=== PATIENT | male | born 1950 | race Caucasian/White ===

== ENCOUNTER 2016-11-02 11:00 | Inpatient (IN) ==
[2016-11-02] MEDS ORDERED: Aspirin 81 MG TAB.CHEW PO ONE (11:16)
--- NOTE | 2016-11-02 11:24 | Emergency Department Note ---
Disposition Clinical Impression: A-fib Qualifiers: Atrial fibrillation type: unspecified Qualified Code(s): I48.91 - Unspecified atrial fibrillation Disposition: Admitted As Inpatient Condition: Good Referrals: Matt Grajeda Jr, MD [Primary Care Provider] - Forms: ED Satisfaction Letter General Adult HPI - General Chief complaint: ED Chest Pain Stated complaint: a-fib, from UC Time Seen by Provider: 11/02/16 11:10 Source: patient Mode of arrival: ambulatory Limitations: no limitations Nursing Notes Reviewed: Yes Vital Signs Reviewed: Yes - History of Present Illness HPI Narrative: 66 YO M history of hypertension and remote stent placed 5 or 6 years ago presents for evaluation of shortness of breath and sent from urgent care for new onset A. fib. Patient denies a history of A. fib in the past. Patient states he has been feeling short of breath for the past 2 weeks. Denies any chest pain does feel as his heart is racing. Patient denies any fever. Denies any change in cough. Patient states that he does not take any medications. Seen in urgent care today for a rash, short of breath and difficulty sleeping. Pain Scale: 0 - Related Data Home Medications Medication Instructions Recorded Confirmed Ascorbate Calcium [Vitamin C] 500 mg PO DAILY 11/02/16 11/02/16 Aspirin 11/02/16 11/02/16 Multivitamin [Multi-Day Vitamins] 1 tab PO DAILY 11/02/16 11/02/16 [place]-3/Dha/Epa/Fish Oil [Fish Oil 1,000 mg PO DAILY 11/02/16 11/02/16 1,000 mg Softgel] Vitamin E 100 unit PO DAILY 11/02/16 11/02/16 Allergies Allergy/AdvReac Type Severity Reaction Status Date / Time No Known Allergies Allergy Verified 11/02/16 10:09 All systems ED: reviewed and negative except as stated. Constitutional: Reports: as per HPI. Denies: fever Eyes: Reports: as per HPI ENT ED: Reports: as per HPI Cardiovascular: Reports: as per HPI, palpitations. Denies: chest pain Respiratory: Reports: as per HPI, cough, dyspnea Gastrointestinal: Reports: as per HPI Genitourinary: Reports: as per HPI Musculoskeletal: Reports: as per HPI Integumentary: Reports: as per HPI Neurological: Reports: as per HPI Psychiatric: Reports: as per HPI Past Medical History - Past Medical History Medical history: Reports: atrial fibrillation, hyperlipidemia, other Psychiatric history: Reports: no psych history - Social History Smoking Status: Current every day smoker Smokeless Tobacco Status: No Alcohol use: Reports: occasionally Drug use: Reports: none Physical Exam - General Limitations: no limitations General appearance: alert - Head Head exam: atraumatic, normal inspection - Eye Eye exam: Present: normal appearance, EOMI - ENT ENT exam: normal exam, mucous membranes moist - Neck Neck exam: Present: normal inspection, trachea midline - Chest Chest inspection: Present: normal inspection, symmetric chest wall rise - Respiratory Respiratory exam: Present: normal lung sounds bilaterally. Absent: respiratory distress - Cardiovascular Cardiovascular exam: Present: tachycardia, irregular rhythm, normal heart sounds. Absent: systolic murmur - Abdominal Exam Abdominal exam: Present: soft, Non-Tender - Extremities Exam Extremities exam: Present: normal inspection. Absent: pedal edema - Back Exam Back exam: Present: normal inspection - Neurological Exam Neurological exam: Present: alert, CN II-XII intact - Psychiatric Psychiatric exam: Present: normal affect - Skin Skin exam: Present: warm, dry, intact, normal color, rash (Rash on his right lower extremity as well as anterior chest) Course Course Narrative: Patient seen and examined upon arrival. Patient was noted to be tachycardic with a rate in the 160s to 70s. Patient's blood pressure is been systolic in the 140s. Patient denies any chest pain. Patient denies any history of A. fib in the past. No anticoagulation. Patient states symptoms possible onset 2 weeks ago. Patient will get a cardiac evaluation, IV fluids, rate control, likely admission to the hospital service for further evaluation. - Reevaluation(s) Reevaluation #1: Patient's heart rate did not respond to initial bolus of 20 mg of Cardizem. Patient was started on a drip to help obtain better rate control. Patient's vitals are stable. Time: 12:22 Vital Signs Temperature 97.5 F L 11/02/16 11:09 Pulse Rate 163 11/02/16 11:09 Respiratory Rate 18 11/02/16 11:09 Blood Pressure 156/134 11/02/16 11:09 O2 Sat by Pulse Oximetry 96 11/02/16 11:09 Temperature 97.5 F L 11/02/16 11:09 Pulse Rate 118 11/02/16 12:51 Respiratory Rate 16 11/02/16 12:51 Blood Pressure 147/117 11/02/16 12:51 O2 Sat by Pulse Oximetry 93 11/02/16 12:51 Oxygen Delivery Oxygen Delivery Nasal Cannula Medical Decision Making - [facility] Narrative Medical decision making narrative: Patient presents with a new onset A. fib. Patient denies any chest pain but has been noting shortness of breath for the past 2 weeks. Patient's lab work reviewed. Patient does have a mildly elevated d-dimer but according to age adjusted d-dimer does not warrant any CTA of the chest to rule out any pulmonary embolism. Patient has a well score of 4 and a negative d-dimer effectively rules out a pulmonary embolism. Patient's heart rate was initially in the 170s and 80s. Patient was bolused with Cardizem as well as started on a drip. Patient's heart responded. Patient's blood pressures remained stable. Patient denies any specific pain. Patient got 4 baby aspirin in the emergency department and will be anticoagulated. - Lab Data Lab results reviewed: Yes I reviewed the patient's lab results. Result diagrams: 11/02/16 11:21 11/02/16 11:21 Lab Results 11/02/16 11/02/16 11/02/16 Range/Units 11:21 11:21 11:21 WBC 9.1 (4.3-11.1) K/mcL RBC 5.24 (4.19-5.50) M/mcL Hgb 16.1 (12.9-16.9) g/dL Hct 48.1 (37.5-50.1) % MCV 91.8 (83.0-100.0) fL MCH 30.7 (28.0-33.3) pg MCHC 33.5 (31.6-35.5) g/dL RDW 14.3 (11.5-14.5) % Plt Count 279 (140-400) K/mcL MPV 11.0 (9.4-12.4) fL Immature Gran % 0.6 (0-4) % Seg Neutrophils % 64.4 % Lymphocytes % 19.7 % Monocytes % 13.4 % Eosinophils % 1.1 % Basophils % 0.8 % Neutrophils # 5.9 (1.6-8.9) K/mcL Lymphocytes # 1.8 (0.6-4.6) K/mcL Monocytes # 1.2 (0.0-1.3) K/mcL Eosinophils # 0.1 (0.0-0.6) K/mcL Basophils # 0.1 (0.0-0.2) K/mcL PT 16.7 H (9.4-12.1) Seconds INR 1.5 APTT 33.3 (26.0-36.0) Seconds D-Dimer 598 H (0-500) ng/mLFEU Sodium (136-145) mEq/L Potassium (3.5-4.5) mEq/L Chloride (98-109) mEq/L Carbon Dioxide (19-29) mEq/L BUN (8-26) mg/dL Creatinine (0.72-1.25) mg/dL Est GFR ( Amer) (> 60) Est GFR (Non-Af Amer) (> 60) BUN/Creatinine Ratio (6-26) Glucose (70-99) mg/dL Calculated Osmolality (280-300) Calcium (8.6-10.8) mg/dL Phosphorus (2.3-4.7) mg/dL Magnesium (1.6-2.6) mg/dL Troponin I (0-0.03) ng/mL B-Natriuretic Peptide 239 H (0-100) pg/mL TSH (0.350-4.840) mcIU/mL 11/02/16 11/02/16 Range/Units 11:21 11:21 WBC (4.3-11.1) K/mcL RBC (4.19-5.50) M/mcL Hgb (12.9-16.9) g/dL Hct (37.5-50.1) % MCV (83.0-100.0) fL MCH (28.0-33.3) pg MCHC (31.6-35.5) g/dL RDW (11.5-14.5) % Plt Count (140-400) K/mcL MPV (9.4-12.4) fL Immature Gran % (0-4) % Seg Neutrophils % % Lymphocytes % % Monocytes % % Eosinophils % % Basophils % % Neutrophils # (1.6-8.9) K/mcL Lymphocytes # (0.6-4.6) K/mcL Monocytes # (0.0-1.3) K/mcL Eosinophils # (0.0-0.6) K/mcL Basophils # (0.0-0.2) K/mcL PT (9.4-12.1) Seconds INR APTT (26.0-36.0) Seconds D-Dimer (0-500) ng/mLFEU Sodium 137 (136-145) mEq/L Potassium 3.7 (3.5-4.5) mEq/L Chloride 104 (98-109) mEq/L Carbon Dioxide 23 (19-29) mEq/L BUN 14 (8-26) mg/dL Creatinine 1.18 (0.72-1.25) mg/dL Est GFR ( Amer) > 60 (> 60) Est GFR (Non-Af Amer) > 60 (> 60) BUN/Creatinine Ratio 12 (6-26) Glucose 103 H (70-99) mg/dL Calculated Osmolality 285 (280-300) Calcium 9.3 (8.6-10.8) mg/dL Phosphorus 2.9 (2.3-4.7) mg/dL Magnesium 2.0 (1.6-2.6) mg/dL Troponin I 0.02 (0-0.03) ng/mL B-Natriuretic Peptide (0-100) pg/mL TSH 1.136 (0.350-4.840) mcIU/mL - Radiology Data Radiology results reviewed: Yes I reviewed the patient's radiology results. Chest X-Ray 11/02/16 11:16 IMPRESSION: Vascular congestion with suggestion of early bibasilar interstitial edema. Left perihilar airspace disease may be due to edema, atelectasis or pneumonia. Small bilateral pleural effusions are suggested. D/ / Jhon Wade MD / Jhon Wade MD Interpreting Provider: Jhon Wade MD - EKG Data EKG #1 Rate: tachycardia Rhythm: A.Fib, torsades T wave inversions noted in: v5, v6 When compared to previous EKG there are: changes noted (2011) Interpretation: nonspecific ST-T wave changes, other (A. fib RVR) S.B.A.R. - S.B.A.R. Situation: Demographics Background: Presenting Complaint, Relevant PMH, Meds, & Allergies Assessment: Vital Signs, Course and respsone to treatment Recommendation: Barrier(s) to disposition, Recommendation based on pending studies, treatments, or consults Mica Report Given to: Dr. Aissatou Nino Repor Time: 13:18
--- NOTE | 2016-11-02 11:30 | Emergency Department Note ---
START Narrative - START START: I examined this patient and my medical decision-making was reviewed with the MIXING ENGINEER/PA/Advanced Practice Nurse/Resident Physician. I agree with the documented findings, disposition and treatment plan as described except to the extent set forth below. ED attending note: Patient seen with emergency medicine resident Dr Wooten. We independently evaluated the patient. We independently had [id number] contact with the patient. Please see a copy of his note for details of the history and physical, evaluation, management and disposition of this emergency Department patient. Briefly: 66-year-old male history of hypertension coronary artery disease and cardiac stent sent from urgent care for new onset atrial fibrillation. Patient says he is feeling palpitations denies chest pain. Systolic blood pressure in the 140s EKG shows atrial fibrillation with rapid ventricular response of 165 bpm. Patient is hemodynamically stabilizing at this time. Getting IV fluids and will be getting IV rate control. Provided 45 minutes of critical care services to this patient. Labs pending , admission anticipated.
[2016-11-02 11:31] LABS: Basophils # 0.1 K/mcL (0.0-0.2); Basophils % 0.8 %; Eosinophils # 0.1 K/mcL (0.0-0.6); Eosinophils % 1.1 %; Hematocrit 48.1 % (37.5-50.1); Hemoglobin 16.1 g/dL (12.9-16.9); Immature Granulocytes % 0.6 % (0-4); Lymphocytes # 1.8 K/mcL (0.6-4.6); Lymphocytes % 19.7 %; Mean Corpuscular HGB Conc 33.5 g/dL (31.6-35.5); Mean Corpuscular Hemoglobin 30.7 pg (28.0-33.3); Mean Corpuscular Volume 91.8 fL (83.0-100.0); Monocytes # 1.2 K/mcL (0.0-1.3); Monocytes % 13.4 %; Neutrophils # 5.9 K/mcL (1.6-8.9); Platelet Count 279 K/mcL (140-400); Red Blood Count 5.24 M/mcL (4.19-5.50); Red Cell Distribution Width 14.3 % (11.5-14.5); Segmented Neutrophils % 64.4 %
[2016-11-02 11:36] LABS: INR 1.5; Prothrombin Time 16.7 Seconds (9.4-12.1)
[2016-11-02 11:39] LABS: Activated Partial Thrombo Time 33.3 Seconds (26.0-36.0)
[2016-11-02 11:43] LABS: BUN/Creatinine Ratio 12 (6-26); Blood Urea Nitrogen 14 mg/dL (8-26); Calcium 9.3 mg/dL (8.6-10.8); Carbon Dioxide 23 mEq/L (19-29); Chloride 104 mEq/L (98-109); Glucose 103 mg/dL (70-99); Osmolality,Calculated 285 (280-300); Phosphorous 2.9 mg/dL (2.3-4.7); Potassium 3.7 mEq/L (3.5-4.5); Sodium 137 mEq/L (136-145); eGFR For African Americans > 60 (> 60); eGFR For Non-African Americans > 60 (> 60)
[2016-11-02 12:08] LABS: Thyroid Stimulating Hormone 1.136 mcIU/mL (0.350-4.840)
[2016-11-02] MEDS ORDERED: Acetaminophen 325 MG TABLET PO PRN (14:28)
[2016-11-02] MEDS ORDERED: Naloxone 0.4 MG/ML INJ IVP PRN (14:28)
--- NOTE | 2016-11-02 14:47 | Internal Med History&Physical ---
Date of Encounter: 11/02/16 Time of Encounter: 14:41 Assessment and Plan (1) Atrial fibrillation with rapid ventricular response Current visit: Yes Status: Acute This is a new onset of atrial fibrillation. Patient claims that he has ongoing shortness of breath/palpitations for more than 2 weeks. EKG suggestive of atrial fibrillation with rapid ventricular rate. Plan: -Admitted as an inpatient. -IV Cardizem to titrate the heart rate between 80 and 90. Oral Cardizem extended release started. -Cycle troponin. -Echocardiogram. -Anticoagulation: Weight-based Lovenox by pharmacy -If echocardiogram is abnormal/troponin elevated: Cardiology opinion for further management. -TSH is within normal limits (2) History of intravascular stent placement Current visit: Yes Status: Acute Patient is a remote history of stent placed. Patient is presently taking only aspirin. We will continue management for CAD. (3) DVT prophylaxis Current visit: Yes Status: Acute Lovenox medical decision making: This patient has a moderate to severe risk of worsening cardiac perfusion in spite of being on appropriate treatment. Internal Medicine - H&P: HPI Chief complaint: palpitations Admitted From: Emergency Dept Plans for Post Hospital Care: Home History of present illness: PCP : Dr Grajeda Cardiology : not known [place] PMH: CAD, HTN, HPI: Patient is a persistent shortness of breath on minimal exertion for the past 2 weeks. It was noted that since yesterday evening that his shortness of breath was getting worse. This morning patient went to urgent care for evaluation of the same. Patient was evaluated at urgent care at [facility]. During the evaluation and was noted that patient's heart rate was more than 120. Urgent care provider requested patient to go to emergency room with EMS. Patient refused to come here with EMS. Patient came to this emergency room by his own vehicle. Patient denies chest pain, vomiting, nausea, abdominal pain or diarrhea. Patient claims that around 5-6 years back he underwent cardiac catheterization and at that time stent was placed. Patient able that presently he is taking only baby aspirin and no other medications. Course in the emergency room: Patient was evaluated in the emergency room. EKG was suggestive of atrial fibrillation with rapid ventricular rate. Patient was started on IV Cardizem. Reason for admission: Atrial fibrillation with rapid ventricular rate which requires intravenous medication to control the same. Still not possible at the home setting. Patient requires intense monitoring and hospitalization for the same. Family history: Noncontributory Past Med Surg Social Fam HX - Past Medical History Medical history: atrial fibrillation, hyperlipidemia, other Psychiatric history: no psych history - Social History Smoking Status: Current every day smoker Smokeless Tobacco Status: No Alcohol use: occasionally Drug use: none Internal Medicine - H&P: Meds Ascorbate Calcium [Vitamin C] 500 mg PO DAILY 11/02/16 [History] Aspirin 325 mg PO DAILY 11/02/16 [History] Multivitamin [Multi-Day Vitamins] 1 tab PO DAILY 11/02/16 [History] [place]-3/Dha/Epa/Fish Oil [Fish Oil 1,000 mg Softgel] 1,000 mg PO DAILY 11/02/16 [History] Vitamin E 100 unit PO DAILY 11/02/16 [History] Allergies No Known Allergies Allergy (Verified 11/02/16 10:09) All Systems PM: A 10-system review of systems was performed and is negative for pertinent findings except as documented above in the HPI. - Constitutional Constitutional: no chills, no fever(s), no night sweats - EENT Eyes: no change in vision, no discharge, no pain, no photophobia Ears: no ear discharge, no ear pain, no tinnitus Nose, mouth and throat: no dysphagia, no nasal discharge, no neck pain, no sore throat - Cardiovascular Cardiovascular ROS IM: no chest pain, no diaphoresis, no dyspnea, no lightheadedness, no palpitations, no syncope - Respiratory Respiratory: no cough, no dyspnea, no wheezing, no excessive phlegm production - Gastrointestinal Gastrointestinal: no abdominal pain, no diarrhea, no hematemesis, no hematochezia, no melena, no nausea, no vomiting - Musculoskeletal Musculoskeletal ROS IM: no numbness, no tingling - Integumentary Integumentary IM: no rash, no unusual bruising - Neurological Neurological ROS: no confusion, no convulsions, no focal weakness, no numbness, no tingling, no tremor(s) - Hematologic/Lymphatic Hematologic/Lymphatic: no easy bruising - Constitutional Vitals: Temp Pulse Resp BP Pulse Ox 97.4 F L 116 20 139/122 96 11/02/16 14:36 11/02/16 14:36 11/02/16 14:36 11/02/16 14:36 11/02/16 14:36 General appearance: Present: A&O X 3, pleasant, no acute distress, answers questions appropriately - Head Head exam: Present: atraumatic, normocephalic - Eye Eye exam: Present: PERRL, conjuntiva pink, sclera anicteric Pupils: Present: PERRL - Neck Neck exam general surgery: Present: supple, trachea midline. Absent: lymphadenopathy - Respiratory Respiratory exam: Present: CTAB. Absent: accessory muscle use, rales, rhonchi, wheezes - Cardiovascular Cardiovascular exam: Present: RRR, +S1, +S2. Absent: diastolic murmur, gallop, rubs, systolic murmur - GI/Abdominal GI/Abdominal exam: Present: normal bowel sounds, soft, no peritoneal signs. Absent: distended, tenderness - Extremities Exam Extremities exam: Present: warm, radial pulses palpable and symetrical. Absent : calf tenderness, cyanotic, pedal edema - Neurological Exam Neurological exam: Present: CN II-XII intact, oriented X3, no focal deficits. Absent: pronater drift, facial droop, speech deficit - Skin Skin exam: Present: dry, intact Internal Med - H&P Results - Labs CBC & Chem 7: 11/02/16 11:21 11/02/16 11:21 Labs: Results discussed with the emergency room physician.
[2016-11-02] MEDS ORDERED: Diltiazem CD (24hr) 120 MG CAPSULE PO ONE (16:56)
[2016-11-02] MEDS: *HR* Enoxaparin 100 MG/ML SYRINGE SQ SCH (17:42)
[2016-11-03 00:45] LABS: Alanine Aminotransferase 24 Units/L (0-55); Albumin 3.1 g/dL (3.5-5.0); Alkaline Phosphatase 52 Units/L (38-126); Aspartate Amino Transferase 20 Units/L (5-34); BUN/Creatinine Ratio 12 (6-26); Blood Urea Nitrogen 14 mg/dL (8-26); Calcium 8.9 mg/dL (8.6-10.8); Carbon Dioxide 24 mEq/L (19-29); Chloride 103 mEq/L (98-109); Glucose 84 mg/dL (70-99); Osmolality,Calculated 282 (280-300); Potassium 3.6 mEq/L (3.5-4.5); Sodium 136 mEq/L (136-145); Total Protein 6.1 g/dL (6.0-8.3); eGFR For African Americans > 60 (> 60); eGFR For Non-African Americans > 60 (> 60)
[2016-11-03] MEDS: *HR* Enoxaparin 100 MG/ML SYRINGE SQ SCH ×2 (05:42→17:22)
[2016-11-03] MEDS ORDERED: Diltiazem CD (24hr) 120 MG CAPSULE PO SCH (09:00)
[2016-11-03] MEDS: Aspirin 81 MG TAB.CHEW PO SCH (09:27)
--- NOTE | 2016-11-03 13:25 | Internal Med Progress Note ---
<DivinaLaura - Last Filed: 11/03/16 16:18> Date of Encounter: 11/03/16 Time of Encounter: 10:00 - Assessment and plan (1) Atrial fibrillation with rapid ventricular response Current Visit: Yes Status: Acute Assessment and plan: Patient came in with CC of SOB and palpitations. EKG showed Afib RVR, patient denies having history of Afib. tropes x4 negative. CHADS2/VASC score: 4 Etiology unclear at this time. TSH normal. BNP: 239 CXR showed vascular congestion with suggestion of early bibasilar interstitial edema, left perihilar arispace disease may be due to edema, atalectasis, or pneumonia. Small bilateral pleural effusions were present. CTA negative for PE, showed moderate bilateral pleural effusions with adjacent compressive atalectasis of both lung bases. more focal patchy airspace consolidation involving the left upper lobe and superior segment left lower lobe concerning for pneumonia. Echo showed LVEF 55-60%, normal LV chamber size, wall thickness, function, indeterminate diastolic function, normal RV structure and function, moderately calcified aortic valve leaflets, mild aortic regurg, mild aortic stenosis suggested by doppler, moderate to severe mitral regurg, no evidence of pulmonary hypertension. Plan: etiology of Afib RVR likely secondary to pneumonia and pleural effusions. IV cardizem continue Cardizem PO 120mg daily started metoprolol 25mg BID Lovenox. will discuss assistant terminal manager anticoagulation blood culture x2 pending ceftriaxone, azithromycin IV lasix 40mg BID (2) Community acquired pneumonia Current Visit: Yes Status: Acute Assessment and plan: plan as above (3) Shortness of breath Current Visit: Yes Status: Acute Assessment and plan: etiology likely secondary to pleural effusions and pneumonia. CTA negative for PE. (4) History of intravascular stent placement Current Visit: Yes Status: Acute Assessment and plan: patient has hx of CAD. C in 07/2011 that showed 80% stenosis in proximal to mid left LAD, 50-60% stenosis in mid left circumflex, chronically occluded proximal right coronary artery, distal RCA receiving collaterals from distal circumflex and proximal RCA , LVEF>60%, mild hypokinesis of inferobasal wall of left ventricle. s/p ANNETTE to mid LAD. patient states he used to be on metoprolol 25mg BID, then stopped taking it because his Rx ran out, and it was never refille.d Plan: continue ASA, atorvastatin, started metoprolol. (5) Tobacco abuse Current Visit: Yes Status: Acute Assessment and plan: patient has hx of smoking 1PPD for 20 years. patient counseled on importance of smoking cessation and risk factors associated with it. Plan: nicotine patch PRN (6) DVT prophylaxis Current Visit: Yes Status: Acute Assessment and plan: Lovenox - Subjective Interval history: 66 year old male evaluated at bedside. he denies CP, dizziness, had mild shortness of breath. He denies nausea, vomiting, diarrhea, fever, chills. He denies any history of stroke, denies hx of diabetes He has smoked PPD for the past 20 years. he has no other complaints today. - Constitutional Vitals: Temp Pulse Resp BP Pulse Ox 98.1 F 80 15 129/95 93 11/03/16 07:00 11/03/16 07:00 11/03/16 07:00 11/03/16 07:00 11/03/16 07:00 General appearance: Present: A&O X 3, pleasant, no acute distress, answers questions appropriately - Head Head exam: Present: atraumatic, normocephalic - Eye Eye exam: Present: conjuntiva pink - Neck Neck exam general surgery: Present: supple, trachea midline - Respiratory Respiratory exam: Present: rales (bilateral lower lobe rales.) - Cardiovascular Cardiovascular exam: Present: irregular rhythm, tachycardia - GI/Abdominal GI/Abdominal exam: Present: distended, normal bowel sounds, soft, no peritoneal signs. Absent: tenderness - Extremities Exam Extremities exam: Absent: cyanotic, pedal edema Additional comments: rash present on right schin. - Neurological Exam Neurological exam: Present: alert, oriented X3, no focal deficits Internal Medicine: Result - Labs CBC & Chem 7: 11/02/16 11:21 11/03/16 00:19 Labs: BMP 11/03/16 00:19 Sodium 136 Potassium 3.6 Chloride 103 Carbon Dioxide 24 BUN 14 Creatinine 1.15 Glucose 84 Calcium 8.9 Cardiac Enzymes 11/02/16 11/03/16 11/03/16 Range/Units 17:11 00:19 05:49 Troponin I 0.02 0.02 0.02 (0-0.03) ng/mL Liver Function 11/03/16 Range/Units 00:19 Total Bilirubin 1.0 (0.2-1.2) mg/dL AST 20 (5-34) Units/L ALT 24 (0-55) Units/L Alkaline Phosphatase 52 (38-126) Units/L Albumin 3.1 L (3.5-5.0) g/dL - ABG Interpretation ABG results: PT/INR, D-dimer PT 16.7 Seconds (9.4-12.1) H 11/02/16 11:21 D-Dimer 598 ng/mLFEU (0-500) H 11/02/16 11:21 Consult Discharge Plan - Plan Referrals: Rachel Rod CNP [Partnered Physician] - 11/10/16 10:40 am <Matheus Duron - Last Filed: 11/03/16 17:49> Date of Encounter: 11/03/16 - Assessment and plan (1) Acute respiratory failure with hypoxia Current Visit: Yes Status: Acute Assessment and plan: Most likely due to pleural effusions and pneumonia. Oxygen supplementation. (2) Pneumonia Current Visit: Yes Status: Suspected Assessment and plan: IV abx started. Follow symptomatically. Qualifiers: Pneumonia type: due to Pneumococcus Laterality: left Lung location: upper lobe of lung Qualified Code(s): J13 - Pneumonia due to Streptococcus pneumoniae (3) A-fib Current Visit: Yes Status: Acute Assessment and plan: Rate control. Qualifiers: Atrial fibrillation type: persistent Qualified Code(s): I48.1 - Persistent atrial fibrillation (4) Tobacco abuse Current Visit: Yes Status: Acute (5) Contact dermatitis Current Visit: Yes Status: Acute Assessment and plan: R lower leg. Bactroban added for bacterial coverage. Qualifiers: Contact dermatitis type: allergic Contact dermatitis trigger: other trigger Qualified Code(s): L23.89 - Allergic contact dermatitis due to other agents; L23.8 - Allergic contact dermatitis due to other agents - Constitutional Vitals: Temp Pulse Resp BP Pulse Ox 98.1 F 103 17 114/92 93 11/03/16 07:00 11/03/16 15:00 11/03/16 15:00 11/03/16 15:00 11/03/16 15:00 Internal Medicine: Result - Labs CBC & Chem 7: 11/02/16 11:21 11/03/16 00:19 Labs: BMP 11/03/16 00:19 Sodium 136 Potassium 3.6 Chloride 103 Carbon Dioxide 24 BUN 14 Creatinine 1.15 Glucose 84 Calcium 8.9 Cardiac Enzymes 11/02/16 11/03/16 11/03/16 Range/Units 17:11 00:19 05:49 Troponin I 0.02 0.02 0.02 (0-0.03) ng/mL Liver Function 11/03/16 Range/Units 00:19 Total Bilirubin 1.0 (0.2-1.2) mg/dL AST 20 (5-34) Units/L ALT 24 (0-55) Units/L Alkaline Phosphatase 52 (38-126) Units/L Albumin 3.1 L (3.5-5.0) g/dL - ABG Interpretation ABG results: PT/INR, D-dimer PT 16.7 Seconds (9.4-12.1) H 11/02/16 11:21 D-Dimer 598 ng/mLFEU (0-500) H 11/02/16 11:21 - Impressions Impressions Chest CTA 11/03/16 13:24 IMPRESSION: No evidence of pulmonary embolism. There are moderate bilateral pleural effusions with adjacent compressive atelectasis in both lung bases. There is more focal patchy airspace consolidation involving the left upper lobe and superior segment left lower lobe concerning for superimposed pneumonia. Findings suggestive of mild edema. D/ / Zahira Borges MD / Zahira Borges MD Interpreting Provider: Zahira Borges MD - Attending Attestation I examined this patient and my medical decision-making was reviewed with the Resident Physician on 11/03/16. I agree with the documented findings, disposition and treatment plan as described except to the extent set forth below. Mr. Bowen is currently admitted for acute hypoxic resp failure and rapid atrial fibrillation. He is moderate to high risk due to potential worsening of respiratory status. Mr. Bowen feels OK but is still on oxygen. He denies chest pain currently. No fever or chills. No GI symptoms CTA shows L side infiltrate. Exam Alert. Comfortable Heart irreg - not tachy now Lungs diminished No edema CTA - L infiltrate and bilateral effusion I/P 1. L side CAP 2. B/L pleural effusions 3. Hypoxia Further diagnoses and plan as above.
[2016-11-03] MEDS ORDERED: Nicotine 14 MG PATCH.TD24 TD PRN (13:29)
--- NOTE | 2016-11-03 14:54 | ECHO - Doppler Report ---
Echocardiogram Name: Finn Bowen Date of Study: 11/03/2016 Date: 1950 Ht: 71.0 in Medical Record#: [id number] Age: 66 Wt: 195.0 lb Gender: Male BSA: 2.09 Order #: [id number] Location: [facility] Room #: 2NE31 Reading Physician: Chauncey Mora DO, FACGerda, ELGIN JANE Anchor Tacker: Madeline Hawkins Ordering Physician: Hieu Reyez MD Primary Physician: Matt Grajeda MD Indications: Afib new Impressions: Atrial fibrillation with RVR. LVEF 55-60%. Normal LV chamber size, wall thickness and function. Indeterminate diastolic function. Normal right ventricular structure and function. Moderately calcified aortic valve leaflets. At least mild aortic regurgitation, which was not well evaluated due to tachycardia. Mild aortic stenosis suggested by Doppler. Mean gradient 16 mmHg. Moderate-severe mitral regurgitation. No evidence of pulmonary hypertension. Left Ventricular Wall Motion: Rest Echo Findings All wall segments showed normal motion. Findings: Study Quality * Technically adequate exam. ECG Findings * Atrial fibrillation with RVR. Left Ventricle * LVEF 55-60%. * Normal LV chamber size, wall thickness and function. * Indeterminate diastolic function. Right Ventricle * Normal right ventricular structure and function. Left Atrium * Moderate to severely dilated left atrium. Right Atrium * Mild to moderately dilated right atrium. Interatrial Septum * No evidence of PFO by color Doppler. Aortic Valve * Aortic valve not well visualized. * Moderately calcified aortic valve leaflets. * At least mild aortic regurgitation, which was not well evaluated due to tachycardia. * Mild aortic stenosis suggested by Doppler. Mean gradient 16 mmHg. Mitral Valve * Mildly thickened mitral valve leaflets. Mild calcification of the anterior MV leaflet. * Mild mitral annular calcification. * Moderate-severe mitral regurgitation. * No mitral stenosis. Tricuspid Valve * Normal tricuspid valve structure and function. * Trace tricuspid regurgitation. * No evidence of pulmonary hypertension. Pulmonic Valve * Normal pulmonic valve structure and function. * Trace pulmonic regurgitation. Aorta * Normally sized aortic root. Pericardium * The pericardium appears normal. History Hypertension Hypercholesteremia Rheumatic Fever History of Smoking Years 20 Packs 1 Family History of CAD History of CAD/PTCA 07/17/2011 a Previous Echo was performed. Measurements: BP: 129/ 95 2D Normal Values RVIDd: 3.20 cm <2.7 cm IVSd: 1.20 cm 0.6 - 1.0 cm LVIDd: 4.30 cm 3.7 - 5.6 cm LVPWd: 1.20 cm 0.6 - 1.1 cm LVIDs: 3.10 cm 1.5 - 3.6 cm AO: 3.40 cm < 4.0 cm LA: 4.10 cm 2.0 - 4.0cm %FS: 27.90 cm >25 % LVOT Diam: 1.95 cm LA volume: 70 Mitral Valve Peak E:1.30 m/sec Peak E' Lat Flako:10.1 cm/s Peak E' Med Flako:8.68 cm/s E/E' Lat Ratio:12.9 E/E' Med Ratio:15 LVOT Peak Flako:1.09 m/sec Mean Flako:.68 m/sec Peak Grad:5.00 mmHg Mean Grad:2.00 mmHg Aortic Valve Peak Flako:2.84 m/sec Mean Flako:2.04 m/sec Peak Grad:32.00 mmHg Mean Grad:18.00 mmHg Valve Area:1.12 cm2 AI pressure Half-time: 372.00 msec Tricuspid Valve TV Regurg Peak Grad: 24.00mmHg TV Regurg Peak Flako: 2.43m/sec Updated by Chauncey Mora DO, FACGerda, BUCK, ELGIN on 11/03/2016 2:46:48 PM electronically signed on 11/03/2016 2:48:11 PM with status of Final Wall Motion Davis: 1=Normal, 2=Hypokinesis, 3=Akinesis, 4=Dyskinesis, 5=Aneurysmal, 6=Hyperkinetic, X=Not Visualized (Blank)=Missing
[2016-11-03] MEDS ORDERED: Azithromycin 500 MG in D5% in Water 250 ML IVPB ONE (16:13)
[2016-11-03] MEDS: Azithromycin 500 MG in D5% in Water 250 ML IVPB SCH (17:21)
[2016-11-03] MEDS ORDERED: hydrOXYzine pamoate 25 MG CAPSULE PO ONE (20:39)
[2016-11-03] MEDS: Furosemide 40 MG/4 ML VIAL IVP SCH (21:05)
--- NOTE | 2016-11-03 22:34 | Electrocardiograph Report ---
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
[2016-11-04 05:05] LABS: Basophils # 0.1 K/mcL (0.0-0.2); Basophils % 0.8 %; Eosinophils # 0.2 K/mcL (0.0-0.6); Eosinophils % 1.9 %; Hematocrit 44.7 % (37.5-50.1); Hemoglobin 14.8 g/dL (12.9-16.9); Immature Granulocytes % 0.4 % (0-4); Lymphocytes # 1.9 K/mcL (0.6-4.6); Lymphocytes % 23.6 %; Mean Corpuscular HGB Conc 33.1 g/dL (31.6-35.5); Mean Corpuscular Hemoglobin 30.1 pg (28.0-33.3); Mean Platelet Volume 11.1 fL (9.4-12.4); Monocytes # 1.2 K/mcL (0.0-1.3); Monocytes % 15.3 %; Neutrophils # 4.5 K/mcL (1.6-8.9); Platelet Count 267 K/mcL (140-400); Red Blood Count 4.91 M/mcL (4.19-5.50); Red Cell Distribution Width 14.1 % (11.5-14.5)
[2016-11-04 05:26] LABS: Alanine Aminotransferase 23 Units/L (0-55); Albumin 3.1 g/dL (3.5-5.0); Alkaline Phosphatase 58 Units/L (38-126); Aspartate Amino Transferase 18 Units/L (5-34); BUN/Creatinine Ratio 13 (6-26); Bilirubin,Total 0.7 mg/dL (0.2-1.2); Blood Urea Nitrogen 16 mg/dL (8-26); Calcium 9.1 mg/dL (8.6-10.8); Carbon Dioxide 22 mEq/L (19-29); Chloride 102 mEq/L (98-109); Globulin 3.1 g/dL (2.4-3.5); Glucose 94 mg/dL (70-99); Osmolality,Calculated 281 (280-300); Potassium 3.7 mEq/L (3.5-4.5); Sodium 135 mEq/L (136-145); Total Protein 6.2 g/dL (6.0-8.3); eGFR For African Americans > 60 (> 60); eGFR For Non-African Americans 59 (> 60)
[2016-11-04] MEDS: *HR* Enoxaparin 100 MG/ML SYRINGE SQ SCH ×2 (06:02→17:04)
[2016-11-04] MEDS ORDERED: Diltiazem CD (24hr) 180 MG CAPSULE PO SCH ×2 (09:00→10:15)
[2016-11-04] MEDS: Aspirin 81 MG TAB.CHEW PO SCH (09:21)
[2016-11-04] MEDS: Furosemide 40 MG/4 ML VIAL IVP SCH ×2 (09:25→21:00)
--- NOTE | 2016-11-04 10:25 | Internal Med Progress Note ---
<DivinaLaura - Last Filed: 11/04/16 10:32> Date of Encounter: 11/04/16 Time of Encounter: 10:22 - Assessment and plan (1) Atrial fibrillation with rapid ventricular response Current Visit: Yes Status: Acute Assessment and plan: Patient came in with CC of SOB and palpitations. EKG showed Afib RVR, patient denies having history of Afib. tropes x4 negative. CHADS2/VASC score: 4 Etiology unclear at this time. TSH normal. BNP: 239 CXR showed vascular congestion with suggestion of early bibasilar interstitial edema, left perihilar arispace disease may be due to edema, atalectasis, or pneumonia. Small bilateral pleural effusions were present. CTA negative for PE, showed moderate bilateral pleural effusions with adjacent compressive atalectasis of both lung bases. more focal patchy airspace consolidation involving the left upper lobe and superior segment left lower lobe concerning for pneumonia. Echo showed LVEF 55-60%, normal LV chamber size, wall thickness, function, indeterminate diastolic function, normal RV structure and function, moderately calcified aortic valve leaflets, mild aortic regurg, mild aortic stenosis suggested by doppler, moderate to severe mitral regurg, no evidence of pulmonary hypertension. Plan: etiology of Afib RVR likely secondary to pneumonia and pleural effusions. IV cardizem stopped increased PO cardizem to 180 daily, and will monitor- patient still remains tachycardic. started metoprolol 25mg BID Lovenox for anticoagulation, will watters check Xarelto for halfway anticoagulation. blood culture x2 pending ceftriaxone, azithromycin day 2 IV lasix 40mg BID for pleural effusions, monitor I/O Consult to cardiology for recommendations. (2) Community acquired pneumonia Current Visit: Yes Status: Acute Assessment and plan: plan as above (3) Shortness of breath Current Visit: Yes Status: Acute Assessment and plan: etiology likely secondary to pleural effusions and pneumonia. CTA negative for PE. (4) History of intravascular stent placement Current Visit: Yes Status: Acute Assessment and plan: patient has hx of CAD. C in 07/2011 that showed 80% stenosis in proximal to mid left LAD, 50-60% stenosis in mid left circumflex, chronically occluded proximal right coronary artery, distal RCA receiving collaterals from distal circumflex and proximal RCA , LVEF>60%, mild hypokinesis of inferobasal wall of left ventricle. s/p ANNETTE to mid LAD. patient states he used to be on metoprolol 25mg BID, then stopped taking it because his Rx ran out, and it was never refille.d Plan: continue ASA, atorvastatin, started metoprolol. (5) Tobacco abuse Current Visit: Yes Status: Acute Assessment and plan: patient has hx of smoking 1PPD for 20 years. patient counseled on importance of smoking cessation and risk factors associated with it. Plan: nicotine patch PRN (6) DVT prophylaxis Current Visit: Yes Status: Acute Assessment and plan: Lovenox - Subjective Interval history: 66 year old male evaluated at bedside. he denies CP, dizziness, had mild shortness of breath. He denies nausea, vomiting, diarrhea, fever, chills. He denies any chest pain today. - Constitutional Vitals: Temp Pulse Resp BP Pulse Ox 97.3 F L 105 18 144/111 95 11/04/16 07:33 11/04/16 07:33 11/04/16 07:33 11/04/16 07:33 11/04/16 07:33 General appearance: Present: A&O X 3, pleasant, no acute distress, answers questions appropriately - Head Head exam: Present: atraumatic, normocephalic - Neck Neck exam general surgery: Present: supple, trachea midline - Respiratory Respiratory exam: Present: CTAB - Cardiovascular Cardiovascular exam: Present: irregular rhythm, tachycardia - GI/Abdominal GI/Abdominal exam: Present: normal bowel sounds, soft. Absent: distended, tenderness - Extremities Exam Extremities exam: Present: normal capillary refill. Absent: cyanotic, pedal edema - Neurological Exam Neurological exam: Present: alert, oriented X3, no focal deficits - Psychiatric Psychiatric exam: Present: anxious - Skin Additional comments: rash on right lower leg Internal Medicine: Result - Labs CBC & Chem 7: 11/04/16 04:08 11/04/16 04:08 Labs: Short CBC 11/04/16 Range/Units 04:08 WBC 7.8 (4.3-11.1) K/mcL Hgb 14.8 (12.9-16.9) g/dL Hct 44.7 (37.5-50.1) % Plt Count 267 (140-400) K/mcL Neutrophils # 4.5 (1.6-8.9) K/mcL BMP 11/04/16 04:08 Sodium 135 L Potassium 3.7 Chloride 102 Carbon Dioxide 22 BUN 16 Creatinine 1.23 Glucose 94 Calcium 9.1 Liver Function 11/04/16 Range/Units 04:08 Total Bilirubin 0.7 (0.2-1.2) mg/dL AST 18 (5-34) Units/L ALT 23 (0-55) Units/L Alkaline Phosphatase 58 (38-126) Units/L Albumin 3.1 L (3.5-5.0) g/dL - ABG Interpretation ABG results: PT/INR, D-dimer PT 16.7 Seconds (9.4-12.1) H 11/02/16 11:21 D-Dimer 598 ng/mLFEU (0-500) H 11/02/16 11:21 - Impressions Impressions Chest CTA 11/03/16 13:24 IMPRESSION: No evidence of pulmonary embolism. There are moderate bilateral pleural effusions with adjacent compressive atelectasis in both lung bases. There is more focal patchy airspace consolidation involving the left upper lobe and superior segment left lower lobe concerning for superimposed pneumonia. Findings suggestive of mild edema. D/ / Zahira Borges MD / Zahira Borges MD Interpreting Provider: Zahira Borges MD Consult Discharge Plan - Plan Referrals: Rachel Rod, GONZALO [Partnered Physician] - 11/10/16 10:40 am <Matheus Duron - Last Filed: 11/04/16 13:31> Date of Encounter: 11/04/16 - Assessment and plan (1) Acute respiratory failure with hypoxia Current Visit: Yes Status: Acute Assessment and plan: Wean oxygen as able. (2) Pneumonia Current Visit: Yes Status: Suspected Assessment and plan: On IV abx. Qualifiers: Pneumonia type: due to Pneumococcus Laterality: left Lung location: upper lobe of lung Qualified Code(s): J13 - Pneumonia due to Streptococcus pneumoniae (3) A-fib Current Visit: Yes Status: Acute Assessment and plan: Cardiology to eval. Héctor jacobsen Xarelto. Qualifiers: Atrial fibrillation type: persistent Qualified Code(s): I48.1 - Persistent atrial fibrillation (4) Tobacco abuse Current Visit: Yes Status: Chronic (5) Contact dermatitis Current Visit: Yes Status: Acute Assessment and plan: No change. Continue cream. Qualifiers: Contact dermatitis type: allergic Contact dermatitis trigger: other trigger Qualified Code(s): L23.89 - Allergic contact dermatitis due to other agents; L23.8 - Allergic contact dermatitis due to other agents - Constitutional Vitals: Temp Pulse Resp BP Pulse Ox 97.5 F L 128 18 130/99 94 11/04/16 11:40 11/04/16 11:40 11/04/16 11:40 11/04/16 11:40 11/04/16 11:40 Internal Medicine: Result - Labs CBC & Chem 7: 11/04/16 04:08 11/04/16 04:08 Labs: Short CBC 11/04/16 Range/Units 04:08 WBC 7.8 (4.3-11.1) K/mcL Hgb 14.8 (12.9-16.9) g/dL Hct 44.7 (37.5-50.1) % Plt Count 267 (140-400) K/mcL Neutrophils # 4.5 (1.6-8.9) K/mcL BMP 11/04/16 04:08 Sodium 135 L Potassium 3.7 Chloride 102 Carbon Dioxide 22 BUN 16 Creatinine 1.23 Glucose 94 Calcium 9.1 Liver Function 11/04/16 Range/Units 04:08 Total Bilirubin 0.7 (0.2-1.2) mg/dL AST 18 (5-34) Units/L ALT 23 (0-55) Units/L Alkaline Phosphatase 58 (38-126) Units/L Albumin 3.1 L (3.5-5.0) g/dL - ABG Interpretation ABG results: PT/INR, D-dimer PT 16.7 Seconds (9.4-12.1) H 11/02/16 11:21 D-Dimer 598 ng/mLFEU (0-500) H 11/02/16 11:21 - Impressions Impressions Chest CTA 11/03/16 13:24 IMPRESSION: No evidence of pulmonary embolism. There are moderate bilateral pleural effusions with adjacent compressive atelectasis in both lung bases. There is more focal patchy airspace consolidation involving the left upper lobe and superior segment left lower lobe concerning for superimposed pneumonia. Findings suggestive of mild edema. D/ / Zahira Borges MD / Zahira Borges MD Interpreting Provider: Zahira Borges MD - Attending Attestation I examined this patient and my medical decision-making was reviewed with the Resident Physician on 11/04/16. I agree with the documented findings, disposition and treatment plan as described except to the extent set forth below. Mr. Bowen is currently admitted for new atrial fibrillation and dyspnea/ hypoxemia with pneumonia. He is moderate to high risk due to potential for worsening respiratory status. Mr. Bowen is feeling OK. He is concerned about his heart rate still being elevated. No CP. Still some dyspnea but seems better than yesterday. Checking on prices of Xarelto for him. Exam Alert. Comfortable. Heart irreg and tachy Lungs diminished I/P 1. Persistent a fib with RVR - card to see 2. Bilateral pleural effusions 3. MESHA pneumonia Further diagnoses and plan as above.
--- NOTE | 2016-11-04 11:38 | Cardiology Consult Note ---
Date of Encounter: 11/04/16 Time of Encounter: 11:34 Assessment and Plan (1) Community acquired pneumonia Current Visit: Yes Status: Acute Per cardiology: -Focal patchy airspace disease consolidation involving left upper lobe and superior segment left lower lobe concerning for superimposed pneumonia. -On ATB per primary service. -Management per primary service. -May be contributing to atrial fibrillation. (2) Atrial fibrillation with rapid ventricular response Current Visit: Yes Status: Acute Per cardiology: -New onset atrial fibrillation in the setting of pneumonia. -ECG with a.fib RVR, HR 165 on 11/02/16. -On cardizem CD 180 po daily per primary service, of note this was increased from 120mg today per primary service. -Had previously been on cardizem drip. -On lopressor 25mg po BID. -Patient denies bleeding or blood loss. Patient denies falls. Hemoglobin and hematocrit stable. -On lovenox 1mg/kg for anticoagulation. -[id number] score 3? (age, HTN, DM?). Recommend snf anticoagulation. Xarelto already being watters checked per primary service, however patient now with moderate to severe MR. Per discussion with recommend starting coumadin. -Telemetry reviewed with average HR previous 12 hours noted to be 117. -Will increase lopressor to 50mg BID. -Will start coumadin pharmacy to dose. -Will continue to follow. (3) CAD (coronary artery disease) Current Visit: Yes Status: Chronic Per cardiology: -Known history of CAD with [facility] 07/2011 with high grade LAD stenosis with ANNETTE, occluded RCA with Left to right collaterals, 50-60% circumflex. -Patient denies chest pain. -ECG with no ischemic changes, -On asa, statin, beta francisca. -Troponins negative x4. -Echocardiogram 11/03/16 with LVEF 55-60%, indeterminate diastolic function, moderately calcified aortic valve leaflets, at least mild aortic regurgitation, not well evaluated due to tachycardia, mild aortic stenosis with mean gradiant 16mmHg, moderate to severe mitral regurgitation, all wall segments with normal motion. -Will order non-excercise nuclear stress test for tomorrow for further ischemic evaluation. -Will continue to follow. Qualifiers: Coronary Disease-Associated Artery/Lesion type: [place] artery [place] vs. transplanted heart: [place] heart Associated angina: without angina Qualified Code(s): I25.10 - Atherosclerotic heart disease of [place] coronary artery without angina pectoris (4) Hypertension Current Visit: Yes Status: Chronic Per cardiology: -Known history of hypertension, -BPs currently 120-150s systolic -On beta francisca and calcium channerl francisca. -Will increase beta francisca -Continue to monitor BPs. Qualifiers: Hypertension type: essential hypertension Qualified Code(s): I10 - Essential (primary) hypertension (5) Tobacco abuse Current Visit: Yes Status: Chronic Per cardiology: -KNown history of tobacco abuse. -Patient states he smoked 1 pack per day. -I spent 3-5 minutes reviewing smoking cessation education. (6) Mitral regurgitation Current Visit: Yes Status: Acute Per cardiology: -Moderate to severe mitral regurgitation on echocardiogram 11/03/16. -Of note, pateint had stress echocardiogram 2010 which showed thickened mitral valve, with normal function. -Patient denies previous history of mitral regurgitation. -Murmur noted on exam. -Patient euvolemic on exam. -Can consider DEMETRIUS to further evaluate valve in outpatient setting, once patient is recovered from pneumonia. -Will continue to follow Qualifiers: Cardiac valve disease etiology: etiology unspecified Qualified Code(s): I34.0 - Nonrheumatic mitral (valve) insufficiency Discussion w patient/family: The assessment and plan as outlined above was discussed with the patient who expressed understanding and agreement. All questions were answered. Thank you for involving us in the care of your patient. Please call with any questions. Discussed and reviewed with . History of Present Illness Consult date: 11/04/16 Requesting physician: Laura Graff Consult reason: new a.fib RVR Chief complaint: shortness of breath History of present illness: Mr. Bowen is a 66 year old male with a relevant past medical history of HTN, hyperlipidemia, CAD, s/p stent placement. Patient presented to [facility] with complaints of increased shortness of breath for the past 2 weeks. Patient was noted to have pneumonia per chest CT and atrial fibrillation with RVR. Patient was admitted 11/02/16, cardiology was consulted today for further recomendations for a.fib RVR. Patient states he did not know that his heart was out of rhythm. Patient also states he did not know his heart rate was high. Patient denies chest pain. Patient admits to shortness of breath and fatigue. Patient denies peripheral edema. Past Med Surg Social Fam HX - Past Medical History Source: patient, old records reviewed Medical history: atrial fibrillation, hyperlipidemia, other Psychiatric history: no psych history - Social History Smoking Status: Current every day smoker Smokeless Tobacco Status: No Alcohol use: occasionally Drug use: none Medications and Allergies Ascorbate Calcium [Vitamin C] 500 mg PO DAILY 11/02/16 [History] Aspirin 325 mg PO DAILY 11/02/16 [History] Multivitamin [Multi-Day Vitamins] 1 tab PO DAILY 11/02/16 [History] [place]-3/Dha/Epa/Fish Oil [Fish Oil 1,000 mg Softgel] 1,000 mg PO DAILY 11/02/16 [History] Vitamin E 100 unit PO DAILY 11/02/16 [History] Allergies No Known Allergies Allergy (Verified 11/02/16 10:09) All Systems Review: A 10-system review of systems was performed and is negative for pertinent findings except as documented above in the HPI. - Constitutional Constitutional: fatigue - Cardiovascular Cardiovascular: as per HPI, dyspnea on exertion Physical Examination Vital Signs Temperature 97.5 F L 11/02/16 11:09 Pulse Rate 163 11/02/16 11:09 Respiratory Rate 18 11/02/16 11:09 Blood Pressure 156/134 11/02/16 11:09 O2 Sat by Pulse Oximetry 96 11/02/16 11:09 Temperature 97.5 F L 11/04/16 11:40 Pulse Rate 128 11/04/16 11:40 Respiratory Rate 18 11/04/16 11:40 Blood Pressure 130/99 11/04/16 11:40 O2 Sat by Pulse Oximetry 94 11/04/16 11:40 Oxygen Delivery Oxygen Delivery Nasal Cannula General: Conversant, No Apparent Distress HEENT: Atraumatic, Normocephaly, Mucus Membranes Moist Neck: No JVD, Normal carotid pulses Cardiac: Other (Irregularly, irregular. Systolic murmur noted. ) Lungs: Other (Left lower lobe with diminished breath sounds. Left upper lobe with rhonchi. ) Neuro: Alert and responsive, No focal deficits noted Abdomen: Soft, Non-Tender Skin: No rashes noted on visualized skin Musculoskeletal: No Chest Wall Tenderness Extremities: No Clubbing, No Cyanosis, No Edema, Normal Pulses Results 11/04/16 04:08 11/04/16 04:08 Lab Results Impressions Chest CTA 11/03/16 13:24 IMPRESSION: No evidence of pulmonary embolism. There are moderate bilateral pleural effusions with adjacent compressive atelectasis in both lung bases. There is more focal patchy airspace consolidation involving the left upper lobe and superior segment left lower lobe concerning for superimposed pneumonia. Findings suggestive of mild edema. D/ / Zahira Borges MD / Zahira Borges MD Interpreting Provider: Zahira Borges MD Active Medications Acetaminophen (Tylenol) 650 mg PO Q6HR PRN PRN Reason: Mild Pain (1-3) Stop: 05/04/17 14:29 Aspirin (Aspirin) 81 mg PO DAILY [facility] Stop: 05/05/17 09:01 Last Admin: 11/04/16 09:21 Dose: 81 mg Atorvastatin Calcium (Lipitor) 20 mg PO HS KATHRYN Stop: 05/04/17 21:01 Last Admin: 11/03/16 20:59 Dose: 20 mg Diltiazem HCl (Cardizem Cd) 180 mg PO DAILY KATHRYN Stop: 05/06/17 10:16 Last Admin: 11/04/16 10:56 Dose: 180 mg Enoxaparin Sodium (Lovenox) 90 mg 1 mg/kg (90 mg) SQ Q12HCO KATHRYN PRN Reason: Protocol Stop: 05/04/17 18:01 Last Admin: 11/04/16 06:02 Dose: 90 mg Furosemide (Lasix) 40 mg IVP BID KATHRYN Stop: 05/05/17 21:01 Last Admin: 11/04/16 09:25 Dose: 40 mg Ceftriaxone Sodium 1,000 mg/ (Dextrose) 100 mls @ 200 mls/hr IVPB Q24H KATHRYN Stop: 05/05/17 17:01 Last Admin: 11/03/16 17:22 Dose: 200 mls/hr Azithromycin 500 mg/ Dextrose 250 mls @ 252 mls/hr IVPB Q24H KATHRYN Stop: 05/05/17 17:01 Last Admin: 11/03/16 17:21 Dose: 252 mls/hr Metoprolol Tartrate (Lopressor) 25 mg PO BID KATHRYN Stop: 05/05/17 14:16 Last Admin: 11/04/16 06:03 Dose: 25 mg Metoprolol Tartrate (Lopressor) 50 mg PO BID [facility] Stop: 05/06/17 21:01 Mupirocin (Bactroban Oint) 1 appl TP BID [facility] Stop: 05/05/17 21:01 Last Admin: 11/04/16 09:21 Dose: 1 appl Naloxone HCl (Narcan) 0.4 mg IVP Q2MIN PRN PRN Reason: Opioid Reversal Stop: 05/04/17 14:29 Nicotine (Nicoderm) 14 mg TD DAILY PRN; Protocol PRN Reason: nicotine craving. Stop: 05/06/17 09:01 Omeprazole (Prilosec) 20 mg PO DAILY@0630 [facility] PRN Reason: Protocol Stop: 05/05/17 06:31 Last Admin: 11/04/16 06:03 Dose: 20 mg Laboratory Tests 11/02/16 11/02/16 11/02/16 11:21 11:21 11:21 Hgb Hct Potassium Creatinine 1.18 Magnesium Troponin I 0.02 B-Natriuretic Peptide 239 H TSH 1.136 11/02/16 11/03/16 11/03/16 17:11 00:19 00:19 Hgb Hct Potassium Creatinine Magnesium 2.0 Troponin I 0.02 0.02 B-Natriuretic Peptide TSH 11/03/16 11/04/16 11/04/16 05:49 04:08 04:08 Hgb 14.8 Hct 44.7 Potassium 3.7 Creatinine 1.23 Magnesium Troponin I 0.02 B-Natriuretic Peptide TSH - Imaging and Cardiology Chest Xray: report reviewed Echo: report reviewed Cardiac cath: report reviewed Other Results: Chest CT report reviewed. - EKG Interpretation EKG results cardiology: personally reviewed (ECG 11/02/16 with atrial fibrillation, HR 165.), other (Telemetry reviewed with average HR 117, atrial fibrillation over the past 12 hours. PVCs noted. Couplets noted.) Consult Discharge Plan - Plan Referrals: Rachel Rod CNP [Partnered Physician] - 11/10/16 10:40 am
[2016-11-04 16:28] LABS: INR 1.4; Prothrombin Time 14.8 Seconds (9.4-12.1)
[2016-11-04] MEDS ORDERED: Azithromycin 250 MG in D5% in Water 250 ML IVPB SCH (17:00)
[2016-11-04] MEDS: Azithromycin 500 MG in D5% in Water 250 ML IVPB SCH (17:04)
[2016-11-04] MEDS ORDERED: *HR* Warfarin 1 MG TABLET PO ONE (18:00)
[2016-11-04] MEDS ORDERED: Warfarin perPT PO PRN (18:00)
[2016-11-04] MEDS: Ipratropium/Albuterol Neb 3 ML IH PRN (19:22)
[2016-11-04] MEDS ORDERED: hydrOXYzine pamoate 25 MG CAPSULE PO ONE (22:39)
[2016-11-05] MEDS: *HR* Enoxaparin 100 MG/ML SYRINGE SQ SCH ×2 (05:47→21:19)
[2016-11-05 06:04] LABS: INR 1.4; Prothrombin Time 15.4 Seconds (9.4-12.1)
[2016-11-05 06:13] LABS: Alanine Aminotransferase 22 Units/L (0-55); Albumin 2.9 g/dL (3.5-5.0); Alkaline Phosphatase 53 Units/L (38-126); Aspartate Amino Transferase 19 Units/L (5-34); BUN/Creatinine Ratio 12 (6-26); Bilirubin,Total 0.8 mg/dL (0.2-1.2); Blood Urea Nitrogen 15 mg/dL (8-26); Calcium 9.1 mg/dL (8.6-10.8); Carbon Dioxide 26 mEq/L (19-29); Chloride 102 mEq/L (98-109); Glucose 84 mg/dL (70-99); Osmolality,Calculated 284 (280-300); Potassium 3.4 mEq/L (3.5-4.5); Sodium 137 mEq/L (136-145); Total Protein 5.9 g/dL (6.0-8.3); eGFR For African Americans > 60 (> 60); eGFR For Non-African Americans 60 (> 60)
[2016-11-05] MEDS ORDERED: Regadenoson 0.4 MG/5 ML SYRINGE IVP ONE (06:33)
--- NOTE | 2016-11-05 09:26 | Cardiology Progress Note ---
Date of Encounter: 11/05/16 Time of Encounter: 08:30 Assessment and Plan (1) Community acquired pneumonia Current Visit: Yes Status: Acute Per cardiology: -Focal patchy airspace disease consolidation involving left upper lobe and superior segment left lower lobe concerning for superimposed pneumonia. -On ATB per primary service. -Management per primary service. -May be contributing to atrial fibrillation. (2) Atrial fibrillation with rapid ventricular response Current Visit: Yes Status: Acute Per cardiology: -New onset atrial fibrillation in the setting of pneumonia. -On cardizem CD 180mg and lopressor 50mg BID -Patient denies bleeding or blood loss. Patient denies falls. Hemoglobin and hematocrit stable. -On lovenox 1mg/kg for anticoagulation. -[id number] score 3? (age, HTN, DM?). 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 Per discussion with recommend starting coumadin for linoleum tile floor layer anticoagulation with moderate to severe MR. -Telemetry reviewed with average HR previous 12 hours noted to be 117. -Patient frustrated today. I spent 30 minutes reviewing patient's diagnosis and treatment plan. Patient states understanding and agrees with treatment plan. -Will increase cardizem cd to 240mg. -Will re-evaluate this afternoon and consider increasing beta francisca. -Will continue to follow. (3) CAD (coronary artery disease) Current Visit: Yes Status: Chronic Per cardiology: -Known history of CAD with [facility] 07/2011 with high grade LAD stenosis with ANNETTE, occluded RCA with Left to right collaterals, 50-60% circumflex. -Patient denies chest pain. -ECG with no ischemic changes, -On asa, statin, beta francisca. -Troponins negative x4. -Echocardiogram 11/03/16 with LVEF 55-60%, indeterminate diastolic function, moderately calcified aortic valve leaflets, at least mild aortic regurgitation, not well evaluated due to tachycardia, mild aortic stenosis with mean gradiant 16mmHg, moderate to severe mitral regurgitation, all wall segments with normal motion. -Will order non-excercise nuclear stress test for tomorrow for further ischemic evaluation. Unable to perform stress today due to tachycardia. Will plan for stress tomorrow. Patient states understanding and agrees with plan. -Will continue to follow. Qualifiers: Coronary Disease-Associated Artery/Lesion type: absentee-[place]nee artery [place] vs. transplanted heart: absentee-[place] heart Associated angina: without angina Qualified Code(s): I25.10 - Atherosclerotic heart disease of absentee-shawnee coronary artery without angina pectoris (4) Hypertension Current Visit: Yes Status: Chronic Per cardiology: -Known history of hypertension, -BPs currently 130-140s systolic -On beta francisca and calcium channel francisca. -Will increase calcium channel francisca. -Continue to monitor BPs. Qualifiers: Hypertension type: essential hypertension Qualified Code(s): I10 - Essential (primary) hypertension (5) Tobacco abuse Current Visit: Yes Status: Chronic Per cardiology: -KNown history of tobacco abuse. -Patient states he smoked 1 pack per day. -I spent 3-5 minutes reviewing smoking cessation education. (6) Mitral regurgitation Current Visit: Yes Status: Acute Per cardiology: -Moderate to severe mitral regurgitation on echocardiogram 11/03/16. -Of note, pateint had stress echocardiogram 2010 which showed thickened mitral valve, with normal function. -Patient denies previous history of mitral regurgitation. -Murmur noted on exam. -Patient euvolemic on exam. Of note, on lasix IV per primary service. BNP only 239. K today 3.4. -Will stop lasix IV. Will re-check K. -Can consider DEMETRIUS to further evaluate valve in outpatient setting, once patient is recovered from pneumonia. -Will perform stress test for further ischemic work up. -Will continue to follow Qualifiers: Cardiac valve disease etiology: etiology unspecified Qualified Code(s): I34.0 - Nonrheumatic mitral (valve) insufficiency Discussion w patient/family: The assessment and plan as outlined above was discussed with the patient who expressed understanding and agreement. All questions were answered. Thank you for involving us in the care of your patient. Please call with any questions. Discussed and reviewed with . Subjective Principal diagnosis: pneumonia. Interval history: Patient presented to [facility] with complaints of increased shortness of breath for the past 2 weeks. Patient was noted to have pneumonia per chest CT and atrial fibrillation with RVR. Patient was admitted 11/02/16, cardiology was consulted for further recomendations for a.fib RVR. Patient states he did not know that his heart was out of rhythm. Patient also states he did not know his heart rate was high. Patient denies chest pain. Patient admits to shortness of breath and fatigue. Patient denies peripheral edema. Patient requesting to go home today. Education given regarding patient's condition and he agrees to stay. Objective Vital Signs, Last 4 Hours Temp Pulse Resp BP Pulse Ox 11/05/16 08:22 97.6 F 111 18 133/103 95 General: Conversant, No Apparent Distress HEENT: Atraumatic, Normocephaly, Mucus Membranes Moist Neck: No JVD, Normal carotid pulses Cardiac: Other (Irregularly, irregular. Systolic murmur noted. ) Lungs: Normal Breath Sounds, No Wheeze, Rales, Rhonchi Neuro: Alert and responsive, No focal deficits noted Abdomen: Soft, Non-Tender Skin: No rashes noted on visualized skin Musculoskeletal: No Chest Wall Tenderness Extremities: No Clubbing, No Cyanosis, No Edema, Normal Pulses Results 11/04/16 04:08 11/05/16 05:43 Lab Results Active Medications Acetaminophen (Tylenol) 650 mg PO Q6HR PRN PRN Reason: Mild Pain (1-3) Stop: 05/04/17 14:29 Albuterol/Ipratropium (Duoneb) 3 ml IH [id number] PRN; Protocol PRN Reason: Shortness Of Breath/Wheezing Stop: 05/06/17 18:50 Last Admin: 11/04/16 19:22 Dose: 3 ml Aspirin (Aspirin) 81 mg PO DAILY KATHRYN Stop: 05/05/17 09:01 Last Admin: 11/04/16 09:21 Dose: 81 mg Atorvastatin Calcium (Lipitor) 20 mg PO HS [facility] Stop: 05/04/17 21:01 Last Admin: 11/04/16 20:59 Dose: 20 mg Diltiazem HCl (Cardizem Cd) 240 mg PO DAILY [facility] Stop: 05/07/17 09:01 Enoxaparin Sodium (Lovenox) 90 mg 1 mg/kg (90 mg) SQ Q12HCO KATHRYN PRN Reason: Protocol Stop: 05/04/17 18:01 Last Admin: 11/05/16 05:47 Dose: 90 mg Furosemide (Lasix) 40 mg IVP BID [facility] Stop: 05/05/17 21:01 Last Admin: 11/04/16 21:00 Dose: 40 mg Ceftriaxone Sodium 1,000 mg/ (Dextrose) 100 mls @ 200 mls/hr IVPB Q24H KATHRYN Stop: 05/05/17 17:01 Last Admin: 11/04/16 17:05 Dose: 200 mls/hr Azithromycin 500 mg/ Dextrose 250 mls @ 252 mls/hr IVPB Q24H [facility] Stop: 05/05/17 17:01 Last Admin: 11/04/16 17:04 Dose: 252 mls/hr Metoprolol Tartrate (Lopressor) 50 mg PO BID [facility] Stop: 05/06/17 21:01 Last Admin: 11/04/16 20:59 Dose: 50 mg Mupirocin (Bactroban Oint) 1 appl TP BID [facility] Stop: 05/05/17 21:01 Last Admin: 11/04/16 21:10 Dose: 1 appl Naloxone HCl (Narcan) 0.4 mg IVP Q2MIN PRN PRN Reason: Opioid Reversal Stop: 05/04/17 14:29 Nicotine (Nicoderm) 14 mg TD DAILY PRN; Protocol PRN Reason: nicotine craving. Stop: 05/06/17 09:01 Omeprazole (Prilosec) 20 mg PO DAILY@0630 KATHRYN PRN Reason: Protocol Stop: 05/05/17 06:31 Last Admin: 11/05/16 05:48 Dose: 20 mg Warfarin Sodium (Coumadin Perpt) 1 each PO DAILY@1800 PRN PRN Reason: SEE COMMENTS Stop: 05/06/17 18:01 Laboratory Tests 11/02/16 11/02/16 11/02/16 11:21 11:21 11:21 INR Potassium 3.7 Creatinine 1.18 Magnesium Troponin I 0.02 B-Natriuretic Peptide 239 H TSH 1.136 11/02/16 11/03/16 11/03/16 17:11 00:19 00:19 INR Potassium Creatinine Magnesium 2.0 Troponin I 0.02 0.02 B-Natriuretic Peptide TSH 11/03/16 11/05/16 11/05/16 05:49 05:43 05:43 INR 1.4 Potassium 3.4 L Creatinine 1.21 Magnesium Troponin I 0.02 B-Natriuretic Peptide TSH - Imaging and Cardiology Chest Xray: report reviewed Stress Test: pending Echo: report reviewed Other Results: CT chest report reviewed. - EKG Interpretation EKG results cardiology: other (Telemetry reviewed with average HR 117, atrial fibrillation. PVCs noted with occasional couplets.) Consult Discharge Plan - Plan Referrals: Rachel Rod, [employer] [Partnered Physician] - 11/10/16 10:40 am
[2016-11-05] MEDS: Diltiazem CD (24hr) 240 MG CAPSULE PO SCH (09:47)
[2016-11-05] MEDS: Aspirin 81 MG TAB.CHEW PO SCH (09:47)
[2016-11-05] MEDS: Furosemide 40 MG/4 ML VIAL IVP SCH (09:47)
[2016-11-05] MEDS: Ipratropium/Albuterol Neb 3 ML IH PRN (14:27)
--- NOTE | 2016-11-05 16:00 | Internal Med Progress Note ---
<Laura Graff - Last Filed: 11/05/16 15:56> Date of Encounter: 11/05/16 Time of Encounter: 10:30 - Assessment and plan (1) Atrial fibrillation with rapid ventricular response Current Visit: Yes Status: Acute Assessment and plan: Patient came in with CC of SOB and palpitations. EKG showed Afib RVR, patient denies having history of Afib. tropes x4 negative. CHADS2/VASC score: 3 (age, HTN, known CAD) Etiology unclear at this time. TSH normal. BNP: 239 CXR showed vascular congestion with suggestion of early bibasilar interstitial edema, left perihilar arispace disease may be due to edema, atalectasis, or pneumonia. Small bilateral pleural effusions were present. CTA negative for PE, showed moderate bilateral pleural effusions with adjacent compressive atalectasis of both lung bases. more focal patchy airspace consolidation involving the left upper lobe and superior segment left lower lobe concerning for pneumonia. Echo showed LVEF 55-60%, normal LV chamber size, wall thickness, function, indeterminate diastolic function, normal RV structure and function, moderately calcified aortic valve leaflets, mild aortic regurg, mild aortic stenosis suggested by doppler, moderate to severe mitral regurg, no evidence of pulmonary hypertension. prelim blood cultures showed no growth Plan: etiology of Afib RVR likely secondary to pneumonia and pleural effusions. increased PO cardizem to 240 daily, and will monitor- patient still remains tachycardic. increased metoprolol to 50mg BID bridging with warfarin for anticoagulation due to moderate to severe MR ceftriaxone, azithromycin day 3 switched to PO lasix, 20mg BID with 20mEq potassium daily. patient could not get stress test today due to tachycardia, NPO after midnight for possible stress testing tomorrow. cardio on board for recommendaions. (2) Community acquired pneumonia Current Visit: Yes Status: Acute Assessment and plan: plan as above (3) Shortness of breath Current Visit: Yes Status: Acute Assessment and plan: etiology likely secondary to pleural effusions and pneumonia. CTA negative for PE. (4) History of intravascular stent placement Current Visit: Yes Status: Acute Assessment and plan: patient has hx of CAD. [facility] in 07/2011 that showed 80% stenosis in proximal to mid left LAD, 50-60% stenosis in mid left circumflex, chronically occluded proximal right coronary artery, distal RCA receiving collaterals from distal circumflex and proximal RCA , LVEF>60%, mild hypokinesis of inferobasal wall of left ventricle. s/p ANNETTE to mid LAD. patient states he used to be on metoprolol 25mg BID, then stopped taking it because his Rx ran out, and it was never refille.d Plan: continue ASA, atorvastatin, started metoprolol. (5) Tobacco abuse Current Visit: Yes Status: Chronic Assessment and plan: patient has hx of smoking 1PPD for 20 years. patient counseled on importance of smoking cessation and risk factors associated with it. Plan: nicotine patch PRN (6) DVT prophylaxis Current Visit: Yes Status: Acute Assessment and plan: warfarin dosed by pharmacy - Subjective Interval history: 66 year old male evaluated at bedside. he denies CP, dizziness, had mild shortness of breath. He denies nausea, vomiting, diarrhea, fever, chills. He denies any chest pain today. patient could not get his stress testing done todaydue to tachycardia. he denies any new complaints today, but continues to have anxiety about the rash on his right leg. - Constitutional Vitals: Temp Pulse Resp BP Pulse Ox 97.5 F L 118 18 123/102 97 11/05/16 15:07 11/05/16 15:07 11/05/16 15:07 11/05/16 15:07 11/05/16 15:07 General appearance: Present: A&O X 3, pleasant, no acute distress, answers questions appropriately - Head Head exam: Present: atraumatic, normocephalic - Neck Neck exam general surgery: Present: supple, trachea midline - Respiratory Respiratory exam: Present: CTAB - Cardiovascular Cardiovascular exam: Present: irregular rhythm, tachycardia - GI/Abdominal GI/Abdominal exam: Present: normal bowel sounds, soft. Absent: distended, tenderness - Extremities Exam Extremities exam: Absent: cyanotic, pedal edema - Neurological Exam Neurological exam: Present: alert, oriented X3, no focal deficits - Psychiatric Psychiatric exam: Present: anxious Internal Medicine: Result - Labs CBC & Chem 7: 11/04/16 04:08 11/05/16 05:43 Labs: BMP 11/05/16 05:43 Sodium 137 Potassium 3.4 L Chloride 102 Carbon Dioxide 26 BUN 15 Creatinine 1.21 Glucose 84 Calcium 9.1 Liver Function 04/20/17 Range/Units 05:43 Total Bilirubin 0.8 (0.2-1.2) mg/dL AST 19 (5-34) Units/L ALT 22 (0-55) Units/L Alkaline Phosphatase 53 (38-126) Units/L Albumin 2.9 L (3.5-5.0) g/dL - ABG Interpretation ABG results: PT/INR, D-dimer PT 15.4 Seconds (9.4-12.1) H 11/05/16 05:43 D-Dimer 598 ng/mLFEU (0-500) H 11/02/16 11:21 Consult Discharge Plan - Plan Referrals: Rachel Rod CNP [Partnered Physician] - 11/10/16 10:40 am <Matheus Duron - Last Filed: 11/05/16 17:47> Date of Encounter: 11/05/16 - Assessment and plan (1) Acute respiratory failure with hypoxia Current Visit: Yes Status: Acute (2) Pneumonia Current Visit: Yes Status: Suspected Qualifiers: Pneumonia type: due to Pneumococcus Laterality: left Lung location: upper lobe of lung Qualified Code(s): J13 - Pneumonia due to Streptococcus pneumoniae (3) A-fib Current Visit: Yes Status: Acute Qualifiers: Atrial fibrillation type: persistent Qualified Code(s): I48.1 - Persistent atrial fibrillation (4) Tobacco abuse Current Visit: Yes Status: Chronic (5) Contact dermatitis Current Visit: Yes Status: Acute Qualifiers: Contact dermatitis type: allergic Contact dermatitis trigger: other trigger Qualified Code(s): L23.89 - Allergic contact dermatitis due to other agents; L23.8 - Allergic contact dermatitis due to other agents - Constitutional Vitals: Temp Pulse Resp BP Pulse Ox 97.5 F L 118 18 123/102 97 11/05/16 15:07 11/05/16 15:07 11/05/16 15:07 11/05/16 15:07 11/05/16 15:07 Internal Medicine: Result - Labs CBC & Chem 7: 11/04/16 04:08 11/05/16 05:43 Labs: BMP 11/05/16 05:43 Sodium 137 Potassium 3.4 L Chloride 102 Carbon Dioxide 26 BUN 15 Creatinine 1.21 Glucose 84 Calcium 9.1 Liver Function 11/05/16 Range/Units 05:43 Total Bilirubin 0.8 (0.2-1.2) mg/dL AST 19 (5-34) Units/L ALT 22 (0-55) Units/L Alkaline Phosphatase 53 (38-126) Units/L Albumin 2.9 L (3.5-5.0) g/dL - ABG Interpretation ABG results: PT/INR, D-dimer PT 15.4 Seconds (9.4-12.1) H 11/05/16 05:43 D-Dimer 598 ng/mLFEU (0-500) H 11/02/16 11:21 - Attending Attestation I examined this patient and my medical decision-making was reviewed with the Resident Physician on 11/05/16. I agree with the documented findings, disposition and treatment plan as described except to the extent set forth below. Mr. Bowen is admitted for rapid a fib and hypoxemia. He is moderate to high risk due to potential for worsening respiratory status. Mr. Bowen is up ambulating. He denies chest pain. Heart rate was too high for stress today. Needs to be on coumadin at discharge. Exam Alert. Comfortable Heart irreg Lungs diminished. Further diagnoses and plan as above.
[2016-11-05] MEDS: predniSONE 20 MG TABLET PO SCH (17:34)
[2016-11-05] MEDS: Furosemide 20 MG TABLET PO SCH (17:34)
[2016-11-05] MEDS: Azithromycin 500 MG in D5% in Water 250 ML IVPB SCH (17:36)
[2016-11-05] MEDS ORDERED: *HR* Warfarin 5 MG TABLET PO ONE (18:00)
[2016-11-05] MEDS ORDERED: hydrOXYzine pamoate 25 MG CAPSULE PO ONE (21:50)
[2016-11-06] MEDS ORDERED: *HR* Metoprolol 5 MG/5 ML VIAL IVP PRN (00:36)
[2016-11-06] MEDS: *HR* Enoxaparin 100 MG/ML SYRINGE SQ SCH ×2 (05:32→17:45)
[2016-11-06 05:37] LABS: Hematocrit 46.1 % (37.5-50.1); Hemoglobin 15.6 g/dL (12.9-16.9)
[2016-11-06 05:42] LABS: INR 1.3; Prothrombin Time 14.5 Seconds (9.4-12.1)
[2016-11-06 05:52] LABS: BUN/Creatinine Ratio 14 (6-26); Blood Urea Nitrogen 17 mg/dL (8-26); Calcium 9.5 mg/dL (8.6-10.8); Carbon Dioxide 23 mEq/L (19-29); Chloride 104 mEq/L (98-109); Glucose 129 mg/dL (70-99); Osmolality,Calculated 289 (280-300); Sodium 138 mEq/L (136-145); eGFR For African Americans > 60 (> 60); eGFR For Non-African Americans 59 (> 60)
[2016-11-06] MEDS ORDERED: Regadenoson 0.4 MG/5 ML SYRINGE IVP ONE (08:25)
[2016-11-06] MEDS: Aspirin 81 MG TAB.CHEW PO SCH (09:56)
[2016-11-06] MEDS: Diltiazem CD (24hr) 240 MG CAPSULE PO SCH (09:56)
[2016-11-06] MEDS: Furosemide 20 MG TABLET PO SCH ×2 (09:56→17:45)
[2016-11-06] MEDS: predniSONE 20 MG TABLET PO SCH (09:57)
--- NOTE | 2016-11-06 13:26 | Event Note ---
Date of Encounter: 11/06/16 Time of Encounter: 13:23 - Cardiology Event Note 24 hour tele AVG HR 115, A-Fib. Increased Lopressor from 50mg BID to 100mg BID, extra dose given this AM with little HR response. On Cardizem 240mg daily. On therapeutic Lovenox and Coumadin, INR 1.3. Recommend DEMETRIUS/DCCV in attempt to restore SR. R/B/A discussed. Pt agrees. Stress images obtained this AM for stress test--abnormality noted, which will now require that pt have rest images for comparison/interpretation. Pt agrees to stay for the above testing/procedures. Further recommendations to follow.
[2016-11-06] MEDS ORDERED: Naloxone 0.4 MG/ML INJ ONE (13:57)
[2016-11-06] MEDS ORDERED: *HR* FentaNYL (PF) 100 MCG/2 ML VIAL ONE (13:57)
[2016-11-06] MEDS ORDERED: 0.9 % Sodium Chloride 1,000 ML ONE (14:04)
[2016-11-06] MEDS: *HR* Midazolam HCl 2 MG/2 ML VIAL ONE ×2 (15:06→15:10)
--- NOTE | 2016-11-06 15:55 | Internal Med Progress Note ---
<Laura Graff - Last Filed: 11/06/16 15:53> Date of Encounter: 11/06/16 Time of Encounter: 15:53 - Assessment and plan (1) Atrial fibrillation with rapid ventricular response Status: Acute Assessment and plan: Patient came in with CC of SOB and palpitations. EKG showed Afib RVR, patient denies having history of Afib. tropes x4 negative. CHADS2/VASC score: 3 (age, HTN, known CAD) Etiology unclear at this time. TSH normal. BNP: 239 CXR showed vascular congestion with suggestion of early bibasilar interstitial edema, left perihilar arispace disease may be due to edema, atalectasis, or pneumonia. Small bilateral pleural effusions were present. CTA negative for PE, showed moderate bilateral pleural effusions with adjacent compressive atalectasis of both lung bases. more focal patchy airspace consolidation involving the left upper lobe and superior segment left lower lobe concerning for pneumonia. Echo showed LVEF 55-60%, normal LV chamber size, wall thickness, function, indeterminate diastolic function, normal RV structure and function, moderately calcified aortic valve leaflets, mild aortic regurg, mild aortic stenosis suggested by doppler, moderate to severe mitral regurg, no evidence of pulmonary hypertension. blood cultures showed no growth Plan: etiology of Afib RVR likely secondary to pneumonia and pleural effusions. s/p DEMETRIUS cardioversion today, patient tolerated procedure well. PO cardizem to 240 daily metoprolol 100 BID bridging lovenox with warfarin for anticoagulation ceftriaxone, azithromycin day 4 lasix, 20mg BID with 20mEq potassium daily. patient had stress images this morning that showed abnormality, will require rest images for comparison. NPO after midnight. (2) Community acquired pneumonia Status: Acute Assessment and plan: plan as above (3) Shortness of breath Status: Acute Assessment and plan: etiology likely secondary to pleural effusions and pneumonia. CTA negative for PE. (4) History of intravascular stent placement Status: Acute Assessment and plan: patient has hx of CAD. [facility] in 07/2011 that showed 80% stenosis in proximal to mid left LAD, 50-60% stenosis in mid left circumflex, chronically occluded proximal right coronary artery, distal RCA receiving collaterals from distal circumflex and proximal RCA , LVEF>60%, mild hypokinesis of inferobasal wall of left ventricle. s/p ANNETTE to mid LAD. patient states he used to be on metoprolol 25mg BID, then stopped taking it because his Rx ran out, and it was never refille.d Plan: continue ASA, atorvastatin, started metoprolol. (5) Tobacco abuse Status: Chronic Assessment and plan: patient has hx of smoking 1PPD for 20 years. patient counseled on importance of smoking cessation and risk factors associated with it. Plan: nicotine patch PRN (6) DVT prophylaxis Status: Acute Assessment and plan: warfarin dosed by pharmacy - Subjective Interval history: 66 year old male evaluated at bedside. he denies nausea, vomiting, diarrhea, fever, chills. No chest pain. s/p DEMETRIUS cardioversion, patient tolerated procedure well. - Constitutional Vitals: Temp Pulse Resp BP Pulse Ox 97.6 F 100 16 143/110 99 11/06/16 11:21 11/06/16 11:21 11/06/16 11:21 11/06/16 11:21 11/06/16 11:21 General appearance: Present: A&O X 3, pleasant, no acute distress, answers questions appropriately - Head Head exam: Present: atraumatic, normocephalic - Neck Neck exam general surgery: Present: supple, trachea midline - Respiratory Respiratory exam: Present: CTAB - Cardiovascular Cardiovascular exam: Present: RRR, +S1, +S2 - GI/Abdominal GI/Abdominal exam: Present: normal bowel sounds, soft. Absent: tenderness - Extremities Exam Extremities exam: Absent: cyanotic, pedal edema - Neurological Exam Neurological exam: Present: alert, oriented X3, no focal deficits - Psychiatric Psychiatric exam: Present: normal affect, normal mood Internal Medicine: Result - Labs CBC & Chem 7: 11/06/16 05:19 11/06/16 05:19 Labs: Short CBC 11/06/16 Range/Units 05:19 Hgb 15.6 (12.9-16.9) g/dL Hct 46.1 (37.5-50.1) % BMP 11/06/16 05:19 Sodium 138 Potassium 4.0 Chloride 104 Carbon Dioxide 23 BUN 17 Creatinine 1.23 Glucose 129 H Calcium 9.5 - ABG Interpretation ABG results: PT/INR, D-dimer PT 14.5 Seconds (9.4-12.1) H 11/06/16 05:19 D-Dimer 598 ng/mLFEU (0-500) H 11/02/16 11:21 Consult Discharge Plan - Plan Instructions: Warfarin (By mouth), Atrial Fibrillation (DC), Acute Respiratory Distress Syndrome (DC), Chronic Hypertension (DC), Vitamin K in Foods (DC) Additional Instructions: Follow up with Coumadin clinic: Call for appt. [facility] [place] [address] Hours of Operation: Wednesday 8am-5:30pm (by appointment only) Referrals: Rachel Rod CNP [Partnered Physician] - 11/10/16 10:40 am Prescriptions: Atorvastatin [Lipitor] 20 mg PO HS #40 tablet Nicotine Patch [Nicoderm] 14 mg TD DAILY PRN #20 patch.td24 PRN Reason: nicotine craving. Warfarin [Coumadin] 5 mg PO 1800 #10 tablet <Matheus Duron - Last Filed: 11/07/16 17:30> Date of Encounter: 11/06/16 - Assessment and plan (1) Acute respiratory failure with hypoxia Status: Resolved (2) Pneumonia Status: Suspected Qualifiers: Pneumonia type: due to Pneumococcus Laterality: left Lung location: upper lobe of lung Qualified Code(s): J13 - Pneumonia due to Streptococcus pneumoniae (3) A-fib Status: Acute Qualifiers: Atrial fibrillation type: persistent Qualified Code(s): I48.1 - Persistent atrial fibrillation (4) Heart failure Status: Acute Qualifiers: Heart failure type: diastolic Heart failure chronicity: acute Qualified Code(s): I50.31 - Acute diastolic (congestive) heart failure (5) Tobacco abuse Status: Chronic (6) Contact dermatitis Status: Acute Qualifiers: Contact dermatitis type: allergic Contact dermatitis trigger: other trigger Qualified Code(s): L23.89 - Allergic contact dermatitis due to other agents; L23.8 - Allergic contact dermatitis due to other agents - Constitutional Vitals: Temp Pulse Resp BP Pulse Ox 97.4 F L 71 16 104/80 95 11/06/16 15:52 11/06/16 15:52 11/06/16 15:52 11/06/16 15:52 11/06/16 15:52 Internal Medicine: Result - Labs CBC & Chem 7: 11/07/16 05:55 11/07/16 05:55 Labs: Short CBC 11/06/16 Range/Units 05:19 Hgb 15.6 (12.9-16.9) g/dL Hct 46.1 (37.5-50.1) % BMP 11/06/16 05:19 Sodium 138 Potassium 4.0 Chloride 104 Carbon Dioxide 23 BUN 17 Creatinine 1.23 Glucose 129 H Calcium 9.5 - ABG Interpretation ABG results: PT/INR, D-dimer PT 14.5 Seconds (9.4-12.1) H 11/06/16 05:19 D-Dimer 598 ng/mLFEU (0-500) H 11/02/16 11:21 - Attending Attestation I examined this patient and my medical decision-making was reviewed with the Resident Physician on 11/06/16. I agree with the documented findings, disposition and treatment plan as described except to the extent set forth below. Mr. Bowen is currently admitted for acute CHF and rapid a fib. He is moderate to high risk due to potential for worsening respiratory and cardiac status. Mr. Bowen has been ambulating in [place]. Had part of stress today. Also had cardioversion today as well. Needs remainder of stress tomorrow. No CP or SOB. No GI symptoms. Exam Alert. Comfortable Heart irreg Lungs clear I/P 1. A fib -s/p cardioversion 2. CHF - improved (acute diastolic) 3. Abnl stress Further diagnoses and plan as above.
--- NOTE | 2016-11-06 17:23 | Electrocardiograph Report ---
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
[2016-11-06] MEDS: Azithromycin 500 MG in D5% in Water 250 ML IVPB SCH (17:44)
[2016-11-06] MEDS ORDERED: *HR* Warfarin 5 MG TABLET PO ONE (18:00)
--- NOTE | 2016-11-06 18:35 | ECHO - Doppler Report ---
Cardioversion with DEMETRIUS Name: Finn Bowen Date of Study: 11/06/2016 Date: 1950 Ht: 71.0in Medical Record#: [id number] Age: 66 Wt: 190.0lb Gender: Male BSA: 2.06 Order #: [id number] Location: [facility] Room #: [id number] Reading Physician: Chauncey Mora, DO, FACC Insurance Claims Processor: Adrian Rajput RN Ordering Physician: Say Mckenna CNP Primary Physician: Matt Grajeda MD Indications: Arrhythmia Impressions: LVEF 50%. Normal LV size and function. The right ventricle was normal in size and systolic function. LA appendage is normal in appearance. No thrombus. Mildly calcified trileaflet aortic valve. Mild aortic regurgitation. Mild aortic stenosis visually. Polimetry could not be easily performed. Mild-moderate mitral regurgitation. Ascending aorta appeared mildly dilated (3.97 cm). Successful synchronized cardioversion utilizing 200 J. No neurological deficits after the procedure. Left Ventricular Wall Motion: Transesophageal Echo Findings All wall segments showed normal motion. Procedure Summary: After explaining the risks, benefits, and alternatives of the procedure to the patient in detail and answering all questions to satisfaction, an informed consent was obtained in writing. The patient was NPO for the six hours prior to the procedure. The patient denied dysphagia, odynophagia, and loose teeth. The patient was monitored with periodic automated blood pressures and continuous pulse oximetry and telemetry. Continuous oxygen was administered by OR. The patient was placed in the full upright position and the posterior oropharynx was anesthetized as above and complete suppression of the gag reflex was obtained. The patient was then placed in the left lateral decubitus position, the neck was flexed, and a bite block was placed in the patient's mouth. IV sedation was administered. Once adequate sedation was achieved, a well-lubricated anteflexed multipoint intraesophageal echocardiographic probe was inserted into the midline posterior oropharynx. Gentle pressure was applied as the patient swallowed and the esophagus was intubated without difficulty. The scope was advanced to the mid esophagus without encountering resistance. Images were obtained from the mid and upper esophagus. Images from the gastric globe were obtained. The scope was then rotated approximately 180 degrees and withdrawn, visualizing the length of the aorta. The scope was then slowly withdrawn as the patient was continually suctioned. The patient tolerated the procedure well. After ensuring the patient was adequately sedated, cardioversion in the AP approach was successful using 200 Joules of biphasic energy. Normal sinus rhythm was restored after 1 attempt. The patient was monitored for the standard 30 minutes post procedure. Medication Given: Time Medication Dose Units Route 15:06 Versed 2 mg IV 15:06 Fentanyl 25 mcg IV 15:10 Versed 2 mg IV 15:10 Fentanyl 25 mcg IV Findings: Study Quality * Technically adequate exam. ECG Findings * Atrial fibrillation. Left Ventricle * LVEF 50%. * Normal LV size and function. Right Ventricle * The right ventricle was normal in size and systolic function. Left Atrium * Moderately dilated left atrium. * LA appendage is normal in appearance. No thrombus. Right Atrium * Mildly dilated right atrium. Aortic Valve * Mildly calcified trileaflet aortic valve. * Mild aortic regurgitation. * Mild aortic stenosis visually. Polimetry could not be easily performed. Mitral Valve * Mildly thickened mitral valve leaflets. * Mild-moderate mitral regurgitation. * No mitral stenosis. Tricuspid Valve * Normal structure and function. * No tricuspid regurgitation. * RSVP is unable to be assessed. Pulmonic Valve * Normal structure and function. * No pulmonic regurgitation. Aorta * Ascending aorta appeared mildly dilated (3.97 cm). Pericardium * No pericardial effusion. Pulmonary Artery * Normal pulmonary artery. Complications: None History: Hypertension Hypercholesteremia Rheumatic Fever History of Smoking Years 20 Packs 1 Family History of CAD History of CAD/PTCA Previous Echo11/03/2016 BP 143 / 110 Updated by Chauncey Mora DO, FACC, BUCK, ELGIN on 11/06/2016 6:25:56 PM electronically signed on 11/06/2016 6:29:25 PM with status of Final Wall Motion Davis: 1=Normal, 2=Hypokinesis, 3=Akinesis, 4=Dyskinesis, 5=Aneurysmal, 6=Hyperkinetic, X=Not Visualized (Blank)=Missing Wall MotionIndex DEMETRIUS Total of all scored barraza 17 Index Divided by ---- = 1 Total number of barraza scored 17
[2016-11-07] MEDS: *HR* Enoxaparin 100 MG/ML SYRINGE SQ SCH (05:32)
[2016-11-07 06:16] LABS: Basophils % 0.4 %; Eosinophils % 0.2 %; Hematocrit 43.4 % (37.5-50.1); Hemoglobin 14.4 g/dL (12.9-16.9); Immature Granulocytes % 0.4 % (0-4); Lymphocytes # 1.8 K/mcL (0.6-4.6); Lymphocytes % 21.1 %; Mean Corpuscular HGB Conc 33.2 g/dL (31.6-35.5); Mean Corpuscular Hemoglobin 30.2 pg (28.0-33.3); Monocytes # 0.9 K/mcL (0.0-1.3); Monocytes % 10.3 %; Neutrophils # 5.7 K/mcL (1.6-8.9); Platelet Count 286 K/mcL (140-400); Red Blood Count 4.77 M/mcL (4.19-5.50); Red Cell Distribution Width 14.2 % (11.5-14.5); Segmented Neutrophils % 67.6 %
[2016-11-07 06:30] LABS: Prothrombin Time 22.4 Seconds (9.4-12.1)
[2016-11-07 06:39] LABS: Calcium 9.3 mg/dL (8.6-10.8); Potassium 3.8 mEq/L (3.5-4.5)
[2016-11-07 07:22] VITALS: BP 128/97
[2016-11-07] MEDS: Aspirin 81 MG TAB.CHEW PO SCH (08:36)
[2016-11-07] MEDS: Furosemide 20 MG TABLET PO SCH (08:36)
[2016-11-07] MEDS: Diltiazem CD (24hr) 240 MG CAPSULE PO SCH (08:36)
[2016-11-07] MEDS: predniSONE 20 MG TABLET PO SCH (08:36)
--- NOTE | 2016-11-07 11:21 | Cardiology Progress Note ---
Date of Encounter: 11/07/16 Time of Encounter: 11:19 Assessment and Plan (1) A-fib Current Visit: Yes Status: Acute Still in Sinus Continue A/c. Qualifiers: Atrial fibrillation type: persistent Qualified Code(s): I48.1 - Persistent atrial fibrillation (2) CAD (coronary artery disease) Current Visit: Yes Status: Chronic Per cardiology: -Known history of CAD with [facility] 07/2011 with high grade LAD stenosis with ANNETTE, occluded RCA with Left to right collaterals, 50-60% circumflex. -Patient denies chest pain. -ECG with no ischemic changes, -On asa, statin, beta francisca. -Troponins negative x4. -Echocardiogram 11/03/16 with LVEF 55-60%, indeterminate diastolic function, moderately calcified aortic valve leaflets, at least mild aortic regurgitation, not well evaluated due to tachycardia, mild aortic stenosis with mean gradiant 16mmHg, moderate to severe mitral regurgitation, all wall segments with normal motion. -DEMETRIUS - Mild to meoderate MR Feeling much better since DCCV Await stress results - if no severe ischemia - favor medical therapy and probably home later today. Qualifiers: Coronary Disease-Associated Artery/Lesion type: [place] artery [place] vs. transplanted heart: [place] heart Associated angina: without angina Qualified Code(s): I25.10 - Atherosclerotic heart disease of [place] coronary artery without angina pectoris (3) Mitral regurgitation Current Visit: Yes Status: Acute Per cardiology: -Moderate to severe mitral regurgitation on echocardiogram 11/03/16. Mild to moderate by DEMETRIUS Periodically reassess. no immediate additional testing. Qualifiers: Cardiac valve disease etiology: etiology unspecified Qualified Code(s): I34.0 - Nonrheumatic mitral (valve) insufficiency Discussion w patient/family: The assessment and plan as outlined above was discussed with the patient and/or family members who expressed understanding and agreement. All questions were answered. Thank you for involving us in the care of your patient. Please call with any questions. Subjective Principal diagnosis: pneumonia. Interval history: Patient feels much better since yesterday's DEMETRIUS/DCCV - still in Sinus today. Objective Vital reviewed. General: Conversant, No Apparent Distress HEENT: Atraumatic, Normocephaly Neck: No JVD, Normal carotid pulses Cardiac: Reg Rate and Rhythm, Normal S1 and S2 Lungs: Normal Breath Sounds, No Wheeze, Rales, Rhonchi Neuro: Alert and responsive, No focal deficits noted Abdomen: Soft, Non-Tender Skin: No rashes noted on visualized skin Musculoskeletal: No Chest Wall Tenderness Extremities: No Clubbing, No Edema Results 11/07/16 05:55 11/07/16 05:55 Lab Results 11/07/16 11/07/16 11/07/16 05:55 05:55 05:55 WBC 8.4 Hgb 14.4 Hct 43.4 Plt Count 286 INR 2.0 D Sodium 139 Potassium 3.8 Chloride 104 Carbon Dioxide 24 BUN 23 Creatinine 1.50 H Glucose 119 H Calcium 9.3 - Imaging and Cardiology Echo: report reviewed Other Results: DEMETRIUS reviewed - normal EF with mild to moderate MR. Consult Discharge Plan - Plan Referrals: Rachel Rod CNP [Partnered Physician] - 11/10/16 10:40 am
--- NOTE | 2016-11-07 13:39 | Nuclear Medicine Stress Report ---
Regadenoson Nuclear 2 day Name: Finn Bowen Date of Study: 11/06/2016 Date: 1950 Ht: 70.0 in Medical Record#: [id number] Age: 66 Wt: 201.0 lb Gender: Male Order #: [id number] [facility] Room: [facility] Supervising Provider: Say Mckenna CNP Reading Physician: Ezio Plasencia MD, [facility] Ordering Physician: Ezio Plasencia MD, [facility] Primary Care Physician: Matt Grajeda MD Stress Technologist: Adrian Mattson, [employer]INO [employer]AGE SUPERVISOR, [facility] Carpenter Railcar: Steve Jo Indications: Shortness of breath, Afib Impression: Perfusion imaging is probably negative for ischemia. There is a partially reversible defect in the inferolateral wall that is likely attributed to sub diaphragmatic attenuation that is seen prominently in stress images but not rest images. SDS - 5 Pharmacologic ECG was negative for ischemia at the level of heart rate achieved. Patient had no chest pain with stress. Gated EF inaccurate because of atrial fibrillation with RVR No TID No high risk stress features identified Findings discussed with consulted cardiology team History: History of Smoking Prior PCI Stress Test Summary: Stress Test Type: Pharmacologic Regadenoson 0.4mg/5ml given IV Baseline Information: Initial Heart Rate: 111 Blood Pressure: 128/78 Stress Information: Stress Time: 4 min 00 sec Test Terminated Due to (primary): As per protocol Maximum Blood Pressure: 120/72 Maximum Heart Rate: 135 Percent Maximum Heart Rate Achieved: 88 Double Product: [id number] METS Reached: 1 Symptoms: Shortness of breath Nuclear Summary: SPECT myocardial perfusion imaging using Tc99m Sestamibi given intravenously was performed at rest and following cardiac stress testing. The resting images were obtained following initial dose of 35 mCi. Following stress an additional dose of 31.9 mCi was given at peak exercise or 30 seconds post regadenoson infusion. Medication Given: Time Medication Dose Units Route Findings: Stress Note * Atrial fibrillation with with rapid ventricular response prior to exam beginning. * Pharmacologic stress ECG is negative for ischemia at level of heart rate achieved. * Atrial fibrillation during stress. * Patient had no chest pain during stress. Hemodynamic responses * The patient demonstrated a blunted response blood pressure response. Study Quality * Study quality was fair. Gated EF % * Gated EF = calculation inaccurate because of atrial fibrillation with rapid ventricular response%. Left Ventricle * The left ventricle is not dilated. Global Hypokinesis in Stress. * Global Hypokinesis in Stress. NORMALS * All other segmental perfusion normal in stress. * All other segmental perfusion normal in rest. Inferior Perfusion Stress * The inferolateral segment shows a moderate reduction in perfusion. Inferior Perfusion Rest * The inferolateral segment shows a mild reduction in perfusion. TID * No evidence of transient ischemic dilatation. Updated by Ezio Plasencia MD, FACC on 11/07/2016 1:29:58 PM electronically signed on 11/07/2016 1:34:15 PM with status of Final
--- NOTE | 2016-11-07 13:57 | Discharge Summary ---
<Hesham Hair - Last Filed: 11/07/16 13:54> Date of Encounter: 11/07/16 Time of Encounter: 13:40 - Discharge Diagnosis (1) Atrial fibrillation with rapid ventricular response Priority: Primary Status: Acute (2) Community acquired pneumonia Priority: Primary Status: Acute (3) History of intravascular stent placement Priority: Secondary Status: Chronic (4) Tobacco abuse Priority: Primary Status: Chronic - Discharge Medications Prescriptions: Atorvastatin [Lipitor] 20 mg PO HS #40 tablet Nicotine Patch [Nicoderm] 14 mg TD DAILY PRN #20 patch.td24 PRN Reason: nicotine craving. Warfarin [Coumadin] 5 mg PO 1800 #10 tablet Home Medications: Ascorbate Calcium [Vitamin C] 500 mg PO DAILY 11/02/16 [History] Aspirin 325 mg PO DAILY 11/02/16 [History] Multivitamin [Multi-Day Vitamins] 1 tab PO DAILY 11/02/16 [History] Datil-3/Dha/Epa/Fish Oil [Fish Oil 1,000 mg Softgel] 1,000 mg PO DAILY 11/02/16 [History] Vitamin E 100 unit PO DAILY 11/02/16 [History] Atorvastatin [Lipitor] 20 mg PO HS #40 tablet 11/07/16 [Rx] Diltiazem CD (24hr) [Cardizem CD] 240 mg PO DAILY #0 cap.er.24h 11/07/16 [Rx] Nicotine Patch [Nicoderm] 14 mg TD DAILY PRN #20 patch.td24 11/07/16 [Rx] Warfarin [Coumadin] 5 mg PO 1800 #10 tablet 11/07/16 [Rx] Allergies/Adverse Reactions: Allergies No Known Allergies Allergy (Verified 11/02/16 10:09) Procedures/tests Complete & Pending: Procedures Performed prior 72 hours Category Date Time Status NM jose luis perf SPECT multi [NM] Routine Exams 11/06/16 07:00 Taken ECG 12 lead ECG [ECG] Routine Y 11/06/16 15:32 Completed EV monika guided cardioversion Routine Y 11/06/16 13:27 Completed SP pharm nuclear stress Routine Y 11/06/16 06:30 Completed Date of admission: 11/02/16 14:28 Primary care physician: Matt Grajeda Jr, MD Consults: 11/04/16 08:49 Consult to Cardiology [CONS] Routine Comment: Consulting Provider: [facility] Reason for Consult: new onset Afib RVR Time Notified: 08:50 Call Completed: Yes Discharging clinician: Matheus Duron Anticipated date of discharge: 11/07/16 - Patient Status Disposition: Home, Self-Care Condition: Good Functional capacity at discharge: independent ambulation Overall status at discharge: patient is progressing back to baseline - Discharge Instructions Instructions: Warfarin (By mouth), Atrial Fibrillation (DC), Acute Respiratory Distress Syndrome (DC), Chronic Hypertension (DC), Vitamin K in Foods (DC) Follow Up With: Rachel Rod CNP [Partnered Physician] - 11/10/16 10:40 am Additional Instructions: Follow up with Coumadin clinic: Call for appt. [facility] [address] [place] [address] Hours of Operation: Wednesday 8am-5:30pm (by appointment only) - Diet and Activity Activity: increase activity as tolerated Diet: low fat, low cholesterol, low salt diet Hospital course: Mr. Bowen is a 66 year old male Patient would present to [facility] with chief concern: palpitations, with ER workup disclosing Afib RVR. Comorbidities include: CAD, HTN, Afib. Hospital course: He would be started on cardizem gtt in ER, transitioned to PO Cardizem 180mg QD. Addition of metoprolol tartrate 25mg PO BID TSH wnl, tropes x 4 negative. CTA negative for PE, showed moderate bilateral pleural effusions with adjacent compressive atalectasis of both lung bases. more focal patchy airspace consolidation involving the left upper lobe and superior segment left lower lobe concerning for pneumonia. Echo showed LVEF 55-60%, normal LV chamber size, wall thickness, function, indeterminate diastolic function, normal RV structure and function, moderately calcified aortic valve leaflets, mild aortic regurg, mild aortic stenosis suggested by doppler, moderate to severe mitral regurg, no evidence of pulmonary hypertension. Patient would be started on therapeutic Lovenox 1mg/kg BID for full anticoagulation in light of valvular Afib. Started evening of 11/02/16 bridging to coumadin. Cardiology consult regarding pAF RVR with moderate-severe MR, with recommendation: Coumadin for chronic AC given valvular disease, rate control and ischemic workup with stress tomorrow for MR. He would undergo DC Cardioversion 11/06 with conversion to sinus. Stress test-- abnormality noted, which will now require that pt have rest images for comparison/interpretation. He would have rest images for comparison, disclosing no abnormality. Per cardiology: negative for ischemia. There was a partially reversible defect in the inferior lateral wall that is likely sub diaphragmatic attenuation. Discussed with Dr. Plasencia, likely artifact on stress images. No high risk features. Recommend close out-pt f/u with Dr. Plasencia. [facility] will coordinate. At time of discharge, patient was clinically improved, hemodynamically stable, progressing to baseline, and agreeable with plan of care. Patient was advised to seek immediate medical attention for any new or worsening symptoms including but not limited to fever, chills, chest pain, chest pressure, dyspnea, cough, abdominal pain, nausea, vomiting, diarrhea, bloody stool, urine and the patient voiced understanding. Patient will follow-up with primary care physician: Dr. Matt Grajeda. Since his rhythm converted to sinus, with pulse in 70's, I advised stopping metoprolol. Continued cardizem with holding parameters should he re-enter Afib. To follow-up with cardiology. He completed 5 day course of antibiotics for community-acquired pneumonia. Completed 5-day bridging from lovenox to coumadin. I discussed with pharmacist regarding optimal dosing, patient to continue coumadin 5mg PO QD with PT/INR monitoring and follow with anticoagulation clinic. Patient to establish with Anticoagulation clinic. He will have interval PT/INR drawn and sent to Dr. Grajeda as well. [facility] [address] [place] [address] Hours of Operation: Wednesday 8am-5:30pm (by appointment only) - Time Spent with Patient Total time spent providing and/or coordinating discharge services: Greater than 30 minutes - Constitutional Vitals: Temp Pulse Resp BP Pulse Ox 98.2 F 74 16 128/97 97 11/07/16 07:00 11/07/16 07:00 11/07/16 07:00 11/07/16 07:00 11/07/16 07:00 General appearance: Present: A&O X 3, pleasant, no acute distress, answers questions appropriately - Head Head exam: Present: atraumatic, normocephalic - Eye Eye exam: Present: EOMI, sclera anicteric - ENT ENT exam: Present: mucous membranes moist - Neck Neck exam general surgery: Present: supple, trachea midline - Respiratory Respiratory exam: Present: CTAB. Absent: rhonchi, wheezes - Cardiovascular Cardiovascular exam: Present: +S1, +S2. Absent: JVD Additional comments: sinus - GI/Abdominal GI/Abdominal exam: Present: soft, no peritoneal signs. Absent: tenderness - Extremities Exam Extremities exam: Present: warm, radial pulses palpable and symetrical. Absent : mottling, pedal edema - Neurological Exam Neurological exam: Present: no focal deficits, strengths equal and symetr throughout. Absent: facial droop, speech deficit <Matheus Duron - Last Filed: 11/07/16 18:27> Date of Encounter: 11/07/16 - Discharge Diagnosis (1) Pneumonia Status: Suspected Qualifiers: Pneumonia type: due to Pneumococcus Laterality: left Lung location: upper lobe of lung Qualified Code(s): J13 - Pneumonia due to Streptococcus pneumoniae (2) A-fib Priority: Secondary Status: Acute Qualifiers: Atrial fibrillation type: persistent Qualified Code(s): I48.1 - Persistent atrial fibrillation (3) Heart failure Priority: Secondary Status: Acute Qualifiers: Heart failure type: diastolic Heart failure chronicity: acute Qualified Code(s): I50.31 - Acute diastolic (congestive) heart failure (4) Tobacco abuse Priority: Primary Status: Chronic (5) Contact dermatitis Priority: Secondary Status: Acute Qualifiers: Contact dermatitis type: allergic Contact dermatitis trigger: other trigger Qualified Code(s): L23.89 - Allergic contact dermatitis due to other agents; L23.8 - Allergic contact dermatitis due to other agents Procedures/tests Complete & Pending: Procedures Performed prior 72 hours Category Date Time Status NM jose luis perf SPECT multi [NM] Routine Exams 11/06/16 07:00 Taken ECG 12 lead ECG [ECG] Routine Y 11/06/16 15:32 Completed EV monika guided cardioversion Routine Y 11/06/16 13:27 Completed SP pharm nuclear stress Routine Y 11/06/16 06:30 Completed Date of admission: 11/02/16 14:28 Primary care physician: Matt Grajeda Jr, MD Consults: 11/04/16 08:49 Consult to Cardiology [CONS] Routine Comment: Consulting Provider: Cardiology [facility] Reason for Consult: new onset Afib RVR Time Notified: 08:50 Call Completed: Yes Hospital course: Mr. Bowen is a 66 year old male - Time Spent with Patient Total time spent providing and/or coordinating discharge services: 28min Greater than 30 minutes - Constitutional Vitals: Temp Pulse Resp BP Pulse Ox 98.2 F 74 16 128/97 97 11/07/16 07:00 11/07/16 07:00 11/07/16 07:00 11/07/16 07:00 11/07/16 07:00 - Attending Attestation I examined this patient and my medical decision-making was reviewed with the Resident Physician on 11/07/16. I agree with the documented findings, disposition and treatment plan as described except to the extent set forth below. Mr. Bowen was admitted for rapid atrial fib with diastolic heart failure and PNA. He is doing better today. Stress test completed today and negative. He was cardioverted successfully yesterday. He is afebrile with stable vitals and ready for d/c home. Exam Alert. Comfortable No wheeze Heart reg Plan D/C home today with outpatient follow up.
== END 2016-11-07 14:50 | disposition home or self-care (01) | DRG 308 ==
LOC: 2NENU 11:00 → EMEROO 11:00 → 2NENU 14:16
PROVIDERS: ADMIT Internal Medicine; ATTEND Internal Medicine

== ENCOUNTER 2016-11-12 13:26 | Inpatient (IN) ==
[2016-11-12 13:56] LABS: Basophils # 0.1 K/mcL (0.0-0.2); Basophils % 0.7 %; Eosinophils # 0.1 K/mcL (0.0-0.6); Eosinophils % 0.8 %; Hematocrit 49.7 % (37.5-50.1); Immature Granulocytes % 0.3 % (0-4); Lymphocytes # 1.9 K/mcL (0.6-4.6); Lymphocytes % 20.3 %; Mean Corpuscular HGB Conc 33.6 g/dL (31.6-35.5); Mean Corpuscular Hemoglobin 30.8 pg (28.0-33.3); Mean Corpuscular Volume 91.7 fL (83.0-100.0); Mean Platelet Volume 11.2 fL (9.4-12.4); Monocytes # 1.1 K/mcL (0.0-1.3); Monocytes % 12.5 %; Platelet Count 287 K/mcL (140-400); Red Blood Count 5.42 M/mcL (4.19-5.50); Red Cell Distribution Width 14.3 % (11.5-14.5); Segmented Neutrophils % 65.4 %
[2016-11-12 13:58] LABS: Hemoglobin 16.7 g/dL (12.9-16.9)
[2016-11-12 14:01] LABS: Activated Partial Thrombo Time 58.6 Seconds (26.0-36.0)
[2016-11-12 14:04] LABS: BUN/Creatinine Ratio 19 (6-26); Blood Urea Nitrogen 21 mg/dL (8-26); Calcium 9.4 mg/dL (8.6-10.8); Carbon Dioxide 19 mEq/L (19-29); Chloride 108 mEq/L (98-109); Glucose 88 mg/dL (70-99); Osmolality,Calculated 292 (280-300); Potassium 4.2 mEq/L (3.5-4.5); Sodium 140 mEq/L (136-145); eGFR For African Americans > 60 (> 60); eGFR For Non-African Americans > 60 (> 60)
[2016-11-12 14:14] LABS: Prothrombin Time 58.5 Seconds (9.4-12.1)
[2016-11-12 14:15] LABS: INR 5.2
--- NOTE | 2016-11-12 14:22 | Emergency Department Note ---
Disposition Clinical Impression: Atrial fibrillation with RVR, Palpitations, A-fib, Mitral regurgitation Disposition: Admitted As Inpatient Condition: Fair Arrhythmia/Palpitations HPI - General Chief Complaint: ED Arrhythmia/Palpitations Stated Complaint: Afib RVR Time Seen by Provider: 11/12/16 13:34 - History of Present Illness HPI Narrative: 59-year-old male presented from his primary care physician's office with chief complaint of atrial fibrillation with RVR. Patient states that he was just discharged on November 07 from the hospital for A. fib RVR, currently acquired pneumonia. He denies chest pain, shortness of breath, headache, blurry vision, nausea, vomiting, diaphoresis. At that point he was started on Coumadin due to his A. fib being from moderate-severe mitral regurg. Patient was cardioverted to sinus rhythm last Wednesday by cardiology. He was discharged with diltiazem and warfarin. Patient says he has not been taking warfarin since Wednesday because his INR has been quite elevated. INR today is 5.1. Patient is taking his Cardizem dose today of 240 mg. Patient also has a right iglesias cellulitis which has been treated with cephalexin and fluocinolone cream outpatient. - Related Data Home Medications Medication Instructions Recorded Confirmed Ascorbate Calcium [Vitamin C] 500 mg PO DAILY 11/02/16 11/12/16 Aspirin 325 mg PO DAILY 11/02/16 11/12/16 Multivitamin [Multi-Day Vitamins] 1 tab PO DAILY 11/02/16 11/12/16 [place]-3/Dha/Epa/Fish Oil [Fish Oil 1,000 mg PO DAILY 11/02/16 11/12/16 1,000 mg Softgel] Vitamin E 100 unit PO DAILY 11/02/16 11/12/16 Previous Rx's Medication Instructions Recorded Atorvastatin [Lipitor] 20 mg PO HS #40 tablet 11/07/16 Diltiazem CD (24hr) [Cardizem CD] 240 mg PO DAILY #0 cap.er.24h 11/07/16 Nicotine Patch [Nicoderm] 14 mg TD DAILY PRN #20 patch.td24 11/07/16 Warfarin [Coumadin] 5 mg PO 1800 #10 tablet 11/07/16 Allergies Allergy/AdvReac Type Severity Reaction Status Date / Time No Known Allergies Allergy Verified 11/12/16 13:31 Review of Systems: Constitutional: Denies fever, chills HEENT: Denies headache, vision changes, neck pain, sore throat, rhinorrhea Heart: Denies chest pain towards palpitations Lungs: Denies shortness of breath cough Abdomen: Denies abdominal pain nausea vomiting diarrhea Extremities: Denies swelling, pain, reports right extremity rash Neuro: Denies numbness, and tingling Past Medical History - Past Medical History Medical history: Reports: atrial fibrillation, hyperlipidemia, other Psychiatric history: Reports: no psych history - Social History Smoking Status: Current every day smoker Smokeless Tobacco Status: No Alcohol use: Reports: occasionally Drug use: Reports: none Physical Exam General: Alert and oriented to place time and situation. Without distress HEENT: Head atraumatic, normocephalic, EOMI, PERRLA, neck nontender to palpation , absent Lymphadenopathy, Moist Mucous Membranes, Heart: Irregularly irregular Lungs: Clear to auscultation bilaterally Abdomen: Soft nontender, nondistended positive bowel sounds Extremities: Absent pedal edema, right skin erythema, warmth with serosanguineous discharge. Neuro: Cranial nerves II through XII intact, sensation equal bilaterally, strength upper and lower extremity 5/5, alert oriented 3 Vascular: Pedal and radialpulses 2 out of 4 - General General appearance: alert Course Course Narrative: Patient currently is not any distress. CBC shows stable hemoglobin, normal BMP. EKG shows A. fib RVR. INR is 5.1. Continues to deny chest pain. Will admit to hospitalist for further evaluation. - Reevaluation(s) Reevaluation #1: Given 10 mg Cardizem IV. Patient continues to have a rate in the 140s. Time: 14:47 Reevaluation #2: Chest x-ray normal. TSH within normal limits. Time: 15:17 Vital Signs Temperature 98.1 F 11/12/16 13:27 Pulse Rate 134 11/12/16 13:27 Respiratory Rate 16 11/12/16 13:27 Blood Pressure 144/97 11/12/16 13:27 O2 Sat by Pulse Oximetry 97 11/12/16 13:27 Temperature 98.1 F 11/12/16 13:27 Pulse Rate 127 11/12/16 15:12 Respiratory Rate 18 11/12/16 15:12 Blood Pressure 130/113 11/12/16 15:12 O2 Sat by Pulse Oximetry 96 11/12/16 15:12 Oxygen Delivery Oxygen Delivery Room Air Arrhythmia/Palpitations - [facility] Narrative Medical decision making narrative: A. fib RVR refractory to by mouth Cardizem. Patient INR is supratherapeutic. He will be admitted for further management of A. fib RVR. Patient was started on Cardizem drip at 10 mg an hour. His heart rate is down 110. He continues to be in A. fib. - Medical Records Medical records reviewed: Yes I reviewed the patient's medical records. - Lab Data Lab results reviewed: Yes I reviewed the patient's lab results. Result diagrams: 11/12/16 13:42 11/12/16 13:42 Lab Results 11/12/16 11/12/16 11/12/16 Range/Units 13:42 13:42 13:42 WBC 9.1 (4.3-11.1) K/mcL RBC 5.42 (4.19-5.50) M/mcL Hgb 16.7 D (12.9-16.9) g/dL Hct 49.7 (37.5-50.1) % MCV 91.7 (83.0-100.0) fL MCH 30.8 (28.0-33.3) pg MCHC 33.6 (31.6-35.5) g/dL RDW 14.3 (11.5-14.5) % Plt Count 287 (140-400) K/mcL MPV 11.2 (9.4-12.4) fL Immature Gran % 0.3 (0-4) % Seg Neutrophils % 65.4 % Lymphocytes % 20.3 % Monocytes % 12.5 % Eosinophils % 0.8 % Basophils % 0.7 % Neutrophils # 6.0 (1.6-8.9) K/mcL Lymphocytes # 1.9 (0.6-4.6) K/mcL Monocytes # 1.1 (0.0-1.3) K/mcL Eosinophils # 0.1 (0.0-0.6) K/mcL Basophils # 0.1 (0.0-0.2) K/mcL PT 58.5 H* (9.4-12.1) Seconds INR 5.2 H* APTT 58.6 H (26.0-36.0) Seconds Sodium 140 (136-145) mEq/L Potassium 4.2 (3.5-4.5) mEq/L Chloride 108 (98-109) mEq/L Carbon Dioxide 19 (19-29) mEq/L BUN 21 (8-26) mg/dL Creatinine 1.13 (0.72-1.25) mg/dL Est GFR ( Amer) > 60 (> 60) Est GFR (Non-Af Amer) > 60 (> 60) BUN/Creatinine Ratio 19 (6-26) Glucose 88 (70-99) mg/dL Calculated Osmolality 292 (280-300) Calcium 9.4 (8.6-10.8) mg/dL Troponin I (0-0.03) ng/mL TSH 1.199 (0.350-4.840) mcIU/mL 11/12/16 Range/Units 13:42 WBC (4.3-11.1) K/mcL RBC (4.19-5.50) M/mcL Hgb (12.9-16.9) g/dL Hct (37.5-50.1) % MCV (83.0-100.0) fL MCH (28.0-33.3) pg MCHC (31.6-35.5) g/dL RDW (11.5-14.5) % Plt Count (140-400) K/mcL MPV (9.4-12.4) fL Immature Gran % (0-4) % Seg Neutrophils % % Lymphocytes % % Monocytes % % Eosinophils % % Basophils % % Neutrophils # (1.6-8.9) K/mcL Lymphocytes # (0.6-4.6) K/mcL Monocytes # (0.0-1.3) K/mcL Eosinophils # (0.0-0.6) K/mcL Basophils # (0.0-0.2) K/mcL PT (9.4-12.1) Seconds INR APTT (26.0-36.0) Seconds Sodium (136-145) mEq/L Potassium (3.5-4.5) mEq/L Chloride (98-109) mEq/L Carbon Dioxide (19-29) mEq/L BUN (8-26) mg/dL Creatinine (0.72-1.25) mg/dL Est GFR ( Amer) (> 60) Est GFR (Non-Af Amer) (> 60) BUN/Creatinine Ratio (6-26) Glucose (70-99) mg/dL Calculated Osmolality (280-300) Calcium (8.6-10.8) mg/dL Troponin I 0.01 (0-0.03) ng/mL TSH (0.350-4.840) mcIU/mL - Radiology Data Radiology results reviewed: Yes I reviewed the patient's radiology results. - EKG Data EKG attestation: Yes I reviewed and interpreted this EKG. EKG results narrative: Atrial fibrillation with rapid ventricular response. Rate is [address]-T wave changes. Critical Care Time Critical Care Time: Yes Total Critical Care Time: 35 Attestation: critical care time spent in work up of A fib with RVR and cardizem gtt and medical management Attestation Statement - Attestation Attestation: I examined this patient and my medical decision-making was reviewed with the COUNTY BAILIFF/PA/Advanced Practice Nurse/Resident Physician. I agree with the documented findings, disposition and treatment plan as described except to the extent set forth below. admit for a fib with rvr. INR elevated. will start cardizem gtt
[2016-11-12 14:28] LABS: Thyroid Stimulating Hormone 1.199 mcIU/mL (0.350-4.840)
[2016-11-12] MEDS ORDERED: Acetaminophen 325 MG TABLET PO PRN (16:54)
[2016-11-12] MEDS ORDERED: Naloxone 0.4 MG/ML INJ IVP PRN (16:54)
[2016-11-12] MEDS ORDERED: Nicotine 14 MG PATCH.TD24 TD PRN (17:20)
--- NOTE | 2016-11-12 17:28 | Internal Med History&Physical ---
Date of Encounter: 11/12/16 Time of Encounter: 17:00 Assessment and Plan (1) Atrial fibrillation with rapid ventricular response Current visit: Yes Status: Acute Patient with A. fib with RVR. Started on IV Cardizem. Will titrate to keep heart rate less than 100. Consult cardiology. Patient is anticoagulated with Coumadin and INR is actually supratherapeutic. High risk for complications due to use of IV Cardizem. (2) CAD (coronary artery disease) Current visit: No Status: Chronic Continue aspirin and statin. Qualifiers: Coronary Disease-Associated Artery/Lesion type: [place] artery [place] vs. transplanted heart: [place] heart Associated angina: without angina Qualified Code(s): I25.10 - Atherosclerotic heart disease of [place] coronary artery without angina pectoris (3) Supratherapeutic INR Current visit: Yes Status: Acute INR is supratherapeutic. Hold Coumadin. Follow PT/INR. Internal Medicine - H&P: HPI Chief complaint: Palpitations Admitted From: Emergency Dept Plans for Post Hospital Care: Home History of present illness: Mr. Bowen is a 66 year old male with history of atrial fibrillation and hyperlipidemia presented to the ER with complaints of palpitations. Patient had just been discharged from the hospital last week after being treated for A. fib with RVR with DC cardioversion. Patient says he was feeling fine for about a day after discharge but then began to have palpitations again from Wednesday. He had missed taking diltiazem for couple of days due to prescription issues. He denies any chest pain or shortness of breath. He was asked to come to the cardiology clinic today for evaluation and was found to have rapid heart rate and so advised to come to the ER. The patient's face and felt good when he was in normal rhythm but once he began to have palpitations became weak and tired and easily fatigued. During his last hospitalization, he was also treated for pneumonia with antibiotics. He feels like he has recovered well from that Past Med Surg Social Fam HX - Past Medical History Attestation: Yes The following information was validated with the patient. Source: patient, old records reviewed Medical history: atrial fibrillation, hyperlipidemia, other Psychiatric history: no psych history - Past Surgical History Surgical History: other (Synchronized cardioversion) - Social History Smoking Status: Current every day smoker Smokeless Tobacco Status: No Alcohol use: occasionally Drug use: none - Additional Family History Additional family history: Reviewed and found to be noncontributory at this time Internal Medicine - H&P: Meds Ascorbate Calcium [Vitamin C] 500 mg PO DAILY 11/02/16 [History] Aspirin 325 mg PO DAILY 11/02/16 [History] Multivitamin [Multi-Day Vitamins] 1 tab PO DAILY 11/02/16 [History] [place]-3/Dha/Epa/Fish Oil [Fish Oil 1,000 mg Softgel] 1,000 mg PO DAILY 11/02/16 [History] Vitamin E 100 unit PO DAILY 11/02/16 [History] Atorvastatin [Lipitor] 20 mg PO HS #40 tablet 11/07/16 [Rx] Diltiazem CD (24hr) [Cardizem CD] 240 mg PO DAILY #0 cap.er.24h 11/07/16 [Rx] Nicotine Patch [Nicoderm] 14 mg TD DAILY PRN #20 patch.td24 11/07/16 [Rx] Warfarin [Coumadin] 5 mg PO 1800 #10 tablet 11/07/16 [Rx] Allergies No Known Allergies Allergy (Verified 11/12/16 13:31) All Systems PM: A 10-system review of systems was performed and is negative for pertinent findings except as documented above in the HPI. - Constitutional Constitutional: no chills, no fever(s), no night sweats - EENT Eyes: no change in vision, no discharge, no pain, no photophobia Ears: no ear discharge, no ear pain, no tinnitus Nose, mouth and throat: no dysphagia, no nasal discharge, no neck pain, no sore throat - Cardiovascular Cardiovascular ROS IM: palpitations, no chest pain, no diaphoresis, no dyspnea, no lightheadedness, no syncope - Respiratory Respiratory: no cough, no dyspnea, no wheezing, no excessive phlegm production - Gastrointestinal Gastrointestinal: no abdominal pain, no diarrhea, no hematemesis, no hematochezia, no melena, no nausea, no vomiting - Musculoskeletal Musculoskeletal ROS IM: no numbness, no tingling - Integumentary Integumentary IM: no rash, no unusual bruising - Neurological Neurological ROS: no confusion, no convulsions, no focal weakness, no numbness, no tingling, no tremor(s) - Constitutional Vitals: Temp Pulse Resp BP Pulse Ox 97.6 F 127 16 157/108 95 11/12/16 16:58 11/12/16 16:58 11/12/16 16:58 11/12/16 16:58 11/12/16 16:58 General appearance: Present: cooperative, mild distress, A&O X 3, answers questions appropriately - Eye Eye exam: Present: EOMI, PERRL, conjuntiva pink, sclera anicteric - Neck Neck exam general surgery: Present: supple, trachea midline. Absent: lymphadenopathy - Respiratory Respiratory exam: Present: CTAB. Absent: accessory muscle use, rales, rhonchi, wheezes - Cardiovascular Cardiovascular exam: Present: irregular rhythm, +S1, +S2, tachycardia. Absent: diastolic murmur, gallop, rubs, systolic murmur - GI/Abdominal GI/Abdominal exam: Present: normal bowel sounds, soft, no peritoneal signs. Absent: distended, tenderness - Extremities Exam Extremities exam: Present: warm, radial pulses palpable and symetrical. Absent : calf tenderness, cyanotic, pedal edema - Neurological Exam Neurological exam: Present: alert, CN II-XII intact, oriented X3, no focal deficits. Absent: facial droop, speech deficit - Skin Skin exam: Present: dry, intact Internal Med - H&P Results - Labs CBC & Chem 7: 11/12/16 13:42 11/12/16 13:42 - EKG Data -: EKG Interpreted by Myself - EKG Data EKG comments: 11/12/16 17:30 A. fib with RVR - Impressions Impressions Chest X-Ray 11/12/16 13:34 IMPRESSION: 1. Suspected small right pleural effusion with atelectasis in the lung bases. 2. No focal lung infiltrate is identified. D/ / 11/12/2016 14:38:07 Yaya Mason MD / cain Interpreting Provider: Yaya Mason MD - Attending Attestation This document has been at least partially created by [employer] recognition technology by Dr. Coates. Errors in grammar, wording or other phrases may exist. If errors are found after the documentation is signed, they will be addressed individually in the addendum section of this document when appropriate.
[2016-11-13] MEDS ORDERED: Aspirin 325 MG TABLET PO SCH (09:00)
[2016-11-13] MEDS ORDERED: Diltiazem CD (24hr) 240 MG CAPSULE PO SCH (09:00)
--- NOTE | 2016-11-13 13:55 | Internal Med Progress Note ---
<RobbLaura stoddard - Last Filed: 11/13/16 13:50> Date of Encounter: 11/13/16 Time of Encounter: 10:00 - Assessment and plan (1) Atrial fibrillation with rapid ventricular response Current Visit: Yes Status: Acute Assessment and plan: patient's last hospital admission was on 11/02/16 for Afib RVR with CAP and bilateral pleural effusions. He received 5 days of antibiotics at that time and was diuresed as well. During that hospital stay, he was started on coumadin. He felt fine after discharge, but started having palpitations again. last Echo on 11/03/16 showed LVEF 55-60%, normal LV chamber size, wall thickness , function, indeterminate diastolic function, normal RV structure and function, moderately calcified aortic valve leaflets, mild aortic regurg, mild aortic stenosis suggested by doppler, moderate to severe mitral regurg, no evidence of pulmonary hypertension. CXR significant for small right pleural effusion with atalectasis in the lung bases. Patient had CTA during last hospital visit that showed paratracheal lymphadenopathy concerning for malignancy. Plan: Consult to pulmonology for possible bronchoscopy Have started PO cardizem, will stop IV cardizem after two hours Started Metoprolol 25mg BID, will uptitrate as blood pressure tolerates. (2) CAD (coronary artery disease) Current Visit: No Status: Chronic Assessment and plan: patient has hx of CAD. [facility] in 07/2011 that showed 80% stenosis in proximal to mid left LAD, 50-60% stenosis in mid left circumflex, chronically occluded proximal right coronary artery, distal RCA receiving collaterals from distal circumflex and proximal RCA , LVEF>60%, mild hypokinesis of inferobasal wall of left ventricle. s/p ANNETTE to mid LAD. patient states he used to be on metoprolol 25mg BID, then stopped taking it because his Rx ran out, and it was never refilled Plan: continue ASA, atorvastatin, metoprolol Qualifiers: Coronary Disease-Associated Artery/Lesion type: [place] artery [place] vs. transplanted heart: [place] heart Associated angina: without angina Qualified Code(s): I25.10 - Atherosclerotic heart disease of [place] coronary artery without angina pectoris (3) Supratherapeutic INR Current Visit: Yes Status: Acute Assessment and plan: holding warfarin currently. Will be dosed by pharmacy once therapeutic. will re check INR (4) Tobacco abuse Current Visit: No Status: Chronic Assessment and plan: patient has hx of smoking 1PPD for 20 years. patient counseled on importance of smoking cessation and risk factors associated with it. Plan: nicotine patch PRN (5) DVT prophylaxis Current Visit: No Status: Acute Assessment and plan: pharmacy will dose warfarin currently on hold due to supratherapeutic INR - Subjective Interval history: 66 year old male evaluated at bedside. He was sent from cardiology office because he was found to be in Afib RVR, and did not have his home cardizem due to precription error. His last hospital admission was on 11/02/16 for Afib RVR. At that time, he received DEMETRIUS cardioversion with conversion to sinus rhythm. patient denies chest pain, nausea, vomiting, diarrhea. He states that he occasionally feels a "flutter" in his chest. He denies hemoptysis, weight loss, night sweats. He denies any further complaints today. - Constitutional Vitals: Temp Pulse Resp BP Pulse Ox 98.6 F 92 16 136/94 97 11/13/16 12:02 11/13/16 12:02 11/13/16 12:02 11/13/16 12:02 11/13/16 12:02 General appearance: Present: cooperative, mild distress, A&O X 3, answers questions appropriately - Head Head exam: Present: atraumatic, normocephalic - Neck Neck exam general surgery: Present: supple, trachea midline - Respiratory Respiratory exam: Present: CTAB - Cardiovascular Cardiovascular exam: Present: systolic murmur, tachycardia - GI/Abdominal GI/Abdominal exam: Present: normal bowel sounds, soft. Absent: distended, tenderness - Extremities Exam Extremities exam: Absent: cyanotic, pedal edema Additional comments: rash present on right calf. - Neurological Exam Neurological exam: Present: alert, oriented X3, no focal deficits - Psychiatric Psychiatric exam: Present: anxious Internal Medicine: Result - Labs CBC & Chem 7: 11/12/16 13:42 11/12/16 13:42 - ABG Interpretation ABG results: PT/INR, D-dimer PT 58.5 Seconds (9.4-12.1) H* 11/12/16 13:42 Consult Discharge Plan - Plan Referrals: Matt Grajeda Jr, MD [Primary Care Provider] - <Hieu Reyez P - Last Filed: 11/13/16 18:01> Date of Encounter: 11/13/16 - Constitutional Vitals: Temp Pulse Resp BP Pulse Ox 97 F L 90 16 133/94 95 11/13/16 15:45 11/13/16 15:45 11/13/16 15:45 11/13/16 15:45 11/13/16 15:45 Internal Medicine: Result - Labs CBC & Chem 7: 11/12/16 13:42 11/12/16 13:42 - ABG Interpretation ABG results: PT/INR, D-dimer PT 58.5 Seconds (9.4-12.1) H* 11/12/16 13:42 - Attending Attestation I examined this patient and my medical decision-making was reviewed with the NEEDLE CONTROL CHENILLER/PA/Advanced Practice Nurse/Resident Physician. I agree with the documented findings, disposition and treatment plan as described except to the extent set forth below.
[2016-11-13] MEDS: Diltiazem CD (24hr) 240 MG CAPSULE PO SCH (15:34)
--- NOTE | 2016-11-13 17:42 | Electrocardiograph Report ---
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
[2016-11-13] MEDS ORDERED: Warfarin perPT PO PRN (18:00)
[2016-11-14 06:12] LABS: Basophils # 0.1 K/mcL (0.0-0.2); Basophils % 0.8 %; Eosinophils # 0.1 K/mcL (0.0-0.6); Eosinophils % 1.6 %; Hematocrit 46.9 % (37.5-50.1); Hemoglobin 15.2 g/dL (12.9-16.9); Immature Granulocytes % 0.6 % (0-4); Lymphocytes # 1.6 K/mcL (0.6-4.6); Lymphocytes % 18.5 %; Mean Corpuscular HGB Conc 32.4 g/dL (31.6-35.5); Mean Corpuscular Hemoglobin 29.9 pg (28.0-33.3); Mean Corpuscular Volume 92.1 fL (83.0-100.0); Mean Platelet Volume 11.1 fL (9.4-12.4); Monocytes # 1.1 K/mcL (0.0-1.3); Monocytes % 12.1 %; Neutrophils # 5.8 K/mcL (1.6-8.9); Platelet Count 268 K/mcL (140-400); Red Blood Count 5.09 M/mcL (4.19-5.50); Red Cell Distribution Width 14.2 % (11.5-14.5); Segmented Neutrophils % 66.4 %
[2016-11-14 06:15] LABS: INR 3.4; Prothrombin Time 37.9 Seconds (9.4-12.1)
[2016-11-14 06:25] LABS: BUN/Creatinine Ratio 17 (6-26); Blood Urea Nitrogen 17 mg/dL (8-26); Calcium 8.9 mg/dL (8.6-10.8); Carbon Dioxide 20 mEq/L (19-29); Chloride 109 mEq/L (98-109); Glucose 88 mg/dL (70-99); Osmolality,Calculated 287 (280-300); Potassium 3.9 mEq/L (3.5-4.5); Sodium 138 mEq/L (136-145); eGFR For African Americans > 60 (> 60); eGFR For Non-African Americans > 60 (> 60)
--- NOTE | 2016-11-14 08:47 | Internal Med Progress Note ---
<RobbLaura stoddard - Last Filed: 11/14/16 09:57> Date of Encounter: 11/14/16 Time of Encounter: 08:42 - Assessment and plan (1) Atrial fibrillation with rapid ventricular response Current Visit: Yes Status: Acute Assessment and plan: patient's last hospital admission was on 11/02/16 for Afib RVR with CAP and bilateral pleural effusions. He received 5 days of antibiotics at that time and was diuresed as well. During that hospital stay, he was started on coumadin. He felt fine after discharge, but started having palpitations again. last Echo on 11/03/16 showed LVEF 55-60%, normal LV chamber size, wall thickness , function, indeterminate diastolic function, normal RV structure and function, moderately calcified aortic valve leaflets, mild aortic regurg, mild aortic stenosis suggested by doppler, moderate to severe mitral regurg, no evidence of pulmonary hypertension. CXR significant for small right pleural effusion with atalectasis in the lung bases. Patient had CTA during last hospital visit that showed paratracheal lymphadenopathy concerning for malignancy. Plan: patient will have outpatient bronchoscopy and follow up with pulmonology. uptitrate continue Cardizem. continue Metoprolol 25mg BID, will uptitrate as blood pressure tolerates. (2) CAD (coronary artery disease) Current Visit: No Status: Chronic Assessment and plan: patient has hx of CAD. [facility] in 07/2011 that showed 80% stenosis in proximal to mid left LAD, 50-60% stenosis in mid left circumflex, chronically occluded proximal right coronary artery, distal RCA receiving collaterals from distal circumflex and proximal RCA , LVEF>60%, mild hypokinesis of inferobasal wall of left ventricle. s/p ANNETTE to mid LAD. patient states he used to be on metoprolol 25mg BID, then stopped taking it because his Rx ran out, and it was never refilled Plan: continue ASA, atorvastatin, metoprolol Qualifiers: Coronary Disease-Associated Artery/Lesion type: [place] artery [place] vs. transplanted heart: [place] heart Associated angina: without angina Qualified Code(s): I25.10 - Atherosclerotic heart disease of [place] coronary artery without angina pectoris (3) Supratherapeutic INR Current Visit: Yes Status: Acute Assessment and plan: holding warfarin currently. Will be dosed by pharmacy once therapeutic. will re check INR (4) Tobacco abuse Current Visit: No Status: Chronic Assessment and plan: patient has hx of smoking 1PPD for 20 years. patient counseled on importance of smoking cessation and risk factors associated with it. Plan: nicotine patch PRN (5) DVT prophylaxis Current Visit: No Status: Acute Assessment and plan: pharmacy will dose warfarin currently on hold due to supratherapeutic INR - Subjective Interval history: 66 year old male evaluated at bedside. He denies nausea, vomiting. Reports loose stools about once a day. Patient admits to some occasional shortness of breath when laying flat. He reports some fluttering in his chest, no chest pain. He expressed his frustration because he was not seen by pulmonology yesterday, and would like to be discharged from the hospital as quickly as possible. He expresses no further concerns today. - Constitutional Vitals: Temp Pulse Resp BP Pulse Ox 98.3 F 84 16 123/99 98 11/14/16 06:53 11/14/16 06:53 11/14/16 06:53 11/14/16 06:53 11/14/16 06:53 General appearance: Present: cooperative, mild distress, A&O X 3, answers questions appropriately - Head Head exam: Present: atraumatic, normocephalic - Neck Neck exam general surgery: Present: supple, trachea midline - Respiratory Respiratory exam: Present: CTAB - Cardiovascular Cardiovascular exam: Present: systolic murmur, tachycardia - GI/Abdominal GI/Abdominal exam: Present: normal bowel sounds, soft. Absent: distended, tenderness - Extremities Exam Extremities exam: Absent: cyanotic, pedal edema Additional comments: right lower extremity rash - Neurological Exam Neurological exam: Present: alert, oriented X3, no focal deficits - Psychiatric Psychiatric exam: Present: anxious, normal affect - Skin Additional comments: rash on right lower extremity Internal Medicine: Result - Labs CBC & Chem 7: 11/14/16 05:24 11/14/16 05:24 Labs: Short CBC 11/14/16 Range/Units 05:24 WBC 8.8 (4.3-11.1) K/mcL Hgb 15.2 D (12.9-16.9) g/dL Hct 46.9 (37.5-50.1) % Plt Count 268 (140-400) K/mcL Neutrophils # 5.8 (1.6-8.9) K/mcL BMP 11/14/16 05:24 Sodium 138 Potassium 3.9 Chloride 109 Carbon Dioxide 20 BUN 17 Creatinine 1.03 Glucose 88 Calcium 8.9 - ABG Interpretation ABG results: PT/INR, D-dimer PT 37.9 Seconds (9.4-12.1) H 11/14/16 05:24 Consult Discharge Plan - Plan Referrals: Matt Grajeda Jr, MD [Primary Care Provider] - <Hieu Reyez P - Last Filed: 11/14/16 15:50> Date of Encounter: 11/14/16 - Constitutional Vitals: Temp Pulse Resp BP Pulse Ox 98.1 F 110 16 109/93 98 11/14/16 15:44 11/14/16 15:44 11/14/16 15:44 11/14/16 15:44 11/14/16 15:44 Internal Medicine: Result - Labs CBC & Chem 7: 11/14/16 05:24 11/14/16 05:24 Labs: Short CBC 11/14/16 Range/Units 05:24 WBC 8.8 (4.3-11.1) K/mcL Hgb 15.2 D (12.9-16.9) g/dL Hct 46.9 (37.5-50.1) % Plt Count 268 (140-400) K/mcL Neutrophils # 5.8 (1.6-8.9) K/mcL [facility] 11/14/16 05:24 Sodium 138 Potassium 3.9 Chloride 109 Carbon Dioxide 20 BUN 17 Creatinine 1.03 Glucose 88 Calcium 8.9 - ABG Interpretation ABG results: PT/INR, D-dimer PT 37.9 Seconds (9.4-12.1) H 11/14/16 05:24 - Attending Attestation I examined this patient and my medical decision-making was reviewed with the COMPUTER NUMERICAL CONTROL OPERATOR/PA/Advanced Practice Nurse/Resident Physician. I agree with the documented findings, disposition and treatment plan as described except to the extent set forth below. I have discussed this case with pulmonology at length. Pulmonology dissenting that patient needs bronchoscopy at this point. Pulmonology recommends outpatient follow-up in 6-8 weeks. During the follow-up in 6-8 weeks, pulmonology recommends repeat CT scan of the chest. If the repeat CT scan of the chest shows consistent infiltrate in the left upper lobe area, then at that point patient needs a bronchoscopy. Explained all about the patient. Also noted that patient has a persistent atrial fibrillation with rapid ventricular response. Blood pressure is within acceptable limits. We will start patient on 60 mg of Cardizem start antibiotic that the pressure is controlled and will give tomorrow morning extended-release Cardizem with additional dose.
[2016-11-14] MEDS: Diltiazem CD (24hr) 240 MG CAPSULE PO SCH (08:50)
[2016-11-14] MEDS: Aspirin Enteric Coated 81 MG Tablet PO SCH (08:50)
[2016-11-15 05:12] LABS: Basophils # 0.1 K/mcL (0.0-0.2); Eosinophils # 0.1 K/mcL (0.0-0.6); Eosinophils % 1.5 %; Hematocrit 45.1 % (37.5-50.1); Hemoglobin 14.9 g/dL (12.9-16.9); Immature Granulocytes % 0.4 % (0-4); Lymphocytes # 1.8 K/mcL (0.6-4.6); Lymphocytes % 22.2 %; Mean Corpuscular Hemoglobin 29.9 pg (28.0-33.3); Mean Corpuscular Volume 90.6 fL (83.0-100.0); Mean Platelet Volume 11.1 fL (9.4-12.4); Monocytes # 1.2 K/mcL (0.0-1.3); Monocytes % 14.6 %; Neutrophils # 4.8 K/mcL (1.6-8.9); Platelet Count 256 K/mcL (140-400); Red Blood Count 4.98 M/mcL (4.19-5.50); Red Cell Distribution Width 14.3 % (11.5-14.5); Segmented Neutrophils % 60.3 %
[2016-11-15 05:18] LABS: INR 2.2; Prothrombin Time 24.6 Seconds (9.4-12.1)
[2016-11-15 05:30] LABS: Alanine Aminotransferase 44 Units/L (0-55); Albumin 3.1 g/dL (3.5-5.0); Alkaline Phosphatase 61 Units/L (38-126); Aspartate Amino Transferase 23 Units/L (5-34); BUN/Creatinine Ratio 17 (6-26); Blood Urea Nitrogen 19 mg/dL (8-26); Calcium 9.1 mg/dL (8.6-10.8); Carbon Dioxide 22 mEq/L (19-29); Chloride 109 mEq/L (98-109); Glucose 92 mg/dL (70-99); Osmolality,Calculated 290 (280-300); Potassium 3.9 mEq/L (3.5-4.5); Sodium 139 mEq/L (136-145); Total Protein 6.1 g/dL (6.0-8.3); eGFR For African Americans > 60 (> 60); eGFR For Non-African Americans > 60 (> 60)
[2016-11-15 07:21] VITALS: BP 129/101
--- NOTE | 2016-11-15 08:01 | Discharge Summary ---
<Laura Graff - Last Filed: 11/15/16 08:51> Date of Encounter: 11/15/16 Time of Encounter: 07:47 - Discharge Diagnosis (1) Atrial fibrillation with rapid ventricular response Priority: Primary Status: Resolved (2) CAD (coronary artery disease) Priority: Secondary Status: Chronic Qualifiers: Coronary Disease-Associated Artery/Lesion type: [place] artery [place] vs. transplanted heart: [place] heart Associated angina: without angina Qualified Code(s): I25.10 - Atherosclerotic heart disease of [place] coronary artery without angina pectoris (3) Supratherapeutic INR Priority: Secondary Status: Resolved (4) Tobacco abuse Priority: Secondary Status: Chronic (5) DVT prophylaxis Priority: Secondary Status: Acute - Discharge Medications Prescriptions: Aspirin Enteric Coated [Aspirin EC] 81 mg PO DAILY #30 tablet.dr Daryl DODGE (24hr) [Cardizem CD] 240 mg PO DAILY #30 cap.er.24h Metoprolol [Lopressor] 25 mg PO BID #60 tablet Home Medications: Ascorbate Calcium [Vitamin C] 500 mg PO DAILY 11/02/16 [History] Multivitamin [Multi-Day Vitamins] 1 tab PO DAILY 11/02/16 [History] [place]-3/Dha/Epa/Fish Oil [Fish Oil 1,000 mg Softgel] 1,000 mg PO DAILY 11/02/16 [History] Vitamin E 100 unit PO DAILY 11/02/16 [History] Atorvastatin [Lipitor] 20 mg PO HS #40 tablet 11/07/16 [Rx] Nicotine Patch [Nicoderm] 14 mg TD DAILY PRN #20 patch.td24 11/07/16 [Rx] Warfarin [Coumadin] 5 mg PO 1800 #10 tablet 11/07/16 [Rx] Acetaminophen [Tylenol] 650 mg PO Q6HR PRN #0 tablet 11/15/16 [Rx] Aspirin Enteric Coated [Aspirin EC] 81 mg PO DAILY #30 tablet. 11/15/16 [Rx] Christinazelei DODGE (24hr) [Cardizem CD] 240 mg PO DAILY #30 cap.er.24h 11/15/16 [Rx] Metoprolol [Lopressor] 25 mg PO BID #60 tablet 11/15/16 [Rx] Allergies/Adverse Reactions: Allergies No Known Allergies Allergy (Verified 11/12/16 13:31) Date of admission: 11/13/16 19:36 Primary care physician: Matt Grajeda Jr, MD - Patient Status Disposition: Home, Self-Care Condition: Fair Functional capacity at discharge: independent ambulation Overall status at discharge: patient is progressing back to baseline - Discharge Instructions Instructions: Warfarin (By mouth), Atrial Fibrillation (DC), Acute Respiratory Distress Syndrome (DC), Chronic Hypertension (DC) Follow Up With: Matt Grajeda Jr, MD [Primary Care Provider] - Ezio Plasencia MD [Partnered Physician] - Luz Maria Parker MD [Partnered Physician] - Forms: ED Satisfaction Letter Additional Instructions: Follow up with primary doctor within 1 week of discharge FOllow up with cardiology within 1 week of discharge Follow up with pulmonology in 6-[address], possible bronchoscopy if warranted. Follow up with coumadin clinic within 1 week of discharge Take all medications as prescribed If symptoms return or worsen, return to emergency department immediately. - Diet and Activity Activity: increase activity as tolerated Diet: low fat, low cholesterol, low salt diet Hospital course: Mr. Bowen is a 66 year old male with PMHx of Afib, HLD, CAD (s/p ANNETTE to mid LAD in 2011), current tobacco user. Patient's last hospital admission was on 11/02/16. At that time, he was found to have new onset Afib RVR in setting of pneumonia and pleural effusions. Due to persistent RVR, he underwent DEMETRIUS guided cardioversion and was successfully converted to NSR. There was also concern for moderate to severe MR on DEMETRIUS, so stress test was done, which was likely negative for ischemia (partially reversible defect seen). Patient was started on coumadin during that hospital stay and had follow up with coumadin clinic. Patient had not been on cardizem after discharge. Patient was re-admitted to [facility] on 11/12/16. Before admission, he was seen at the cardiology clinic where he had an EKG done showing Afib RVR. During his follow up, patient complained of palpitations and shortness of breath. Cardiology clinic had recommended patient to go to ER. Patient was admitted to hospital and placed on cardizem drip. coumadin was held due to supratherepeutic INR. CXR showed no lung infiltrate and suspected small right pleural effusion. He was rate controlled with beta francisca with eventual transition to oral cardizem. On chest CT from previous hospital stay, there was paratracheal lymphadenopathy noted, which was concerning for possible malignancy (patient has 20 pack year smoking history). Cloth Carrier recommended outpatient pulmonology follow up in 6-[address], and possible bronchoscopy if warranted. Patient was rate controlled during his hospital stay. He was stable throughout the course of his stay, and remained stable until discharge. Plan: Take All medications as prescribed. Follow up with PCP and cardiology within one week of discharge. follow up with pulmonology within 6-8 weeks of discharge follow up with coumadin clinic. return to emergency department if symptoms return. Time spent discussing smoking cessation with patient: 3 to 10 minutes - Time Spent with Patient Total time spent providing and/or coordinating discharge services: - Constitutional Vitals: Temp Pulse Resp BP Pulse Ox 98.3 F 96 16 129/101 98 11/15/16 07:18 11/15/16 07:18 11/15/16 07:18 11/15/16 07:18 11/15/16 07:18 General appearance: Present: cooperative, mild distress, A&O X 3, answers questions appropriately - Head Head exam: Present: atraumatic, normocephalic - Neck Neck exam general surgery: Present: supple, trachea midline - Respiratory Respiratory exam: Present: CTAB - Cardiovascular Cardiovascular exam: Present: systolic murmur, tachycardia - GI/Abdominal GI/Abdominal exam: Present: normal bowel sounds, soft. Absent: distended, tenderness - Extremities Exam Extremities exam: Absent: cyanotic, pedal edema Additional comments: rash on right lower extremity - Neurological Exam Neurological exam: Present: alert, oriented X3, no focal deficits - Psychiatric Psychiatric exam: Present: anxious - Skin Additional comments: rash on right lower leg. <Hiue Reyez P - Last Filed: 11/16/16 07:39> Date of Encounter: 11/16/16 Date of admission: 11/13/16 19:36 Primary care physician: Matt Grajeda Jr, MD Hospital course: Mr. Bowen is a 66 year old male - Time Spent with Patient Total time spent providing and/or coordinating discharge services: - Constitutional Vitals: Temp Pulse Resp BP Pulse Ox 98.3 F 96 16 129/101 98 11/15/16 07:18 11/15/16 07:18 11/15/16 07:18 11/15/16 07:18 11/15/16 07:18 - Attending Attestation I examined this patient and my medical decision-making was reviewed with the MEDICAL CLAIMS PROCESSOR/PA/Advanced Practice Nurse/Resident Physician. I agree with the documented findings, disposition and treatment plan as described except to the extent set forth below.
[2016-11-15] MEDS: Diltiazem CD (24hr) 240 MG CAPSULE PO SCH (09:31)
[2016-11-15] MEDS: Aspirin Enteric Coated 81 MG Tablet PO SCH (09:31)
== END 2016-11-15 09:48 | disposition home or self-care (01) | DRG 309 ==
LOC: EMEROO 13:26 → 3BNU 13:26 → 2NENU 21:17
PROVIDERS: ADMIT Internal Medicine; ATTEND Registered Nurse

== ENCOUNTER 2016-11-30 08:00 | Inpatient (IN) ==
[2016-11-30] MEDS ORDERED: Naloxone 0.4 MG/ML INJ IVP PRN (09:47)
--- NOTE | 2016-11-30 09:58 | History & Physical Report ---
Date of Encounter: 11/30/16 Time of Encounter: 10:30 24 Hour HP Update - Instructions Instructions: If the History and Physical is less than 30 days old and was completed prior to A.M. admission and or procedure and has NOT been updated on calendar day of procedure please complete this update prior to performing procedure. - Update Patient reports changes in Medical Condition: No Changes in examination, assessment, or condition: No Changes in Medication: No Preop tests/diagnostics Reviewed: Yes Review of Patient reveals the following changes:: Patient admitted today for sotalol admission. Patient states he has not taken any of his medications this morning. HR per ECG this morning noted to be 144. Patient denies chest pain. Admits to palpitations. - Pre-Operative Checklist Preoperative Checklist Indicated: No
[2016-11-30 10:06] LABS: Basophils # 0.1 K/mcL (0.0-0.2); Basophils % 1.4 %; Eosinophils # 0.1 K/mcL (0.0-0.6); Eosinophils % 2.1 %; Hematocrit 52.1 % (37.5-50.1); Hemoglobin 16.9 g/dL (12.9-16.9); Immature Granulocytes % 0.3 % (0-4); Lymphocytes # 1.4 K/mcL (0.6-4.6); Lymphocytes % 20.9 %; Mean Corpuscular HGB Conc 32.4 g/dL (31.6-35.5); Mean Corpuscular Hemoglobin 29.7 pg (28.0-33.3); Mean Corpuscular Volume 91.6 fL (83.0-100.0); Mean Platelet Volume 11.2 fL (9.4-12.4); Monocytes # 0.7 K/mcL (0.0-1.3); Neutrophils # 4.2 K/mcL (1.6-8.9); Platelet Count 232 K/mcL (140-400); Red Blood Count 5.69 M/mcL (4.19-5.50); Red Cell Distribution Width 13.8 % (11.5-14.5); Segmented Neutrophils % 64.3 %
[2016-11-30 10:16] LABS: BUN/Creatinine Ratio 11 (6-26); Blood Urea Nitrogen 13 mg/dL (8-26); Calcium 9.7 mg/dL (8.6-10.8); Carbon Dioxide 22 mEq/L (19-29); Chloride 107 mEq/L (98-109); Glucose 98 mg/dL (70-99); Magnesium 2.3 mg/dL (1.6-2.6); Osmolality,Calculated 290 (280-300); Potassium 4.5 mEq/L (3.5-4.5); Sodium 140 mEq/L (136-145); eGFR For African Americans > 60 (> 60); eGFR For Non-African Americans 60 (> 60)
[2016-11-30 10:18] LABS: INR 2.4; Prothrombin Time 26.7 Seconds (9.4-12.1)
[2016-11-30] MEDS ORDERED: Acetaminophen 325 MG TABLET PO PRN (11:30)
[2016-11-30] MEDS ORDERED: Multivit/Ca/Min/Fe/FA 1 TAB TABLET PO SCH (11:30)
--- NOTE | 2016-11-30 11:40 | Event Note ---
Date of Encounter: 11/30/16 Time of Encounter: 10:30 - Cardiology Event Note Patient here for sotalol admission for atrial fibrillation. Last seen in office by on 11/24/16, see office note on chart. Patient on cardizem CD, metoprolol, and coumadin at home. Per review of laboratory records, patient has not been therapeutic on INRs for previous 30 days. 11/19/16 INR 1.3. On admission today, pateint's HRs 140s. Patient states he has not taken any of his medication this morning. Per discussion with will give cardizem 10mg IV push x1, will start cardizem drip. ECG today with atrial fibrillation, RVR, HR 144. Qt 293, Qtc 376. Will start sotalol 80mg BID per verbal order. Will re-check ECG daily. Labs reviewed with electrolytes, creatinine, and hemoglobin stable. INR now 2.4. Pateint denies bleeding/blood loss. Pateint denies chest pain, shortness of breath, increased fatigue. pateint admits to palpitations. Again will give IV cardizem psuh x1, start cardizem drip to maintain HR less than 100. Will start sotalol 80 mg po BID. ECG daily. Will make NPO after midnight for possible cardioversion in AM if patient remains RVR.
[2016-11-30] MEDS: Ascorbic Acid 500 MG TABLET PO SCH (12:21)
[2016-11-30] MEDS: Aspirin Enteric Coated 81 MG Tablet PO SCH (12:21)
[2016-11-30] MEDS: (Omega-3/Dha/Epa/Fish Oil [Fish Oil 1,000 Mg Softgel] PO SCH (12:21)
[2016-11-30] MEDS: (Vitamin E [Vitamin E] 100 UNIT) PO SCH (12:21)
--- NOTE | 2016-11-30 15:43 | Electrocardiograph Report ---
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
--- NOTE | 2016-11-30 15:50 | Electrocardiograph Report ---
[place] [address] Test Date: 2016-11-30 Pat Name: Finn Bowen Department: 104 Room: 2N08 Gender: M Railroad Watchman: BP : 1950 Requested By: Cece Weldon Order Number: [id number] Reading MD: Tiffanie Cobian Measurements Intervals [place] Rate: 148 P: [place]: 0 QRS: 5 QRSD: 98 T: 256 QT: 287 QTc: 372 Interpretive Statements ATRIAL FIBRILLATION WITH RAPID VENTRICULAR RESPONSE NONSPECIFIC ST \T\ T-WAVE ABNORMALITY ARTIFACT Electronically Signed On 11-30-2016 15:48:27 EDT by Tiffanie Cobian
[2016-11-30] MEDS ORDERED: Warfarin perPT PO PRN (18:00)
[2016-11-30] MEDS ORDERED: *HR* Warfarin 5 MG TABLET PO SCH (18:00)
[2016-11-30] MEDS ORDERED: 0.9 % Sodium Chloride 250 ML ONE (18:14)
[2016-12-01] MEDS: (Omega-3/Dha/Epa/Fish Oil [Fish Oil 1,000 Mg Softgel] PO SCH (08:02)
[2016-12-01] MEDS: Ascorbic Acid 500 MG TABLET PO SCH (08:02)
[2016-12-01] MEDS: (Vitamin E [Vitamin E] 100 UNIT) PO SCH (08:02)
[2016-12-01] MEDS: Aspirin Enteric Coated 81 MG Tablet PO SCH (08:02)
--- NOTE | 2016-12-01 10:05 | Event Note ---
Date of Encounter: 12/01/16 Time of Encounter: 08:30 - Cardiology Event Note was admitted for sotalol initiation. Upon admission, was noted to be atrial fibrillation with RVR. Cardizem IV bolus was given and cardizem drip was started. Patient converted to sinus rhythm at 2155 last night and remained sinus rhyhthm until 0551 this morning. Per review of nursing notes, cardizem drip was stopped due to HR in the 60s. Patient currently atrial fibrillation with HR 90-100s. Sotalol has been started and patient has received 3 doses. ECG today with atrial fibrillation, HR 116. Qt 355ms, Qtc 424ms. Discussed with . PLan for DEMETRIUS and cardioversion today, patient has been NPO since midnight. [id number] score 3 (age, HTN, vascular disease history). Patient is on coumadin, but INR has not been therapeutic for 30 days. Coumadin being dosed per pharmacy while inpatient. Patient educated on risks versus benefits of DEMETRIUS and cardioversion. Patient states understanding and agrees with plan. Further recommendations pending DEMETRIUS and cardioversion.
[2016-12-01 10:27] LABS: INR 2.3
--- NOTE | 2016-12-01 11:50 | Electrocardiograph Report ---
[address] [address] Test Date: 2016-12-01 Pat Name: Finn Bowen Department: 110 Room: 2N08 Gender: M Film Tests Checker: SANTOSH : 1950 Requested By: Cece Weldon Order Number: [id number] Reading MD: Ezio Plasencia MD Measurements Intervals [place] Rate: 116 P: [place]: 0 QRS: 35 QRSD: 99 T: 9 QT: 355 QTc: 424 Interpretive Statements ATRIAL FIBRILLATION WITH RAPID VENTRICULAR RESPONSE Electronically Signed On 12-01-2016 11:48:45 EDT by Ezio Plasencia MD
[2016-12-01] MEDS ORDERED: Tetracaine/Benzocaine/Butamben 200MG/SPRAY (100SPY/BOT) MM ONE (13:13)
[2016-12-01] MEDS ORDERED: 0.9 % Sodium Chloride 500 ML IVC ONE (13:13)
[2016-12-01] MEDS: *HR* FentaNYL (PF) 100 MCG/2 ML VIAL IVP PRN ×3 (14:55→15:10)
[2016-12-01] MEDS: *HR* Midazolam HCl 5 MG/5 ML VIAL IVP PRN ×3 (14:55→15:10)
--- NOTE | 2016-12-01 15:03 | Electrocardiograph Report ---
[address] [address] Test Date: 2016-12-01 Pat Name: Finn Bowen Department: 101 Room: 2N08 Gender: M Environmental Lawyer: : 1950 Requested By: Chauncey Mora Order Number: [id number] Reading MD: Ezio Plasencia MD Measurements Intervals [place] Rate: 95 P: [place]: 0 QRS: 17 QRSD: 101 T: 11 QT: 409 QTc: 462 Interpretive Statements ATRIAL FIBRILLATION PROLONGED QT INTERVAL Poor R wave progression Electronically Signed On 12-01-2016 15:02:00 EDT by Ezio Plasencia MD
--- NOTE | 2016-12-01 17:38 | ECHO - Doppler Report ---
Cardioversion with DEMETRIUS Name: Finn Bowen Date of Study: 12/01/2016 Date: 1950 Ht: Medical Record#: [id number] Age: 66 Wt: 185.0lb Gender: Male BSA: Order #: [id number] Location: [facility] Room #: 2N08 Reading Physician: Tiffanie Cobian DO Graduate Assistant: Dhruv Sim RDCS Ordering Physician: Cece Weldon CNP Primary Physician: Matt Grajeda MD Indications: Arrhythmia Impressions: Unsuccessful attempt at cardioversion. The patient converted to NSR but reverted quickly back to AFIB. Three attempts were made. No patient complications. Medication Given: Time Medication Dose Units Route 14:55 Versed 2 mg IV 14:55 Fentanyl 25 mcg IV 15:00 Versed 2 mg IV 15:00 Fentanyl 25 mcg IV 15:10 Versed 2 mg IV 15:10 Fentanyl 25 mcg IV Findings: Study Quality * Technically adequate exam. ECG Findings * Atrial fib without ectopy Left Atrium * No thrombus present. * LA appendage is normal in appearance. No thrombus is present. * The LA appendage flow velocity is reduced. Procedure Summary: After explaining the risks, benefits, and alternatives of the procedure to the patient in detail and answering all questions to satisfaction, an informed consent was obtained in writing. The patient was NPO for the six hours prior to the procedure. The patient denied dysphagia, odynophagia, and loose teeth. The patient was monitored with periodic automated blood pressures and continuous pulse oximetry and telemetry. Continuous oxygen was administered by NV. The patient was placed in the full upright position and the posterior oropharynx was anesthetized as above and complete suppression of the gag reflex was obtained. The patient was then placed in the left lateral decubitus position, the neck was flexed, and a bite block was placed in the patient's mouth. IV sedation was administered. Once adequate sedation was achieved, a well-lubricated anteflexed multipoint intraesophageal echocardiographic probe was inserted into the midline posterior oropharynx. Gentle pressure was applied as the patient swallowed and the esophagus was intubated without difficulty. The scope was advanced to the mid esophagus without encountering resistance. Images were obtained from the mid and upper esophagus. Images from the gastric globe were not obtained. The scope was then slowly withdrawn as the patient was continually suctioned. The patient tolerated the procedure well. After adequate sedation was achieved, cardioversion in the AP approach was performed initially using 175J. The patient converted to NSR but then went back into AFIB. A second attempt using 200J was performed. Again, the patient converted to NSR but went back into AFIB. A third attempt at 225J was performed and again patient converted initially to NSR then back into AFIB. Patient able to move all 4 extremities post procedure. No patient complications. The patient was monitored for the standard 30 minutes post procedure. Attempt # 1 175 joules Attempt # 2 200 joules Attempt # 3 225 joules Complications: Arrhythmia History: Hypertension Hypercholesteremia Rheumatic Fever History of Smoking Years 20 Packs 1 Family History of CAD History of CAD/PTCA Previous Echo11/06/2016 BP 122 / 94 Updated by Tiffanie Cobian on 12/01/2016 5:29:12 PM electronically signed on 12/01/2016 5:33:31 PM with status of [place]: 1=Normal, 2=Hypokinesis, 3=Akinesis, 4=Dyskinesis, 5=Aneurysmal, 6=Hyperkinetic, X=Not Visualized (Blank)=Missing
[2016-12-01] MEDS ORDERED: *HR* Warfarin 2.5 MG TABLET PO SCH (18:00)
[2016-12-02] MEDS ORDERED: 0.9 % Sodium Chloride 500 ML ONE (02:03)
[2016-12-02 04:31] LABS: INR 2.6; Prothrombin Time 29.1 Seconds (9.4-12.1)
[2016-12-02] MEDS: Ascorbic Acid 500 MG TABLET PO SCH (07:39)
[2016-12-02] MEDS: Aspirin Enteric Coated 81 MG Tablet PO SCH (07:39)
[2016-12-02] MEDS: (Omega-3/Dha/Epa/Fish Oil [Fish Oil 1,000 Mg Softgel] PO SCH (07:44)
[2016-12-02] MEDS: (Vitamin E [Vitamin E] 100 UNIT) PO SCH (07:44)
[2016-12-02] MEDS ORDERED: Diltiazem CD (24hr) 120 MG CAPSULE PO SCH (10:00)
[2016-12-02 11:44] VITALS: BP 118/88
--- NOTE | 2016-12-02 12:01 | Discharge Summary ---
Date of Encounter: 12/02/16 Time of Encounter: 11:00 - Discharge Diagnosis (1) Atrial fibrillation with rapid ventricular response Priority: Primary Status: Chronic Comments: Per cardiology: -KNown paroxysmal atrial fibrillation. Admission for sotalol therapy initiation. Patient currently sinus rhythm, HR 70s. (2) Encounter for therapeutic drug monitoring Priority: Secondary Status: Acute Comments: Per cardiology: -Sotalol initiation. Currently on 120mg BID. - Discharge Medications Prescriptions: Sotalol [Betapace] 120 mg PO Q12HR #60 tablet Diltiazem CD (24hr) [Cardizem CD] 120 mg PO DAILY #30 cap.er.24h Home Medications: Ascorbate Calcium [Vitamin C] 500 mg PO DAILY 11/02/16 [History] Multivitamin [Multi-Day Vitamins] 1 tab PO Q3D 11/02/16 [History] [place]-3/Dha/Epa/Fish Oil [Fish Oil 1,000 mg Softgel] 1,000 mg PO DAILY 11/02/16 [History] Vitamin E 100 unit PO DAILY 11/02/16 [History] Atorvastatin [Lipitor] 20 mg PO HS #40 tablet 11/07/16 [Rx] Nicotine Patch [Nicoderm] 14 mg TD DAILY PRN #20 patch.td24 11/07/16 [Rx] Acetaminophen [Tylenol] 650 mg PO Q6HR PRN #0 tablet 11/15/16 [Rx] Aspirin Enteric Coated [Aspirin EC] 81 mg PO DAILY #30 tablet. 11/15/16 [Rx] Warfarin [Coumadin] 2.5 mg PO SUTUTHSA 11/30/16 [History] Warfarin [Coumadin] 5 mg PO MOWEFR 11/30/16 [History] Diltiazem CD (24hr) [Cardizem CD] 120 mg PO DAILY #30 cap.er.24h 12/02/16 [Rx] Sotalol [Betapace] 120 mg PO Q12HR #60 tablet 12/02/16 [Rx] Allergies/Adverse Reactions: Allergies No Known Allergies Allergy (Verified 11/30/16 08:27) Procedures/tests Complete & Pending: Procedures Performed prior 72 hours Category Date Time Status ECG 12 lead ECG [ECG] AM 0600 Y 12/01/16 06:00 Completed ECG 12 lead ECG [ECG] AM 0600 Y 12/02/16 06:00 Completed ECG 12 lead ECG [ECG] AM 0600 Y 12/03/16 06:00 Ordered ECG 12 lead ECG [ECG] Routine Y 11/30/16 08:02 Completed ECG 12 lead ECG [ECG] Routine Y 11/30/16 11:28 Completed ECG 12 lead ECG [ECG] Routine Y 12/01/16 13:42 Completed ECG 12 lead ECG [ECG] Routine Y 12/01/16 15:23 Completed ECG 12 lead ECG [ECG] Stat Y 11/30/16 09:47 Completed EV monika guided cardioversion Routine Y 12/01/16 09:56 Completed Date of admission: 11/30/16 08:34 Primary care physician: Matt Grajeda Jr, MD Discharging clinician: Cece Weldon Anticipated date of discharge: 12/02/16 - Patient Status Disposition: Home, Self-Care Condition: Good Functional capacity at discharge: independent ambulation Overall status at discharge: patient is back to baseline - Discharge Instructions Follow Up With: Matt Grajeda Jr, MD [Primary Care Provider] - (YOUR APPOINTMENT IS CANCELLED WITH DR. GRAJEDA ON 12-07-16 @ 1873) Iman Peterson CNP [Advanced Practice Nurse] - 12/08/16 10:00 am Yuli Aldridge CNP [Partnered Physician] - (OFFICE WILL CALL PATIENT AT HOME WITH APPOINTMENT) - Diet and Activity Activity: increase activity as tolerated Diet: advance to your usual diet - Hospital Course Hospital course: Mr. Bowen is a 66 year old male who was admitted for sotalol administration for atrial fibrillation. Upon arrival to [facility], patient was noted to be in atrial fibrillation with RVR. Pateint was started on cardizem drip. Yesterday patient underwent MONIKA with no thrombus noted. Cardioversion was attempted x3, however was unsuccessful. Patient was placed on higher dose of sotalol at 120mg BID. Patient converted to SR yesterday evening. Patient has remained SR. ECG today with sinus rhythm, HR 69. Qt 458, Qtc 477. Patient on coumadin with INRs therapeutic this admission. Patient follows with coumadin clinic. Per discussion with , patient is ok for discharge. Patient is being prepped for discharge home in stable condition. Patient will have nurse visit in office in 2 days for ECG and will follow up with Dr.John Kraus in atrial fibrillation clinic in 2-3weeks. Patient states understanding and agrees with plan. - Time Spent with Patient Total time spent providing and/or coordinating discharge services: 30 minutes Less than 30 minutes Specific discharge activities: Follow up Wednesday in cardiology office for ECG. Follow up cardiology in 2-[address]John Kraus. Physical Examination Vital Signs, Last 4 Hours Temp Pulse Resp BP Pulse Ox 12/02/16 11:40 97.9 F 74 16 118/88 95 12/02/16 11:23 72 General: Conversant, No Apparent Distress HEENT: Atraumatic, Normocephaly, Mucus Membranes Moist Neck: No JVD, Normal carotid pulses Cardiac: Reg Rate and Rhythm, Normal S1 and S2, No Murmur Lungs: Normal Breath Sounds, No Wheeze, Rales, Rhonchi Neuro: Alert and responsive, No focal deficits noted Abdomen: Soft, Non-Tender Skin: No rashes noted on visualized skin Musculoskeletal: No Chest Wall Tenderness Extremities: No Clubbing, No Cyanosis, No Edema, Normal Pulses - VTE Reasons for not Prescribing Prophylaxis: Not indicated-Anticoagulated or INR therapeutic
--- NOTE | 2016-12-02 16:55 | Electrocardiograph Report ---
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
--- NOTE | 2016-12-03 10:42 | Electrocardiograph Report ---
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
--- NOTE | 2016-12-03 13:43 | Electrocardiograph Report ---
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
--- NOTE | 2016-12-03 15:36 | Electrocardiograph Report ---
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
== END 2016-12-02 13:53 | disposition home or self-care (01) | DRG 310 ==
LOC: 2NNU 08:34
PROVIDERS: ADMIT Nurse Practitioner Family; ATTEND Internal Medicine

== ENCOUNTER 2017-12-07 11:46 | Inpatient (IN) ==
[2017-12-07] MEDS ORDERED: 0.9 % Sodium Chloride 1,000 ML IVC ONE (11:58)
[2017-12-07] MEDS ORDERED: Isovue-370 500 ML INFUS..BTL IV ONE ×2 (12:23→13:39)
--- NOTE | 2017-12-07 12:27 | Emergency Department Note ---
Disposition Clinical Impression: Atrial fibrillation with RVR, Pleural effusion, Elevated bilirubin, Lactic acidosis Disposition: Admitted As Inpatient Condition: Good Referrals: NONE,PCP [Primary Care Provider] - Forms: ED Satisfaction Letter Time of Disposition: 16:48 General Adult HPI - General Chief complaint: ED Arrhythmia/Palpitations Stated complaint: "afib" Time Seen by Provider: 12/07/17 11:55 Source: patient Limitations: no limitations Nursing Notes Reviewed: Yes Vital Signs Reviewed: Yes - History of Present Illness HPI Narrative: 67 year old male with history of afib and is currently on sotalol and dilitizem presents to the ED with afib RVR in the rate of 140s. Tashi states that he presented like this in the past with pnuemonia. Tashi staets that they recently increased his sotalol and since then has been feeling increasingl more fatigue and weakn and is not currently anticoagulated. Tashi states that he follow reilly Kraus and has yanet a productive cough without fevers nause aor vomitting. HE had a previous smoking history. Pain Scale: 0 - Related Data Home Medications Medication Instructions Recorded Confirmed Ascorbate Calcium [Vitamin C] 500 mg PO DAILY 11/02/16 12/07/17 [place]-3/Dha/Epa/Fish Oil [Fish Oil 1,000 mg PO DAILY 11/02/16 12/07/17 1,000 mg Softgel] Vitamin E 100 unit PO DAILY 11/02/16 12/07/17 Aspirin 325 mg PO DAILY 12/07/17 12/07/17 Sotalol HCl [Betapace] 160 mg PO BID 12/07/17 12/07/17 Previous Rx's Medication Instructions Recorded Diltiazem CD (24hr) [Cardizem CD] 120 mg PO DAILY #30 cap.er.24h 12/02/16 Allergies Allergy/AdvReac Type Severity Reaction Status Date / Time No Known Allergies Allergy Verified 12/10/16 11:40 Constitutional: Denies: fever, chills, weakness, weight change Eyes: Denies: eye pain, eye discharge, vision change ENT ED: Denies: ear pain, throat pain, dental pain, hearing loss, epistaxis, congestion, dysphagia Cardiovascular: Reports: palpitations. Denies: chest pain, dyspnea on exertion , edema, syncope Respiratory: Reports: cough. Denies: dyspnea, wheezes, hemoptysis, stridor Gastrointestinal: Denies: abdominal pain, nausea, vomiting, diarrhea, constipation, hematemesis, melena, hematochezia Genitourinary: Denies: urgency, dysuria, frequency, hematuria Musculoskeletal: Denies: back pain, neck pain, arthralgia, myalgia Integumentary: Denies: rash, abrasion, lesions Neurological: Denies: headache, weakness, numbness, paresthesias, confusion, abnormal gait, vertigo Psychiatric: Denies: anxiety, depression, suicidal thoughts, homicidal thoughts , auditory hallucinations, visual hallucinations Endocrine: Denies: fatigue Hematological/Lymphatic: Denies: easy bleeding, easy bruising Allergic/Immunologic: Denies: facial swelling, urticaria Past Medical History - Past Medical History Medical history: Reports: atrial fibrillation, coronary artery disease, hyperlipidemia, hypertension, other Surgical history: Reports: angioplasty/stent, other Psychiatric history: Reports: no psych history - Social History Smoking Status: Current every day smoker Smokeless Tobacco Status: No Alcohol use: Reports: occasionally, recent Drug use: Reports: none Physical Exam - General Limitations: no limitations General appearance: alert, in no apparent distress - Head Head exam: atraumatic, normocephalic, normal inspection - Eye Eye exam: Present: normal appearance, PERRL, EOMI - Expanded Eye Exam Pupils: Bilateral: reactive - ENT ENT exam: normal exam, normal oropharynx, mucous membranes moist - Expanded ENT Exam External ear exam: Present: normal external inspection Mouth exam: Present: normal external inspection Teeth exam: Present: normal inspection Throat exam: Present: normal inspection - Neck Neck exam: Present: normal inspection, full ROM, trachea midline - Chest Chest inspection: Present: normal inspection, symmetric chest wall rise - Respiratory Respiratory exam: Present: normal lung sounds bilaterally - Cardiovascular Cardiovascular exam: Present: tachycardia, irregular rhythm, normal heart sounds - Abdominal Exam Abdominal exam: Present: soft, Non-Tender. Absent: tenderness, distention, guarding, rebound, rigidity - Extremities Exam Extremities exam: Present: normal inspection, full ROM. Absent: tenderness, pedal edema - Expanded Upper Extremity Exam Shoulder exam: Present: normal inspection, full ROM Arm exam: Present: normal inspection, full ROM Elbow exam: Present: normal inspection, full ROM Forearm/Wrist exam: Present: normal inspection, full ROM Hand exam: Present: normal inspection, full ROM Vascular exam: Normal: capillary refill, radial pulse - Expanded Lower Extremity Exam Hip/Pelvis exam: Present: normal inspection, full ROM Upper leg exam: Present: normal inspection, full ROM Knee exam: Present: normal inspection, full ROM Lower leg exam: Present: normal inspection, full ROM Ankle exam: Present: normal inspection, full ROM Foot/toe exam: Present: normal inspection, full ROM Neurovascular/Tendon exam: Absent: motor deficit, sensory deficit, tendon deficit - Back Exam Back exam: Present: normal inspection, full ROM. Absent: tenderness - Neurological Exam Neurological exam: Present: alert, oriented X3 - Expanded Neurological Exam Patient oriented to: Present: person, place, time Coma Scale Eye Opening: Spontaneous Coma Scale Motor Response: Obeys Commands Coma Scale Verbal Response: Oriented Coma Scale Total: 15 - Psychiatric Psychiatric exam: Present: normal affect, normal mood - Skin Skin exam: Present: warm, dry, intact, normal color Course Course Narrative: we heaven do an infectious workup to rule out pnuemoina and PE vs lung cancer in additionto rate control medications with dilitzem and admit to medicine. - Reevaluation(s) Reevaluation #1: updated patient on results. He has elevated bili and lactic acid with LFTs, we will followup with ABCT and US for further evaluation. Time: 14:00 - Consultations Consultation #1: dicsussed case with Dr. Mariano and he will see patient in consult. NPO after midnight Time: 16:47 Consultation #2: discussed case witih Dr. Sneed and she accepts patient ot medicine service Time: 16:47 Vital Signs Temperature 97.4 F L 12/07/17 11:48 Pulse Rate 143 12/07/17 11:48 Respiratory Rate 24 12/07/17 11:48 Blood Pressure 116/56 12/07/17 11:48 O2 Sat by Pulse Oximetry 98 12/07/17 11:48 Temperature 97.4 F L 12/07/17 12:01 Pulse Rate 143 12/07/17 12:01 Respiratory Rate 24 12/07/17 12:01 Blood Pressure 116/56 12/07/17 12:01 O2 Sat by Pulse Oximetry 98 12/07/17 12:01 Oxygen Delivery Oxygen Delivery Room Air Medical Decision Making - Medical Records Medical records reviewed: Yes I reviewed the patient's medical records. - Lab Data Lab results reviewed: Yes I reviewed the patient's lab results. Result diagrams: 12/07/17 12:09 12/07/17 12:09 Lab Results 12/07/17 12/07/17 12/07/17 Range/Units 12:09 12:09 12:09 WBC 9.2 (4.3-11.1) K/mcL RBC 5.25 (4.19-5.50) M/mcL Hgb 17.2 H (12.9-16.9) g/dL Hct 50.9 H (37.5-50.1) % MCV 97.0 (83.0-100.0) fL MCH 32.8 (28.0-33.3) pg MCHC 33.8 (31.6-35.5) g/dL RDW 15.1 H (11.5-14.5) % Plt Count 258 (140-400) K/mcL MPV 12.1 (9.4-12.4) fL Immature Gran % 0.4 (0-4) % Seg Neutrophils % 69.5 % Lymphocytes % 18.7 % Monocytes % 9.9 % Eosinophils % 0.5 % Basophils % 1.0 % Neutrophils # 6.4 (1.6-8.9) K/mcL Lymphocytes # 1.7 (0.6-4.6) K/mcL Monocytes # 0.9 (0.0-1.3) K/mcL Eosinophils # 0.1 (0.0-0.6) K/mcL Basophils # 0.1 (0.0-0.2) K/mcL PT 17.5 H (9.4-12.1) Seconds INR 1.6 APTT 29.8 (26.0-36.0) Seconds Sodium 136 (136-145) mEq/L Potassium 4.1 (3.5-5.1) mEq/L Chloride 103 (98-107) mEq/L Carbon Dioxide 23 (23-29) mEq/L BUN 30 H (8-23) mg/dL Creatinine 1.62 H (0.70-1.30) mg/dL Est GFR ( Amer) 52 L (> 60) Est GFR (Non-Af Amer) 43 L (> 60) BUN/Creatinine Ratio 19 (6-26) Glucose 98 (70-105) mg/dL Calculated Osmolality 288 (280-300) Lactic Acid (0.5-2.2) mmol/L Calcium 9.9 (8.6-10.3) mg/dL Phosphorus 3.0 (2.7-4.5) mg/dL Magnesium 2.3 (1.6-2.6) mg/dL Total Bilirubin 2.2 H (0.3-1.0) mg/dL Direct Bilirubin 0.7 H (0.0-0.2) mg/dL Indirect Bilirubin 1.5 H (0.0-1.2) mg/dL AST 106 H (13-39) Units/L ALT 126 H (7-52) Units/L Alkaline Phosphatase 76 (34-104) Units/L Troponin I 0.03 (< 0.04) ng/mL B-Natriuretic Peptide (Less than 100) pg/mL Serum Total Protein 7.4 (6.4-8.9) g/dL Albumin 4.0 (3.5-5.7) g/dL Globulin 3.4 (2.4-3.5) g/dL Albumin/Globulin Ratio 1.2 (1.1-2.2) Lipase 28 (11-82) Units/L Urine Color (Yellow) Urine Clarity (Clear) Urine pH (5.0-8.0) pH Units Ur Specific [place] (1.010-1.025) Urine Protein (Neg-Trace) mg/dL Urine Glucose (UA) (Normal) mg/dL Urine Ketones (Negative) mg/dL Urine Blood (Negative) Urine Nitrite (Negative) Urine Bilirubin (Negative) Urine Urobilinogen (Normal) mg/dL Ur Leukocyte Esterase (Negative) Urine Microscopic RBC (0-3) per hpf Urine Microscopic WBC (0-3) per hpf Ur Squamous Epith Cells (None-Few) per lpf Urine Bacteria (None-Few) per hpf Ur Culture Indicated? (NO) 12/07/17 12/07/17 12/07/17 Range/Units 12:09 12:09 14:58 WBC (4.3-11.1) K/mcL RBC (4.19-5.50) M/mcL Hgb (12.9-16.9) g/dL Hct (37.5-50.1) % MCV (83.0-100.0) fL MCH (28.0-33.3) pg MCHC (31.6-35.5) g/dL RDW (11.5-14.5) % Plt Count (140-400) K/mcL MPV (9.4-12.4) fL Immature Gran % (0-4) % Seg Neutrophils % % Lymphocytes % % Monocytes % % Eosinophils % % Basophils % % Neutrophils # (1.6-8.9) K/mcL Lymphocytes # (0.6-4.6) K/mcL Monocytes # (0.0-1.3) K/mcL Eosinophils # (0.0-0.6) K/mcL Basophils # (0.0-0.2) K/mcL PT (9.4-12.1) Seconds INR APTT (26.0-36.0) Seconds Sodium (136-145) mEq/L Potassium (3.5-5.1) mEq/L Chloride (98-107) mEq/L Carbon Dioxide (23-29) mEq/L BUN (8-23) mg/dL Creatinine (0.70-1.30) mg/dL Est GFR ( Amer) (> 60) Est GFR (Non-Af Amer) (> 60) BUN/Creatinine Ratio (6-26) Glucose (70-105) mg/dL Calculated Osmolality (280-300) Lactic Acid 2.6 H (0.5-2.2) mmol/L Calcium (8.6-10.3) mg/dL Phosphorus (2.7-4.5) mg/dL Magnesium (1.6-2.6) mg/dL Total Bilirubin (0.3-1.0) mg/dL Direct Bilirubin (0.0-0.2) mg/dL Indirect Bilirubin (0.0-1.2) mg/dL AST (13-39) Units/L ALT (7-52) Units/L Alkaline Phosphatase (34-104) Units/L Troponin I (< 0.04) ng/mL B-Natriuretic Peptide 682 H (Less than 100) pg/mL Serum Total Protein (6.4-8.9) g/dL Albumin (3.5-5.7) g/dL Globulin (2.4-3.5) g/dL Albumin/Globulin Ratio (1.1-2.2) Lipase (11-82) Units/L Urine Color Dark Yellow (Yellow) Urine Clarity Clear (Clear) Urine pH 5.5 (5.0-8.0) pH Units Ur Specific [place] > 1.030 H (1.010-1.025) Urine Protein 30 H (Neg-Trace) mg/dL Urine Glucose (UA) Normal (Normal) mg/dL Urine Ketones Trace H (Negative) mg/dL Urine Blood Negative (Negative) Urine Nitrite Negative (Negative) Urine Bilirubin Moderate H (Negative) Urine Urobilinogen Normal (Normal) mg/dL Ur Leukocyte Esterase Negative (Negative) Urine Microscopic RBC 5-15 H (0-3) per hpf Urine Microscopic WBC 0-3 (0-3) per hpf Ur Squamous Epith Cells Few (None-Few) per lpf Urine Bacteria None Seen (None-Few) per hpf Ur Culture Indicated? NO (NO) 12/07/17 Range/Units 16:08 WBC (4.3-11.1) K/mcL RBC (4.19-5.50) M/mcL Hgb (12.9-16.9) g/dL Hct (37.5-50.1) % MCV (83.0-100.0) fL MCH (28.0-33.3) pg MCHC (31.6-35.5) g/dL RDW (11.5-14.5) % Plt Count (140-400) K/mcL MPV (9.4-12.4) fL Immature Gran % (0-4) % Seg Neutrophils % % Lymphocytes % % Monocytes % % Eosinophils % % Basophils % % Neutrophils # (1.6-8.9) K/mcL Lymphocytes # (0.6-4.6) K/mcL Monocytes # (0.0-1.3) K/mcL Eosinophils # (0.0-0.6) K/mcL Basophils # (0.0-0.2) K/mcL PT (9.4-12.1) Seconds INR APTT (26.0-36.0) Seconds Sodium (136-145) mEq/L Potassium (3.5-5.1) mEq/L Chloride (98-107) mEq/L Carbon Dioxide (23-29) mEq/L BUN (8-23) mg/dL Creatinine (0.70-1.30) mg/dL Est GFR ( Amer) (> 60) Est GFR (Non-Af Amer) (> 60) BUN/Creatinine Ratio (6-26) Glucose (70-105) mg/dL Calculated Osmolality (280-300) Lactic Acid 2.3 H (0.5-2.2) mmol/L Calcium (8.6-10.3) mg/dL Phosphorus (2.7-4.5) mg/dL Magnesium (1.6-2.6) mg/dL Total Bilirubin (0.3-1.0) mg/dL Direct Bilirubin (0.0-0.2) mg/dL Indirect Bilirubin (0.0-1.2) mg/dL AST (13-39) Units/L ALT (7-52) Units/L Alkaline Phosphatase (34-104) Units/L Troponin I (< 0.04) ng/mL B-Natriuretic Peptide (Less than 100) pg/mL Serum Total Protein (6.4-8.9) g/dL Albumin (3.5-5.7) g/dL Globulin (2.4-3.5) g/dL Albumin/Globulin Ratio (1.1-2.2) Lipase (11-82) Units/L Urine Color (Yellow) Urine Clarity (Clear) Urine pH (5.0-8.0) pH Units Ur Specific [place] (1.010-1.025) Urine Protein (Neg-Trace) mg/dL Urine Glucose (UA) (Normal) mg/dL Urine Ketones (Negative) mg/dL Urine Blood (Negative) Urine Nitrite (Negative) Urine Bilirubin (Negative) Urine Urobilinogen (Normal) mg/dL Ur Leukocyte Esterase (Negative) Urine Microscopic RBC (0-3) per hpf Urine Microscopic WBC (0-3) per hpf Ur Squamous Epith Cells (None-Few) per lpf Urine Bacteria (None-Few) per hpf Ur Culture Indicated? (NO) - Radiology Data Radiology results reviewed: Yes I reviewed the patient's radiology results. - EKG Data EKG #1 EKG attestation: Yes I reviewed and interpreted this EKG. EKG results narrative: afib with rvr with rate of 141. NO STEMI. no cahnge from 12/10/16. 6410
[2017-12-07 12:33] LABS: Basophils # 0.1 K/mcL (0.0-0.2); Eosinophils # 0.1 K/mcL (0.0-0.6); Eosinophils % 0.5 %; Hematocrit 50.9 % (37.5-50.1); Hemoglobin 17.2 g/dL (12.9-16.9); Immature Granulocytes % 0.4 % (0-4); Lymphocytes # 1.7 K/mcL (0.6-4.6); Lymphocytes % 18.7 %; Mean Corpuscular HGB Conc 33.8 g/dL (31.6-35.5); Mean Corpuscular Hemoglobin 32.8 pg (28.0-33.3); Mean Platelet Volume 12.1 fL (9.4-12.4); Monocytes # 0.9 K/mcL (0.0-1.3); Monocytes % 9.9 %; Neutrophils # 6.4 K/mcL (1.6-8.9); Platelet Count 258 K/mcL (140-400); Red Blood Count 5.25 M/mcL (4.19-5.50); Red Cell Distribution Width 15.1 % (11.5-14.5); Segmented Neutrophils % 69.5 %
[2017-12-07 12:40] LABS: INR 1.6; Prothrombin Time 17.5 Seconds (9.4-12.1)
[2017-12-07 12:43] LABS: Activated Partial Thrombo Time 29.8 Seconds (26.0-36.0)
[2017-12-07 12:54] LABS: Albumin/Globulin Ratio 1.2 (1.1-2.2); Bilirubin,Direct 0.7 mg/dL (0.0-0.2); Bilirubin,Indirect 1.5 mg/dL (0.0-1.2); Bilirubin,Total 2.2 mg/dL (0.3-1.0); Calcium 9.9 mg/dL (8.6-10.3); Globulin 3.4 g/dL (2.4-3.5); Magnesium 2.3 mg/dL (1.6-2.6); Potassium 4.1 mEq/L (3.5-5.1); Total Protein 7.4 g/dL (6.4-8.9); Troponin I 0.03 ng/mL (< 0.04)
[2017-12-07] MEDS ORDERED: Piperacillin/Tazobactam 3.375 GM in 0.9 % Sodium Chloride Mini Bag 100 ML IVPB ONE (14:46)
[2017-12-07 15:27] LABS: Bilirubin,Urine Moderate (Negative); Blood,Urine Negative (Negative); Clarity,Urine Clear (Clear); Color,Urine Dark Yellow (Yellow); Glucose,Urine (UA) Normal (Normal); Ketones,Urine Trace mg/dL (Negative); Leukocyte Esterase,Urine Negative (Negative); Nitrite,Urine Negative (Negative); PH,Urine 5.5 pH Units (5.0-8.0); Protein,Urine 30 mg/dL (Neg-Trace); Specific Gravity,Urine > 1.030 (1.010-1.025); Urobilinogen,Urine Normal (Normal)
[2017-12-07 15:30] LABS: Bacteria,Urine None Seen per hpf (None-Few); Squamous Epithelial Cell,Urine Few per lpf (None-Few); WBC,Urine 0-3 per hpf (0-3)
--- NOTE | 2017-12-07 15:59 | Internal Med History&Physical ---
Addendum entered and electronically signed by Drew Hubbard CNP 00:42: Date of encounter 12/07/17 Original Note: <Drew Hubbard - Last Filed: 12/08/17 00:41> Date of Encounter: 12/08/17 Time of Encounter: 17:00 Internal Medicine - H&P: HPI Chief complaint: Arrhythmia/Palpitations Admitted From: Emergency Dept Plans for Post Hospital Care: Home History of present illness: Mr. Bowen is a 67 year old male w/PMH of atrial fibrillation, CAD, HLD, HTN, and previous PR in 2010 with one stent presents from the ED with chief complaint of heart arrhythmia and palpitations for the past several days. Patient reports history of A. fib and is currently on sotalol and diltiazem. Patient reports 2-3 months of feeling unwell with cough, fever, nausea, and intermittent vomiting. Reports reduced appetite and fluid intake. Similar sx in past with pneumonia dx. currently smokes 1 pack per day and reports drinking 2-3 beers daily or 2-3 glasses of wine daily. No alleviating or aggravating factors. Pt. reports feeling ill, productive cough, fever, nausea, vomiting, tachycardia, and increased atrial fibrillation but denies chest pain, headache, changes in vision, unusual bleeding, abdominal pain, diarrhea, constipation, dizziness, lightheadedness, numbness, tingling, pre-syncope, or syncope. Past Med Surg Social Fam HX - Past Medical History Source: patient, old records reviewed, obtained from family Medical history: atrial fibrillation, coronary artery disease, hyperlipidemia, hypertension - Past Surgical History Surgical History: angioplasty/stent (x1 ) - Social History Smoking Status: Current every day smoker Packs per day: 1 PPD Smokeless Tobacco Status: No Alcohol use: occasionally, recent Drug use: none Current living situation: Home, With Family Activity Level: Independent ambulation Recent Out of Country Travel Within the Last 8 Weeks: No Exposure or Possible Exposure to Illness During Travel: No - Family History Mother Race: Family Member Ethnicity: Non- Living Status: Age at : 89 Cause of : Cancer Hx Family Cardiac Disorders: Yes (HLD, HTN) Hx Family Cancer: Yes (Breast) Hx Family Neurologic Disorders: Yes (Alzheimer's disease) Father Race: Family Member Ethnicity: Non- Living Status: Age at : 81 Cause of : HF Hx Family Cardiac Disorders: Yes (CHF, Afib) Hx Family Endocrine Disorder: Yes Hx Family Neurologic Disorders: Yes (Alzheimer's disease) Sister Race: Family Member Ethnicity: Non- Living Status: Still Living Hx Family Cardiac Disorders: Yes (HTN) Hx Family Endocrine Disorder: Yes (Thyroid disease) Internal Medicine - H&P: Meds Ascorbate Calcium [Vitamin C] 500 mg PO DAILY 11/02/16 [History] Guy-3/Dha/Epa/Fish Oil [Fish Oil 1,000 mg Softgel] 1,000 mg PO DAILY 11/02/16 [History] Vitamin E 100 unit PO DAILY 11/02/16 [History] Diltiazem CD (24hr) [Cardizem CD] 120 mg PO DAILY #30 cap.er.24h 12/02/16 [Rx] Aspirin 325 mg PO DAILY 12/07/17 [History] Sotalol HCl [Betapace] 160 mg PO BID 12/07/17 [History] 3 Allergy/AdvReac Type Severity Reaction Status Date / Time diphenhydramine AdvReac Anxiety Verified 12/07/17 18:52 [From Benadryl] All Systems PM: A 10-system review of systems was performed and is negative for pertinent findings except as documented above in the HPI. - Constitutional Constitutional: as per HPI, anorexia, fatigue, fever(s), weakness, no chills, no night sweats - EENT Eyes: no change in vision, no discharge, no pain, no photophobia Ears: no ear discharge, no ear pain, no tinnitus Nose, mouth and throat: no dysphagia, no nasal discharge, no neck pain, no sore throat - Breasts Breasts: as per HPI - Cardiovascular Cardiovascular ROS IM: as per HPI, irregular heart rhythm, no chest pain, no diaphoresis, no dyspnea, no lightheadedness, no palpitations, no syncope - Respiratory Respiratory: as per HPI, cough, excessive phlegm production, no dyspnea, no wheezing - Gastrointestinal Gastrointestinal: as per HPI, nausea, vomiting, no abdominal pain, no diarrhea, no hematemesis, no hematochezia, no melena - Genitourinary Genitourinary ROS male: as per HPI - Musculoskeletal Musculoskeletal ROS IM: no numbness, no tingling - Integumentary Integumentary IM: no rash, no unusual bruising - Neurological Neurological ROS: as per HPI, weakness, no confusion, no convulsions, no focal weakness, no numbness, no tingling, no tremor(s) - Psychiatric Psychiatric: as per HPI - Endocrine Endocrine IM: as per HPI - Hematologic/Lymphatic Hematologic/Lymphatic: no easy bruising - Allergic/Immunologic Allergic/Immunologic: as per HPI - Constitutional Vitals: Temp Pulse Resp BP Pulse Ox 97.4 F L 143 18 101/76 98 12/07/17 12:01 12/07/17 12:01 12/07/17 17:39 12/07/17 17:39 12/07/17 12:01 General appearance: Present: cooperative, A&O X 3, pleasant, no acute distress, answers questions appropriately - Head Head exam: Present: atraumatic, normocephalic - Eye Eye exam: Present: PERRL, conjuntiva pink, sclera anicteric Pupils: Present: PERRL - ENT ENT exam: Present: normal exam - Neck Neck exam general surgery: Present: supple, trachea midline. Absent: lymphadenopathy - Respiratory Respiratory exam: Present: CTAB. Absent: accessory muscle use, rales, rhonchi, wheezes - Cardiovascular Cardiovascular exam: Present: irregular rhythm. Absent: diastolic murmur, gallop, rubs, systolic murmur - GI/Abdominal GI/Abdominal exam: Present: normal bowel sounds, soft, no peritoneal signs. Absent: distended, tenderness - Rectal Rectal exam: Present: deferred - Additional comments: exam deferred. - Extremities Exam Extremities exam: Present: warm, radial pulses palpable and symmetrical. Absent : calf tenderness, cyanotic, pedal edema - Back Exam Back exam: Present: normal inspection - Neurological Exam Neurological exam: Present: CN II-XII intact, oriented X3, no focal deficits. Absent: pronater drift, facial droop, speech deficit - Psychiatric Psychiatric exam: Present: normal affect, normal mood - Skin Skin exam: Present: dry, intact Internal Med - H&P Results - Labs CBC & Chem 7: 12/07/17 12:09 12/07/17 12:09 - EKG Data Prior EKG available for review: yes Interpretation IM: suggestive of ischemia EKG comments: 12/08/17 00:01 EKG dated 12/10/16 shows atrial fibrillation with RVR and nonspecific T-wave abnormality. EKG dated 12/07/17 shows atrial fibrillation with RVR and ST deviation and moderate T-wave abnormality. Consider lateral ischemia - Diagnostic Studies Chest x-ray Additional comments: Impressions Chest X-Ray 12/07/17 11:58 IMPRESSION: No acute pulmonary process. D/ / Jeffery Burris / Jeffery Burris Interpreting Provider: Jeffery Burris CT scan - abdomen Additional comments: Impressions Abdomen/Pelvis CT 12/07/17 13:39 IMPRESSION: 1. Bilateral pleural effusions, right greater than left. 2. Infiltration of the fat in the retroperitoneum and mesenteric region with some free abdominal and pelvic fluid. No definite evidence for any pancreatic abnormality although pancreatitis could give this appearance. A neoplastic process is a possibility as well. No definite evidence for diverticulitis or obstructive uropathy. 3. Normal appearing gallbladder. 4. Normal appearing appendix. D/ / 12/07/2017 15:58:11 Spencer Delgado MD / cain Interpreting Provider: Spencer Delgado MD Other Images Additional comments: Impressions Chest CTA 12/07/17 12:23 IMPRESSION: Negative study for pulmonary embolism. Moderate right pleural effusion and small left pleural effusion, improved from prior CTA chest 11/03/2016. Subtle patchy ground-glass opacities to bilateral upper lobes, left much more than right, as well as to the superior segment of the left lower lobe. These are in regions of more dense consolidative change on prior exam 11/03/2016 and could potentially reflect residua of prior infectious/inflammatory process, but new acute infectious/inflammatory process not excluded. Recommend follow-up CT chest in 2-3 months. Stable cardiomegaly. Stable aneurysmal dilatation ascending thoracic aorta measuring 4.4 cm. Low-attenuation focus exophytic to upper pole of right kidney measuring 2.3 cm with attenuation characteristics somewhat higher than simple fluid. This was incompletely imaged on prior exam 11/03/2016 but appears grossly similar. This is felt most likely to reflect a benign exophytic complex cyst with some internal debris/proteinaceous fluid but recommend further evaluation with ultrasound on a nonemergent basis to confirm suspected benign nature and exclude neoplasm. Reflux of contrast material into the IVC and hepatic veins may reflect some degree of right heart dysfunction. Atherosclerosis to include coronary artery disease. Small amount of ascites to the right upper quadrant, new from prior exam. D/ / 12/07/2017 13:54:43 Tomi Stevens MD / cain Interpreting Provider: Tomi Stevens MD Gallbladder Ultrasound 12/07/17 13:39 IMPRESSION: There is evidence of gallbladder wall thickening and pericholecystic fluid. However, in this case especially, that is a nonspecific finding. These findings can be secondary to acute cholecystitis. However, it is equally likely that these findings are secondary to systemic disease (and specifically secondary to fluid overload, given evidence of a pleural effusion and perihepatic ascites). D/ / Valentino Blas MD / Valentino Blas MD Interpreting Provider: Valentino Blas MD - Assessment and plan (1) Cholecystitis Current Visit: Yes Status: Acute Assessment and plan: Acute cholecystitis. Gallbladder US today shows there is evidence of gallbladder wall thickening and pericholecystic fluid. However, in this case especially, that is a nonspecific finding. These findings can be secondary to acute cholecystitis. However, it is equally likely that these findings are secondary to systemic disease (and specifically secondary to fluid overload, given evidence of a pleural effusion and perihepatic ascites). On exam, pt. does not show signs of fluid overload or pedal edema. Surgery consult ordered in ED and I appreciate the consult. IVPB Zosyn ordered for infection coverage. Pts. WBC 9.2 on admission. HR 143 on admission with secondary of 104 post- cardizem drip. Pt. is currently afebrile and does not meet sepsis criteria but will be monitored closely. Pt. discussed w/Dr. Sneed who agrees w/plan of care. Pt. is moderate risk for further morbidity d/t current cholecystitis, hx, and risk factors. Observation. (2) Nausea and vomiting Current Visit: Yes Status: Acute Assessment and plan: Acute intermittent nausea and vomiting over the past 2-3 months. IVP Zofran 4 mg Q6HR PRN. Qualifiers: Vomiting type: unspecified Vomiting Intractability: non-intractable Qualified Code(s): R11.2 - Nausea with vomiting, unspecified (3) Cough Current Visit: Yes Status: Acute Assessment and plan: Acute cough w/sputum production. Mucinex ordered. Sputum culture w/gram stain ordered. (4) Fever Current Visit: Yes Status: Acute Assessment and plan: Acute fever over the past several months that is intermittent. Tylenol 650 mg Q6HR PRN for fever. Qualifiers: Fever type: unspecified Qualified Code(s): R50.9 - Fever, unspecified (5) Elevated bilirubin Current Visit: Yes Status: Acute Assessment and plan: Acutely elevated bilirubin of 2.2 on admission. Cholecystitis versus liver damage. AST 106 and ALT 126 on admission. Pt. reports drinking 2-3 beers daily or 2-3 glasses of wine daily. Monitor f/u labs. (6) Lactic acidosis Current Visit: Yes Status: Acute Assessment and plan: Acute lactic acidosis w/2.6 on admission. Pt. placed on 0.9 NS IV fluids @ 100 mL/HR following 1L bolus in ED. Will repeat lactic acid. (7) HLD (hyperlipidemia) Current Visit: Yes Status: Chronic Assessment and plan: Hx of chronic HLD. Lipid panel in a.m. labs. Pt. reports he no longer takes statin. Will consider adding Lipitor based on panel results. Qualifiers: Hyperlipidemia type: pure hypercholesterolemia Qualified Code(s): E78.00 - Pure hypercholesterolemia, unspecified; E78.0 - Pure hypercholesterolemia (8) HTN (hypertension) Current Visit: Yes Status: Chronic Assessment and plan: Hx of chronic HTN. Monitor pt. and VS. Pt. reports he no longer takes HTN medication. Will add hydralazine IVP if pt. becomes hypertensive. Qualifiers: Hypertension type: essential hypertension Qualified Code(s): I10 - Essential (primary) hypertension (9) Atrial fibrillation with RVR Current Visit: Yes Status: Chronic Assessment and plan: Hx of chronic Afib w/RVR. Continuous cardiac telemetry. Pt. placed on Cardizem drip in ED. Monitor. (10) CAD (coronary artery disease) Current Visit: Yes Status: Chronic Assessment and plan: Hx of chronic CAD w/previous PR and 1 stent placed. Pt. placed on Cardizem drip. Reports stopping HTN and HLD medications. Qualifiers: Coronary Disease-Associated Artery/Lesion type: unga artery [place] vs. transplanted heart: unga heart Associated angina: without angina Qualified Code(s): I25.10 - Atherosclerotic heart disease of unga coronary artery without angina pectoris (11) Tobacco abuse Current Visit: Yes Status: Chronic Assessment and plan: Hx of chronic tobacco abuse. Pt. reports smoking 1 PPD. (12) DVT prophylaxis Current Visit: Yes Status: Acute Assessment and plan: Heparin 5,000 units SQ Q8 for DVT prophylaxis. Monitor pt. for signs of bleeding. - Time Spent With Patient Total time spent is greater than 50% in coordination of care (as documented) at patient's floor/unit and/or counseling patient: Greater than 35 minutes <Maria Sneed - Last Filed: 12/08/17 10:09> Date of Encounter: 12/07/17 Internal Medicine - H&P: HPI History of present illness: Mr. Bowen is a 67 year old male Past Med Surg Social Fam HX - Past Medical History Medical history: atrial fibrillation, coronary artery disease, hyperlipidemia, hypertension, other Psychiatric history: no psych history - Past Surgical History Surgical History: angioplasty/stent, other - Social History Smoking Status: Current every day smoker Smokeless Tobacco Status: No Alcohol use: occasionally, recent Drug use: none - Family History Mother Living Status: Hx Family Cancer: Yes (breast cancer) Father Living Status: Hx Family Cardiac Disorders: Yes (CHF) Hx Family Endocrine Disorder: Yes (DM) All Systems PM: A 10-system review of systems was performed and is negative for pertinent findings except as documented above in the HPI. - Constitutional Vitals: Temp Pulse Resp BP Pulse Ox 97.4 F L 143 24 116/56 98 12/07/17 12:01 12/07/17 12:01 12/07/17 12:01 12/07/17 12:01 12/07/17 12:01 Internal Med - H&P Results - Labs CBC & Chem 7: 12/08/17 04:01 12/08/17 04:01 Labs: Short CBC 12/07/17 Range/Units 12:09 WBC 9.2 (4.3-11.1) K/mcL Hgb 17.2 H (12.9-16.9) g/dL Hct 50.9 H (37.5-50.1) % Plt Count 258 (140-400) K/mcL Neutrophils # 6.4 (1.6-8.9) K/mcL BMP 12/07/17 12:09 Sodium 136 Potassium 4.1 Chloride 103 Carbon Dioxide 23 BUN 30 H Creatinine 1.62 H Glucose 98 Calcium 9.9 Cardiac Enzymes 12/07/17 Range/Units 12:09 Troponin I 0.03 (< 0.04) ng/mL Liver Function 12/07/17 Range/Units 12:09 Total Bilirubin 2.2 H (0.3-1.0) mg/dL Direct Bilirubin 0.7 H (0.0-0.2) mg/dL AST 106 H (13-39) Units/L ALT 126 H (7-52) Units/L Alkaline Phosphatase 76 (34-104) Units/L Albumin 4.0 (3.5-5.7) g/dL Urine 12/07/17 Range/Units 14:58 Urine Color Dark Yellow (Yellow) Urine Clarity Clear (Clear) Urine pH 5.5 (5.0-8.0) pH Units Ur Specific [place] > 1.030 H (1.010-1.025) Urine Protein 30 H (Neg-Trace) mg/dL Urine Glucose (UA) Normal (Normal) mg/dL - Impressions ITS Impressions Chest X-Ray 12/07/17 11:58 IMPRESSION: No acute pulmonary process. D/ / Jeffery Burris / Jeffery Burris Interpreting Provider: Jeffery Burris Chest CTA 12/07/17 12:23 IMPRESSION: Negative study for pulmonary embolism. Moderate right pleural effusion and small left pleural effusion, improved from prior CTA chest 11/03/2016. Subtle patchy ground-glass opacities to bilateral upper lobes, left much more than right, as well as to the superior segment of the left lower lobe. These are in regions of more dense consolidative change on prior exam 11/03/2016 and could potentially reflect residua of prior infectious/inflammatory process, but new acute infectious/inflammatory process not excluded. Recommend follow-up CT chest in 2-3 months. Stable cardiomegaly. Stable aneurysmal dilatation ascending thoracic aorta measuring 4.4 cm. Low-attenuation focus exophytic to upper pole of right kidney measuring 2.3 cm with attenuation characteristics somewhat higher than simple fluid. This was incompletely imaged on prior exam 11/03/2016 but appears grossly similar. This is felt most likely to reflect a benign exophytic complex cyst with some internal debris/proteinaceous fluid but recommend further evaluation with ultrasound on a nonemergent basis to confirm suspected benign nature and exclude neoplasm. Reflux of contrast material into the IVC and hepatic veins may reflect some degree of right heart dysfunction. Atherosclerosis to include coronary artery disease. Small amount of ascites to the right upper quadrant, new from prior exam. D/ / 12/07/2017 13:54:43 Tomi Stevens MD / cain Interpreting Provider: Tomi Stevens MD Abdomen/Pelvis CT 12/07/17 13:39 IMPRESSION: 1. Bilateral pleural effusions right greater than left 2. Infiltration of the fat in the retroperitoneum and mesenteric region with some free abdominal and pelvic fluid. No definite evidence for any pancreatic abnormality although pancreatitis could give this appearance. A neoplastic process is a possibility as well. No definite evidence for diverticulitis or obstructive uropathy. 3. Normal appearing gallbladder 4. Normal appearing appendix D/ / Spencer Delgado MD / Spencer Delgado MD Interpreting Provider: Spencer Delgado MD - Attending Attestation I personally and independently interviewed and examined the patient with [employer], and I reviewed the patient's medical record with her. I am in agreement with the assessment and proposed treatment plan. I discussed my findings and recommendation with the patient and answer all questions. The patient's medical records were edited to accurately reflect this encounter. - Time Spent With Patient Total time spent is greater than 50% in coordination of care (as documented) at patient's floor/unit and/or counseling patient:
[2017-12-07] MEDS ORDERED: Acetaminophen 325 MG TABLET PO PRN (19:01)
[2017-12-07] MEDS ORDERED: Naloxone 0.4 MG/ML INJ IVP PRN (19:01)
[2017-12-07] MEDS ORDERED: 0.9 % Sodium Chloride 1,000 ML IVC SCH (19:15)
[2017-12-07] MEDS: *HR* Heparin 5,000 UNIT/ML VIAL SQ SCH (23:32)
[2017-12-07] MEDS: Piperacillin/Tazobactam 3.375 GM in 0.9 % Sodium Chloride Mini Bag 100 ML IVPB SCH (23:52)
[2017-12-07] MEDS ORDERED: *HR* LORazepam 2 MG/ML VIAL IVP PRN (23:59)
[2017-12-08 04:17] LABS: Basophils # 0.1 K/mcL (0.0-0.2); Basophils % 1.1 %; Eosinophils # 0.1 K/mcL (0.0-0.6); Hematocrit 45.7 % (37.5-50.1); Immature Granulocytes % 0.6 % (0-4); Lymphocytes # 1.9 K/mcL (0.6-4.6); Lymphocytes % 20.7 %; Mean Corpuscular HGB Conc 33.5 g/dL (31.6-35.5); Mean Corpuscular Hemoglobin 32.6 pg (28.0-33.3); Mean Corpuscular Volume 97.4 fL (83.0-100.0); Monocytes # 1.3 K/mcL (0.0-1.3); Monocytes % 14.1 %; Neutrophils # 5.8 K/mcL (1.6-8.9); Platelet Count 217 K/mcL (140-400); Red Blood Count 4.69 M/mcL (4.19-5.50); Red Cell Distribution Width 15.1 % (11.5-14.5); Segmented Neutrophils % 62.5 %
[2017-12-08 04:18] LABS: Hemoglobin 15.3 g/dL (12.9-16.9)
[2017-12-08 04:36] LABS: Albumin 3.2 g/dL (3.5-5.7); Albumin/Globulin Ratio 1.2 (1.1-2.2); Bilirubin,Total 1.6 mg/dL (0.3-1.0); Calcium 8.7 mg/dL (8.6-10.3); Chol/HDL Ratio 3.9 (0-4.9); Globulin 2.7 g/dL (2.4-3.5); Magnesium 2.2 mg/dL (1.6-2.6); Potassium 4.3 mEq/L (3.5-5.1); Total Protein 5.9 g/dL (6.4-8.9)
[2017-12-08] MEDS: *HR* Heparin 5,000 UNIT/ML VIAL SQ SCH ×3 (05:46→20:56)
--- NOTE | 2017-12-08 07:18 | Electrocardiograph Report ---
[facility] Test Date: 2017-12-07 Pat Name: Finn Bowen Department: [id number] Room: 2S9 Gender: M [employer] Pricer: MIRTHA : 1950 Requested By: Estephanie Mock Order Number: [id number] Reading MD: Aureliano Rivera Measurements Intervals [place] Rate: 141 P: OK: 0 QRS: -3 QRSD: 97 T: 222 QT: 324 QTc: 406 Interpretive Statements ATRIAL FIBRILLATION WITH RAPID VENTRICULAR RESPONSE ST DEVIATION AND MODERATE T-WAVE ABNORMALITY, CONSIDER LATERAL ISCHEMIA [-0.1+ mV T WAVE IN I/aVL/V5/V6] Electronically Signed On 12-08-2017 7:16:26 EDT by Aureliano Rivera
--- NOTE | 2017-12-08 08:26 | Internal Med Progress Note ---
<Spencer Barth - Last Filed: 12/08/17 11:23> Date of Encounter: 12/08/17 Time of Encounter: 09:00 - Assessment and plan (1) Pneumonia Current Visit: Yes Status: Suspected Assessment and plan: Suspected Left multilobar pneumonia Fits clinical picture, including SOB and intermittent fevers Patient appears to be hemodynamically stable at this time Started Zosyn in the ED, Will continue and add Levaquin Qualifiers: Pneumonia type: due to Pneumococcus Laterality: left Lung location: upper lobe of lung Qualified Code(s): J13 - Pneumonia due to Streptococcus pneumoniae (2) Heart failure Current Visit: Yes Status: Acute Assessment and plan: Acute on chronic heart failure with preserved ejection fraction The patient has had progressive SOB with Orthopnea, evidence of abdominal fluid collection On admission, BNP elevated to 682 We will diurese the patient to relieve symptoms Repeat TTE Qualifiers: Heart failure type: diastolic Heart failure chronicity: acute Qualified Code(s): I50.31 - Acute diastolic (congestive) heart failure (3) Nausea and vomiting Current Visit: Yes Status: Acute Assessment and plan: Acute intermittent nausea and vomiting over the past 2-3 months. The patient does state that it seems to be associated with fevers May be related to possible pneumonia vs GI infection IVP Zofran 4 mg Q6HR PRN. Qualifiers: Vomiting type: unspecified Vomiting Intractability: non-intractable Qualified Code(s): R11.2 - Nausea with vomiting, unspecified (4) Lactic acidosis Current Visit: Yes Status: Acute Assessment and plan: Acute lactic acidosis w/2.6 on admission, resolved Pt. placed on 0.9 NS IV fluids @ 100 mL/HR following 1L bolus in ED. Will repeat lactic acid. (5) Atrial fibrillation with RVR Current Visit: Yes Status: Chronic Assessment and plan: Hx of chronic Afib w/RVR Continuous cardiac telemetry Pt. placed on Cardizem drip in ED. Monitor Has improved (6) Pleural effusion Current Visit: Yes Status: Acute Assessment and plan: B/l pleural effusion, R>L Likely secondary to worsening cardiac function I suspect CHF is major cause We will diurese, continue to monitor (7) Elevated bilirubin Current Visit: Yes Status: Acute Assessment and plan: Acutely elevated bilirubin of 2.2 on admission, down now to 1.6. Cholecystitis versus liver damage. AST 106 and ALT 126 on admission, however Alk Phos WNL Pt. reports drinking 2-3 beers daily or 2-3 glasses of wine daily. Suspicious for cholecystitis, however the clinical picture does not well match (8) Hypertension Current Visit: No Status: Chronic Assessment and plan: Well controlled at this time Continue home meds for now Qualifiers: Hypertension type: essential hypertension Qualified Code(s): I10 - Essential (primary) hypertension (9) DVT prophylaxis Current Visit: Yes Status: Acute Assessment and plan: Heparin 5,000 units SQ Q8 for DVT prophylaxis. Monitor pt. for signs of bleeding. (10) Cholecystitis Current Visit: Yes Status: Suspected Assessment and plan: Acute cholecystitis (11) Fever Current Visit: Yes Status: Acute Assessment and plan: Acute fever over the past several months that is intermittent. Suspect related to pneumonia Patient is currently treated with Zosyn Add Levaquin today Tylenol 650 mg Q6HR PRN for fever. Qualifiers: Fever type: unspecified Qualified Code(s): R50.9 - Fever, unspecified - Time Spent With Patient Total time spent is greater than 50% in coordination of care (as documented) at patient's floor/unit and/or counseling patient: - Subjective Interval history: The patient is seen and examined at bedside. It is noted immediately that the patient has a strange affect including slow thought process and unclear conception of exactly what is going on in the hospital. He does not answer questions directly although he does answer them appropriately when repeated. He says that today he is not experiencing any nausea or vomiting, however he has had this intermittently. He also is not complaining of any abdominal pain today but remains conversationally dyspneic. - Constitutional Vitals: Temp Pulse Resp BP Pulse Ox 97 F L 108 16 118/80 93 12/08/17 07:29 12/08/17 07:29 12/08/17 07:29 12/08/17 07:29 12/08/17 07:29 General appearance: Present: cooperative, A&O X 3, pleasant, no acute distress, answers questions appropriately Exam: Gen: Vitals noted. Conversational dyspnea, slow mentation HEENT: Normocephalic, atraumatic Neck: Supple. No adenopathy. Cardiac: Rapid/irregular, 3/6 systolic murmur, +S1/S2 Pulmonary: CTA bilaterally, however b/l diminished Abdomen: soft, nontender, no guarding Back: Nontender throughout. MSK: ROM intact, no joint swelling noted Extremities: no BLE edema, nontender calf, no cyanosis or clubbing Neuro: moves all extremities, no focal deficits Psych: Appropriate mood and behavior Internal Medicine: Result - Labs CBC & Chem 7: 12/08/17 04:01 12/08/17 04:01 Labs: Short CBC 12/08/17 Range/Units 04:01 WBC 9.3 (4.3-11.1) K/mcL Hgb 15.3 D (12.9-16.9) g/dL Hct 45.7 (37.5-50.1) % Plt Count 217 (140-400) K/mcL Neutrophils # 5.8 (1.6-8.9) K/mcL BMP 12/08/17 04:01 Sodium 135 L Potassium 4.3 Chloride 107 Carbon Dioxide 19 L BUN 34 H Creatinine 1.59 H Glucose 86 Calcium 8.7 Liver Function 12/08/17 Range/Units 04:01 Total Bilirubin 1.6 H (0.3-1.0) mg/dL AST 116 H (13-39) Units/L ALT 131 H (7-52) Units/L Alkaline Phosphatase 75 (34-104) Units/L Albumin 3.2 L (3.5-5.7) g/dL - ABG Interpretation ABG results: PT/INR, D-dimer PT 17.5 Seconds (9.4-12.1) H 12/07/17 12:09 Consult Discharge Plan - Plan Referrals: NONE,PCP [Primary Care Provider] - <Alvino Edwards H - Last Filed: 12/08/17 12:57> Date of Encounter: 12/08/17 - Assessment and plan (1) DVT prophylaxis Current Visit: Yes Status: Acute (2) Pneumonia Current Visit: Yes Status: Suspected Qualifiers: Pneumonia type: due to Pneumococcus Laterality: left Lung location: upper lobe of lung Qualified Code(s): J13 - Pneumonia due to Streptococcus pneumoniae (3) Hypertension Current Visit: No Status: Chronic Qualifiers: Hypertension type: essential hypertension Qualified Code(s): I10 - Essential (primary) hypertension (4) Heart failure Current Visit: Yes Status: Acute Qualifiers: Heart failure type: diastolic Heart failure chronicity: acute Qualified Code(s): I50.31 - Acute diastolic (congestive) heart failure (5) Atrial fibrillation with RVR Current Visit: Yes Status: Chronic (6) Pleural effusion Current Visit: Yes Status: Acute (7) Elevated bilirubin Current Visit: Yes Status: Acute (8) Lactic acidosis Current Visit: Yes Status: Acute (9) Cholecystitis Current Visit: Yes Status: Suspected (10) Nausea and vomiting Current Visit: Yes Status: Acute Qualifiers: Vomiting type: unspecified Vomiting Intractability: non-intractable Qualified Code(s): R11.2 - Nausea with vomiting, unspecified (11) Fever Current Visit: Yes Status: Acute Qualifiers: Fever type: unspecified Qualified Code(s): R50.9 - Fever, unspecified - Time Spent With Patient Total time spent is greater than 50% in coordination of care (as documented) at patient's floor/unit and/or counseling patient: - Constitutional Vitals: Temp Pulse Resp BP Pulse Ox 97.6 F 108 16 126/86 97 12/08/17 11:43 12/08/17 11:43 12/08/17 11:43 12/08/17 11:43 12/08/17 11:43 Internal Medicine: Result - Labs CBC & Chem 7: 12/08/17 04:01 12/08/17 04:01 Labs: Short CBC 12/08/17 Range/Units 04:01 WBC 9.3 (4.3-11.1) K/mcL Hgb 15.3 D (12.9-16.9) g/dL Hct 45.7 (37.5-50.1) % Plt Count 217 (140-400) K/mcL Neutrophils # 5.8 (1.6-8.9) K/mcL BMP 12/08/17 04:01 Sodium 135 L Potassium 4.3 Chloride 107 Carbon Dioxide 19 L BUN 34 H Creatinine 1.59 H Glucose 86 Calcium 8.7 Liver Function 12/08/17 Range/Units 04:01 Total Bilirubin 1.6 H (0.3-1.0) mg/dL AST 116 H (13-39) Units/L ALT 131 H (7-52) Units/L Alkaline Phosphatase 75 (34-104) Units/L Albumin 3.2 L (3.5-5.7) g/dL - ABG Interpretation ABG results: PT/INR, D-dimer PT 17.5 Seconds (9.4-12.1) H 12/07/17 12:09 - Attending Attestation A fib with RVR likely secondray to HCAP present upon admission , with B/L pleural effusions with acute diastolic CHF exacerbation Zosynday #2 , added Levaquin cardizem drip sotalol, IV lasix consider cardiology consult I examined this patient and my medical decision-making was reviewed with the Resident Physician. I agree with the documented findings, disposition and treatment plan as described except to the extent set forth below.
[2017-12-08] MEDS ORDERED: (Vitamin E [Vitamin E] 100 UNIT) PO SCH (09:00)
[2017-12-08] MEDS ORDERED: Levofloxacin 500 MG/100 ML 500 MG/100 ML BAG IVPB SCH (09:00)
[2017-12-08] MEDS ORDERED: Levofloxacin 750 MG/150 ML 750 MG/150 ML BAG IVPB SCH (09:00)
[2017-12-08] MEDS ORDERED: (Omega-3/Dha/Epa/Fish Oil [Fish Oil 1,000 Mg Softgel] PO SCH (09:00)
[2017-12-08] MEDS: Aspirin 325 MG TABLET PO SCH (09:37)
[2017-12-08] MEDS: Furosemide 20 MG/2 ML VIAL IVP SCH ×2 (09:37→20:03)
[2017-12-08] MEDS: Ascorbic Acid 500 MG TABLET PO SCH (09:37)
[2017-12-08] MEDS: Piperacillin/Tazobactam 3.375 GM in 0.9 % Sodium Chloride Mini Bag 100 ML IVPB SCH ×2 (09:40→16:01)
[2017-12-08 10:50] LABS: Estimated Average Glucose 111 mg/dl; Hemoglobin A1C 5.5 %
--- NOTE | 2017-12-08 16:29 | General Surgery Consult Note ---
Date of Encounter: 12/08/17 Time of Encounter: 15:30 History of Present Illness Consult date: 12/07/17 Reason for consult: other (abnormal USGB) Requesting physician: Estephanie Mock History of present illness: 67 yo referred for further surgical evaluation after presenting to the [facility] Emergency Department with complaints of progressive fatigue and weakness. He has a history of atrial fibrillation being treated with sotalol and diltiazem but no anticoagulation. During the course of this evaluation, the patient was noted to have an elevated bilirubin, 2.2 and lactic acidosis 2.3. AST was elevated at 106, ALT 126, alkaline phosphatase 76. White count was normal including differential, hemoglobin was markedly elevated at 17.2 with hematocrit 50.9 consistent with dehydration. This was also evident on chemistry showing an elevated BUN of 30, creatinine 1.62. CT of the abdomen/ pelvis demonstrated a normal-appearing liver and gallbladder, bilateral renal calcifications. Bilateral pleural effusions right greater than left is noted as well as nonspecific diffuse infiltration of the fat throughout the abdomen and in the vicinity of the spleen is noted and suggestive of previous episodes of ascites. Subsequent USGB demonstrated a mildly thickened gallbladder wall with pericholecystic fluid but no stones identified. The radiology report suggested the possibility of acute cholecystitis versus findings secondary to systemic disease which prompted the surgical consultation. The CT and ultrasound gallbladder were reviewed personally with [facility]. The presence of perihepatic fluid/ascites is the likely etiology for the described pericholecystic fluid rather than acute cholecystitis. The possibility of systemic disease causing these findings is enhanced due to the patient's history of atrial fibrillation increasing the possibility of fluid overload/CHF. The patient is an extremely vague historian, making it even more difficult to determine whether this is a surgical versus medical entity. Past medical history: Atrial fibrillation, coronary artery disease status post angioplasty/stent placement, hyperlipidemia, hypertension (details obtained from the medical records rather than the patient) Allergies diphenhydramine Medications: Vitamin C 500 mg by mouth daily [place]-3 fish oil 1000 mg POD Vitamin E 100 units by mouth daily Diltiazem 120 mg by mouth daily Aspirin 325 mg daily Sotalol 160 mg by mouth twice a day Social history: Patient admits to 1 pack per day for the past 30 years (he "quit " smoking the day of admission) The patient also has a significant alcohol history; admitting to a 6 pack or 2 daily for many years; he still consumes 2 beers daily; the patient denies any illicit drug use Physical examination: This is an age-appropriate male seated at bedside in no obvious distress. He has been afebrile, most recently 96.5; pulse 90 70 ranging as high as 108 ; blood pressure 108/71, respiratory rate 16. SPO2 on room air 97% Skin: warm, does not appear jaundiced Lungs: Diminished breath sounds right base otherwise both lungs clear Abdomen: Soft, nontender; no obvious hepatosplenomegaly; no masses, no peritoneal signs, no rebound. Active bowel sounds. Patient is tolerating diet with no complaints of nausea, vomiting, abdominal bloating/distention, or cramping abdominal pain. Impression: 67-year-old male admitted after presenting to [facility] ED with complaints of progressive fatigue and weakness. In the course of his evaluation , an elevated bilirubin and lactic acidosis was noted along with elevated AST and ALT. CT and ultrasound findings are described above. The radiographic images were reviewed with [facility] and patient subsequently examined. There are no findings to suggest the presence of acute cholecystitis. Further evaluation with HB scan is recommended and has been ordered. The laboratory abnormalities may be due to passive hepatic congestion. It should be noted that the patient's lactic acidosis has resolved. Recommendations - repeat labs / LFTs in AM consider Cardiology consultation await HB results - further surgical recommendations to follow. Past Med Surg Social Fam HX - Past Medical History Medical history: atrial fibrillation, coronary artery disease, hyperlipidemia, hypertension, other Psychiatric history: no psych history - Past Surgical History Surgical History: angioplasty/stent, other - Social History Smoking Status: Current every day smoker Packs per day: 1 PPD Smokeless Tobacco Status: No Alcohol use: occasionally, recent Drug use: none - Family History Mother Race: Family Member Ethnicity: Non- Living Status: Age at : 89 Cause of : Cancer Hx Family Cardiac Disorders: Yes (HLD, HTN) Hx Family Cancer: Yes (breast cancer) Hx Family Neurologic Disorders: Yes (Alzheimer's disease) Father Race: Family Member Ethnicity: Non- Living Status: Age at : 81 Cause of : HF Hx Family Cardiac Disorders: Yes (CHF) Hx Family Endocrine Disorder: Yes (DM) Hx Family Neurologic Disorders: Yes (Alzheimer's disease) Sister Race: Family Member Ethnicity: Non- Living Status: Still Living Hx Family Cardiac Disorders: Yes (HTN) Hx Family Endocrine Disorder: Yes (Thyroid disease) Medications and Allergies Ascorbate Calcium [Vitamin C] 500 mg PO DAILY 11/02/16 [History] [place]-3/Dha/Epa/Fish Oil [Fish Oil 1,000 mg Softgel] 1,000 mg PO DAILY 11/02/16 [History] Vitamin E 100 unit PO DAILY 11/02/16 [History] Diltiazem CD (24hr) [Cardizem CD] 120 mg PO DAILY #30 cap.er.24h 12/02/16 [Rx] Aspirin 325 mg PO DAILY 12/07/17 [History] Sotalol HCl [Betapace] 160 mg PO BID 12/07/17 [History] 3 Allergy/AdvReac Type Severity Reaction Status Date / Time diphenhydramine AdvReac Anxiety Verified 12/07/17 18:52 [From Benadryl] Review of Systems All systems PM: The remainder of the systems were reviewed and are negative General Surgery Exam Initial Vital Signs Temp Pulse Resp BP Pulse Ox 97.4 F L 143 24 116/56 98 12/07/17 11:48 12/07/17 11:48 12/07/17 11:48 12/07/17 11:48 12/07/17 11:48 Exam Initial Vital Signs Temp Pulse Resp BP Pulse Ox 97.4 F L 143 24 116/56 98 12/07/17 11:48 12/07/17 11:48 12/07/17 11:48 12/07/17 11:48 12/07/17 11:48 Results - Labs 12/08/17 04:01 12/08/17 04:01 Abnormal lab results RDW 15.1 % (11.5-14.5) H 12/08/17 04:01 PT 17.5 Seconds (9.4-12.1) H 12/07/17 12:09 Sodium 135 mEq/L (136-145) L 12/08/17 04:01 Carbon Dioxide 19 mEq/L (23-29) L 12/08/17 04:01 BUN 34 mg/dL (8-23) H 12/08/17 04:01 Creatinine 1.59 mg/dL (0.70-1.30) H 12/08/17 04:01 Est GFR ( Amer) 53 (> 60) L 12/08/17 04:01 Est GFR (Non-Af Amer) 44 (> 60) L 12/08/17 04:01 Total Bilirubin 1.6 mg/dL (0.3-1.0) H 12/08/17 04:01 Direct Bilirubin 0.7 mg/dL (0.0-0.2) H 12/07/17 12:09 Indirect Bilirubin 1.5 mg/dL (0.0-1.2) H 12/07/17 12:09 AST 116 Units/L (13-39) H 12/08/17 04:01 ALT 131 Units/L (7-52) H 12/08/17 04:01 B-Natriuretic Peptide 682 pg/mL (Less than 100) H 12/07/17 12:09 Serum Total Protein 5.9 g/dL (6.4-8.9) L 12/08/17 04:01 Albumin 3.2 g/dL (3.5-5.7) L 12/08/17 04:01 HDL Cholesterol 23 mg/dL (40-59) L 12/08/17 04:01 Ur Specific [place] > 1.030 (1.010-1.025) H 12/07/17 14:58 Urine Protein 30 mg/dL (Neg-Trace) H 12/07/17 14:58 Urine Ketones Trace mg/dL (Negative) H 12/07/17 14:58 Urine Bilirubin Moderate (Negative) H 12/07/17 14:58 Urine Microscopic RBC 5-15 per hpf (0-3) H 12/07/17 14:58 Diabetes panel 12/08/17 12/08/17 Range/Units 04:01 04:01 Sodium 135 L (136-145) mEq/L Potassium 4.3 (3.5-5.1) mEq/L Chloride 107 (98-107) mEq/L Carbon Dioxide 19 L (23-29) mEq/L BUN 34 H (8-23) mg/dL Creatinine 1.59 H (0.70-1.30) mg/dL Glucose 86 (70-105) mg/dL Hemoglobin A1c 5.5 ( - 5.6) % Calcium 8.7 (8.6-10.3) mg/dL AST 116 H (13-39) Units/L ALT 131 H (7-52) Units/L Alkaline Phosphatase 75 (34-104) Units/L Albumin 3.2 L (3.5-5.7) g/dL Triglycerides 85 (< 150) mg/dL HDL Cholesterol 23 L (40-59) mg/dL Calcium panel 12/08/17 Range/Units 04:01 Calcium 8.7 (8.6-10.3) mg/dL Albumin 3.2 L (3.5-5.7) g/dL Pituitary panel 12/08/17 Range/Units 04:01 Sodium 135 L (136-145) mEq/L Potassium 4.3 (3.5-5.1) mEq/L Chloride 107 (98-107) mEq/L Carbon Dioxide 19 L (23-29) mEq/L BUN 34 H (8-23) mg/dL Creatinine 1.59 H (0.70-1.30) mg/dL Glucose 86 (70-105) mg/dL Calcium 8.7 (8.6-10.3) mg/dL Adrenal panel 12/08/17 Range/Units 04:01 Sodium 135 L (136-145) mEq/L Potassium 4.3 (3.5-5.1) mEq/L Chloride 107 (98-107) mEq/L Carbon Dioxide 19 L (23-29) mEq/L BUN 34 H (8-23) mg/dL Creatinine 1.59 H (0.70-1.30) mg/dL Glucose 86 (70-105) mg/dL Calcium 8.7 (8.6-10.3) mg/dL Total Bilirubin 1.6 H (0.3-1.0) mg/dL AST 116 H (13-39) Units/L ALT 131 H (7-52) Units/L Alkaline Phosphatase 75 (34-104) Units/L Albumin 3.2 L (3.5-5.7) g/dL All other labs normal. Consult Discharge Plan - Plan Referrals: NONE,PCP [Primary Care Provider] -
[2017-12-08] MEDS: *HR* LORazepam 0.5 MG TABLET PO PRN (20:02)
[2017-12-08 23:36] LABS: ABG Base Excess -10 mEq/L (-2 to 3); ABG HCO3 12 mEq/L (21-27); ABG Oxygen Saturation 95 % (95-98); ABG PCO2 20 mmHg (35-45); ABG PH 7.39 pH Units (7.32-7.45); ABG PO2 74 mmHg (85-104); ABG TCO2 13 mEq/L (20-26)
[2017-12-08] MEDS ORDERED: *HR* LORazepam 2 MG/ML VIAL IVP ONE (23:59)
[2017-12-09] MEDS: Levalbuterol Neb 1.25 MG/3 ML IH SCH ×5 (00:02→21:34)
[2017-12-09] MEDS: 0.9 % Sodium Chloride 1,000 ML IVC SCH ×2 (00:10→14:57)
[2017-12-09] MEDS: Piperacillin/Tazobactam 3.375 GM in 0.9 % Sodium Chloride Mini Bag 100 ML IVPB SCH ×4 (00:37→23:41)
[2017-12-09] MEDS: Nicotine 21 MG PATCH.TD24 TD SCH ×2 (00:52→09:50)
[2017-12-09 00:58] LABS: Basophils # 0.1 K/mcL (0.0-0.2); Eosinophils # 0.1 K/mcL (0.0-0.6); Eosinophils % 0.8 %; Hematocrit 53.7 % (37.5-50.1); Hemoglobin 17.7 g/dL (12.9-16.9); Immature Granulocytes % 1.3 % (0-4); Lymphocytes # 1.9 K/mcL (0.6-4.6); Lymphocytes % 21.7 %; Mean Corpuscular Hemoglobin 32.7 pg (28.0-33.3); Mean Corpuscular Volume 99.3 fL (83.0-100.0); Mean Platelet Volume 12.2 fL (9.4-12.4); Monocytes # 0.9 K/mcL (0.0-1.3); Monocytes % 10.2 %; Neutrophils # 5.6 K/mcL (1.6-8.9); Platelet Count 223 K/mcL (140-400); Red Blood Count 5.41 M/mcL (4.19-5.50); Red Cell Distribution Width 15.5 % (11.5-14.5)
[2017-12-09 01:04] LABS: Adenovirus Not Detected (Not Detect); Bordetella Pertussis Not Detected (Not Detect); Chlamydophila pneumoniae Not Detected (Not Detect); Coronavirus 229E Not Detected (Not Detect); Coronavirus HKU1 Not Detected (Not Detect); Coronavirus NL63 Not Detected (Not Detect); Coronavirus OC43 Not Detected (Not Detect); Human Metapneumovirus Not Detected (Not Detect); Human Rhinovirus/Enterovirus Not Detected (Not Detect); Influenza A Subtype 2009 H1 Not Detected (Not Detect); Influenza A Untypeable Not Detected (Not Detect); Influenza B Not Detected (Not Detect); Mycoplasma pneumoniae Not Detected (Not Detect); Parainfluenza Virus 1 Not Detected (Not Detect); Parainfluenza Virus 2 Not Detected (Not Detect); Parainfluenza Virus 3 Not Detected (Not Detect); Parainfluenza Virus 4 Not Detected (Not Detect); Respiratory Syncytial Virus Not Detected (Not Detect)
[2017-12-09 01:16] LABS: Albumin 3.9 g/dL (3.5-5.7); Albumin/Globulin Ratio 1.3 (1.1-2.2); Bilirubin,Total 2.7 mg/dL (0.3-1.0); Calcium 9.1 mg/dL (8.6-10.3); Potassium 4.2 mEq/L (3.5-5.1); Total Protein 6.9 g/dL (6.4-8.9)
[2017-12-09] MEDS: *HR* Heparin 5,000 UNIT/ML VIAL SQ SCH ×2 (06:45→14:58)
[2017-12-09] MEDS: Aspirin 325 MG TABLET PO SCH (09:50)
[2017-12-09] MEDS: Furosemide 20 MG/2 ML VIAL IVP SCH (09:50)
[2017-12-09] MEDS: Ascorbic Acid 500 MG TABLET PO SCH (09:50)
--- NOTE | 2017-12-09 14:42 | General Surgery Progress Note ---
Date of Encounter: 12/09/17 Time of Encounter: 13:00 Subjective Narrative: General Surgery - Patient remains in no acute distress; he remains difficult to assess due to being vague as to his current status. The patient is afebrile, currently 97.0; pulse 60, respirations 24, blood pressure 169/76. Abdomen is soft, nontender. HB scan completed this morning was reviewed. Findings include prompt homogeneous uptake of tracer by the liver with normal excretion into the biliary system. Clearance of the blood pool appeared appropriate. Gallbladder and small bowel visualized and in appropriate sequence and time. Gallbladder ejection fraction was estimated at 11% consistent with chronic cholecystitis but no evidence of acute cholecystitis. Impression: 67-year-old male admitted after presenting to [facility] emergency department with progressive T and weakness. Surgical consultation was placed due to sonographic findings suggestive of acute cholecystitis. This is not corroborated on the current HB scan. Urgent surgical intervention is not required and can be deferred until the patient's medical status is clarified. Recommend: A more complete medical evaluation including cardiac assessment. I will sign off for now; thank you for this consultation. Call if needed Objective Vital Signs - Last 8 Hours Temp Pulse Resp BP Pulse Ox 12/09/17 11:06 97.0 F L 60 24 169/76 96 12/09/17 09:54 97.0 F L 84 24 138/93 96 12/09/17 09:05 166/90 Intake and Output 12/08/17 12/09/17 12/09/17 23:59 07:59 15:59 Intake Total 220 / 220 200 / 200 Output Total 250 / 250 100 / 100 Balance -30 / -30 200 / 200 -100 / -100 Intake: IV Fluids 100 / 100 200 / 200 Cardizem 125 MG In 0.9 % Sodium 100 / 100 Chloride 100 ML @ 5 MG/HR 5 mls/hr IVC .Q24H KATHRYN Rx#: [id number] Zosyn 3.375 GM In 0.9 % Sodium 100 / 100 100 / 100 Chloride (Mini-Bag +) 100 ML @ 25 mls/hr IVPB Q8HR KATHRYN Rx#: [id number] Oral 120 / 120 0 / 0 Output: Urine 250 / 250 100 / 100 Other: Meal Dinner NPO Percent of Meal Consumed 5% 0% Stool Size Small Stool Consistency formed Stool Color Brown # Voids 1 1 # Bowel Movements 1 Weight 92.7 kg Blood Glucose* 87 Patient Weight 12/09/17 23:59 Weight 92.7 kg - Labs 12/09/17 00:34 12/09/17 00:34 Diabetes panel 12/09/17 Range/Units 00:34 Sodium 135 L (136-145) mEq/L Potassium 4.2 (3.5-5.1) mEq/L Chloride 104 (98-107) mEq/L Carbon Dioxide 17 L (23-29) mEq/L BUN 31 H (8-23) mg/dL Creatinine 1.86 H (0.70-1.30) mg/dL Glucose 109 H (70-105) mg/dL Calcium 9.1 (8.6-10.3) mg/dL AST 135 H (13-39) Units/L ALT 179 H (7-52) Units/L Alkaline Phosphatase 84 (34-104) Units/L Albumin 3.9 (3.5-5.7) g/dL Calcium panel 12/09/17 Range/Units 00:34 Calcium 9.1 (8.6-10.3) mg/dL Albumin 3.9 (3.5-5.7) g/dL Pituitary panel 12/09/17 Range/Units 00:34 Sodium 135 L (136-145) mEq/L Potassium 4.2 (3.5-5.1) mEq/L Chloride 104 (98-107) mEq/L Carbon Dioxide 17 L (23-29) mEq/L BUN 31 H (8-23) mg/dL Creatinine 1.86 H (0.70-1.30) mg/dL Glucose 109 H (70-105) mg/dL Calcium 9.1 (8.6-10.3) mg/dL Adrenal panel 12/09/17 Range/Units 00:34 Sodium 135 L (136-145) mEq/L Potassium 4.2 (3.5-5.1) mEq/L Chloride 104 (98-107) mEq/L Carbon Dioxide 17 L (23-29) mEq/L BUN 31 H (8-23) mg/dL Creatinine 1.86 H (0.70-1.30) mg/dL Glucose 109 H (70-105) mg/dL Calcium 9.1 (8.6-10.3) mg/dL Total Bilirubin 2.7 H (0.3-1.0) mg/dL AST 135 H (13-39) Units/L ALT 179 H (7-52) Units/L Alkaline Phosphatase 84 (34-104) Units/L Albumin 3.9 (3.5-5.7) g/dL Consult Discharge Plan - Plan Referrals: Adrian Jones DO [Resident] - 12/17/17 10:15 am
--- NOTE | 2017-12-09 15:51 | Electrocardiograph Report ---
[address] [address] Test Date: 2017-12-09 Pat Name: Finn Bowen Department: 110 Room: 2N08 Gender: M Nib Inspector: : 1950 Requested By: [id number] Order Number: [id number] Reading MD: Tiffanie Cobian Measurements Intervals [place] Rate: 57 P: 39 KS: 166 QRS: 49 QRSD: 96 T: 0 QT: 433 QTc: 426 Interpretive Statements SINUS BRADYCARDIA LOW QRS VOLTAGE IN EXTREMITY LEADS Electronically Signed On 12-09-2017 15:49:53 EDT by Tiffanie Cobian
--- NOTE | 2017-12-09 15:53 | Electrocardiograph Report ---
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
[2017-12-09] MEDS: Diltiazem CD (24hr) 120 MG CAPSULE PO SCH (15:59)
--- NOTE | 2017-12-09 15:59 | Electrocardiograph Report ---
[address] [place] [address] Test Date: 2017-12-08 Pat Name: Finn Bowen Department: 111 Room: 08 Gender: M Corrugator Helper: RHIANNA : 1950 Requested By: Spencer Barth Order Number: [id number] Reading MD: Tiffanie Cobian Measurements Intervals [place] Rate: 102 P: [place]: 0 QRS: 2 QRSD: 104 T: 203 QT: 404 QTc: 463 Interpretive Statements ATRIAL FIBRILLATION WITH RAPID VENTRICULAR RESPONSE NONSPECIFIC ST & T-WAVE ABNORMALITY Electronically Signed On 12-09-2017 15:57:59 EDT by Tiffanie Cobian
[2017-12-09] MEDS ORDERED: 0.9 % Sodium Chloride 1,000 ML IVC SCH (16:36)
--- NOTE | 2017-12-09 17:26 | Internal Med Progress Note ---
Date of Encounter: 12/09/17 Time of Encounter: 17:23 - Assessment and plan (1) Atrial fibrillation with RVR Current Visit: Yes Status: Chronic Assessment and plan: A fib with RVR likely secondary to HCAP present upon admission , with B/L pleural effusions with acute systolic/diastolic CHF exacerbation Zosyn day #3 , Levaquin day #2 cardizem drip discontinued , stable on cardizem 120 mg daily and sotalol, Hold IV lasix for now cardiology consult due to worsening ejection fraction Continuous cardiac telemetry (2) Pneumonia Current Visit: Yes Status: Suspected Assessment and plan: Suspected Left multilobar pneumonia Fits clinical picture, including SOB and intermittent fevers Patient appears to be hemodynamically stable at this time Zosyn andLevaquin Qualifiers: Pneumonia type: due to Pneumococcus Laterality: left Lung location: upper lobe of lung Qualified Code(s): J13 - Pneumonia due to Streptococcus pneumoniae (3) Hypertension Current Visit: No Status: Chronic Assessment and plan: Well controlled at this time Qualifiers: Hypertension type: essential hypertension Qualified Code(s): I10 - Essential (primary) hypertension (4) Heart failure Current Visit: Yes Status: Acute Assessment and plan: History of chronic diastolic heart failure with preserved ejection fraction On admission, BNP elevated to 682 hold lasix today Echocardiogram showed an ejection fraction of 45-50% with mild concentric left ventricular hypertrophy, moderate pulmonary hypertension Call cardiology consult since ejection fraction has decreased from prior normal value of 55-60% Qualifiers: Heart failure type: diastolic Heart failure chronicity: acute Qualified Code(s): I50.31 - Acute diastolic (congestive) heart failure (5) Pleural effusion Current Visit: Yes Status: Acute Assessment and plan: B/l pleural effusion, R>L Likely secondary to worsening cardiac function (6) Elevated bilirubin Current Visit: Yes Status: Acute Assessment and plan: Acutely elevated bilirubin of 2.2 on admission, down now to 1.6. Cholecystitis versus liver damage. AST 106 and ALT 126 on admission, however Alk Phos WNL Pt. reports drinking 2-3 beers daily or 2-3 glasses of wine daily. cholecystitis ruled out after HIDA scan Surgery signed off (7) Lactic acidosis Current Visit: Yes Status: Acute Assessment and plan: Acute lactic acidosis w/2.6 on admission, resolved Pt. placed on 0.9 NS IV fluids (8) Nausea and vomiting Current Visit: Yes Status: Acute Assessment and plan: Acute intermittent nausea and vomiting over the past 2-3 months. The patient does state that it seems to be associated with fevers IVP Zofran 4 mg Q6HR PRN. Qualifiers: Vomiting type: unspecified Vomiting Intractability: non-intractable Qualified Code(s): R11.2 - Nausea with vomiting, unspecified (9) Fever Current Visit: Yes Status: Acute Assessment and plan: Acute fever over the past several months that is intermittent. Suspect related to pneumonia Continue antibiotics Qualifiers: Fever type: unspecified Qualified Code(s): R50.9 - Fever, unspecified (10) Acute renal failure superimposed on stage 3 chronic kidney disease Current Visit: Yes Status: Acute Assessment and plan: Hold Lasix, mild hydration Consider nephrology consult if needed Qualifiers: Acute renal failure type: unspecified Qualified Code(s): N17.9 - Acute kidney failure, unspecified; N18.3 - Chronic kidney disease, stage 3 (moderate) - Time Spent With Patient Total time spent is greater than 50% in coordination of care (as documented) at patient's floor/unit and/or counseling patient: - Subjective Interval history: Feels less short of breath, denies any chest pain, no abdominal pain or dysuria , no diarrhea, no fevers - Constitutional Vitals: Temp Pulse Resp BP Pulse Ox 97.5 F L 65 20 110/79 95 12/09/17 16:05 12/09/17 16:05 12/09/17 16:05 12/09/17 16:05 12/09/17 16:05 General appearance: Present: cooperative, A&O X 3, pleasant, no acute distress, answers questions appropriately - Head Head exam: Present: atraumatic, normocephalic - Eye Eye exam: Present: PERRL, conjuntiva pink, sclera anicteric Pupils: Present: PERRL - Neck Neck exam general surgery: Present: supple, trachea midline. Absent: lymphadenopathy - Respiratory Respiratory exam: Present: CTAB. Absent: accessory muscle use, rales, rhonchi, wheezes Additional comments: Bilateral blunted breath sounds, no wheezing - Cardiovascular Cardiovascular exam: Present: RRR, +S1, +S2. Absent: diastolic murmur, gallop, rubs, systolic murmur - GI/Abdominal GI/Abdominal exam: Present: normal bowel sounds, soft, no peritoneal signs. Absent: distended, tenderness - Extremities Exam Extremities exam: Present: warm, radial pulses palpable and symmetrical. Absent : calf tenderness, cyanotic, pedal edema - Neurological Exam Neurological exam: Present: CN II-XII intact, oriented X3, no focal deficits. Absent: pronater drift, facial droop, speech deficit - Skin Skin exam: Present: dry, intact Internal Medicine: Result - Labs CBC & Chem 7: 12/09/17 00:34 12/09/17 00:34 Labs: Short CBC 12/09/17 Range/Units 00:34 WBC 8.6 (4.3-11.1) K/mcL Hgb 17.7 H D (12.9-16.9) g/dL Hct 53.7 H (37.5-50.1) % Plt Count 223 (140-400) K/mcL Neutrophils # 5.6 (1.6-8.9) K/mcL BMP 12/09/17 00:34 Sodium 135 L Potassium 4.2 Chloride 104 Carbon Dioxide 17 L BUN 31 H Creatinine 1.86 H Glucose 109 H Calcium 9.1 Liver Function 12/09/17 Range/Units 00:34 Total Bilirubin 2.7 H (0.3-1.0) mg/dL AST 135 H (13-39) Units/L ALT 179 H (7-52) Units/L Alkaline Phosphatase 84 (34-104) Units/L Albumin 3.9 (3.5-5.7) g/dL - ABG Interpretation ABG results: ABG ABG pH 7.39 pH Units (7.32-7.45) 12/08/17 23:32 ABG pCO2 20 mmHg (35-45) L* 12/08/17 23:32 ABG pO2 74 mmHg (85-104) L 12/08/17 23:32 ABG O2 Saturation 95 % (95-98) 12/08/17 23:32 PT/INR, D-dimer PT 17.5 Seconds (9.4-12.1) H 12/07/17 12:09 - Impressions Impressions Echocardiogram 12/08/17 11:04 Impressions: LVEF 45-50%. Low normal to mildly reduced global LV systolic dysfunction. Mild concentric left ventricular hypertrophy. Indeterminate diastolic function. RV is mildly dilated with mild hypokinesis. Bi-atrial enlargement. Mild-moderate aortic regurgitation. Aortic stenosis not well evaluated - suboptimal Doppler interrogation. Mild tricuspid regurgitation. Moderate pulmonary hypertension. Left Ventricular Wall Motion: Rest Echo Findings The apex, apical inferior, mid inferior, basal inferior, apical anterior, mid anterior, basal anterior, apical septal, mid inferior septal, basal inferior septal, apical lateral, mid anterior lateral, basal anterior lateral, mid anterior septal, mid inferior lateral, basal anterior septal and basal inferior lateral nicole were hypokinetic. Findings: Study Quality * Technically adequate exam. ECG Findings * Atrial fibrillation. Left Ventricle * Mild concentric left ventricular hypertrophy. * Normal LV chamber size. * Indeterminate diastolic function. * LVEF 45-50%. Right Ventricle * RV is mildly dilated with mild hypokinesis. Left Atrium * Severely dilated left atrium. Right Atrium * Moderately dilated right atrium. Mitral Valve * Mildly thickened,caldified mitral valve leaflets. * Moderate mitral regurgitation. * No mitral stenosis. Aortic Valve * Aortic valve not well visualized. * Moderately calcified aortic valve leaflets. * Mild-moderate aortic regurgitation. * Aortic stenosis not well evaluated - suboptimal Doppler interrogation. Tricuspid Valve * Tricuspid valve not well visualized. * Mild tricuspid regurgitation. * Estimated RA pressure is 20 mmHg. * Estimated RVSP is 53 mmHg. * Moderate pulmonary hypertension. Pulmonic Valve * Pulmonic valve is not well visualized. * No pulmonic stenosis. * Trace pulmonic regurgitation. Pulmonary Artery * Pulmonary artery not well visualized. Interatrial Septum * No evidence of PFO by color Doppler. Pericardium * There is no pericardial effusion present. Aorta * Normally sized aortic root. * Ascending aorta not well visualized. IVC * The IVC is dilated. * < 50% respiratory change. Liver Scan Nuclear Medicine 12/08/17 14:57 IMPRESSION: No convincing scintigraphic evidence of acute. The gallbladder ejection fraction is low measuring 11%. This finding may represent biliary dyskinesia which can be seen with chronic cholecystitis. D/ / 12/09/2017 10:47:19 Manuel Ren MD / simón Interpreting Provider: Manuel Ren MD Chest X-Ray 12/09/17 23:56 IMPRESSION: Small bilateral pleural effusions and basilar opacities favored to reflect atelectasis. Superimposed basilar infectious airspace disease could be present in the appropriate clinical context. D/ / Marcos Mclaughlin / Marcos Mclaughlin Interpreting Provider: Marcos Mclaughlin Consult Discharge Plan - Plan Referrals: Adrian Jones DO [Resident] - 12/17/17 10:15 am
[2017-12-09] MEDS: *HR* LORazepam 0.5 MG TABLET PO PRN (23:41)
[2017-12-10] MEDS: Levalbuterol Neb 1.25 MG/3 ML IH SCH ×4 (03:37→22:35)
[2017-12-10 05:30] LABS: Basophils % 0.3 %; Eosinophils % 0.1 %; Hematocrit 45.6 % (37.5-50.1); Hemoglobin 14.9 g/dL (12.9-16.9); Immature Granulocytes % 0.6 % (0-4); Lymphocytes # 1.7 K/mcL (0.6-4.6); Lymphocytes % 13.2 %; Mean Corpuscular HGB Conc 32.7 g/dL (31.6-35.5); Mean Platelet Volume 12.3 fL (9.4-12.4); Monocytes # 1.3 K/mcL (0.0-1.3); Monocytes % 10.4 %; Neutrophils # 9.7 K/mcL (1.6-8.9); Platelet Count 175 K/mcL (140-400); Red Cell Distribution Width 15.8 % (11.5-14.5); Segmented Neutrophils % 75.4 %
[2017-12-10] MEDS: *HR* Enoxaparin 40 MG/0.4 ML SYRINGE SQ SCH (05:57)
[2017-12-10 05:59] LABS: Alanine Aminotransferase > 500 Units/L (7-52); Albumin 3.4 g/dL (3.5-5.7); Albumin/Globulin Ratio 1.4 (1.1-2.2); Alkaline Phosphatase 71 Units/L (34-104); Aspartate Amino Transferase 2212 Units/L (13-39); BUN/Creatinine Ratio 21 (6-26); Bilirubin,Total 2.2 mg/dL (0.3-1.0); Blood Urea Nitrogen 45 mg/dL (8-23); Carbon Dioxide 15 mEq/L (23-29); Chloride 105 mEq/L (98-107); Globulin 2.4 g/dL (2.4-3.5); Glucose 89 mg/dL (70-105); Osmolality,Calculated 287 (280-300); Potassium 4.1 mEq/L (3.5-5.1); Sodium 133 mEq/L (136-145); Total Protein 5.8 g/dL (6.4-8.9); eGFR For African Americans 36 (> 60); eGFR For Non-African Americans 30 (> 60)
--- NOTE | 2017-12-10 08:16 | Internal Med Progress Note ---
<Spencer Barth - Last Filed: 12/10/17 11:00> Date of Encounter: 12/10/17 Time of Encounter: 09:40 - Assessment and plan (1) Acute renal failure superimposed on stage 3 chronic kidney disease Current Visit: Yes Status: Acute Assessment and plan: Patient has recieved lasix for possible fluid overload Transitioned to mild hydration Strict I/Os, Monitor BMPs, avoid nephrotoxic agents Nephrology consultation today (2) Pneumonia Current Visit: Yes Status: Acute Assessment and plan: Suspected Left multilobar pneumonia Fits clinical picture, including SOB and intermittent fevers Patient appears to be hemodynamically stable at this time Zosyn and Levaquin at this time (3) Hypertension Current Visit: No Status: Chronic Assessment and plan: Well controlled at this time (4) Heart failure Current Visit: Yes Status: Acute Assessment and plan: History of chronic diastolic heart failure with preserved ejection fraction On admission, BNP elevated to 682 Echocardiogram showed an ejection fraction of 45-50% with mild concentric left ventricular hypertrophy, moderate pulmonary hypertension Call cardiology consult since ejection fraction has decreased from prior normal value of 55-60% Continue to hold lasix d/t (5) Atrial fibrillation with RVR Current Visit: Yes Status: Chronic Assessment and plan: A fib with RVR likely secondary to HCAP present upon admission , with B/L pleural effusions with acute systolic/diastolic CHF exacerbation Zosyn day #4 , Levaquin day #3 cardizem drip discontinued , stable on cardizem 120 mg daily and sotalol Hold IV lasix for now cardiology consult due to worsening ejection fraction Continuous cardiac telemetry (6) Pleural effusion Current Visit: Yes Status: Acute Assessment and plan: B/l pleural effusion, R>L Likely secondary to worsening cardiac function (7) Lactic acidosis Current Visit: Yes Status: Acute Assessment and plan: Acute lactic acidosis w/2.6 on admission, resolved Pt. placed on 0.9 NS IV fluids Recheck today (8) Nausea and vomiting Current Visit: Yes Status: Acute Assessment and plan: Acute intermittent nausea and vomiting over the past 2-3 months. The patient does state that it seems to be associated with fevers IVP Zofran 4 mg Q6HR PRN. (9) Fever Current Visit: Yes Status: Resolved Assessment and plan: Acute fever over the past several months that is intermittent. Suspect related to pneumonia Continue antibiotics Afebrile at this time (10) Elevated liver enzymes Current Visit: Yes Status: Acute Assessment and plan: Initially mild elevated, however now acutely worsened Abdominal CT demonstrated pericholecystic fluid and concern for cholecystitis Hida scan was negative for acute process, concern for chronic cholecystitis Surgery was consulted and initially signed off AST 2212 ALT >500 today No obvious shock, net positive fluid balance We will hold acetaminophen Consult to GI, appreciate recommendations - Time Spent With Patient Total time spent is greater than 50% in coordination of care (as documented) at patient's floor/unit and/or counseling patient: - Subjective Interval history: The patient is seen and examined at bedside. He has no acute complaints at this time, however he does feel as though he has may be more short of breath and he was previously. He did not have any events overnight. He does say that he has not had a bowel movement since arrival at the hospital. - Constitutional Vitals: Temp Pulse Resp BP Pulse Ox 97.7 F 63 22 104/64 94 12/10/17 06:59 12/10/17 06:59 12/10/17 06:59 12/10/17 06:59 12/10/17 06:59 General appearance: Present: cooperative, A&O X 3, pleasant, no acute distress, answers questions appropriately Exam: Gen: Vitals noted. Conversational dyspnea, slow mentation HEENT: Normocephalic, atraumatic Neck: Supple. No adenopathy. Cardiac: Rapid/irregular, 3/6 systolic murmur, +S1/S2 Pulmonary: bibasilar crackles, R > L Abdomen: soft, nontender, no guarding Back: Nontender throughout. MSK: ROM intact, no joint swelling noted Extremities: no BLE edema, nontender calf, no cyanosis or clubbing Neuro: moves all extremities, no focal deficits Psych: Appropriate mood and behavior Internal Medicine: Result - Labs CBC & Chem 7: 12/10/17 04:56 12/10/17 04:56 Labs: Short CBC 12/10/17 Range/Units 04:56 WBC 12.9 H (4.3-11.1) K/mcL Hgb 14.9 D (12.9-16.9) g/dL Hct 45.6 (37.5-50.1) % Plt Count 175 (140-400) K/mcL Neutrophils # 9.7 H (1.6-8.9) K/mcL BMP 12/10/17 04:56 Sodium 133 L Potassium 4.1 Chloride 105 Carbon Dioxide 15 L BUN 45 H Creatinine 2.19 H Glucose 89 Calcium 9.0 Liver Function 12/10/17 Range/Units 04:56 Total Bilirubin 2.2 H (0.3-1.0) mg/dL AST 2212 H (13-39) Units/L ALT > 500 H (7-52) Units/L Alkaline Phosphatase 71 (34-104) Units/L Albumin 3.4 L (3.5-5.7) g/dL - ABG Interpretation ABG results: ABG ABG pH 7.39 pH Units (7.32-7.45) 12/08/17 23:32 ABG pCO2 20 mmHg (35-45) L* 12/08/17 23:32 ABG pO2 74 mmHg (85-104) L 12/08/17 23:32 ABG O2 Saturation 95 % (95-98) 12/08/17 23:32 PT/INR, D-dimer PT 17.5 Seconds (9.4-12.1) H 12/07/17 12:09 - Impressions Impressions Echocardiogram 12/08/17 11:04 Impressions: LVEF 45-50%. Low normal to mildly reduced global LV systolic dysfunction. Mild concentric left ventricular hypertrophy. Indeterminate diastolic function. RV is mildly dilated with mild hypokinesis. Bi-atrial enlargement. Mild-moderate aortic regurgitation. Aortic stenosis not well evaluated - suboptimal Doppler interrogation. Mild tricuspid regurgitation. Moderate pulmonary hypertension. Left Ventricular Wall Motion: Rest Echo Findings The apex, apical inferior, mid inferior, basal inferior, apical anterior, mid anterior, basal anterior, apical septal, mid inferior septal, basal inferior septal, apical lateral, mid anterior lateral, basal anterior lateral, mid anterior septal, mid inferior lateral, basal anterior septal and basal inferior lateral nicole were hypokinetic. Findings: Study Quality * Technically adequate exam. ECG Findings * Atrial fibrillation. Left Ventricle * Mild concentric left ventricular hypertrophy. * Normal LV chamber size. * Indeterminate diastolic function. * LVEF 45-50%. Right Ventricle * RV is mildly dilated with mild hypokinesis. Left Atrium * Severely dilated left atrium. Right Atrium * Moderately dilated right atrium. Mitral Valve * Mildly thickened,caldified mitral valve leaflets. * Moderate mitral regurgitation. * No mitral stenosis. Aortic Valve * Aortic valve not well visualized. * Moderately calcified aortic valve leaflets. * Mild-moderate aortic regurgitation. * Aortic stenosis not well evaluated - suboptimal Doppler interrogation. Tricuspid Valve * Tricuspid valve not well visualized. * Mild tricuspid regurgitation. * Estimated RA pressure is 20 mmHg. * Estimated RVSP is 53 mmHg. * Moderate pulmonary hypertension. Pulmonic Valve * Pulmonic valve is not well visualized. * No pulmonic stenosis. * Trace pulmonic regurgitation. Pulmonary Artery * Pulmonary artery not well visualized. Interatrial Septum * No evidence of PFO by color Doppler. Pericardium * There is no pericardial effusion present. Aorta * Normally sized aortic root. * Ascending aorta not well visualized. IVC * The IVC is dilated. * < 50% respiratory change. Liver Scan Nuclear Medicine 12/08/17 14:57 IMPRESSION: No convincing scintigraphic evidence of acute. The gallbladder ejection fraction is low measuring 11%. This finding may represent biliary dyskinesia which can be seen with chronic cholecystitis. D/ / 12/09/2017 10:47:19 Manuel Ren MD / simón Interpreting Provider: Manuel Ren MD Chest X-Ray 12/09/17 23:56 IMPRESSION: Small bilateral pleural effusions and basilar opacities favored to reflect atelectasis. Superimposed basilar infectious airspace disease could be present in the appropriate clinical context. D/ / Marcos Mclaughlin / Marcos Mclaughlin Interpreting Provider: Marcos Mclaughlin Consult Discharge Plan - Plan Referrals: Adrian Jones DO [Resident] - 12/17/17 10:15 am <Alvino Edwards - Last Filed: 12/10/17 16:32> Date of Encounter: 12/10/17 - Assessment and plan (1) Pneumonia Current Visit: Yes Status: Acute Qualifiers: Pneumonia type: due to Pneumococcus Laterality: left Lung location: upper lobe of lung Qualified Code(s): J13 - Pneumonia due to Streptococcus pneumoniae (2) Hypertension Current Visit: No Status: Chronic Qualifiers: Hypertension type: essential hypertension Qualified Code(s): I10 - Essential (primary) hypertension (3) Heart failure Current Visit: Yes Status: Acute Qualifiers: Heart failure type: diastolic Heart failure chronicity: acute Qualified Code(s): I50.31 - Acute diastolic (congestive) heart failure (4) Atrial fibrillation with RVR Current Visit: Yes Status: Chronic (5) Pleural effusion Current Visit: Yes Status: Acute (6) Lactic acidosis Current Visit: Yes Status: Acute (7) Nausea and vomiting Current Visit: Yes Status: Acute Qualifiers: Vomiting type: unspecified Vomiting Intractability: non-intractable Qualified Code(s): R11.2 - Nausea with vomiting, unspecified (8) Fever Current Visit: Yes Status: Resolved Qualifiers: Fever type: unspecified Qualified Code(s): R50.9 - Fever, unspecified (9) Acute renal failure superimposed on stage 3 chronic kidney disease Current Visit: Yes Status: Acute Qualifiers: Acute renal failure type: unspecified Qualified Code(s): N17.9 - Acute kidney failure, unspecified; N18.3 - Chronic kidney disease, stage 3 (moderate) (10) Elevated liver enzymes Current Visit: Yes Status: Acute - Time Spent With Patient Total time spent is greater than 50% in coordination of care (as documented) at patient's floor/unit and/or counseling patient: - Constitutional Vitals: Temp Pulse Resp BP Pulse Ox 97.7 F 59 22 120/92 100 12/10/17 15:57 12/10/17 15:57 12/10/17 15:57 12/10/17 15:57 12/10/17 15:57 Internal Medicine: Result - Labs CBC & Chem 7: 12/10/17 04:56 12/10/17 12:09 Labs: Short CBC 12/10/17 Range/Units 04:56 WBC 12.9 H (4.3-11.1) K/mcL Hgb 14.9 D (12.9-16.9) g/dL Hct 45.6 (37.5-50.1) % Plt Count 175 (140-400) K/mcL Neutrophils # 9.7 H (1.6-8.9) K/mcL BMP 12/10/17 12/10/17 04:56 12:09 Sodium 133 L 133 L Potassium 4.1 3.9 Chloride 105 105 Carbon Dioxide 15 L 18 L BUN 45 H 45 H Creatinine 2.19 H 2.29 H Glucose 89 104 Calcium 9.0 9.1 Liver Function 12/10/17 12/10/17 Range/Units 04:56 12:09 Total Bilirubin 2.2 H 1.8 H (0.3-1.0) mg/dL Direct Bilirubin 0.9 H (0.0-0.2) mg/dL AST 2212 H 1647 H (13-39) Units/L ALT > 500 H > 500 H (7-52) Units/L Alkaline Phosphatase 71 74 (34-104) Units/L Albumin 3.4 L 3.3 L (3.5-5.7) g/dL - ABG Interpretation ABG results: ABG ABG pH 7.39 pH Units (7.32-7.45) 12/08/17 23:32 ABG pCO2 20 mmHg (35-45) L* 12/08/17 23:32 ABG pO2 74 mmHg (85-104) L 12/08/17 23:32 ABG O2 Saturation 95 % (95-98) 12/08/17 23:32 PT/INR, D-dimer PT 22.8 Seconds (9.4-12.1) H 12/10/17 12:22 - Attending Attestation A fib with RVR likely secondary to HCAP present upon admission , with B/L pleural effusions with acute systolic/diastolic CHF exacerbation Zosyn day #4 , Levaquin day #3 cardizem drip discontinued , stable on cardizem 120 mg daily and sotalol, Hold IV lasix Transaminitis , unknown etiology consider infectious etiologies, lab work pending cardiology consult due to worsening ejection fraction Continuous cardiac telemetry, Cardiology may perform cardiac cath once renal fuction improves acute on chronic renal failure, Hx of CKD I examined this patient and my medical decision-making was reviewed with the Resident Physician. I agree with the documented findings, disposition and treatment plan as described except to the extent set forth below.
[2017-12-10] MEDS: Piperacillin/Tazobactam 3.375 GM in 0.9 % Sodium Chloride Mini Bag 100 ML IVPB SCH ×2 (08:23→17:37)
[2017-12-10] MEDS: Diltiazem CD (24hr) 120 MG CAPSULE PO SCH (08:24)
[2017-12-10] MEDS: Aspirin 325 MG TABLET PO SCH (08:24)
[2017-12-10] MEDS: Ascorbic Acid 500 MG TABLET PO SCH (08:24)
[2017-12-10] MEDS: Levofloxacin 750 MG/150 ML 750 MG/150 ML BAG IVPB SCH (08:25)
[2017-12-10] MEDS: Nicotine 21 MG PATCH.TD24 TD SCH (08:25)
[2017-12-10 10:38] LABS: Hepatitis A Antibody IgM Nonreactive (Nonreactive); Hepatitis B Core IgM Nonreactive (Nonreactive); Hepatitis B Surface Antigen Nonreactive (Nonreactive); Hepatitis C Virus Antibody Nonreactive (Nonreactive)
--- NOTE | 2017-12-10 11:08 | Nephrology Consult Note ---
Date of Encounter: 12/10/17 Time of Encounter: 10:46 Assessment and Plan (1) Acute renal failure superimposed on stage 3 chronic kidney disease Current Visit: Yes Status: Acute Patient was CKD stage III that seems date from November 2016. Patient has superimposed acute kidney injury of unclear etiology. He has multiple insults including, contrast exposure, mild diuresis, episodes of hypotension, a working diagnosis of community acquired pneumonia, and what appears to be worsening hepatic failure. While he does not appear to need dialysis at this time the need could arise if his renal function continues to worsen. I will order a workup including urine sodium, urinalysis, renal ultrasound, and because of his cognitive picture I will go ahead and order an evaluation for autoimmune diseases. With his metabolic acidosis he would benefit from supplemental bicarbonate, I will replace his current saline with sodium bicarbonate. Watch his respiratory function very closely. And discontinue if respiratory status worsens. Qualifiers: Acute renal failure type: unspecified Qualified Code(s): N17.9 - Acute kidney failure, unspecified; N18.3 - Chronic kidney disease, stage 3 (moderate) (2) Elevated liver enzymes Current Visit: Yes Status: Acute Etiology is unclear. We will repeat hepatic function studies. Patient is scheduled to get an MRCP. Patient seems to be going into hepatic failure per this morning's labs.. (3) Pneumonia Current Visit: Yes Status: Acute Patient has a working diagnosis of pneumonia as the cause for his febrile episodes. Agree with continuing to expand workup for the cause of his fevers. He has not had a fever during hospitalization. Patient's respiratory symptoms do not seem to be responding to several days of broad-spectrum antibiotics. I recommended considering an infectious disease consult. Qualifiers: Pneumonia type: due to Pneumococcus Laterality: left Lung location: upper lobe of lung Qualified Code(s): J13 - Pneumonia due to Streptococcus pneumoniae (4) HTN (hypertension) Current Visit: Yes Status: Chronic Qualifiers: Hypertension type: essential hypertension Qualified Code(s): I10 - Essential (primary) hypertension (5) Shortness of breath Current Visit: No Status: Acute Patient with dyspnea that is currently attributed to a pneumonia. He has a unilateral pleural effusion I recommend considering a thoracentesis. May also want to consider a pulmonary consult as his respiratory status does not seem to be improving. (6) Cardiomyopathy Current Visit: Yes Status: Acute The patient has worsening ejection fraction along with symptoms of orthopnea. Agree with cardiology consult to evaluate. His most recent troponin is negative. Qualifiers: Qualified Code(s): I42.9 - Cardiomyopathy, unspecified (7) Atrial fibrillation Current Visit: Yes Status: Acute Rate is controlled. Qualifiers: Qualified Code(s): I48.91 - Unspecified atrial fibrillation History of Present Illness - Reason for Consult Consult date: 12/10/17 Acute Kidney Injury, Chronic Kidney Disease, metabolic acidosis - Chief Complaint LAILA on CKD. - History of Present Illness Mr. Bowen is a 67 yo man with a history of atrial fibrillation who presented with dyspnea. He was admitted to the hospitalist service and diagnosed with a pneumonia as the cause of his dyspnea and had a working diagnosis of cholecystitis as a source of his nausea. He continues to be on broad-spectrum antibiotics for his pneumonia, however, his cholecystitis was found to be likely chronic and not requiring acute intervention. 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 He has palpitations that he attributed to his atrial fibrillation, however, he denies chest pain or chest pressure. He states the dyspnea is worse when he lies down flat and that for the last few weeks he has had to sit up in order to sleep. The patient also describes nausea without abdominal pain that induces dry heaves without vomiting and is associated with diarrhea. He denies blood in the stools. He has less abdominal distention, but not abdominal pain. At the time my evaluation the patient was sitting up in bed in mild distress secondary to dyspnea. He denies knowledge of kidney disease. He states he does not feel that much different than when he came in the hospital. Past Med Surg Social Fam HX - Past Medical History Medical history: atrial fibrillation, coronary artery disease, hyperlipidemia, hypertension, other Psychiatric history: no psych history - Past Surgical History Surgical History: angioplasty/stent, other - Social History Smoking Status: Current every day smoker Packs per day: 1 PPD Smokeless Tobacco Status: No Alcohol use: occasionally, recent Drug use: none - Family History Mother Race: Family Member Ethnicity: Non- Living Status: Age at : 89 Cause of : Cancer Hx Family Cardiac Disorders: Yes (HLD, HTN) Hx Family Cancer: Yes (breast cancer) Hx Family Neurologic Disorders: Yes (Alzheimer's disease) Father Race: Family Member Ethnicity: Non- Living Status: Age at : 81 Cause of : HF Hx Family Cardiac Disorders: Yes (CHF) Hx Family Endocrine Disorder: Yes (DM) Hx Family Neurologic Disorders: Yes (Alzheimer's disease) Sister Race: Family Member Ethnicity: Non- Living Status: Still Living Hx Family Cardiac Disorders: Yes (HTN) Hx Family Endocrine Disorder: Yes (Thyroid disease) Medications and Allergies Ascorbate Calcium [Vitamin C] 500 mg PO DAILY 11/02/16 [History] Renovo-3/Dha/Epa/Fish Oil [Fish Oil 1,000 mg Softgel] 1,000 mg PO DAILY 11/02/16 [History] Vitamin E 100 unit PO DAILY 11/02/16 [History] Diltiazem CD (24hr) [Cardizem CD] 120 mg PO DAILY #30 cap.er.24h 12/02/16 [Rx] Aspirin 325 mg PO DAILY 12/07/17 [History] Sotalol HCl [Betapace] 160 mg PO BID 12/07/17 [History] 3 Allergy/AdvReac Type Severity Reaction Status Date / Time diphenhydramine AdvReac Anxiety Verified 12/07/17 18:52 [From Benadryl] Review of Systems All Systems: reviewed and no additional remarkable complaints except as stated ( As documented in the history of present illness.) Exam - Vital Signs Vital signs: Initial Vital Signs Temp Pulse Resp BP Pulse Ox 97.4 F L 143 24 116/56 98 12/07/17 11:48 12/07/17 11:48 12/07/17 11:48 12/07/17 11:48 12/07/17 11:48 Vital Signs - Last 8 Hours Temp Pulse Resp BP Pulse Ox 12/10/17 06:59 97.7 F 63 22 104/64 94 12/10/17 04:32 98.3 F 63 18 112/76 93 12/10/17 03:40 14 95 Intake and Output 12/09/17 12/10/17 12/10/17 23:59 07:59 15:59 Intake Total 200 / 200 400 / 400 240 / 240 Output Total 200 / 200 Balance 200 / 200 200 / 200 240 / 240 Intake: IV Fluids 200 / 200 100 / 100 0.9 % Sodium Chloride 1,000 ML 100 / 100 @ 75 mls/hr IVC .[id number] KATHRYN Rx #:[id number] Zosyn 3.375 GM In 0.9 % Sodium 100 / 100 100 / 100 Chloride (Mini-Bag +) 100 ML @ 25 mls/hr IVPB Q8HR KATHRYN Rx#: [id number] Oral 300 / 300 240 / 240 Output: Urine 200 / 200 Other: Meal Breakfast Percent of Meal Consumed 35% Weight 93.3 kg Patient Weight 12/10/17 23:59 Weight 93.3 kg - General Appearance General appearance: well-developed, well-nourished, fatigue EENT: ATNC Neck: supple Additional Comments: Decreased breath sounds in the right base. No wheezing appreciated. Only rare crackles in the left base. Cardiology: holosystolic murmur, no rub, edema, regular rate, regular rhythm Gastrointestinal: normoactive bowel sounds, no tenderness, no guarding, distended (Mild.) Integumentary: warm and dry Neurologic: alert and oriented x3 Musculoskeletal: no cyanosis Psychiatric: mood/affect appropriate Results - Lab Results 12/10/17 04:56 12/10/17 04:56 Most recent lab results ABG pH 7.39 pH Units (7.32-7.45) 12/08/17 23:32 ABG pCO2 20 mmHg (35-45) L* 12/08/17 23:32 ABG pO2 74 mmHg (85-104) L 12/08/17 23:32 ABG HCO3 12 mEq/L (21-27) L 12/08/17 23:32 ABG O2 Saturation 95 % (95-98) 12/08/17 23:32 Calcium 9.0 mg/dL (8.6-10.3) 12/10/17 04:56 Phosphorus 3.0 mg/dL (2.7-4.5) 12/07/17 12:09 Magnesium 2.2 mg/dL (1.6-2.6) 12/08/17 04:01 Consult Discharge Plan - Plan Referrals: Adrian Jones DO [Resident] - 12/17/17 10:15 am
[2017-12-10] MEDS ORDERED: *HR* LORazepam 2 MG/ML VIAL IVP ONE ×2 (11:29→14:30)
[2017-12-10] MEDS ORDERED: Sodium Bicarbonate 150 MEQ in D5% in Water 1,000 ML IVC SCH ×2 (12:15→14:15)
--- NOTE | 2017-12-10 12:31 | Gastroenterology Consult Note ---
Date of Encounter: 12/10/17 Time of Encounter: 10:40 - Assessment and plan (1) Elevated liver enzymes Current Visit: Yes Status: Acute Assessment and plan: On admission he was noted to have elevated TB 2.2, DB 0.7, indirect bili 1.5, AST 106, ALT 126. Today TB 2.2, AST 2212, ALT >500. Abdominal CT demonstrated pericholecystic fluid and concern for cholecystitis. HIDA scan was negative for acute process, concern for chronic cholecystitis. Complete MRCP to rule out obstruction. Check AFP, alpha-1 antitrypsin, BRODY, ANCA, ceruloplasmin, F-Actin, ferritin, hepatitis profile, AMA. (2) Pneumonia Current Visit: Yes Status: Acute Qualifiers: Pneumonia type: due to Pneumococcus Laterality: left Lung location: upper lobe of lung Qualified Code(s): J13 - Pneumonia due to Streptococcus pneumoniae (3) Acute renal failure superimposed on stage 3 chronic kidney disease Current Visit: Yes Status: Acute Qualifiers: Acute renal failure type: unspecified Qualified Code(s): N17.9 - Acute kidney failure, unspecified; N18.3 - Chronic kidney disease, stage 3 (moderate) (4) Cardiomyopathy Current Visit: Yes Status: Acute Qualifiers: Qualified Code(s): I42.9 - Cardiomyopathy, unspecified - Time Spent With Patient Total time spent is greater than 50% in coordination of care (as documented) at patient's floor/unit and/or counseling patient: GI History of Present Illness - Data of Consult Patient: new to practice Consult date: 12/10/17 Requesting Physician: Maria Sneed - Consult Narrative Reason for consult: Elevated LFTs History of present illness: Mr. Bowen is a 67 year old male with PMHx of A fib, CAD, HLD, HTN, and previous MD in 2010 with one stent presents from the ED with chief complaint of heart arrhythmia and palpitations for the past several days. He denies chest pain, headache, changes in vision, unusual bleeding, abdominal pain, diarrhea, constipation, dizziness, lightheadedness, numbness, tingling, pre-syncope, or syncope. On admission he was noted to have elevated TB 2.2, DB 0.7, indirect bili 1.5, AST 106, ALT 126. Today TB 2.2, AST 2212, ALT >500. Abdominal CT demonstrated pericholecystic fluid and concern for cholecystitis. HIDA scan was negative for acute process, concern for chronic cholecystitis. Procedures: None NSAIDs: None Anticoagulation: None Past Med Surg Social Fam HX - Past Medical History Medical history: atrial fibrillation, coronary artery disease, hyperlipidemia, hypertension, other Psychiatric history: no psych history - Past Surgical History Surgical History: angioplasty/stent, other - Social History Smoking Status: Current every day smoker Packs per day: 1 PPD Smokeless Tobacco Status: No Alcohol use: occasionally, recent Drug use: none - Family History Mother Race: Family Member Ethnicity: Non- Living Status: Age at : 89 Cause of : Cancer Hx Family Cardiac Disorders: Yes (HLD, HTN) Hx Family Cancer: Yes (breast cancer) Hx Family Neurologic Disorders: Yes (Alzheimer's disease) Father Race: Family Member Ethnicity: Non- Living Status: Age at : 81 Cause of : HF Hx Family Cardiac Disorders: Yes (CHF) Hx Family Endocrine Disorder: Yes (DM) Hx Family Neurologic Disorders: Yes (Alzheimer's disease) Sister Race: Family Member Ethnicity: Non- Living Status: Still Living Hx Family Cardiac Disorders: Yes (HTN) Hx Family Endocrine Disorder: Yes (Thyroid disease) - Gastrointestinal Gastrointestinal: Present: as per HPI - Constitutional Constitutional: as per HPI - EENT Eyes: as per HPI Ears: Present: as per HPI Nose, mouth and throat: Present: as per HPI - Cardiovascular Cardiovascular ROS: Present: as per HPI - Respiratory Respiratory IM: Present: as per HPI - Genitourinary Genitourinary: Absent: change in color, Urinary frequency - Neurological ROS Neurological GI: Absent: as per HPI - Hematologic/Lymphatic Hematologic/Lymphatic pediatric: Absent: as per HPI - Musculoskeletal Musculoskeletal ROS GI: Absent: as per HPI - Integumentary Integumentary GI: Present: as per HPI - Psychiatric ROS Psychiatric GI: Present: as per HPI - Endocrine Endocrine IM: Present: as per HPI - Constitutional Vitals: Temp Pulse Resp BP Pulse Ox 97.4 F L 61 24 117/99 93 12/10/17 11:21 12/10/17 11:21 12/10/17 11:21 12/10/17 11:21 12/10/17 11:21 General appearance: Present: cooperative, A&O X 3, no acute distress, answers questions appropriately - Head Head exam: Present: atraumatic, normocephalic - Eye Eye exam: Present: normal appearance, sclera anicteric - ENT ENT exam: Present: mucous membranes dry - Neck Neck exam general surgery: Present: normal inspection, trachea midline - Respiratory Respiratory exam: Present: decreased breath sounds Additional comments: bibasilar crackles - Cardiovascular Cardiovascular exam: Present: RRR, +S1, +S2 - GI/Abdominal GI/Abdominal exam: Present: soft, no peritoneal signs. Absent: distended, firm , guarding, tenderness - Rectal Rectal exam: Present: deferred - Extremities Exam Extremities exam: Present: warm - Neurological Exam Neurological exam: Present: no focal deficits - Psychiatric Psychiatric exam: Present: normal affect, normal mood - Skin Skin exam: Present: dry, intact, normal color, warm Results - Labs CBC & Chem 7: 12/10/17 04:56 12/10/17 04:56 Labs: Last Result Calcium 9.0 mg/dL (8.6-10.3) 12/10/17 04:56 Ferritin 567 ng/ml (20-250) H 12/10/17 10:15 Troponin I 0.03 ng/mL (< 0.04) 12/07/17 12:09 Triglycerides 85 mg/dL (< 150) 12/08/17 04:01 Entire Visit Hgb 14.9 g/dL (12.9-16.9) D 12/10/17 04:56 Hct 45.6 % (37.5-50.1) 12/10/17 04:56 PT 17.5 Seconds (9.4-12.1) H 12/07/17 12:09 Ferritin 567 ng/ml (20-250) H 12/10/17 10:15 Total Bilirubin 2.2 mg/dL (0.3-1.0) H 12/10/17 04:56 AST 2212 Units/L (13-39) H 12/10/17 04:56 ALT > 500 Units/L (7-52) H 12/10/17 04:56 Ammonia 40 mcmol/L (16-53) 12/08/17 11:22 Lipase 28 Units/L (11-82) 12/07/17 12:09 - ABG ABG results: ABG ABG pH 7.39 pH Units (7.32-7.45) 12/08/17 23:32 ABG pCO2 20 mmHg (35-45) L* 12/08/17 23:32 ABG pO2 74 mmHg (85-104) L 12/08/17 23:32 ABG O2 Saturation 95 % (95-98) 12/08/17 23:32 PT/INR, D-dimer PT 17.5 Seconds (9.4-12.1) H 12/07/17 12:09 - Impressions Impressions Liver Scan Nuclear Medicine 12/08/17 14:57 IMPRESSION: No convincing scintigraphic evidence of acute. The gallbladder ejection fraction is low measuring 11%. This finding may represent biliary dyskinesia which can be seen with chronic cholecystitis. D/ / 12/09/2017 10:47:19 Manuel Ren MD / simón Interpreting Provider: Manuel Ren MD Chest X-Ray 12/09/17 23:56 IMPRESSION: Small bilateral pleural effusions and basilar opacities favored to reflect atelectasis. Superimposed basilar infectious airspace disease could be present in the appropriate clinical context. D/ / Marcos Mclaughlin / Marcos Mclaughlin Interpreting Provider: Marcos Mclaughlin Consult Discharge Plan - Plan Referrals: Adrian Jones DO [Resident] - 12/17/17 10:15 am
[2017-12-10 12:46] LABS: INR 2.1; Prothrombin Time 22.8 Seconds (9.4-12.1)
[2017-12-10 13:13] LABS: HIV-1&2 Antibody & p24 Ag Nonreactive (Nonreactive)
[2017-12-10 13:21] LABS: Alanine Aminotransferase > 500 Units/L (7-52); Albumin 3.3 g/dL (3.5-5.7); Albumin/Globulin Ratio 1.3 (1.1-2.2); Alkaline Phosphatase 74 Units/L (34-104); BUN/Creatinine Ratio 20 (6-26); Bilirubin,Direct 0.9 mg/dL (0.0-0.2); Bilirubin,Indirect 0.9 mg/dL (0.0-1.2); Bilirubin,Total 1.8 mg/dL (0.3-1.0); Blood Urea Nitrogen 45 mg/dL (8-23); Calcium 9.1 mg/dL (8.6-10.3); Carbon Dioxide 18 mEq/L (23-29); Chloride 105 mEq/L (98-107); Creatine Kinase 95 Units/L (30-223); Globulin 2.5 g/dL (2.4-3.5); Glucose 104 mg/dL (70-105); Magnesium 2.2 mg/dL (1.6-2.6); Osmolality,Calculated 288 (280-300); Phosphorous 3.7 mg/dL (2.7-4.5); Potassium 3.9 mEq/L (3.5-5.1); Sodium 133 mEq/L (136-145); Total Protein 5.8 g/dL (6.4-8.9); eGFR For African Americans 35 (> 60); eGFR For Non-African Americans 29 (> 60)
[2017-12-10 13:38] LABS: Rheumatoid Factor < 10 IU/mL (Less than 14)
[2017-12-10 13:40] LABS: Aspartate Amino Transferase 1647 Units/L (13-39)
[2017-12-10 13:58] LABS: C-Reactive Protein 21 mg/L (Less than 10)
--- NOTE | 2017-12-10 15:52 | Cardiology Consult Note ---
Date of Encounter: 12/10/17 Time of Encounter: 15:00 Assessment and Plan (1) Elevated liver enzymes Current Visit: Yes Status: Acute Per cardiology: -Markedly abnormal liver enzymes. -GI and surgery have been consulted. -Management per primary, GI, and surgical services. (2) Acute renal failure superimposed on stage 3 chronic kidney disease Current Visit: Yes Status: Acute Per cardiology: -LAILA noted. -Baseline creatinine 1-1.2. -Creatinine 2.29. -Nephrology following. -Management per primary and nephrology services. Qualifiers: Acute renal failure type: unspecified Qualified Code(s): N17.9 - Acute kidney failure, unspecified; N18.3 - Chronic kidney disease, stage 3 (moderate) (3) Cardiomyopathy Current Visit: Yes Status: Acute Per cardiology: -TTE with LVEF 45-50% global hypokinesis, mild concentric LVH, RV mildly dilated iwth mild hypokinesis, bi-atrial enlargement, mild-moderate AR, moderate MR, mild TR, moderate pulmonary hypertension. -10/2016 TTE LVEF 55-60%. -Chest x-ray with small bilateral pleural effusion, mild pedal edema. -Reports shortness of breath, orthopnea -Was given IV lasix trial, however renal function continued to worsen and lasix was stopped. -Stress 10/2016 with suspect area of artifact, no evidence of ischemia. -[facility] 2011 with high-grade LAD s/p ANNETTE, occluded RCA supplied by L-R collaterals , and 50-60% circumflex -ADmits to drinking 2 beers per day. -Net positive 900ml. -Previously receiving 20mg IV lasix. Consider higher dose of lasix to obtain negative fluid balance. -Not a candidate for invasive cardiac work up with elevated LFTs, LAILA. Recommend medical management at this time. -Will add toprol. Will not add karen/arb due to renal function. -CHF education reviewed with patient. Qualifiers: Cardiomyopathy type: unspecified Qualified Code(s): I42.9 - Cardiomyopathy , unspecified (4) CAD (coronary artery disease) Current Visit: Yes Status: Chronic Per cardiology: -[facility] as above with PCI to LAD. -Denies chest pain. -ON asa, BB. Not on statin due to elevated LFTs. -No acute ECG changes. Qualifiers: Coronary Disease-Associated Artery/Lesion type: [place] artery [place] vs. transplanted heart: [place] heart Associated angina: without angina Qualified Code(s): I25.10 - Atherosclerotic heart disease of [place] coronary artery without angina pectoris (5) A-fib Current Visit: No Status: Chronic Per cardiology: -Known PAF. ON sotalol and cardizem in outpatient setting. -[id number] score 4 (age, HTN, CAD, CHf). Previously on coumadin. However pateint states he stopped taking coumadin due to "I got into a fight with the gina who ran the coumadin clinic." -Patient refuses to be placed back on anticoagulation. Aware of increased risk of CVA/embolic event while not on AC. -HR controlled. -Of note, patient is on sotalol for rhythm control and no longer on anticoagulation. Will stop sotalol. Will pursue rate control strategy with BB. Will add toprol. -With mild reduction in LVEF, will stop cardizem. Consider increasing BB if BP will allow. -Continue to monitor telemetry. Qualifiers: Atrial fibrillation type: paroxysmal Qualified Code(s): I48.0 - Paroxysmal atrial fibrillation Discussion w patient/family: The assessment and plan as outlined above was discussed with the patient who expressed understanding and agreement. All questions were answered. Thank you for involving us in the care of your patient. Please call with any questions. Discussed and reviewed with . History of Present Illness Consult date: 12/09/17 Requesting physician: Alvino Edwards Consult reason: worsening LVEF Chief complaint: shortness of breath History of present illness: Mr. Bowen is a 67 year old male with a relevant past medical history of HTN, CAD s/p PCI 2011, PAF, HLD, tobacco abuse who presented to [facility] with complaints of worsening shortness of breath over the past couple of months. Patient reports orthopnea. Denies worsening edema. Denies weight gain. Patient reports occasional palpitations, states occurs about every 3 days and lasts for about 10 -15 minutes. Patient reports worsening fatigue. Reports nausea. Denies chest pain. Past Med Surg Social Fam HX - Past Medical History Attestation: Yes The following information was validated with the patient. Source: patient, old records reviewed Medical history: atrial fibrillation, coronary artery disease, hyperlipidemia, hypertension, other Psychiatric history: no psych history - Past Surgical History Surgical History: angioplasty/stent, other - Social History Smoking Status: Current every day smoker Packs per day: 1 PPD Smokeless Tobacco Status: No Alcohol use: occasionally, recent Drug use: none - Family History Mother Race: Family Member Ethnicity: Non- Living Status: Age at : 89 Cause of : Cancer Hx Family Cardiac Disorders: Yes (HLD, HTN) Hx Family Cancer: Yes (breast cancer) Hx Family Neurologic Disorders: Yes (Alzheimer's disease) Father Race: Family Member Ethnicity: Non- Living Status: Age at : 81 Cause of : HF Hx Family Cardiac Disorders: Yes (CHF) Hx Family Endocrine Disorder: Yes (DM) Hx Family Neurologic Disorders: Yes (Alzheimer's disease) Sister Race: Family Member Ethnicity: Non- Living Status: Still Living Hx Family Cardiac Disorders: Yes (HTN) Hx Family Endocrine Disorder: Yes (Thyroid disease) Medications and Allergies Ascorbate Calcium [Vitamin C] 500 mg PO DAILY 11/02/16 [History] [place]-3/Dha/Epa/Fish Oil [Fish Oil 1,000 mg Softgel] 1,000 mg PO DAILY 11/02/16 [History] Vitamin E 100 unit PO DAILY 11/02/16 [History] Diltiazem CD (24hr) [Cardizem CD] 120 mg PO DAILY #30 cap.er.24h 12/02/16 [Rx] Aspirin 325 mg PO DAILY 12/07/17 [History] Sotalol HCl [Betapace] 160 mg PO BID 12/07/17 [History] 3 Allergy/AdvReac Type Severity Reaction Status Date / Time diphenhydramine AdvReac Anxiety Verified 12/07/17 18:52 [From Benadryl] All Systems Review: The remainder of the systems were reviewed and are negative - Cardiovascular Cardiovascular: as per HPI, dyspnea at rest, dyspnea on exertion, orthopnea, palpitations - Gastrointestinal Gastrointestinal: nausea Physical Examination Vital Signs Temperature 97.4 F L 12/07/17 11:48 Pulse Rate 143 12/07/17 11:48 Respiratory Rate 24 12/07/17 11:48 Blood Pressure 116/56 12/07/17 11:48 O2 Sat by Pulse Oximetry 98 12/07/17 11:48 Temperature 97.4 F L 12/10/17 11:21 Pulse Rate 61 12/10/17 11:21 Respiratory Rate 24 12/10/17 11:21 Blood Pressure 117/99 12/10/17 11:21 O2 Sat by Pulse Oximetry 93 12/10/17 11:21 Oxygen Delivery Oxygen Delivery Room Air General: Conversant, No Apparent Distress HEENT: Atraumatic, Normocephaly, Mucus Membranes Moist Neck: No JVD, Normal carotid pulses Cardiac: Reg Rate and Rhythm, Normal S1 and S2, No Murmur Lungs: Normal Breath Sounds, No Wheeze, Rales, Rhonchi Neuro: Alert and responsive, No focal deficits noted Abdomen: Soft, Non-Tender Skin: No rashes noted on visualized skin Musculoskeletal: No Chest Wall Tenderness Extremities: No Clubbing, No Cyanosis, Normal Pulses, Other (Mild bilateral pedal edema noted, non-pitting. ) Results 12/10/17 04:56 12/10/17 12:09 Lab Results Active Medications Ascorbic Acid (Vitamin C) 500 mg PO DAILY KATHRYN Stop: 06/09/18 09:01 Last Admin: 12/10/17 08:24 Dose: 500 mg Aspirin (Aspirin) 325 mg PO DAILY KATHRYN Stop: 06/09/18 09:01 Last Admin: 12/10/17 08:24 Dose: 325 mg Calcium Carbonate (Tums) 1,000 mg PO Q4HR PRN; Protocol PRN Reason: Heartburn Stop: 06/10/18 19:51 Last Admin: 12/09/17 20:37 Dose: 1,000 mg Diltiazem HCl (Cardizem Cd) 120 mg PO DAILY KATHRYN Stop: 06/10/18 15:46 Last Admin: 12/10/17 08:24 Dose: 120 mg Enoxaparin Sodium (Lovenox) 40 mg SQ 0600 KATHRYN PRN Reason: Protocol Stop: 06/11/18 06:01 Last Admin: 12/10/17 05:57 Dose: 40 mg Guaifenesin (Mucinex) 600 mg PO BID PRN PRN Reason: Congestion Stop: 06/09/18 00:08 Last Admin: 12/08/17 20:56 Dose: 600 mg Piperacillin Sod/Tazobactam (Sod 3.375 gm/ Sodium Chloride) 100 mls @ 25 mls/ hr IVPB Q8HR KATHRYN Stop: 06/09/18 00:01 Last Infusion: 12/10/17 12:25 Dose: Infused Levofloxacin/Dextrose (Levaquin Premix 750mg/150 Ml) 750 mg in 150 mls @ 100 mls/hr IVPB Q48H KATHRYN PRN Reason: Protocol Stop: 06/11/18 09:01 Last Admin: 12/10/17 08:25 Dose: 100 mls/hr Sodium Bicarbonate 150 meq/ (Dextrose) 1,150 mls @ 50 mls/hr IVC .Q23H KATHRYN Stop: 12/11/17 11:14 Last Admin: 12/10/17 14:07 Dose: 50 mls/hr Lactulose (Lactulose) 20 gm PO BID [facility] Stop: 06/11/18 21:01 Levalbuterol HCl (Xopenex) 1.25 mg IH [id number] [facility] Stop: 06/09/18 23:31 Last Admin: 12/10/17 10:31 Dose: 1.25 mg Lorazepam (Ativan) 0.5 mg PO TID PRN PRN Reason: Anxiety Stop: 06/09/18 19:55 Last Admin: 12/09/17 23:41 Dose: 0.5 mg Metoprolol Succinate (Toprol Xl) 25 mg PO DAILY [facility] Stop: 06/12/18 09:01 Naloxone HCl (Narcan) 0.4 mg IVP Q2MIN PRN PRN Reason: SEE COMMENTS Stop: 06/08/18 19:02 Nicotine (Nicoderm) 21 mg TD DAILY [facility] PRN Reason: Protocol Stop: 06/09/18 22:16 Last Admin: 12/10/17 08:25 Dose: 21 mg Laboratory Tests 12/16/16 12/07/17 12/07/17 12:48 12:09 12:09 WBC Hgb INR Creatinine 1.22 1.62 H AST ALT Troponin I 0.03 B-Natriuretic Peptide 682 H 12/09/17 12/10/17 12/10/17 00:34 04:56 04:56 WBC 8.6 12.9 H Hgb 14.9 D INR Creatinine 2.19 H AST 2212 H ALT > 500 H Troponin I B-Natriuretic Peptide 12/10/17 12/10/17 12:09 12:22 WBC Hgb INR 2.1 Creatinine 2.29 H AST ALT Troponin I B-Natriuretic Peptide - Imaging and Cardiology Chest Xray: report reviewed Stress Test: report reviewed Echo: report reviewed Cardiac cath: report reviewed - EKG Interpretation EKG results cardiology: personally reviewed (ECG with SB, HR 57.), other ( Telemetry reviewed with average HR previous 12 hours noted to be 63, SR. PVCs and PACs noted.) Consult Discharge Plan - Plan Referrals: Adrian Jones DO [Resident] - 12/17/17 10:15 am
[2017-12-10 19:39] LABS: Bilirubin,Urine Negative (Negative); Blood,Urine Trace (Negative); Clarity,Urine Cloudy (Clear); Color,Urine Yellow (Yellow); Glucose,Urine (UA) Normal (Normal); Ketones,Urine Trace mg/dL (Negative); Leukocyte Esterase,Urine Negative (Negative); Nitrite,Urine Negative (Negative); PH,Urine 5.5 pH Units (5.0-8.0); Protein,Urine 30 mg/dL (Neg-Trace); Specific Gravity,Urine > 1.030 (1.010-1.025); Urobilinogen,Urine Normal (Normal)
[2017-12-10 19:42] LABS: Bacteria,Urine None Seen per hpf (None-Few); Hyaline Casts,Urine None Seen per lpf (None-Few); Squamous Epithelial Cell,Urine Many per lpf (None-Few); WBC,Urine 30-50 per hpf (0-3)
[2017-12-10] MEDS: Lactulose Oral Soln 20 GM/30 ML UDC PO SCH (19:47)
[2017-12-10 20:08] LABS: Sperm,Urine Present
[2017-12-10 23:27] LABS: Protein/Creatinine Ratio,Urine 0.27 mg/mg (0.00-0.20)
[2017-12-11] MEDS: Piperacillin/Tazobactam 3.375 GM in 0.9 % Sodium Chloride Mini Bag 100 ML IVPB SCH ×3 (03:00→17:04)
[2017-12-11] MEDS: Levalbuterol Neb 1.25 MG/3 ML IH SCH ×4 (03:53→22:49)
[2017-12-11] MEDS: *HR* Enoxaparin 40 MG/0.4 ML SYRINGE SQ SCH (05:38)
[2017-12-11 07:33] LABS: VBG HCO3 21 mEq/L (21-27); VBG PCO2 35 mmHg (41-51); VBG PH 7.39 pH Units (7.32-7.42); VBG PO2 60 mmHg (25-50)
[2017-12-11 07:42] LABS: Alanine Aminotransferase > 500 Units/L (7-52); Albumin 2.9 g/dL (3.5-5.7); Albumin/Globulin Ratio 1.1 (1.1-2.2); Alkaline Phosphatase 67 Units/L (34-104); Aspartate Amino Transferase 642 Units/L (13-39); BUN/Creatinine Ratio 23 (6-26); Bilirubin,Total 1.6 mg/dL (0.3-1.0); Blood Urea Nitrogen 36 mg/dL (8-23); Calcium 8.6 mg/dL (8.6-10.3); Carbon Dioxide 20 mEq/L (23-29); Chloride 106 mEq/L (98-107); Globulin 2.6 g/dL (2.4-3.5); Glucose 99 mg/dL (70-105); Osmolality,Calculated 290 (280-300); Potassium 3.4 mEq/L (3.5-5.1); Sodium 136 mEq/L (136-145); Total Protein 5.5 g/dL (6.4-8.9); eGFR For African Americans 54 (> 60); eGFR For Non-African Americans 44 (> 60)
[2017-12-11 07:52] LABS: Basophils % 0.4 %; Eosinophils # 0.1 K/mcL (0.0-0.6); Eosinophils % 0.7 %; Hematocrit 43.2 % (37.5-50.1); Hemoglobin 14.6 g/dL (12.9-16.9); Immature Granulocytes % 0.5 % (0-4); Lymphocytes # 1.4 K/mcL (0.6-4.6); Mean Corpuscular HGB Conc 33.8 g/dL (31.6-35.5); Mean Corpuscular Volume 94.7 fL (83.0-100.0); Mean Platelet Volume 12.1 fL (9.4-12.4); Monocytes # 0.9 K/mcL (0.0-1.3); Monocytes % 10.7 %; Platelet Count 157 K/mcL (140-400); Red Blood Count 4.56 M/mcL (4.19-5.50); Red Cell Distribution Width 15.7 % (11.5-14.5); Segmented Neutrophils % 71.7 %
--- NOTE | 2017-12-11 08:09 | Internal Med Progress Note ---
<Spencer Barth - Last Filed: 12/11/17 08:20> Date of Encounter: 12/11/17 Time of Encounter: 08:06 - Assessment and plan (1) Elevated liver enzymes Current Visit: Yes Status: Acute Assessment and plan: Initially mild elevated, however now acutely worsened Abdominal CT demonstrated pericholecystic fluid and concern for cholecystitis Hida scan was negative for acute process, concern for chronic cholecystitis Surgery was consulted and initially signed off AST 2212 ALT >500 today No obvious shock, net positive fluid balance We will hold acetaminophen Consult to GI, appreciate recommendations Update 12/11 Improved overnight, AST 642 ALT >500 Send out for more specific ALT has been ordered Patient has been taking Lactulose which has caused multiple Bowel movements We will continue to monitor the patient's LFTs and symptoms MRCP per GI, multiple lab tests pending Consider transfer if the patient worsens (2) Hepatic encephalopathy Current Visit: Yes Status: Suspected Assessment and plan: Encephalopathy, likely secondary to hepatic failure + uremia The patient's Ammonia increased in response to acute hepatic failure He does admit to visual disturbances which are likely related to high ammonia and uremia We started Lactulose yesterday, which did cause multiple loose bowel movements throughout the evening There was a drop in ammonia from 70 to 50 We will continue lactulose, monitor mental status (3) Acute renal failure superimposed on stage 3 chronic kidney disease Current Visit: Yes Status: Acute Assessment and plan: LAILA on CKD Stage 3, improved Patient's Serum Cr is 1.56 this morning Per nephrology, the patient has been started on Bicarb Retroperitoneal US shows evidence of medical renal disease Nephrology will continue to follow Qualifiers: Acute renal failure type: unspecified Qualified Code(s): N17.9 - Acute kidney failure, unspecified; N18.3 - Chronic kidney disease, stage 3 (moderate) (4) Pneumonia Current Visit: Yes Status: Acute Assessment and plan: Suspected Left multilobar pneumonia Fits clinical picture, including SOB and intermittent fevers Patient appears to be hemodynamically stable at this time Zosyn and Levaquin at this time Qualifiers: Pneumonia type: due to Pneumococcus Laterality: left Lung location: upper lobe of lung Qualified Code(s): J13 - Pneumonia due to Streptococcus pneumoniae (5) Hypertension Current Visit: No Status: Chronic Assessment and plan: Well controlled at this time Qualifiers: Hypertension type: essential hypertension Qualified Code(s): I10 - Essential (primary) hypertension (6) Heart failure Current Visit: Yes Status: Acute Assessment and plan: History of chronic diastolic heart failure with preserved ejection fraction On admission, BNP elevated to 682 Echocardiogram showed an ejection fraction of 45-50% with mild concentric left ventricular hypertrophy, moderate pulmonary hypertension Per cardiology, the patient will very likely require LHC due to significant cardiac disease, however he is not currently stable for LHC Continue to hold lasix d/t laila, fluid restrict Continue metoprolol per cardiology Qualifiers: Heart failure type: diastolic Heart failure chronicity: acute Qualified Code(s): I50.31 - Acute diastolic (congestive) heart failure (7) Atrial fibrillation with RVR Current Visit: Yes Status: Chronic Assessment and plan: A fib with RVR likely secondary to HCAP present upon admission , with B/L pleural effusions with acute systolic/diastolic CHF exacerbation Zosyn day #5, Levaquin day #4 cardizem drip discontinued, stable on cardizem 120 mg daily and sotalol. Toprol added Per cardiology Hold IV lasix for now Continuous cardiac telemetry (8) Pleural effusion Current Visit: Yes Status: Acute Assessment and plan: B/l pleural effusion, R>L Likely secondary to worsening cardiac function Consider thoracentesis if necessary (9) Lactic acidosis Current Visit: Yes Status: Acute Assessment and plan: Acute lactic acidosis w/2.6 on admission, resolved Patient is currently receiving sodium bicarb (10) Nausea and vomiting Current Visit: Yes Status: Acute Assessment and plan: Acute intermittent nausea and vomiting over the past 2-3 months. The patient does state that it seems to be associated with fevers IVP Zofran 4 mg Q6HR PRN. Qualifiers: Vomiting type: unspecified Vomiting Intractability: non-intractable Qualified Code(s): R11.2 - Nausea with vomiting, unspecified (11) Fever Current Visit: Yes Status: Resolved Assessment and plan: Acute fever over the past several months that is intermittent. Suspect related to pneumonia Continue antibiotics Afebrile at this time Qualifiers: Fever type: unspecified Qualified Code(s): R50.9 - Fever, unspecified (12) Hypocalcemia Current Visit: Yes Status: Acute Assessment and plan: Low ionized calcium Start 2g Calcium carbonate daily - Time Spent With Patient Total time spent is greater than 50% in coordination of care (as documented) at patient's floor/unit and/or counseling patient: - Subjective Interval history: The patient is seen and examined at bedside. He says that he has been nauseated this morning, more so than he was previously. In addition to this, the patient says that he has had multiple episodes of loose stools in the evening and overnight. He says that they have been bothersome. Finally, he says that he's been seeing things move when they're not moving, and that this has been going on for a few days. - Constitutional Vitals: Temp Pulse Resp BP Pulse Ox 98.0 F 62 18 123/91 94 12/11/17 07:28 12/11/17 07:28 12/11/17 07:28 12/11/17 07:28 12/11/17 07:28 General appearance: Present: cooperative, A&O X 3, pleasant, no acute distress, answers questions appropriately Exam: Gen: Vitals noted. Slow mentation HEENT: Normocephalic, atraumatic Neck: Supple. No adenopathy. Cardiac: Rapid/irregular, 3/6 systolic murmur, +S1/S2 Pulmonary: bibasilar crackles, R > L Abdomen: soft, nontender, no guarding Back: Nontender throughout. MSK: ROM intact, no joint swelling noted Extremities: 1-2+ B/L LE Edema, nontender calf, no cyanosis or clubbing Neuro: moves all extremities, no focal deficits Psych: Appropriate mood and behavior. The patient admits to visual hallucinations Internal Medicine: Result - Labs CBC & Chem 7: 12/11/17 07:08 12/11/17 07:08 Labs: Short CBC 12/11/17 Range/Units 07:08 WBC 8.4 (4.3-11.1) K/mcL Hgb 14.6 (12.9-16.9) g/dL Hct 43.2 (37.5-50.1) % Plt Count 157 (140-400) K/mcL Neutrophils # 6.0 (1.6-8.9) K/mcL BMP 12/10/17 12/11/17 12:09 07:08 Sodium 133 L 136 Potassium 3.9 3.4 L Chloride 105 106 Carbon Dioxide 18 L 20 L BUN 45 H 36 H Creatinine 2.29 H 1.56 H Glucose 104 99 Calcium 9.1 8.6 Liver Function 12/10/17 12/11/17 Range/Units 12:09 07:08 Total Bilirubin 1.8 H 1.6 H (0.3-1.0) mg/dL Direct Bilirubin 0.9 H (0.0-0.2) mg/dL AST 1647 H 642 H (13-39) Units/L ALT > 500 H > 500 H (7-52) Units/L Alkaline Phosphatase 74 67 (34-104) Units/L Albumin 3.3 L 2.9 L (3.5-5.7) g/dL Urine 12/10/17 Range/Units 19:30 Urine Color Yellow (Yellow) Urine Clarity Cloudy A (Clear) Urine pH 5.5 (5.0-8.0) pH Units Ur Specific [place] > 1.030 H (1.010-1.025) Urine Protein 30 H (Neg-Trace) mg/dL Urine Glucose (UA) Normal (Normal) mg/dL - ABG Interpretation ABG results: ABG ABG pH 7.39 pH Units (7.32-7.45) 12/08/17 23:32 ABG pCO2 20 mmHg (35-45) L* 12/08/17 23:32 ABG pO2 74 mmHg (85-104) L 12/08/17 23:32 ABG O2 Saturation 95 % (95-98) 12/08/17 23:32 PT/INR, D-dimer PT 22.8 Seconds (9.4-12.1) H 12/10/17 12:22 - Impressions Impressions Abdomen MRI 12/10/17 09:53 IMPRESSION: Moderate volume pleural effusions, small volume ascites and anasarca. No evidence for acute cholecystitis, cholelithiasis or biliary dilatation. Mild apparent gallbladder wall thickening may be related to underlying liver disease. D/ / Tomi Arambula / Tomi Arambula Interpreting Provider: Tomi Arambula Retroperitoneum Ultrasound 12/10/17 12:01 IMPRESSION: Mildly increased renal parenchymal echogenicity, a nonspecific finding suggesting medical renal disease. Bilateral pleural effusions and moderate amount of perihepatic ascites. D/ / Janell Fish Cha, MD / Janell Fish Cha, MD Interpreting Provider: Janell Fish Cha, MD - VTE Documentation of Mechanical Device: Intermittent pneumatic compression device Consult Discharge Plan - Plan Referrals: Adrian Jones DO [Resident] - 12/17/17 10:15 am <Alvino Edwards - Last Filed: 12/11/17 08:43> Date of Encounter: 12/11/17 - Assessment and plan (1) Pneumonia Current Visit: Yes Status: Acute Qualifiers: Pneumonia type: due to Pneumococcus Laterality: left Lung location: upper lobe of lung Qualified Code(s): J13 - Pneumonia due to Streptococcus pneumoniae (2) Hypertension Current Visit: No Status: Chronic Qualifiers: Hypertension type: essential hypertension Qualified Code(s): I10 - Essential (primary) hypertension (3) Heart failure Current Visit: Yes Status: Acute Qualifiers: Heart failure type: diastolic Heart failure chronicity: acute Qualified Code(s): I50.31 - Acute diastolic (congestive) heart failure (4) Atrial fibrillation with RVR Current Visit: Yes Status: Chronic (5) Pleural effusion Current Visit: Yes Status: Acute (6) Lactic acidosis Current Visit: Yes Status: Acute (7) Nausea and vomiting Current Visit: Yes Status: Acute Qualifiers: Vomiting type: unspecified Vomiting Intractability: non-intractable Qualified Code(s): R11.2 - Nausea with vomiting, unspecified (8) Fever Current Visit: Yes Status: Resolved Qualifiers: Fever type: unspecified Qualified Code(s): R50.9 - Fever, unspecified (9) Acute renal failure superimposed on stage 3 chronic kidney disease Current Visit: Yes Status: Acute Qualifiers: Acute renal failure type: unspecified Qualified Code(s): N17.9 - Acute kidney failure, unspecified; N18.3 - Chronic kidney disease, stage 3 (moderate) (10) Elevated liver enzymes Current Visit: Yes Status: Acute (11) Hepatic encephalopathy Current Visit: Yes Status: Suspected (12) Hypocalcemia Current Visit: Yes Status: Acute - Time Spent With Patient Total time spent is greater than 50% in coordination of care (as documented) at patient's floor/unit and/or counseling patient: - Constitutional Vitals: Temp Pulse Resp BP Pulse Ox 98.0 F 62 18 123/91 94 12/11/17 07:28 12/11/17 07:28 12/11/17 07:28 12/11/17 07:28 12/11/17 07:28 Internal Medicine: Result - Labs CBC & Chem 7: 12/11/17 07:08 12/11/17 07:08 Labs: Short CBC 12/11/17 Range/Units 07:08 WBC 8.4 (4.3-11.1) K/mcL Hgb 14.6 (12.9-16.9) g/dL Hct 43.2 (37.5-50.1) % Plt Count 157 (140-400) K/mcL Neutrophils # 6.0 (1.6-8.9) K/mcL BMP 12/10/17 12/11/17 12:09 07:08 Sodium 133 L 136 Potassium 3.9 3.4 L Chloride 105 106 Carbon Dioxide 18 L 20 L BUN 45 H 36 H Creatinine 2.29 H 1.56 H Glucose 104 99 Calcium 9.1 8.6 Liver Function 12/10/17 12/11/17 Range/Units 12:09 07:08 Total Bilirubin 1.8 H 1.6 H (0.3-1.0) mg/dL Direct Bilirubin 0.9 H (0.0-0.2) mg/dL AST 1647 H 642 H (13-39) Units/L ALT > 500 H > 500 H (7-52) Units/L Alkaline Phosphatase 74 67 (34-104) Units/L Albumin 3.3 L 2.9 L (3.5-5.7) g/dL Urine 12/10/17 Range/Units 19:30 Urine Color Yellow (Yellow) Urine Clarity Cloudy A (Clear) Urine pH 5.5 (5.0-8.0) pH Units Ur Specific [place] > 1.030 H (1.010-1.025) Urine Protein 30 H (Neg-Trace) mg/dL Urine Glucose (UA) Normal (Normal) mg/dL - ABG Interpretation ABG results: ABG ABG pH 7.39 pH Units (7.32-7.45) 12/08/17 23:32 ABG pCO2 20 mmHg (35-45) L* 12/08/17 23:32 ABG pO2 74 mmHg (85-104) L 12/08/17 23:32 ABG O2 Saturation 95 % (95-98) 12/08/17 23:32 PT/INR, D-dimer PT 22.8 Seconds (9.4-12.1) H 12/10/17 12:22 - Impressions Impressions Abdomen MRI 12/10/17 09:53 IMPRESSION: Moderate volume pleural effusions, small volume ascites and anasarca. No evidence for acute cholecystitis, cholelithiasis or biliary dilatation. Mild apparent gallbladder wall thickening may be related to underlying liver disease. D/ / Tomi Arambula / Tomi Arambula Interpreting Provider: Tomi Arambula Retroperitoneum Ultrasound 12/10/17 12:01 IMPRESSION: Mildly increased renal parenchymal echogenicity, a nonspecific finding suggesting medical renal disease. Bilateral pleural effusions and moderate amount of perihepatic ascites. D/ / Janell Fish Cha, MD / Janell Fish Cha, MD Interpreting Provider: Janell Fish Cha, MD - Attending Attestation A fib with RVR likely secondary to HCAP present upon admission , with B/L pleural effusions with acute systolic/diastolic CHF exacerbation Zosyn day #5 , Levaquin day #4 cardizem drip discontinued , stable on cardizem 120 mg daily and sotalol, Hold IV lasix Transaminitis, unknown etiology , improving consider infectious etiologies, lab work pending cardiology consult due to worsening ejection fraction down to 45% Continuous cardiac telemetry, Cardiology may perform cardiac cath once renal fuction improves acute on chronic renal failure, Hx of CKD Hyperammonemia, possible liver insufficiency, hepatic encephalopathy lactulose I examined this patient and my medical decision-making was reviewed with the Resident Physician. I agree with the documented findings, disposition and treatment plan as described except to the extent set forth below.
[2017-12-11] MEDS: Nicotine 21 MG PATCH.TD24 TD SCH (10:09)
[2017-12-11] MEDS: Aspirin 325 MG TABLET PO SCH (10:12)
[2017-12-11] MEDS: Metoprolol XL (24 HR) Succ 25 MG TAB.ER.24H PO SCH (10:12)
[2017-12-11] MEDS: Ascorbic Acid 500 MG TABLET PO SCH (10:12)
[2017-12-11] MEDS: Lactulose Oral Soln 20 GM/30 ML UDC PO SCH ×2 (10:12→19:43)
--- NOTE | 2017-12-11 11:11 | Cardiology Progress Note ---
Date of Encounter: 12/11/17 Time of Encounter: 11:05 Assessment and Plan (1) Cardiomyopathy Current Visit: Yes Status: Acute Per cardiology: -TTE with LVEF 45-50% global hypokinesis, mild concentric LVH, RV mildly dilated iwth mild hypokinesis, bi-atrial enlargement, mild-moderate AR, moderate MR, mild TR, moderate pulmonary hypertension. -10/2016 TTE LVEF 55-60%. -Chest x-ray with small bilateral pleural effusion, mild pedal edema. -Was given IV lasix trial, however renal function continued to worsen and lasix was stopped. Now with IV fluid. Nephrology following. Apprreciate recs. No significant fluid overload on exam today. Previous testing: -Stress 10/2016 with suspect area of artifact, no evidence of ischemia. -LHC 2011 with high-grade LAD s/p ANNETTE, occluded RCA supplied by L-R collaterals , and 50-60% circumflex -Not a candidate for invasive cardiac work up with elevated LFTs, LAILA. Trop negative. He denies chest pain. Recommend medical management at this time. -Toprol added. Will not add karen/arb due to renal function. -CHF education reviewed with patient. -No indication for invasive evaluation at this time. Please call with questions. Cardiology will sign off. Qualifiers: Cardiomyopathy type: unspecified Qualified Code(s): I42.9 - Cardiomyopathy , unspecified (2) CAD (coronary artery disease) Current Visit: Yes Status: Chronic Per cardiology: - PCI to LAD 2011, BLUE[employer] PROC[employer]OR RCA, mod dx in Lcx artery. -Denies chest pain. -ON asa, BB. Not on statin due to elevated LFTs. -No acute ECG changes. -No acute need for LHC at this time. Work-up for acute elevation of LFT. Qualifiers: Coronary Disease-Associated Artery/Lesion type: [place] artery [place] vs. transplanted heart: [place] heart Associated angina: without angina Qualified Code(s): I25.10 - Atherosclerotic heart disease of [place] coronary artery without angina pectoris (3) Elevated liver enzymes Current Visit: Yes Status: Acute Per cardiology: -Markedly abnormal liver enzymes. -GI and surgery have been consulted. -Management per primary, GI, and surgical services. (4) Atrial fibrillation Current Visit: Yes Status: Acute Sotalol stopped this admit due to patient stopping coumadin. Toprol added. Recommend asa. Currently NSR. Qualifiers: Atrial fibrillation type: paroxysmal Qualified Code(s): I48.0 - Paroxysmal atrial fibrillation Discussion w patient/family: The assessment and plan as outlined above was discussed with the patient and/or family members who expressed understanding and agreement. All questions were answered. Thank you for involving us in the care of your patient. Please call with any questions. Subjective Principal diagnosis: cardiomyopathy Interval history: C/o feeling ill, nausea Objective Vital Signs, Last 4 Hours Temp Pulse Resp BP Pulse Ox 12/11/17 10:43 14 92 12/11/17 10:17 62 12/11/17 07:28 98.0 F 62 18 123/91 94 General: Conversant, No Apparent Distress, Other (drowsy, ill appearing) HEENT: Atraumatic, Normocephaly, Mucus Membranes Moist, Other (jaundice) Neck: No JVD, Normal carotid pulses Cardiac: Reg Rate and Rhythm, Normal S1 and S2, No Murmur Lungs: Normal Breath Sounds, No Wheeze, Rales, Rhonchi Neuro: Alert and responsive, No focal deficits noted Abdomen: Soft, Non-Tender Skin: No rashes noted on visualized skin Musculoskeletal: No Chest Wall Tenderness Extremities: No Clubbing, No Cyanosis, No Edema, Normal Pulses Results 12/11/17 07:08 12/11/17 07:08 Lab Results 12/10/17 12/10/17 12/11/17 12:09 12:22 07:08 WBC 8.4 Hgb 14.6 Hct 43.2 Plt Count 157 INR 2.1 Sodium 133 L Potassium 3.9 Chloride 105 Carbon Dioxide 18 L BUN 45 H Creatinine 2.29 H Glucose 104 Calcium 9.1 Magnesium 2.2 Total Bilirubin 1.8 H AST 1647 H ALT > 500 H Alkaline Phosphatase 74 12/11/17 07:08 WBC Hgb Hct Plt Count INR Sodium 136 Potassium 3.4 L Chloride 106 Carbon Dioxide 20 L BUN 36 H Creatinine 1.56 H Glucose 99 Calcium 8.6 Magnesium Total Bilirubin 1.6 H AST 642 H ALT > 500 H Alkaline Phosphatase 67 - Imaging and Cardiology Echo: report reviewed - EKG Interpretation EKG results cardiology: personally reviewed - VTE Documentation of Mechanical Device: Intermittent pneumatic compression device Consult Discharge Plan - Plan Referrals: Adrian Jones DO [Resident] - 12/17/17 10:15 am
--- NOTE | 2017-12-11 14:10 | Nephrology Progress Note ---
Date of Encounter: 12/11/17 Time of Encounter: 14:06 - Assessment and Plan (1) Acute renal failure superimposed on stage 3 chronic kidney disease Current Visit: Yes Status: Acute Patient with multifactorial LAILA on CKD that is improving. Will discontinue saline and give one dose of furosemide. No need for dialysis of a renal biopsy at this time. Avoid nephrotoxins and adjust medications for renal function. Qualifiers: Acute renal failure type: unspecified Qualified Code(s): N17.9 - Acute kidney failure, unspecified; N18.3 - Chronic kidney disease, stage 3 (moderate) (2) Elevated liver enzymes Current Visit: Yes Status: Acute Per GI. AST improving. (3) Pneumonia Current Visit: Yes Status: Acute Per primary team. Continue antibiotics. Qualifiers: Pneumonia type: due to Pneumococcus Laterality: left Lung location: upper lobe of lung Qualified Code(s): J13 - Pneumonia due to Streptococcus pneumoniae (4) HTN (hypertension) Current Visit: Yes Status: Chronic Blood pressure controlled. Qualifiers: Hypertension type: essential hypertension Qualified Code(s): I10 - Essential (primary) hypertension (5) Shortness of breath Current Visit: No Status: Acute (6) Cardiomyopathy Current Visit: Yes Status: Acute Per cardiology. Qualifiers: Cardiomyopathy type: unspecified Qualified Code(s): I42.9 - Cardiomyopathy , unspecified (7) Atrial fibrillation Current Visit: Yes Status: Acute Qualifiers: Atrial fibrillation type: paroxysmal Qualified Code(s): I48.0 - Paroxysmal atrial fibrillation Subjective Principal diagnosis: cardiomyopathy Interval history: Patient feels as if he is "drowning" He states it is difficult to catch his breath. No other complaints. Objective - Vital Signs Vital signs: Vital Signs Temp Pulse Resp BP Pulse Ox 12/11/17 11:49 65 96 12/11/17 11:16 98.5 F 64 16 111/85 94 12/11/17 10:43 14 92 12/11/17 10:17 62 12/11/17 07:28 98.0 F 62 18 123/91 94 12/11/17 04:20 98.3 F 56 18 115/85 94 12/11/17 03:53 18 91 12/11/17 01:18 97.6 F 61 20 124/86 96 12/10/17 22:39 98 12/10/17 22:35 19 98 12/10/17 20:53 97.2 F L 61 22 114/76 96 12/10/17 19:54 59 22 120/92 100 12/10/17 15:57 97.7 F 59 22 120/92 100 12/10/17 15:53 16 95 Intake and Output 12/10/17 12/11/17 12/11/17 23:59 07:59 15:59 Intake Total 350 / 350 150 / 150 Output Total 400 / 400 Balance -50 / -50 150 / 150 Intake: IV Fluids 100 / 100 150 / 150 Levaquin Premix 750mg/150 mL 150 / 150 750 mg In 150 ml @ 100 mls/hr IVPB Q48H [facility] Rx#:[id number] Zosyn 3.375 GM In 0.9 % Sodium 100 / 100 Chloride (Mini-Bag +) 100 ML @ 25 mls/hr IVPB Q8H [facility] Rx#: [id number] Oral 250 / 250 0 / 0 Output: Urine 400 / 400 Other: Meal Breakfast Percent of Meal Consumed 100% 0% - General Appearance General appearance: Present: well-developed, well-nourished EENT: Present: ATNC Neck: Present: supple Respiratory: Present: clear Cardiology: Present: edema, regular rate Gastrointestinal: Present: no tenderness Integumentary: Present: warm and dry Neurologic: Present: alert and oriented x3 (he is slow to answer questions. ) Psychiatric: Present: mood/affect appropriate - Lab 12/11/17 07:08 12/11/17 07:08 Most recent lab results ABG pH 7.39 pH Units (7.32-7.45) 12/08/17 23:32 ABG pCO2 20 mmHg (35-45) L* 12/08/17 23:32 ABG pO2 74 mmHg (85-104) L 12/08/17 23:32 ABG HCO3 12 mEq/L (21-27) L 12/08/17 23:32 ABG O2 Saturation 95 % (95-98) 12/08/17 23:32 Calcium 8.6 mg/dL (8.6-10.3) 12/11/17 07:08 Phosphorus 3.7 mg/dL (2.7-4.5) 12/10/17 12:09 Magnesium 2.2 mg/dL (1.6-2.6) 12/10/17 12:09 Urine Creatinine 139 mg/dL 12/10/17 22:23 Urine Sodium 19.0 mEq/L 12/10/17 22:23 Urine Total Protein 37 mg/dL (1-14) H 12/10/17 22:23 - VTE Documentation of Mechanical Device: Intermittent pneumatic compression device Consult Discharge Plan - Plan Referrals: Adrian Jones DO [Resident] - 12/17/17 10:15 am
[2017-12-11] MEDS ORDERED: Furosemide 20 MG/2 ML VIAL IVP ONE (14:11)
[2017-12-12] MEDS: Piperacillin/Tazobactam 3.375 GM in 0.9 % Sodium Chloride Mini Bag 100 ML IVPB SCH ×3 (02:13→17:21)
[2017-12-12] MEDS: *HR* LORazepam 0.5 MG TABLET PO PRN ×2 (02:14→21:30)
[2017-12-12] MEDS: Levalbuterol Neb 1.25 MG/3 ML IH SCH ×2 (03:53→10:26)
[2017-12-12] MEDS: *HR* Enoxaparin 40 MG/0.4 ML SYRINGE SQ SCH (05:32)
[2017-12-12 06:40] LABS: Alanine Aminotransferase > 500 Units/L (7-52); Albumin 3.1 g/dL (3.5-5.7); Albumin/Globulin Ratio 1.2 (1.1-2.2); Alkaline Phosphatase 70 Units/L (34-104); Aspartate Amino Transferase 341 Units/L (13-39); BUN/Creatinine Ratio 20 (6-26); Bilirubin,Total 1.9 mg/dL (0.3-1.0); Blood Urea Nitrogen 28 mg/dL (8-23); Calcium 8.9 mg/dL (8.6-10.3); Carbon Dioxide 23 mEq/L (23-29); Chloride 108 mEq/L (98-107); Globulin 2.6 g/dL (2.4-3.5); Glucose 96 mg/dL (70-105); Osmolality,Calculated 293 (280-300); Potassium 3.6 mEq/L (3.5-5.1); Sodium 139 mEq/L (136-145); Total Protein 5.7 g/dL (6.4-8.9); eGFR For African Americans 60 (> 60); eGFR For Non-African Americans 49 (> 60)
[2017-12-12 06:59] LABS: Basophils # 0.1 K/mcL (0.0-0.2); Basophils % 0.6 %; Eosinophils # 0.1 K/mcL (0.0-0.6); Eosinophils % 0.9 %; Hematocrit 42.8 % (37.5-50.1); Hemoglobin 14.6 g/dL (12.9-16.9); Immature Granulocytes % 0.5 % (0-4); Lymphocytes # 1.6 K/mcL (0.6-4.6); Lymphocytes % 18.6 %; Mean Corpuscular HGB Conc 34.1 g/dL (31.6-35.5); Mean Corpuscular Hemoglobin 32.9 pg (28.0-33.3); Mean Corpuscular Volume 96.4 fL (83.0-100.0); Mean Platelet Volume 12.3 fL (9.4-12.4); Monocytes # 1.1 K/mcL (0.0-1.3); Monocytes % 12.5 %; Neutrophils # 5.9 K/mcL (1.6-8.9); Platelet Count 154 K/mcL (140-400); Red Blood Count 4.44 M/mcL (4.19-5.50); Red Cell Distribution Width 15.8 % (11.5-14.5); Segmented Neutrophils % 66.9 %
--- NOTE | 2017-12-12 07:42 | Internal Med Progress Note ---
<Spencer Barth - Last Filed: 12/12/17 08:44> Date of Encounter: 12/12/17 Time of Encounter: 07:39 - Assessment and plan (1) Elevated liver enzymes Current Visit: Yes Status: Acute Assessment and plan: Initially mild elevated, however now acutely worsened Abdominal CT demonstrated pericholecystic fluid and concern for cholecystitis Hida scan was negative for acute process, concern for chronic cholecystitis Surgery was consulted and initially signed off AST 2212 ALT >500 today No obvious shock, net positive fluid balance We will hold acetaminophen Consult to GI, appreciate recommendations Update 12/12 Improved overnight, AST 341 ALT >500 Send out for more specific ALT has been ordered and is pending Patient has been taking Lactulose which has caused multiple Bowel movements We will continue to monitor the patient's LFTs and symptoms MRCP per GI, multiple lab tests pending No evidence for acute cholecystitis, cholelithiasis or biliary dilatation. Mild apparent gallbladder wall thickening may be related to underlying liver disease. Consider transfer if the patient worsens, however seems to be improving overall (2) Hepatic encephalopathy Current Visit: Yes Status: Suspected Assessment and plan: Encephalopathy, likely secondary to hepatic failure + uremia The patient's Ammonia increased in response to acute hepatic failure He does admit to visual disturbances which are likely related to high ammonia and uremia We started Lactulose yesterday, which did cause multiple loose bowel movements throughout the evening There was a drop in ammonia from 70 to 50 to 43 We will continue lactulose, monitor mental status (3) Acute renal failure superimposed on stage 3 chronic kidney disease Current Visit: Yes Status: Acute Assessment and plan: LAILA on CKD Stage 3, improved Patient's Serum Cr is 1.43 this morning Retroperitoneal US shows evidence of medical renal disease Nephrology will continue to follow Qualifiers: Acute renal failure type: unspecified Qualified Code(s): N17.9 - Acute kidney failure, unspecified; N18.3 - Chronic kidney disease, stage 3 (moderate) (4) Pneumonia Current Visit: Yes Status: Acute Assessment and plan: Suspected Left multilobar pneumonia Fits clinical picture, including SOB and intermittent fevers Patient appears to be hemodynamically stable at this time Zosyn Day 6 and Levaquin Day 5 at this time Qualifiers: Pneumonia type: due to Pneumococcus Laterality: left Lung location: upper lobe of lung Qualified Code(s): J13 - Pneumonia due to Streptococcus pneumoniae (5) Hypertension Current Visit: No Status: Chronic Assessment and plan: Well controlled at this time Qualifiers: Hypertension type: essential hypertension Qualified Code(s): I10 - Essential (primary) hypertension (6) Heart failure Current Visit: Yes Status: Acute Assessment and plan: History of chronic diastolic heart failure with preserved ejection fraction On admission, BNP elevated to 682 Echocardiogram showed an ejection fraction of 45-50% with mild concentric left ventricular hypertrophy, moderate pulmonary hypertension Per cardiology, the patient will very likely require LHC due to significant cardiac disease, however he is not currently stable for LHC Continue to hold lasix d/t laila, fluid restrict Continue metoprolol per cardiology Qualifiers: Heart failure type: diastolic Heart failure chronicity: acute Qualified Code(s): I50.31 - Acute diastolic (congestive) heart failure (7) Atrial fibrillation with RVR Current Visit: Yes Status: Chronic Assessment and plan: A fib with RVR likely secondary to HCAP present upon admission , with B/L pleural effusions with acute systolic/diastolic CHF exacerbation Zosyn day #6, Levaquin day #5 cardizem drip discontinued, stable on cardizem 120 mg daily and sotalol. Toprol added Per cardiology Hold IV lasix for now Continuous cardiac telemetry (8) Pleural effusion Current Visit: Yes Status: Acute Assessment and plan: B/l pleural effusion, R>L Likely secondary to worsening cardiac function Consider thoracentesis if necessary (9) Lactic acidosis Current Visit: Yes Status: Resolved Assessment and plan: Acute lactic acidosis w/2.6 on admission, resolved (10) Nausea and vomiting Current Visit: Yes Status: Acute Assessment and plan: Acute intermittent nausea and vomiting over the past 2-3 months. The patient does state that it seems to be associated with fevers IVP Zofran 4 mg Q6HR PRN. Qualifiers: Vomiting type: unspecified Vomiting Intractability: non-intractable Qualified Code(s): R11.2 - Nausea with vomiting, unspecified (11) Fever Current Visit: Yes Status: Resolved Assessment and plan: Acute fever over the past several months that is intermittent. Suspect related to pneumonia Continue antibiotics Afebrile at this time Qualifiers: Fever type: unspecified Qualified Code(s): R50.9 - Fever, unspecified (12) Hypocalcemia Current Visit: Yes Status: Acute Assessment and plan: Low ionized calcium Start 2g Calcium carbonate daily - Time Spent With Patient Total time spent is greater than 50% in coordination of care (as documented) at patient's floor/unit and/or counseling patient: - Subjective Interval history: The patient is seen and examined at bedside. He continues to have loose stools , but is otherwise doing well. He does appear to have more energy than he did previously. - Constitutional Vitals: Temp Pulse Resp BP Pulse Ox 97.6 F 74 19 134/102 95 12/12/17 02:36 12/12/17 02:36 12/12/17 03:54 12/12/17 02:36 12/12/17 03:54 General appearance: Present: cooperative, A&O X 3, pleasant, no acute distress, answers questions appropriately Exam: Gen: Vitals noted. Appears to have more energy than prior HEENT: Normocephalic, atraumatic Neck: Supple. No adenopathy. Cardiac: Rapid/irregular, 3/6 systolic murmur, +S1/S2 Pulmonary: bibasilar crackles, R > L Abdomen: soft, nontender, no guarding Back: Nontender throughout. MSK: ROM intact, no joint swelling noted Extremities: 1-2+ B/L LE Edema, nontender calf, no cyanosis or clubbing Neuro: moves all extremities, no focal deficits Psych: Appropriate mood and behavior. The patient states that visual hallucinations have resolved Internal Medicine: Result - Labs CBC & Chem 7: 12/12/17 06:04 12/12/17 06:04 Labs: Short CBC 12/11/17 12/12/17 Range/Units 07:08 06:04 WBC 8.4 8.8 (4.3-11.1) K/mcL Hgb 14.6 14.6 (12.9-16.9) g/dL Hct 43.2 42.8 (37.5-50.1) % Plt Count 157 154 (140-400) K/mcL Neutrophils # 6.0 5.9 (1.6-8.9) K/mcL BMP 12/11/17 12/12/17 07:08 06:04 Sodium 136 139 Potassium 3.4 L 3.6 Chloride 106 108 H Carbon Dioxide 20 L 23 BUN 36 H 28 H Creatinine 1.56 H 1.43 H Glucose 99 96 Calcium 8.6 8.9 Liver Function 12/11/17 12/12/17 Range/Units 07:08 06:04 Total Bilirubin 1.6 H 1.9 H (0.3-1.0) mg/dL AST 642 H 341 H (13-39) Units/L ALT > 500 H > 500 H (7-52) Units/L Alkaline Phosphatase 67 70 (34-104) Units/L Albumin 2.9 L 3.1 L (3.5-5.7) g/dL - ABG Interpretation ABG results: ABG ABG pH 7.39 pH Units (7.32-7.45) 12/08/17 23:32 ABG pCO2 20 mmHg (35-45) L* 12/08/17 23:32 ABG pO2 74 mmHg (85-104) L 12/08/17 23:32 ABG O2 Saturation 95 % (95-98) 12/08/17 23:32 PT/INR, D-dimer PT 22.8 Seconds (9.4-12.1) H 12/10/17 12:22 - VTE Documentation of Mechanical Device: Intermittent pneumatic compression device Consult Discharge Plan - Plan Referrals: Adrian Jones DO [Resident] - 12/17/17 10:15 am <Alvino Edwards - Last Filed: 12/12/17 09:12> Date of Encounter: 12/12/17 - Assessment and plan (1) Pneumonia Current Visit: Yes Status: Acute Qualifiers: Pneumonia type: due to Pneumococcus Laterality: left Lung location: upper lobe of lung Qualified Code(s): J13 - Pneumonia due to Streptococcus pneumoniae (2) Hypertension Current Visit: No Status: Chronic Qualifiers: Hypertension type: essential hypertension Qualified Code(s): I10 - Essential (primary) hypertension (3) Heart failure Current Visit: Yes Status: Acute Qualifiers: Heart failure type: diastolic Heart failure chronicity: acute Qualified Code(s): I50.31 - Acute diastolic (congestive) heart failure (4) Atrial fibrillation with RVR Current Visit: Yes Status: Chronic (5) Pleural effusion Current Visit: Yes Status: Acute (6) Lactic acidosis Current Visit: Yes Status: Resolved (7) Nausea and vomiting Current Visit: Yes Status: Acute Qualifiers: Vomiting type: unspecified Vomiting Intractability: non-intractable Qualified Code(s): R11.2 - Nausea with vomiting, unspecified (8) Fever Current Visit: Yes Status: Resolved Qualifiers: Fever type: unspecified Qualified Code(s): R50.9 - Fever, unspecified (9) Acute renal failure superimposed on stage 3 chronic kidney disease Current Visit: Yes Status: Acute Qualifiers: Acute renal failure type: unspecified Qualified Code(s): N17.9 - Acute kidney failure, unspecified; N18.3 - Chronic kidney disease, stage 3 (moderate) (10) Elevated liver enzymes Current Visit: Yes Status: Acute (11) Hepatic encephalopathy Current Visit: Yes Status: Suspected (12) Hypocalcemia Current Visit: Yes Status: Acute - Time Spent With Patient Total time spent is greater than 50% in coordination of care (as documented) at patient's floor/unit and/or counseling patient: - Constitutional Vitals: Temp Pulse Resp BP Pulse Ox 98.0 F 73 16 134/98 99 12/12/17 07:50 12/12/17 07:50 12/12/17 07:50 12/12/17 07:50 12/12/17 07:50 Internal Medicine: Result - Labs CBC & Chem 7: 12/12/17 06:04 12/12/17 06:04 Labs: Short CBC 12/12/17 Range/Units 06:04 WBC 8.8 (4.3-11.1) K/mcL Hgb 14.6 (12.9-16.9) g/dL Hct 42.8 (37.5-50.1) % Plt Count 154 (140-400) K/mcL Neutrophils # 5.9 (1.6-8.9) K/mcL BMP 12/12/17 06:04 Sodium 139 Potassium 3.6 Chloride 108 H Carbon Dioxide 23 BUN 28 H Creatinine 1.43 H Glucose 96 Calcium 8.9 Liver Function 12/12/17 Range/Units 06:04 Total Bilirubin 1.9 H (0.3-1.0) mg/dL AST 341 H (13-39) Units/L ALT > 500 H (7-52) Units/L Alkaline Phosphatase 70 (34-104) Units/L Albumin 3.1 L (3.5-5.7) g/dL - ABG Interpretation ABG results: ABG ABG pH 7.39 pH Units (7.32-7.45) 12/08/17 23:32 ABG pCO2 20 mmHg (35-45) L* 12/08/17 23:32 ABG pO2 74 mmHg (85-104) L 12/08/17 23:32 ABG O2 Saturation 95 % (95-98) 12/08/17 23:32 PT/INR, D-dimer PT 22.8 Seconds (9.4-12.1) H 12/10/17 12:22 - Attending Attestation A fib with RVR likely secondary to HCAP present upon admission , with B/L pleural effusions with acute systolic/diastolic CHF exacerbation Zosyn day #6 , Levaquin day #5 cardizem drip discontinued stable on cardizem 120 mg and sotalol (have not received both since 12/11/17) Consider resiming cardizem if Ok with Cardiology Hold IV lasix Transaminitis, unknown etiology , improving consider infectious etiologies, lab work pending cardiology consult due to worsening ejection fraction down to 45% Continuous cardiac telemetry, Cardiology may perform cardiac cath once renal fuction improves acute on chronic renal failure, Hx of CKD Hyperammonemia, possible liver insufficiency, hepatic encephalopathy lactulose I examined this patient and my medical decision-making was reviewed with the Resident Physician. I agree with the documented findings, disposition and treatment plan as described except to the extent set forth below.
[2017-12-12] MEDS: Metoprolol XL (24 HR) Succ 25 MG TAB.ER.24H PO SCH (10:27)
[2017-12-12] MEDS: Nicotine 21 MG PATCH.TD24 TD SCH (10:27)
[2017-12-12] MEDS: Ascorbic Acid 500 MG TABLET PO SCH (10:27)
[2017-12-12] MEDS: Aspirin 325 MG TABLET PO SCH (10:27)
[2017-12-12] MEDS: Lactulose Oral Soln 20 GM/30 ML UDC PO SCH ×2 (10:27→21:11)
[2017-12-12] MEDS: Levofloxacin 750 MG/150 ML 750 MG/150 ML BAG IVPB SCH (10:28)
--- NOTE | 2017-12-12 10:28 | Nephrology Progress Note ---
Date of Encounter: 12/12/17 Time of Encounter: 10:28 - Assessment and Plan (1) Acute renal failure superimposed on stage 3 chronic kidney disease Current Visit: Yes Status: Acute Patient with multifactorial LAILA on CKD that is improving. Will discontinue saline and give furosemide as needed. No need for dialysis of a renal biopsy at this time. Avoid nephrotoxins and adjust medications for renal function. Qualifiers: Acute renal failure type: unspecified Qualified Code(s): N17.9 - Acute kidney failure, unspecified; N18.3 - Chronic kidney disease, stage 3 (moderate) (2) Elevated liver enzymes Current Visit: Yes Status: Acute Per GI. AST improving. (3) Pneumonia Current Visit: Yes Status: Acute Per primary team. Continue antibiotics. Qualifiers: Pneumonia type: due to Pneumococcus Laterality: left Lung location: upper lobe of lung Qualified Code(s): J13 - Pneumonia due to Streptococcus pneumoniae (4) HTN (hypertension) Current Visit: Yes Status: Chronic Blood pressure controlled. Qualifiers: Hypertension type: essential hypertension Qualified Code(s): I10 - Essential (primary) hypertension (5) Shortness of breath Current Visit: No Status: Acute (6) Cardiomyopathy Current Visit: Yes Status: Acute Per cardiology. Qualifiers: Cardiomyopathy type: unspecified Qualified Code(s): I42.9 - Cardiomyopathy , unspecified (7) Atrial fibrillation Current Visit: Yes Status: Acute Qualifiers: Atrial fibrillation type: paroxysmal Qualified Code(s): I48.0 - Paroxysmal atrial fibrillation Subjective Principal diagnosis: cardiomyopathy Interval history: Patient feels as if he is "drowning" He states that his dyspnea overall is doing better. He still has dyspnea whenever he lies flat, but this is improved. . No other complaints. Objective - Vital Signs Vital signs: Vital Signs Temp Pulse Resp BP Pulse Ox 12/12/17 07:50 98.0 F 73 16 134/98 99 12/12/17 03:54 19 95 12/12/17 02:36 97.6 F 74 18 134/102 99 12/11/17 22:49 20 94 12/11/17 22:38 98.2 F 72 18 126/98 98 12/11/17 19:34 98 F 71 18 118/95 98 12/11/17 17:36 68 12/11/17 16:36 98.9 F 68 16 118/92 100 12/11/17 16:28 16 97 12/11/17 11:49 65 96 12/11/17 11:16 98.5 F 64 16 111/85 94 12/11/17 10:43 14 92 Intake and Output 12/11/17 12/12/17 12/12/17 23:59 07:59 15:59 Intake Total 100 / 100 120 / 120 Balance 100 / 100 120 / 120 Intake: IV Fluids 100 / 100 Zosyn 3.375 GM In 0.9 % Sodium 100 / 100 Chloride (Mini-Bag +) 100 ML @ 25 mls/hr IVPB Q8H [facility] Rx#: [id number] Oral 120 / 120 Other: Meal Dinner Breakfast Percent of Meal Consumed 5% 95% Stool Size Moderate # Voids 2 1 # Bowel Movements 1 Weight 94.6 kg Patient Weight 12/12/17 23:59 Weight 94.6 kg - General Appearance General appearance: Present: well-developed, well-nourished EENT: Present: ATNC Respiratory: Present: course breath sounds Cardiology: Present: edema, regular rate Gastrointestinal: Present: no tenderness Integumentary: Present: warm and dry Neurologic: Present: alert and oriented x3 Musculoskeletal: Present: no cyanosis Psychiatric: Present: mood/affect appropriate - Lab 12/12/17 06:04 12/12/17 06:04 Most recent lab results ABG pH 7.39 pH Units (7.32-7.45) 12/08/17 23:32 ABG pCO2 20 mmHg (35-45) L* 12/08/17 23:32 ABG pO2 74 mmHg (85-104) L 12/08/17 23:32 ABG HCO3 12 mEq/L (21-27) L 12/08/17 23:32 ABG O2 Saturation 95 % (95-98) 12/08/17 23:32 Calcium 8.9 mg/dL (8.6-10.3) 12/12/17 06:04 Phosphorus 3.7 mg/dL (2.7-4.5) 12/10/17 12:09 Magnesium 2.2 mg/dL (1.6-2.6) 12/10/17 12:09 Urine Creatinine 139 mg/dL 12/10/17 22:23 Urine Sodium 19.0 mEq/L 12/10/17 22:23 Urine Total Protein 37 mg/dL (1-14) H 12/10/17 22:23 - VTE Documentation of Mechanical Device: Intermittent pneumatic compression device Consult Discharge Plan - Plan Referrals: Adrian Jones DO [Resident] - 12/17/17 10:15 am
[2017-12-12] MEDS: Furosemide 20 MG/2 ML VIAL IVP SCH (14:51)
[2017-12-13] MEDS: Piperacillin/Tazobactam 3.375 GM in 0.9 % Sodium Chloride Mini Bag 100 ML IVPB SCH ×3 (01:51→18:04)
[2017-12-13 02:29] LABS: Alanine Aminotransferase > 500 Units/L (7-52); Albumin 3.2 g/dL (3.5-5.7); Albumin/Globulin Ratio 1.3 (1.1-2.2); Alkaline Phosphatase 69 Units/L (34-104); Aspartate Amino Transferase 217 Units/L (13-39); BUN/Creatinine Ratio 17 (6-26); Basophils # 0.1 K/mcL (0.0-0.2); Basophils % 0.6 %; Bilirubin,Total 2.2 mg/dL (0.3-1.0); Blood Urea Nitrogen 22 mg/dL (8-23); Carbon Dioxide 22 mEq/L (23-29); Chloride 109 mEq/L (98-107); Eosinophils # 0.1 K/mcL (0.0-0.6); Eosinophils % 0.6 %; Globulin 2.5 g/dL (2.4-3.5); Glucose 116 mg/dL (70-105); Hemoglobin 14.7 g/dL (12.9-16.9); Immature Granulocytes % 0.3 % (0-4); Lymphocytes # 1.2 K/mcL (0.6-4.6); Lymphocytes % 13.7 %; Mean Corpuscular HGB Conc 32.7 g/dL (31.6-35.5); Mean Corpuscular Hemoglobin 31.6 pg (28.0-33.3); Mean Corpuscular Volume 96.8 fL (83.0-100.0); Monocytes # 1.2 K/mcL (0.0-1.3); Monocytes % 14.1 %; Neutrophils # 6.1 K/mcL (1.6-8.9); Osmolality,Calculated 294 (280-300); Platelet Count 142 K/mcL (140-400); Potassium 3.5 mEq/L (3.5-5.1); Red Blood Count 4.65 M/mcL (4.19-5.50); Red Cell Distribution Width 15.9 % (11.5-14.5); Segmented Neutrophils % 70.7 %; Sodium 140 mEq/L (136-145); Total Protein 5.7 g/dL (6.4-8.9); eGFR For African Americans > 60 (> 60); eGFR For Non-African Americans 53 (> 60)
[2017-12-13] MEDS: *HR* Enoxaparin 40 MG/0.4 ML SYRINGE SQ SCH (06:10)
--- NOTE | 2017-12-13 07:19 | Internal Med Progress Note ---
<Spencer Barth - Last Filed: 12/13/17 07:27> Date of Encounter: 12/13/17 Time of Encounter: 07:18 - Assessment and plan (1) Elevated liver enzymes Current Visit: Yes Status: Acute Assessment and plan: Initially mild elevated, however now acutely worsened Abdominal CT demonstrated pericholecystic fluid and concern for cholecystitis Hida scan was negative for acute process, concern for chronic cholecystitis Surgery was consulted and initially signed off AST 2212 ALT >500 today No obvious shock, net positive fluid balance We will hold acetaminophen Consult to GI, appreciate recommendations Update 12/13 Improved overnight, AST 217 ALT >500 Send out for more specific ALT has been ordered and is pending Patient has been taking Lactulose which has caused multiple Bowel movements We will continue to monitor the patient's LFTs and symptoms MRCP per GI, multiple lab tests pending No evidence for acute cholecystitis, cholelithiasis or biliary dilatation. Mild apparent gallbladder wall thickening may be related to underlying liver disease. Consider transfer if the patient worsens, however seems to be improving overall (2) Hepatic encephalopathy Current Visit: Yes Status: Suspected Assessment and plan: Encephalopathy, likely secondary to hepatic failure + uremia The patient's Ammonia increased in response to acute hepatic failure He did admit to visual disturbances which are likely related to high ammonia and uremia, however they have improved Lactulose has been helpful in dropping the serum ammonia, patient is less symptomatic We will continue lactulose, monitor mental status (3) Acute renal failure superimposed on stage 3 chronic kidney disease Current Visit: Yes Status: Acute Assessment and plan: LAILA on CKD Stage 3, improved Patient's Serum Cr is 1.33 this morning Retroperitoneal US shows evidence of medical renal disease Nephrology will continue to follow Qualifiers: Acute renal failure type: unspecified Qualified Code(s): N17.9 - Acute kidney failure, unspecified; N18.3 - Chronic kidney disease, stage 3 (moderate) (4) Pneumonia Current Visit: Yes Status: Acute Assessment and plan: Suspected Left multilobar pneumonia Fits clinical picture, including SOB and intermittent fevers Patient appears to be hemodynamically stable at this time Zosyn Day 7 and Levaquin Day 6 at this time Stop Zosyn following today's dose. Stop Levaquin tomorrow Qualifiers: Pneumonia type: due to Pneumococcus Laterality: left Lung location: upper lobe of lung Qualified Code(s): J13 - Pneumonia due to Streptococcus pneumoniae (5) Hypertension Current Visit: No Status: Chronic Assessment and plan: Has remained in good control until this point There has been a mild increase in BP in last 12 hours I will add Amlodipine 5mg today, consider increasing as needed Qualifiers: Hypertension type: essential hypertension Qualified Code(s): I10 - Essential (primary) hypertension (6) Heart failure Current Visit: Yes Status: Acute Assessment and plan: History of chronic diastolic heart failure with preserved ejection fraction On admission, BNP elevated to 682 Echocardiogram showed an ejection fraction of 45-50% with mild concentric left ventricular hypertrophy, moderate pulmonary hypertension Per cardiology, the patient will very likely require LHC due to significant cardiac disease, however he is not currently stable for LHC Continue to hold lasix d/t laila, fluid restrict Continue metoprolol per cardiology Qualifiers: Heart failure type: diastolic Heart failure chronicity: acute Qualified Code(s): I50.31 - Acute diastolic (congestive) heart failure (7) Atrial fibrillation with RVR Current Visit: Yes Status: Chronic Assessment and plan: A fib with RVR likely secondary to HCAP present upon admission , with B/L pleural effusions with acute systolic/diastolic CHF exacerbation Zosyn day #7, Levaquin day #6 Cardizem and Sotalol were discontinued by cardiology. Toprol added Per cardiology Hold IV lasix for now, however renal function has improved and he may be able to restart it as needed Continuous cardiac telemetry (8) Pleural effusion Current Visit: Yes Status: Acute Assessment and plan: B/l pleural effusion, R>L Likely secondary to worsening cardiac function Consider thoracentesis if necessary (9) Lactic acidosis Current Visit: Yes Status: Resolved Assessment and plan: Acute lactic acidosis w/2.6 on admission, resolved (10) Nausea and vomiting Current Visit: Yes Status: Acute Assessment and plan: Acute intermittent nausea and vomiting over the past 2-3 months. The patient does state that it seems to be associated with fevers IVP Zofran 4 mg Q6HR PRN. Qualifiers: Vomiting type: unspecified Vomiting Intractability: non-intractable Qualified Code(s): R11.2 - Nausea with vomiting, unspecified (11) Fever Current Visit: Yes Status: Resolved Assessment and plan: Acute fever over the past several months that is intermittent. Suspect related to pneumonia Continue antibiotics Afebrile at this time Qualifiers: Fever type: unspecified Qualified Code(s): R50.9 - Fever, unspecified (12) Hypocalcemia Current Visit: Yes Status: Acute Assessment and plan: Low ionized calcium Start 2g Calcium carbonate daily - Time Spent With Patient Total time spent is greater than 50% in coordination of care (as documented) at patient's floor/unit and/or counseling patient: - Subjective Interval history: The patient is seen and examined at bedside. He continues to have loose stools , but is otherwise doing well. He does appear to have more energy than he did previously. - Constitutional Vitals: Temp Pulse Resp BP Pulse Ox 97.7 F 86 18 153/108 95 12/13/17 03:57 12/13/17 03:57 12/13/17 03:57 12/13/17 03:57 12/13/17 03:57 General appearance: Present: cooperative, A&O X 3, pleasant, no acute distress, answers questions appropriately Internal Medicine: Result - Labs CBC & Chem 7: 12/13/17 01:36 12/13/17 01:36 Labs: Short CBC 12/13/17 Range/Units 01:36 WBC 8.6 (4.3-11.1) K/mcL Hgb 14.7 (12.9-16.9) g/dL Hct 45.0 (37.5-50.1) % Plt Count 142 (140-400) K/mcL Neutrophils # 6.1 (1.6-8.9) K/mcL BMP 12/13/17 01:36 Sodium 140 Potassium 3.5 Chloride 109 H Carbon Dioxide 22 L BUN 22 Creatinine 1.33 H Glucose 116 H Calcium 9.0 Liver Function 12/13/17 Range/Units 01:36 Total Bilirubin 2.2 H (0.3-1.0) mg/dL AST 217 H (13-39) Units/L ALT > 500 H (7-52) Units/L Alkaline Phosphatase 69 (34-104) Units/L Albumin 3.2 L (3.5-5.7) g/dL - ABG Interpretation ABG results: ABG ABG pH 7.39 pH Units (7.32-7.45) 12/08/17 23:32 ABG pCO2 20 mmHg (35-45) L* 12/08/17 23:32 ABG pO2 74 mmHg (85-104) L 12/08/17 23:32 ABG O2 Saturation 95 % (95-98) 12/08/17 23:32 PT/INR, D-dimer PT 22.8 Seconds (9.4-12.1) H 12/10/17 12:22 - VTE Documentation of Mechanical Device: Intermittent pneumatic compression device Consult Discharge Plan - Plan Referrals: Evan Gutierrez CNP [Advanced Practice Nurse] - (OFFICE WILL CALL PATIENT AT HOME WITH FOLLOW UP APPOINTMENT) Adrian Jones DO [Resident] - 12/17/17 10:15 am <Alvino Edwards - Last Filed: 12/13/17 09:36> Date of Encounter: 12/13/17 - Assessment and plan (1) Pneumonia Current Visit: Yes Status: Acute Qualifiers: Pneumonia type: due to Pneumococcus Laterality: left Lung location: upper lobe of lung Qualified Code(s): J13 - Pneumonia due to Streptococcus pneumoniae (2) Hypertension Current Visit: No Status: Chronic Qualifiers: Hypertension type: essential hypertension Qualified Code(s): I10 - Essential (primary) hypertension (3) Heart failure Current Visit: Yes Status: Acute Qualifiers: Heart failure type: diastolic Heart failure chronicity: acute Qualified Code(s): I50.31 - Acute diastolic (congestive) heart failure (4) Atrial fibrillation with RVR Current Visit: Yes Status: Chronic (5) Pleural effusion Current Visit: Yes Status: Acute (6) Lactic acidosis Current Visit: Yes Status: Resolved (7) Nausea and vomiting Current Visit: Yes Status: Acute Qualifiers: Vomiting type: unspecified Vomiting Intractability: non-intractable Qualified Code(s): R11.2 - Nausea with vomiting, unspecified (8) Fever Current Visit: Yes Status: Resolved Qualifiers: Fever type: unspecified Qualified Code(s): R50.9 - Fever, unspecified (9) Acute renal failure superimposed on stage 3 chronic kidney disease Current Visit: Yes Status: Acute Qualifiers: Acute renal failure type: unspecified Qualified Code(s): N17.9 - Acute kidney failure, unspecified; N18.3 - Chronic kidney disease, stage 3 (moderate) (10) Elevated liver enzymes Current Visit: Yes Status: Acute (11) Hepatic encephalopathy Current Visit: Yes Status: Suspected (12) Hypocalcemia Current Visit: Yes Status: Acute - Time Spent With Patient Total time spent is greater than 50% in coordination of care (as documented) at patient's floor/unit and/or counseling patient: - Constitutional Vitals: Temp Pulse Resp BP Pulse Ox 97.8 F 85 18 162/111 97 12/13/17 07:42 12/13/17 07:42 12/13/17 07:42 12/13/17 07:42 12/13/17 07:42 Internal Medicine: Result - Labs CBC & Chem 7: 12/13/17 01:36 12/13/17 01:36 Labs: Short CBC 12/13/17 Range/Units 01:36 WBC 8.6 (4.3-11.1) K/mcL Hgb 14.7 (12.9-16.9) g/dL Hct 45.0 (37.5-50.1) % Plt Count 142 (140-400) K/mcL Neutrophils # 6.1 (1.6-8.9) K/mcL BMP 12/13/17 01:36 Sodium 140 Potassium 3.5 Chloride 109 H Carbon Dioxide 22 L BUN 22 Creatinine 1.33 H Glucose 116 H Calcium 9.0 Liver Function 12/13/17 Range/Units 01:36 Total Bilirubin 2.2 H (0.3-1.0) mg/dL AST 217 H (13-39) Units/L ALT > 500 H (7-52) Units/L Alkaline Phosphatase 69 (34-104) Units/L Albumin 3.2 L (3.5-5.7) g/dL - ABG Interpretation ABG results: ABG ABG pH 7.39 pH Units (7.32-7.45) 12/08/17 23:32 ABG pCO2 20 mmHg (35-45) L* 12/08/17 23:32 ABG pO2 74 mmHg (85-104) L 12/08/17 23:32 ABG O2 Saturation 95 % (95-98) 12/08/17 23:32 PT/INR, D-dimer PT 22.8 Seconds (9.4-12.1) H 12/10/17 12:22 - Attending Attestation Gen: Vitals noted. Appears to have more energy than prior HEENT: Normocephalic, atraumatic Neck: Supple. No adenopathy. Cardiac: Rapid/irregular, 3/6 systolic murmur, +S1/S2 Pulmonary: bibasilar crackles, R > L Abdomen: soft, nontender, no guarding Back: Nontender throughout. MSK: ROM intact, no joint swelling noted Extremities: 1-2+ B/L LE Edema, nontender calf, no cyanosis or clubbing Neuro: moves all extremities, no focal deficits Psych: Appropriate mood and behavior. The patient states that visual hallucinations have resolved A fib with RVR likely secondary to HCAP present upon admission , with B/L pleural effusions with acute systolic/diastolic CHF exacerbation Zosyn day #7 , Levaquin day #6 cardizem drip discontinued stable on cardizem 120 mg and sotalol (have not received both since 12/11/17) Consider resuming cardizem if Ok with Cardiology lasix per Nephrology Transaminitis, unknown etiology , improving consider infectious etiologies, lab work pending cardiology consult due to worsening ejection fraction down to 45% Continuous cardiac telemetry, Cardiology may perform cardiac cath once renal fuction improves acute on chronic renal failure, Hx of CKD Hyperammonemia, possible liver insufficiency, hepatic encephalopathy lactulose I examined this patient and my medical decision-making was reviewed with the Resident Physician. I agree with the documented findings, disposition and treatment plan as described except to the extent set forth below.
[2017-12-13] MEDS: Lactulose Oral Soln 20 GM/30 ML UDC PO SCH ×2 (07:46→21:17)
[2017-12-13] MEDS: Metoprolol XL (24 HR) Succ 25 MG TAB.ER.24H PO SCH (07:46)
[2017-12-13] MEDS: amLODIPine 5 MG TABLET PO SCH (07:46)
[2017-12-13] MEDS: Furosemide 20 MG/2 ML VIAL IVP SCH (07:46)
[2017-12-13] MEDS: Ascorbic Acid 500 MG TABLET PO SCH (07:46)
[2017-12-13] MEDS: Aspirin 325 MG TABLET PO SCH (07:46)
[2017-12-13] MEDS: Nicotine 21 MG PATCH.TD24 TD SCH (07:47)
[2017-12-13 09:14] LABS: AFP Tumor Marker Non-Pregnant 8 ng/mL (0-9)
[2017-12-13 10:01] LABS: ANA IgG by ELISA DETECTED (None Detected); F-Actin (sm muscle) Ab IgG 10 Units (0-19); Myeloperoxidase Ab 0 AU/mL (0-19); Serine Protease-3 Antibody 2 AU/mL (0-19)
[2017-12-13 10:02] LABS: Complement Component 3 55 mg/dL (88-201)
[2017-12-13 10:11] LABS: Complement Component 4 12 mg/dL (10-40)
[2017-12-13 10:18] LABS: Myeloperoxidase Ab 0 AU/mL (0-19)
[2017-12-13 10:19] LABS: Serine Protease-3 Antibody 0 AU/mL (0-19)
[2017-12-13] MEDS ORDERED: Furosemide 20 MG/2 ML VIAL IVP SCH (10:19)
[2017-12-13 18:52] LABS: Alpha 2 Globulin (PEP) 0.65 g/dL (0.48-1.05); Beta Globulin (PEP) 0.63 g/dL (0.48-1.10)
[2017-12-13] MEDS: *HR* LORazepam 0.5 MG TABLET PO PRN (21:17)
--- NOTE | 2017-12-13 22:48 | Nephrology Progress Note ---
Date of Encounter: 12/13/17 Time of Encounter: 11:05 - Assessment and Plan (1) Acute renal failure superimposed on stage 3 chronic kidney disease Current Visit: Yes Status: Acute Patient with multifactorial LAILA on CKD that is improving. Tolerating furosemide. No need for dialysis or a renal biopsy at this time. Avoid nephrotoxins and adjust medications for renal function. Qualifiers: Acute renal failure type: unspecified Qualified Code(s): N17.9 - Acute kidney failure, unspecified; N18.3 - Chronic kidney disease, stage 3 (moderate) (2) Elevated liver enzymes Current Visit: Yes Status: Acute Per GI. AST improving. Awaiting improvement in ALT. (3) Pneumonia Current Visit: Yes Status: Acute Per primary team. Continue antibiotics. Patient still with dyspnea of unclear etiology. ?Anginal equivalent. Cardiology evaluated. Unable to evaluate secondary to persistent elevation of LFTs. Qualifiers: Pneumonia type: due to Pneumococcus Laterality: left Lung location: upper lobe of lung Qualified Code(s): J13 - Pneumonia due to Streptococcus pneumoniae (4) HTN (hypertension) Current Visit: Yes Status: Chronic Blood pressure was controlled, but slightly increased. Primary team added amlodipine. Monitor. Qualifiers: Hypertension type: essential hypertension Qualified Code(s): I10 - Essential (primary) hypertension (5) Shortness of breath Current Visit: No Status: Acute (6) Cardiomyopathy Current Visit: Yes Status: Acute Per cardiology. Qualifiers: Cardiomyopathy type: unspecified Qualified Code(s): I42.9 - Cardiomyopathy , unspecified (7) Atrial fibrillation Current Visit: Yes Status: Acute Qualifiers: Atrial fibrillation type: paroxysmal Qualified Code(s): I48.0 - Paroxysmal atrial fibrillation Subjective Principal diagnosis: cardiomyopathy Interval history: He states that his dyspnea overall is slightly better. He still has dyspnea whenever he lies flat. No other complaints. He is concerned about his breathing not improving. Objective - Vital Signs Vital signs: Vital Signs Temp Pulse Resp BP Pulse Ox 12/13/17 19:31 97.9 F 87 18 127/96 98 12/13/17 15:27 97.9 F 89 18 129/91 99 12/13/17 11:35 97.6 F 85 18 149/113 97 12/13/17 07:42 97.8 F 85 18 162/111 97 12/13/17 03:57 97.7 F 86 18 153/108 95 12/12/17 23:39 97.8 F 86 18 144/103 96 Intake and Output 12/13/17 12/13/17 12/13/17 07:59 15:59 23:59 Intake Total 100 / 100 580 / 580 120 / 120 Balance 100 / 100 580 / 580 120 / 120 Intake: IV Fluids 100 / 100 100 / 100 Zosyn 3.375 GM In 0.9 % Sodium 100 / 100 100 / 100 Chloride (Mini-Bag +) 100 ML @ 25 mls/hr IVPB Q8H [facility] Rx#: [id number] Oral 480 / 480 120 / 120 Other: Meal Lunch Dinner Percent of Meal Consumed 85% 60% Weight 95.1 kg Patient Weight 12/13/17 23:59 Weight 95.1 kg - General Appearance General appearance: Present: well-developed, well-nourished EENT: Present: ATNC Cardiology: Present: edema, regular rate Integumentary: Present: warm and dry Neurologic: Present: alert and oriented x3 Musculoskeletal: Present: no cyanosis Psychiatric: Present: mood/affect appropriate - Lab 12/13/17 01:36 12/13/17 01:36 Most recent lab results ABG pH 7.39 pH Units (7.32-7.45) 12/08/17 23:32 ABG pCO2 20 mmHg (35-45) L* 12/08/17 23:32 ABG pO2 74 mmHg (85-104) L 12/08/17 23:32 ABG HCO3 12 mEq/L (21-27) L 12/08/17 23:32 ABG O2 Saturation 95 % (95-98) 12/08/17 23:32 Calcium 9.0 mg/dL (8.6-10.3) 12/13/17 01:36 Phosphorus 3.7 mg/dL (2.7-4.5) 12/10/17 12:09 Magnesium 2.2 mg/dL (1.6-2.6) 12/10/17 12:09 Urine Creatinine 139 mg/dL 12/10/17 22:23 Urine Sodium 19.0 mEq/L 12/10/17 22:23 Urine Total Protein 37 mg/dL (1-14) H 12/10/17 22:23 - VTE Documentation of Mechanical Device: Intermittent pneumatic compression device Consult Discharge Plan - Plan Referrals: Evan Gutierrez, GONZALO [Advanced Practice Nurse] - (OFFICE WILL CALL PATIENT AT HOME WITH FOLLOW UP APPOINTMENT SENT WEB REQUEST ON 12-13-17 @3114) Adrian Jones DO [Resident] - 12/17/17 10:15 am
[2017-12-14] MEDS: Piperacillin/Tazobactam 3.375 GM in 0.9 % Sodium Chloride Mini Bag 100 ML IVPB SCH (03:34)
[2017-12-14] MEDS: Levalbuterol Neb 1.25 MG/3 ML IH PRN ×2 (03:45→10:19)
[2017-12-14 04:52] LABS: Basophils # 0.1 K/mcL (0.0-0.2); Eosinophils # 0.2 K/mcL (0.0-0.6); Eosinophils % 1.9 %; Hematocrit 45.4 % (37.5-50.1); Hemoglobin 15.1 g/dL (12.9-16.9); Immature Granulocytes % 0.4 % (0-4); Lymphocytes # 1.6 K/mcL (0.6-4.6); Lymphocytes % 18.8 %; Mean Corpuscular HGB Conc 33.3 g/dL (31.6-35.5); Mean Corpuscular Hemoglobin 32.4 pg (28.0-33.3); Mean Corpuscular Volume 97.4 fL (83.0-100.0); Mean Platelet Volume 11.5 fL (9.4-12.4); Monocytes # 1.1 K/mcL (0.0-1.3); Monocytes % 12.8 %; Neutrophils # 5.4 K/mcL (1.6-8.9); Platelet Count 146 K/mcL (140-400); Red Blood Count 4.66 M/mcL (4.19-5.50); Red Cell Distribution Width 15.8 % (11.5-14.5); Segmented Neutrophils % 65.1 %
[2017-12-14 05:12] LABS: Alanine Aminotransferase 465 Units/L (7-52); Albumin 3.2 g/dL (3.5-5.7); Albumin/Globulin Ratio 1.2 (1.1-2.2); Alkaline Phosphatase 73 Units/L (34-104); Aspartate Amino Transferase 130 Units/L (13-39); BUN/Creatinine Ratio 18 (6-26); Bilirubin,Total 2.4 mg/dL (0.3-1.0); Blood Urea Nitrogen 21 mg/dL (8-23); Calcium 9.2 mg/dL (8.6-10.3); Carbon Dioxide 25 mEq/L (23-29); Chloride 108 mEq/L (98-107); Globulin 2.7 g/dL (2.4-3.5); Glucose 99 mg/dL (70-105); Osmolality,Calculated 293 (280-300); Potassium 3.7 mEq/L (3.5-5.1); Sodium 140 mEq/L (136-145); Total Protein 5.9 g/dL (6.4-8.9); eGFR For African Americans > 60 (> 60); eGFR For Non-African Americans > 60 (> 60)
[2017-12-14 06:12] LABS: VBG Ionized Calcium 1.17 mmol/L (1.15-1.35)
[2017-12-14 06:25] LABS: IFE Reflexed NOT DONE
[2017-12-14 06:27] LABS: ANA IgG IFA Titer <1:80 (<1:80)
[2017-12-14 06:28] LABS: ANA IgG by ELISA NONE DETECTED (None Detected)
[2017-12-14] MEDS: Nicotine 21 MG PATCH.TD24 TD SCH (08:29)
[2017-12-14] MEDS: Aspirin 325 MG TABLET PO SCH (08:30)
[2017-12-14] MEDS: Ascorbic Acid 500 MG TABLET PO SCH (08:30)
[2017-12-14] MEDS: *HR* Enoxaparin 40 MG/0.4 ML SYRINGE SQ SCH (08:30)
[2017-12-14] MEDS: Lactulose Oral Soln 20 GM/30 ML UDC PO SCH ×2 (08:30→21:36)
[2017-12-14] MEDS: Metoprolol XL (24 HR) Succ 25 MG TAB.ER.24H PO SCH (08:30)
[2017-12-14] MEDS: amLODIPine 5 MG TABLET PO SCH (08:30)
--- NOTE | 2017-12-14 09:04 | Internal Med Progress Note ---
<Spencer Barth - Last Filed: 12/14/17 11:27> Date of Encounter: 12/14/17 Time of Encounter: 09:01 - Assessment and plan (1) Elevated liver enzymes Current Visit: Yes Status: Acute Assessment and plan: Initially mild elevated, however now acutely worsened Abdominal CT demonstrated pericholecystic fluid and concern for cholecystitis Hida scan was negative for acute process, concern for chronic cholecystitis Surgery was consulted and initially signed off AST 2212 ALT >500 today No obvious shock, net positive fluid balance We will hold acetaminophen Consult to GI, appreciate recommendations Update 12/13 Improved overnight, AST 217 ALT 465 ALT has dropped below 500, now at a measurable level Patient has been taking Lactulose which has caused multiple Bowel movements We will continue to monitor the patient's LFTs and symptoms MRCP per GI, multiple lab tests pending No evidence for acute cholecystitis, cholelithiasis or biliary dilatation. Mild apparent gallbladder wall thickening may be related to underlying liver disease. Appreciate GI recommendations (2) Hepatic encephalopathy Current Visit: Yes Status: Suspected Assessment and plan: Encephalopathy, likely secondary to hepatic failure + uremia The patient's Ammonia increased in response to acute hepatic failure, but is responding to treatment He did admit to visual disturbances which are likely related to high ammonia and uremia, however they have resolved Lactulose has been helpful in dropping the serum ammonia, patient is less symptomatic We will continue lactulose, monitor mental status (3) Acute renal failure superimposed on stage 3 chronic kidney disease Current Visit: Yes Status: Acute Assessment and plan: LAILA on CKD Stage 3, improved Patient's Serum Cr is 1.15 this morning Retroperitoneal US shows evidence of medical renal disease Nephrology will continue to follow Qualifiers: Acute renal failure type: unspecified Qualified Code(s): N17.9 - Acute kidney failure, unspecified; N18.3 - Chronic kidney disease, stage 3 (moderate) (4) Pneumonia Current Visit: Yes Status: Acute Assessment and plan: Suspected Left multilobar pneumonia Fits clinical picture, including SOB and intermittent fevers Patient appears to be hemodynamically stable at this time Stop Zosyn, continue Levaquin Day 7 at this time Stop Levaquin tomorrow Qualifiers: Pneumonia type: due to Pneumococcus Laterality: left Lung location: upper lobe of lung Qualified Code(s): J13 - Pneumonia due to Streptococcus pneumoniae (5) Hypertension Current Visit: No Status: Chronic Assessment and plan: Has remained in good control until this point There has been a mild increase in BP in last 12 hours Continue Amlodipine, consider increasing dose Qualifiers: Hypertension type: essential hypertension Qualified Code(s): I10 - Essential (primary) hypertension (6) Heart failure Current Visit: Yes Status: Acute Assessment and plan: History of chronic diastolic heart failure with preserved ejection fraction On admission, BNP elevated to 682 Echocardiogram showed an ejection fraction of 45-50% with mild concentric left ventricular hypertrophy, moderate pulmonary hypertension Per cardiology, the patient will very likely require LHC due to significant cardiac disease, however he is not currently stable for LHC Per nephrology, lasix daily for 5 days is appropriate Continue metoprolol per cardiology Qualifiers: Heart failure type: diastolic Heart failure chronicity: acute Qualified Code(s): I50.31 - Acute diastolic (congestive) heart failure (7) Atrial fibrillation with RVR Current Visit: Yes Status: Chronic Assessment and plan: A fib with RVR likely secondary to HCAP present upon admission , with B/L pleural effusions with acute systolic/diastolic CHF exacerbation Cardizem and Sotalol were discontinued by cardiology. Toprol added Per cardiology Hold IV lasix for now, however renal function has improved and he may be able to restart it as needed Continuous cardiac telemetry (8) Pleural effusion Current Visit: Yes Status: Acute Assessment and plan: B/l pleural effusion, R>L Likely secondary to worsening cardiac function Consider thoracentesis if necessary (9) Nausea and vomiting Current Visit: Yes Status: Acute Assessment and plan: Acute intermittent nausea and vomiting over the past 2-3 months. The patient does state that it seems to be associated with fevers IVP Zofran 4 mg Q6HR PRN. Qualifiers: Vomiting type: unspecified Vomiting Intractability: non-intractable Qualified Code(s): R11.2 - Nausea with vomiting, unspecified (10) Fever Current Visit: Yes Status: Resolved Assessment and plan: Acute fever over the past several months that is intermittent. Suspect related to pneumonia Continue antibiotics Afebrile at this time Qualifiers: Fever type: unspecified Qualified Code(s): R50.9 - Fever, unspecified (11) Hypocalcemia Current Visit: Yes Status: Acute - Time Spent With Patient Total time spent is greater than 50% in coordination of care (as documented) at patient's floor/unit and/or counseling patient: - Subjective Interval history: The patient is seen and examined at bedside. He is feeling better, no acute problems over night. Says that his visual hallucinations have resolved, and he is generally more energetic than he was previously. He does say that he's still having shortness of breath but that it's improving from prior. - Constitutional Vitals: Temp Pulse Resp BP Pulse Ox 98.4 F 95 18 153/114 99 12/14/17 07:57 12/14/17 08:45 12/14/17 08:45 12/14/17 07:57 12/14/17 08:45 General appearance: Present: cooperative, A&O X 3, pleasant, no acute distress, answers questions appropriately Exam: Gen: Vitals noted. Appears to have more energy than prior HEENT: Normocephalic, atraumatic Neck: Supple. No adenopathy. Cardiac: Rapid/irregular, 3/6 systolic murmur, +S1/S2 Pulmonary: CTAB Abdomen: soft, nontender, no guarding Back: Nontender throughout. MSK: ROM intact, no joint swelling noted Extremities: 2+ B/L LE Edema, nontender calf, no cyanosis or clubbing Neuro: moves all extremities, no focal deficits Psych: Appropriate mood and behavior. Internal Medicine: Result - Labs CBC & Chem 7: 12/14/17 03:45 12/14/17 03:45 Labs: Short CBC 12/14/17 Range/Units 03:45 WBC 8.2 (4.3-11.1) K/mcL Hgb 15.1 (12.9-16.9) g/dL Hct 45.4 (37.5-50.1) % Plt Count 146 (140-400) K/mcL Neutrophils # 5.4 (1.6-8.9) K/mcL BMP 12/14/17 03:45 Sodium 140 Potassium 3.7 Chloride 108 H Carbon Dioxide 25 BUN 21 Creatinine 1.15 Glucose 99 Calcium 9.2 Liver Function 12/14/17 Range/Units 03:45 Total Bilirubin 2.4 H (0.3-1.0) mg/dL AST 130 H (13-39) Units/L ALT 465 H (7-52) Units/L Alkaline Phosphatase 73 (34-104) Units/L Albumin 3.2 L (3.5-5.7) g/dL - ABG Interpretation ABG results: ABG ABG pH 7.39 pH Units (7.32-7.45) 12/08/17 23:32 ABG pCO2 20 mmHg (35-45) L* 12/08/17 23:32 ABG pO2 74 mmHg (85-104) L 12/08/17 23:32 ABG O2 Saturation 95 % (95-98) 12/08/17 23:32 PT/INR, D-dimer PT 22.8 Seconds (9.4-12.1) H 12/10/17 12:22 - VTE Documentation of Mechanical Device: Intermittent pneumatic compression device Consult Discharge Plan - Plan Referrals: Evan Gutierrez, EXPLOSIVES ENGINEER [Advanced Practice Nurse] - (OFFICE WILL CALL PATIENT AT HOME WITH FOLLOW UP APPOINTMENT SENT WEB REQUEST ON 12-13-17 @[phone]) Adrian Jones DO [Resident] - 12/17/17 10:15 am <Matheus Duron - Last Filed: 12/14/17 19:21> Date of Encounter: 12/14/17 - Assessment and plan (1) Pneumonia Current Visit: Yes Status: Acute Qualifiers: Pneumonia type: due to Pneumococcus Laterality: left Lung location: upper lobe of lung Qualified Code(s): J13 - Pneumonia due to Streptococcus pneumoniae (2) Hypertension Current Visit: No Status: Chronic Qualifiers: Hypertension type: essential hypertension Qualified Code(s): I10 - Essential (primary) hypertension (3) Heart failure Current Visit: Yes Status: Acute Qualifiers: Heart failure type: diastolic Heart failure chronicity: acute Qualified Code(s): I50.31 - Acute diastolic (congestive) heart failure (4) Atrial fibrillation with RVR Current Visit: Yes Status: Chronic (5) Pleural effusion Current Visit: Yes Status: Acute (6) Nausea and vomiting Current Visit: Yes Status: Acute Qualifiers: Vomiting type: unspecified Vomiting Intractability: non-intractable Qualified Code(s): R11.2 - Nausea with vomiting, unspecified (7) Fever Current Visit: Yes Status: Resolved Qualifiers: Fever type: unspecified Qualified Code(s): R50.9 - Fever, unspecified (8) Acute renal failure superimposed on stage 3 chronic kidney disease Current Visit: Yes Status: Acute Qualifiers: Acute renal failure type: unspecified Qualified Code(s): N17.9 - Acute kidney failure, unspecified; N18.3 - Chronic kidney disease, stage 3 (moderate) (9) Elevated liver enzymes Current Visit: Yes Status: Acute (10) Hepatic encephalopathy Current Visit: Yes Status: Suspected (11) Hypocalcemia Current Visit: Yes Status: Acute (12) Atrial fibrillation Current Visit: Yes Status: Acute Qualifiers: Atrial fibrillation type: persistent Qualified Code(s): I48.1 - Persistent atrial fibrillation (13) CAD (coronary artery disease) Current Visit: Yes Status: Chronic Qualifiers: Coronary Disease-Associated Artery/Lesion type: [place] artery [place] vs. transplanted heart: nikolai heart Associated angina: without angina Qualified Code(s): I25.10 - Atherosclerotic heart disease of nikolai coronary artery without angina pectoris (14) Tobacco abuse Current Visit: Yes Status: Chronic - Time Spent With Patient Total time spent is greater than 50% in coordination of care (as documented) at patient's floor/unit and/or counseling patient: - Constitutional Vitals: Temp Pulse Resp BP Pulse Ox 98.1 F 125 18 103/88 95 12/14/17 19:00 12/14/17 19:00 12/14/17 19:00 12/14/17 19:00 12/14/17 19:00 Internal Medicine: Result - Labs CBC & Chem 7: 12/14/17 03:45 12/14/17 03:45 Labs: Short CBC 12/14/17 Range/Units 03:45 WBC 8.2 (4.3-11.1) K/mcL Hgb 15.1 (12.9-16.9) g/dL Hct 45.4 (37.5-50.1) % Plt Count 146 (140-400) K/mcL Neutrophils # 5.4 (1.6-8.9) K/mcL BMP 12/14/17 03:45 Sodium 140 Potassium 3.7 Chloride 108 H Carbon Dioxide 25 BUN 21 Creatinine 1.15 Glucose 99 Calcium 9.2 Cardiac Enzymes 12/14/17 Range/Units 11:58 Troponin I < 0.03 (< 0.04) ng/mL Liver Function 12/14/17 Range/Units 03:45 Total Bilirubin 2.4 H (0.3-1.0) mg/dL AST 130 H (13-39) Units/L ALT 465 H (7-52) Units/L Alkaline Phosphatase 73 (34-104) Units/L Albumin 3.2 L (3.5-5.7) g/dL - ABG Interpretation ABG results: ABG ABG pH 7.39 pH Units (7.32-7.45) 12/08/17 23:32 ABG pCO2 20 mmHg (35-45) L* 12/08/17 23:32 ABG pO2 74 mmHg (85-104) L 12/08/17 23:32 ABG O2 Saturation 95 % (95-98) 12/08/17 23:32 PT/INR, D-dimer PT 22.8 Seconds (9.4-12.1) H 12/10/17 12:22 - Attending Attestation I examined this patient and my medical decision-making was reviewed with the Resident Physician on 12/14/17. I agree with the documented findings, disposition and treatment plan as described except to the extent set forth below. Mr Bowen is currently admitted for acute hepatic failure with encephalopathy. He remains moderate to high risk due to potential for worsening clinical status. Mr Bowen is in rapid a fib again. He had been switched to PO meds today. No fever or chills. Denies CP or SOB. Exam alert. Comfortable at this time Mucus membranes dry Heart irreg and tachy No wheeze abd soft I/P 1. Hepatic failure 2. Encephalopathy 3. A fib - will try IV amio as BP too low for IV cardizem Further diagnoses and plan as above.
[2017-12-14 09:50] LABS: Anaplasma phagocytophilum IgG <1:80 (<1:80); Anaplasma phagocytophilum IgM < 1:16 (< 1:16)
--- NOTE | 2017-12-14 10:40 | Nephrology Progress Note ---
Date of Encounter: 12/14/17 Time of Encounter: 10:38 - Assessment and Plan (1) Acute renal failure superimposed on stage 3 chronic kidney disease Current Visit: Yes Status: Acute Patient with multifactorial LAILA on CKD that is improving. Tolerating furosemide. No need for dialysis or a renal biopsy at this time. Avoid nephrotoxins and adjust medications for renal function. Patient's eGFR is greater than 60. I will sign off at this time. Feel free to reconsult if you have any concerns or questions. Qualifiers: Acute renal failure type: unspecified Qualified Code(s): N17.9 - Acute kidney failure, unspecified; N18.3 - Chronic kidney disease, stage 3 (moderate) (2) Elevated liver enzymes Current Visit: Yes Status: Acute Per GI. AST and ALT improving. (3) Pneumonia Current Visit: Yes Status: Acute Per primary team. Continue antibiotics. Patient still with dyspnea of unclear etiology. ?Anginal equivalent vs CHF. Cardiology evaluated. Unable to evaluate secondary to persistent elevation of LFTs. Patient also has anxiety that could contribute. Will increase diuresis. Qualifiers: Pneumonia type: due to Pneumococcus Laterality: left Lung location: upper lobe of lung Qualified Code(s): J13 - Pneumonia due to Streptococcus pneumoniae (4) HTN (hypertension) Current Visit: Yes Status: Chronic Blood pressure was controlled, but not ideal. Primary team added amlodipine. Will increase diuretic. Monitor. Qualifiers: Hypertension type: essential hypertension Qualified Code(s): I10 - Essential (primary) hypertension (5) Shortness of breath Current Visit: No Status: Acute (6) Cardiomyopathy Current Visit: Yes Status: Acute Per cardiology. Patient with dyspnea from CHF versus pneumonia. He has a decreased ejection fraction. Consider reconsulting cardiology. Qualifiers: Cardiomyopathy type: unspecified Qualified Code(s): I42.9 - Cardiomyopathy , unspecified (7) Atrial fibrillation Current Visit: Yes Status: Acute Rate is controlled. Qualifiers: Atrial fibrillation type: paroxysmal Qualified Code(s): I48.0 - Paroxysmal atrial fibrillation Subjective Principal diagnosis: cardiomyopathy Interval history: He states that his dyspnea overall is slightly better. He still has dyspnea whenever he lies flat. No other complaints. He is concerned about his breathing not being back to normal.. Objective - Vital Signs Vital signs: Vital Signs Temp Pulse Resp BP Pulse Ox 12/14/17 10:19 14 97 12/14/17 10:11 88 20 12/14/17 08:58 97 12/14/17 08:45 95 18 99 12/14/17 07:57 98.4 F 89 16 153/114 98 12/14/17 04:03 97.8 F 88 16 149/108 96 12/14/17 03:46 19 96 12/13/17 23:46 98.3 F 87 18 139/110 98 12/13/17 19:31 97.9 F 87 18 127/96 98 12/13/17 15:27 97.9 F 89 18 129/91 99 12/13/17 11:35 97.6 F 85 18 149/113 97 Intake and Output 12/13/17 12/14/17 12/14/17 23:59 07:59 15:59 Intake Total 220 / 220 Output Total 200 / 200 Balance 20 / 20 Intake: IV Fluids 100 / 100 Zosyn 3.375 GM In 0.9 % Sodium 100 / 100 Chloride (Mini-Bag +) 100 ML @ 25 mls/hr IVPB Q8H [facility] Rx#: [id number] Oral 120 / 120 Output: Urine 200 / 200 Other: Meal Dinner Percent of Meal Consumed 60% Stool Size Small Stool Consistency liquid # Voids 1 Weight 92.7 kg Patient Weight 12/14/17 23:59 Weight 92.7 kg - General Appearance General appearance: Present: well-developed, well-nourished EENT: Present: ATNC Respiratory: Present: course breath sounds Cardiology: Present: edema, regular rate Gastrointestinal: Present: no tenderness Integumentary: Present: warm and dry Neurologic: Present: alert and oriented x3 Musculoskeletal: Present: no cyanosis Psychiatric: Present: mood/affect appropriate - Lab 12/14/17 03:45 12/14/17 03:45 Most recent lab results ABG pH 7.39 pH Units (7.32-7.45) 12/08/17 23:32 ABG pCO2 20 mmHg (35-45) L* 12/08/17 23:32 ABG pO2 74 mmHg (85-104) L 12/08/17 23:32 ABG HCO3 12 mEq/L (21-27) L 12/08/17 23:32 ABG O2 Saturation 95 % (95-98) 12/08/17 23:32 Calcium 9.2 mg/dL (8.6-10.3) 12/14/17 03:45 Phosphorus 3.7 mg/dL (2.7-4.5) 12/10/17 12:09 Magnesium 2.2 mg/dL (1.6-2.6) 12/10/17 12:09 Urine Creatinine 139 mg/dL 12/10/17 22:23 Urine Sodium 19.0 mEq/L 12/10/17 22:23 Urine Total Protein 37 mg/dL (1-14) H 12/10/17 22:23 - VTE Documentation of Mechanical Device: Intermittent pneumatic compression device Consult Discharge Plan - Plan Referrals: Evan Gutierrez, PRODUCT MANAGER [Advanced Practice Nurse] - (OFFICE WILL CALL PATIENT AT HOME WITH FOLLOW UP APPOINTMENT SENT WEB REQUEST ON 12-13-17 @[phone]) Adrian Jones DO [Resident] - 12/17/17 10:15 am
--- NOTE | 2017-12-14 11:45 | Event Note ---
Date of Encounter: 12/14/17 Time of Encounter: 11:43 - Cardiology Event Note 67 YOM with hx of CAD s/p PCI of the LAD and non obstructive CAD in Lcx, mild drop in EF presented with MOF now improving. Coninues to be SOB but denies any Chest pain. Will obtain CE's if negative as previous will consider a stress test for ischemic eval. If elevated possible LHC when complete recovery and able to lay flat.
[2017-12-14] MEDS ORDERED: *HR* Metoprolol 5 MG/5 ML VIAL IVP ONE (12:20)
[2017-12-14] MEDS: *HR* Metoprolol 5 MG/5 ML VIAL IVP SCH ×3 (12:22→13:34)
[2017-12-14] MEDS ORDERED: Furosemide 40 MG/4 ML VIAL IVP ONE (15:00)
[2017-12-14] MEDS ORDERED: Levofloxacin 750 MG/150 ML 750 MG/150 ML BAG IVPB SCH (15:00)
[2017-12-14] MEDS ORDERED: Amiodarone Premix 360 MG/200 ML BAG IVC ONE (16:53)
[2017-12-14] MEDS ORDERED: Amiodarone Premix 150 MG/100 ML BAG IVPB ONE (16:53)
[2017-12-14] MEDS: Furosemide 40 MG/4 ML VIAL IVP SCH (21:36)
[2017-12-14] MEDS: Amiodarone Premix 360 MG/200 ML BAG IVC SCH (23:52)
[2017-12-15 05:45] LABS: Basophils % 0.6 %; Eosinophils # 0.2 K/mcL (0.0-0.6); Eosinophils % 2.2 %; Hematocrit 44.7 % (37.5-50.1); Hemoglobin 14.9 g/dL (12.9-16.9); Immature Granulocytes % 0.9 % (0-4); Lymphocytes # 1.4 K/mcL (0.6-4.6); Lymphocytes % 20.4 %; Mean Corpuscular HGB Conc 33.3 g/dL (31.6-35.5); Mean Corpuscular Hemoglobin 32.6 pg (28.0-33.3); Mean Corpuscular Volume 97.8 fL (83.0-100.0); Mean Platelet Volume 11.6 fL (9.4-12.4); Monocytes # 1.1 K/mcL (0.0-1.3); Monocytes % 15.1 %; Neutrophils # 4.2 K/mcL (1.6-8.9); Platelet Count 152 K/mcL (140-400); Red Blood Count 4.57 M/mcL (4.19-5.50); Red Cell Distribution Width 15.7 % (11.5-14.5); Segmented Neutrophils % 60.8 %
[2017-12-15 06:03] LABS: Alanine Aminotransferase 319 Units/L (7-52); Albumin 2.9 g/dL (3.5-5.7); Albumin/Globulin Ratio 1.1 (1.1-2.2); Alkaline Phosphatase 67 Units/L (34-104); Aspartate Amino Transferase 80 Units/L (13-39); BUN/Creatinine Ratio 13 (6-26); Bilirubin,Total 1.6 mg/dL (0.3-1.0); Blood Urea Nitrogen 17 mg/dL (8-23); Calcium 9.2 mg/dL (8.6-10.3); Carbon Dioxide 29 mEq/L (23-29); Chloride 103 mEq/L (98-107); Globulin 2.6 g/dL (2.4-3.5); Glucose 137 mg/dL (70-105); Osmolality,Calculated 292 (280-300); Potassium 3.4 mEq/L (3.5-5.1); Sodium 139 mEq/L (136-145); Total Protein 5.5 g/dL (6.4-8.9); eGFR For African Americans > 60 (> 60); eGFR For Non-African Americans 55 (> 60)
[2017-12-15] MEDS: *HR* Enoxaparin 40 MG/0.4 ML SYRINGE SQ SCH (06:16)
--- NOTE | 2017-12-15 08:17 | Internal Med Progress Note ---
<Spencer Barth - Last Filed: 12/15/17 13:53> Date of Encounter: 12/15/17 Time of Encounter: 08:14 - Assessment and plan (1) Atrial fibrillation with RVR Current Visit: Yes Status: Chronic Assessment and plan: A fib with RVR likely secondary to HCAP present upon admission , with B/L pleural effusions with acute systolic/diastolic CHF exacerbation Cardizem and Sotalol were discontinued by cardiology. Toprol added Per cardiology Hold IV lasix for now, however renal function has improved and he may be able to restart it as needed Continuous cardiac telemetry Update 12/15 Recurrent RVR that began yesterday in the afternoon Cannot tolerate cardizem drip now due to borderline hypotension Started Amiodarone drip, still in poor control Cardiology recommends increased metoprolol (2) Elevated liver enzymes Current Visit: Yes Status: Acute Assessment and plan: Initially mild elevated, however now acutely worsened Abdominal CT demonstrated pericholecystic fluid and concern for cholecystitis Hida scan was negative for acute process, concern for chronic cholecystitis Surgery was consulted and initially signed off AST 2212 ALT >500 today No obvious shock, net positive fluid balance We will hold acetaminophen Consult to GI, appreciate recommendations Update 12/15 Improved overnight, AST 80 ALT 319 Patient has been taking Lactulose which has caused multiple Bowel movements We will continue to monitor the patient's LFTs and symptoms Seems to be improving back to baseline (3) Pneumonia Current Visit: Yes Status: Acute Assessment and plan: Suspected Left multilobar pneumonia, completed antibiotic course Fits clinical picture, including SOB and intermittent fevers Patient appears to be hemodynamically stable at this time Qualifiers: Pneumonia type: due to Pneumococcus Laterality: left Lung location: upper lobe of lung Qualified Code(s): J13 - Pneumonia due to Streptococcus pneumoniae (4) CAD (coronary artery disease) Current Visit: Yes Status: Chronic Assessment and plan: Hx of chronic CAD w/previous [place] and 1 stent placed. Pt. placed on Cardizem drip. Reports stopping HTN and HLD medications. Qualifiers: Coronary Disease-Associated Artery/Lesion type: [place] artery [place] vs. transplanted heart: [place] heart Associated angina: without angina Qualified Code(s): I25.10 - Atherosclerotic heart disease of [place] coronary artery without angina pectoris (5) Hypertension Current Visit: No Status: Chronic Assessment and plan: Has remained in good control until this point Blood pressure has fallen some, possibly related to Afib RVR Stop amlodipine to allow BP room for adjustment with regard to rate control Qualifiers: Hypertension type: essential hypertension Qualified Code(s): I10 - Essential (primary) hypertension (6) Heart failure Current Visit: Yes Status: Acute Assessment and plan: History of chronic diastolic heart failure with preserved ejection fraction On admission, BNP elevated to 682 Echocardiogram showed an ejection fraction of 45-50% with mild concentric left ventricular hypertrophy, moderate pulmonary hypertension Per cardiology, the patient will very likely require LHC due to significant cardiac disease, however he is not currently stable for LHC Per nephrology, lasix BID for 5 days is appropriate Continue metoprolol per cardiology Qualifiers: Heart failure type: diastolic Heart failure chronicity: acute Qualified Code(s): I50.31 - Acute diastolic (congestive) heart failure (7) Pleural effusion Current Visit: Yes Status: Acute Assessment and plan: B/l pleural effusion, R>L Likely secondary to worsening cardiac function Consider thoracentesis if necessary (8) Nausea and vomiting Current Visit: Yes Status: Acute Assessment and plan: Acute intermittent nausea and vomiting over the past 2-3 months. The patient does state that it seems to be associated with fevers IVP Zofran 4 mg Q6HR PRN. Qualifiers: Vomiting type: unspecified Vomiting Intractability: non-intractable Qualified Code(s): R11.2 - Nausea with vomiting, unspecified (9) Acute renal failure superimposed on stage 3 chronic kidney disease Current Visit: Yes Status: Acute Assessment and plan: LAILA on CKD Stage 3, improved Patient's Serum Cr is 1.3 this morning Retroperitoneal US shows evidence of medical renal disease Nephrology will continue to follow Qualifiers: Acute renal failure type: unspecified Qualified Code(s): N17.9 - Acute kidney failure, unspecified; N18.3 - Chronic kidney disease, stage 3 (moderate) (10) Hepatic encephalopathy Current Visit: Yes Status: Resolved Assessment and plan: Encephalopathy, likely secondary to hepatic failure + uremia The patient's Ammonia increased in response to acute hepatic failure, but is responding to treatment He did admit to visual disturbances which are likely related to high ammonia and uremia, however they have resolved Lactulose has been helpful in dropping the serum ammonia, patient is less symptomatic We will continue lactulose, monitor mental status Resolved for the most part (11) Tobacco abuse Current Visit: Yes Status: Chronic Assessment and plan: Hx of chronic tobacco abuse. Pt. reports smoking 1 PPD. (12) Hypocalcemia Current Visit: Yes Status: Acute Assessment and plan: Low ionized calcium Start 2g Calcium carbonate daily - Time Spent With Patient Total time spent is greater than 50% in coordination of care (as documented) at patient's floor/unit and/or counseling patient: - Subjective Interval history: The patient is seen and examined at bedside. He is feeling better, no acute problems over night. Says that his visual hallucinations have resolved, and he is generally more energetic than he was previously. He does say that he's still having shortness of breath but that it's improving from prior. - Constitutional Vitals: Temp Pulse Resp BP Pulse Ox 97.8 F 125 16 98/81 91 12/15/17 07:57 12/15/17 07:57 12/15/17 07:57 12/15/17 07:57 12/15/17 07:57 General appearance: Present: cooperative, A&O X 3, pleasant, no acute distress, answers questions appropriately Exam: Gen: Vitals noted. Appears to have more energy than prior HEENT: Normocephalic, atraumatic Neck: Supple. No adenopathy. Cardiac: Rapid/irregular, 3/6 systolic murmur, +S1/S2 Pulmonary: CTAB Abdomen: soft, nontender, no guarding Back: Nontender throughout. MSK: ROM intact, no joint swelling noted Extremities: 2+ B/L LE Edema, nontender calf, no cyanosis or clubbing Neuro: moves all extremities, no focal deficits Psych: Appropriate mood and behavior. Internal Medicine: Result - Labs CBC & Chem 7: 12/15/17 05:05 12/15/17 05:05 Labs: Short CBC 12/15/17 Range/Units 05:05 WBC 7.0 (4.3-11.1) K/mcL Hgb 14.9 (12.9-16.9) g/dL Hct 44.7 (37.5-50.1) % Plt Count 152 (140-400) K/mcL Neutrophils # 4.2 (1.6-8.9) K/mcL BMP 12/15/17 05:05 Sodium 139 Potassium 3.4 L Chloride 103 Carbon Dioxide 29 BUN 17 Creatinine 1.30 Glucose 137 H Calcium 9.2 Cardiac Enzymes 12/14/17 Range/Units 11:58 Troponin I < 0.03 (< 0.04) ng/mL Liver Function 12/15/17 Range/Units 05:05 Total Bilirubin 1.6 H (0.3-1.0) mg/dL AST 80 H (13-39) Units/L ALT 319 H (7-52) Units/L Alkaline Phosphatase 67 (34-104) Units/L Albumin 2.9 L (3.5-5.7) g/dL - ABG Interpretation ABG results: ABG ABG pH 7.39 pH Units (7.32-7.45) 12/08/17 23:32 ABG pCO2 20 mmHg (35-45) L* 12/08/17 23:32 ABG pO2 74 mmHg (85-104) L 12/08/17 23:32 ABG O2 Saturation 95 % (95-98) 12/08/17 23:32 PT/INR, D-dimer PT 22.8 Seconds (9.4-12.1) H 12/10/17 12:22 - VTE Documentation of Mechanical Device: Intermittent pneumatic compression device Consult Discharge Plan - Plan Referrals: Evan Gutierrez DATA PROCESSING EQUIPMENT REPAIRER [Advanced Practice Nurse] - (OFFICE WILL CALL PATIENT AT HOME WITH FOLLOW UP APPOINTMENT SENT WEB REQUEST ON 12-13-17 @4525) Adrian Jones DO [Resident] - 12/17/17 10:15 am <Matheus Duron - Last Filed: 12/15/17 16:17> Date of Encounter: 12/15/17 - Assessment and plan (1) Heart failure Current Visit: Yes Status: Acute Qualifiers: Heart failure type: diastolic Heart failure chronicity: acute Qualified Code(s): I50.31 - Acute diastolic (congestive) heart failure (2) Atrial fibrillation Current Visit: Yes Status: Acute Qualifiers: Atrial fibrillation type: persistent Qualified Code(s): I48.1 - Persistent atrial fibrillation (3) Hepatic encephalopathy Current Visit: Yes Status: Resolved (4) Pneumonia Current Visit: Yes Status: Resolved Qualifiers: Pneumonia type: due to Pneumococcus Laterality: left Lung location: upper lobe of lung Qualified Code(s): J13 - Pneumonia due to Streptococcus pneumoniae (5) CAD (coronary artery disease) Current Visit: Yes Status: Chronic Qualifiers: Coronary Disease-Associated Artery/Lesion type: [place] artery [place] vs. transplanted heart: [place] heart Associated angina: without angina Qualified Code(s): I25.10 - Atherosclerotic heart disease of [place] coronary artery without angina pectoris (6) Hypertension Current Visit: No Status: Chronic Qualifiers: Hypertension type: essential hypertension Qualified Code(s): I10 - Essential (primary) hypertension (7) Pleural effusion Current Visit: Yes Status: Acute (8) Acute renal failure superimposed on stage 3 chronic kidney disease Current Visit: Yes Status: Acute Qualifiers: Acute renal failure type: unspecified Qualified Code(s): N17.9 - Acute kidney failure, unspecified; N18.3 - Chronic kidney disease, stage 3 (moderate) (9) Tobacco abuse Current Visit: Yes Status: Chronic (10) Nausea and vomiting Current Visit: Yes Status: Resolved Qualifiers: Vomiting type: unspecified Vomiting Intractability: non-intractable Qualified Code(s): R11.2 - Nausea with vomiting, unspecified (11) Elevated liver enzymes Current Visit: Yes Status: Acute (12) Hypocalcemia Current Visit: Yes Status: Acute - Time Spent With Patient Total time spent is greater than 50% in coordination of care (as documented) at patient's floor/unit and/or counseling patient: - Constitutional Vitals: Temp Pulse Resp BP Pulse Ox 97.6 F 120 16 103/79 92 12/15/17 15:34 12/15/17 15:37 12/15/17 15:37 12/15/17 15:37 12/15/17 15:37 Internal Medicine: Result - Labs CBC & Chem 7: 12/15/17 05:05 12/15/17 05:05 Labs: Short CBC 12/15/17 Range/Units 05:05 WBC 7.0 (4.3-11.1) K/mcL Hgb 14.9 (12.9-16.9) g/dL Hct 44.7 (37.5-50.1) % Plt Count 152 (140-400) K/mcL Neutrophils # 4.2 (1.6-8.9) K/mcL BMP 12/15/17 05:05 Sodium 139 Potassium 3.4 L Chloride 103 Carbon Dioxide 29 BUN 17 Creatinine 1.30 Glucose 137 H Calcium 9.2 Liver Function 12/15/17 Range/Units 05:05 Total Bilirubin 1.6 H (0.3-1.0) mg/dL AST 80 H (13-39) Units/L ALT 319 H (7-52) Units/L Alkaline Phosphatase 67 (34-104) Units/L Albumin 2.9 L (3.5-5.7) g/dL - ABG Interpretation ABG results: ABG ABG pH 7.39 pH Units (7.32-7.45) 12/08/17 23:32 ABG pCO2 20 mmHg (35-45) L* 12/08/17 23:32 ABG pO2 74 mmHg (85-104) L 12/08/17 23:32 ABG O2 Saturation 95 % (95-98) 12/08/17 23:32 PT/INR, D-dimer PT 22.8 Seconds (9.4-12.1) H 12/10/17 12:22 - Attending Attestation I examined this patient and my medical decision-making was reviewed with the Resident Physician on 12/15/17. I agree with the documented findings, disposition and treatment plan as described except to the extent set forth below. Mr Bowen is currently admitted for hepatic failure and rapid a fib. He remains moderate to high risk due to potential for worsening clinical status. Mr Bowen is tired today. No fever or chills. No cough. Had hard BM this AM. Heartrate remains elevated. Exam Tired but alert and oriented. Comfortable at rest. Mucus membranes dry Heart tachy and irreg Lungs diminished Abd soft and nontender I/P 1. Hepatic failure - watching closely while now on Amio. 2. Rapid a fib Further diagnoses and plan as above.
[2017-12-15] MEDS: Nicotine 21 MG PATCH.TD24 TD SCH (08:31)
[2017-12-15] MEDS: Lactulose Oral Soln 20 GM/30 ML UDC PO SCH ×2 (08:32→20:35)
[2017-12-15] MEDS: Ascorbic Acid 500 MG TABLET PO SCH (08:33)
[2017-12-15] MEDS: Aspirin 325 MG TABLET PO SCH (08:33)
[2017-12-15] MEDS: amLODIPine 5 MG TABLET PO SCH (08:33)
[2017-12-15] MEDS: Metoprolol XL (24 HR) Succ 25 MG TAB.ER.24H PO SCH (08:33)
[2017-12-15] MEDS: Furosemide 40 MG/4 ML VIAL IVP SCH ×2 (08:33→20:41)
[2017-12-15 10:47] LABS: Toxoplasma gondii Source SERUM
[2017-12-15 11:11] LABS: Bartonella Source SERUM
[2017-12-15] MEDS: Amiodarone Premix 360 MG/200 ML BAG IVC SCH ×2 (11:32→21:49)
--- NOTE | 2017-12-15 11:32 | Cardiology Progress Note ---
Date of Encounter: 12/15/17 Time of Encounter: 09:00 Assessment and Plan (1) Elevated liver enzymes Current Visit: Yes Status: Acute Per cardiology: -Markedly abnormal liver enzymes, now down trending. -GI and surgery have been consulted. -Continue to monitor closely, now with amio drip. -Management per primary, GI, and surgical services. (2) Acute renal failure superimposed on stage 3 chronic kidney disease Current Visit: Yes Status: Acute Per cardiology: -LAILA noted on admission, improving. -Baseline creatinine 1-1.2. -Nephrology following. -Management per primary and nephrology services. Qualifiers: Acute renal failure type: unspecified Qualified Code(s): N17.9 - Acute kidney failure, unspecified; N18.3 - Chronic kidney disease, stage 3 (moderate) (3) Cardiomyopathy Current Visit: Yes Status: Acute Per cardiology: -TTE with LVEF 45-50% global hypokinesis, mild concentric LVH, RV mildly dilated iwth mild hypokinesis, bi-atrial enlargement, mild-moderate AR, moderate MR, mild TR, moderate pulmonary hypertension. -10/2016 TTE LVEF 55-60%. -Chest x-ray with small bilateral pleural effusion, mild pedal edema. -Stress 10/2016 with suspect area of artifact, no evidence of ischemia. -LHC 2011 with high-grade LAD s/p ANNETTE, occluded RCA supplied by L-R collaterals , and 50-60% circumflex. -On BB, not on karen/arb due to LAILA. Can consider addition prior to discharge. -CHF education reviewed with patient. -Discussed and reviewed with , plan for stress prior to discharge. Unable to perform today due to tachycardia. Qualifiers: Cardiomyopathy type: unspecified Qualified Code(s): I42.9 - Cardiomyopathy , unspecified (4) CAD (coronary artery disease) Current Visit: Yes Status: Chronic Per cardiology: - PCI to LAD 2011, LOG PEELER RCA, mod dx in Lcx artery. -Denies chest pain. -ON asa, BB. Not on statin due to elevated LFTs. -No acute ECG changes. -No acute need for LHC at this time. Work-up for acute elevation of LFT. Qualifiers: Coronary Disease-Associated Artery/Lesion type: [place] artery [place] vs. transplanted heart: [place] heart Associated angina: without angina Qualified Code(s): I25.10 - Atherosclerotic heart disease of [place] coronary artery without angina pectoris (5) A-fib Current Visit: No Status: Chronic Per cardiology: -Known PAF. Previously ON sotalol and cardizem in outpatient setting. -[id number] score 4 (age, HTN, CAD, CHf). Previously on coumadin. However pateint states he stopped taking coumadin due to "I got into a fight with the gina who ran the coumadin clinic." -Patient refuses to be placed back on anticoagulation. Aware of increased risk of CVA/embolic event while not on AC. OF note, INR 2.1 while not on anticoagulation. -Of note, patient previously on sotalol for rhythm control and no longer on anticoagulation. Will stop sotalol. Will pursue rate control strategy with BB. Will add toprol. -Patient now a.fib RVR, was started on amiodarone drip. Currently on amio. AVerage HR previous 12 hours noted to be 124,a .fib. -Will stop norvasc to allow BP room. Will increase BB. -Recommend close monitoring of LFTs while on amio. -Will continue to monitor. Qualifiers: Atrial fibrillation type: paroxysmal Qualified Code(s): I48.0 - Paroxysmal atrial fibrillation Discussion w patient/family: The assessment and plan as outlined above was discussed with the patient who expressed understanding and agreement. All questions were answered. Thank you for involving us in the care of your patient. Please call with any questions. Discussed and reviewed with . Subjective Principal diagnosis: cardiomyopathy Interval history: Patient denies chest pain. Reports shortness of breath improved. Denies palpitations or fluttering. Objective Vital Signs, Last 4 Hours Temp Pulse Resp BP Pulse Ox 12/15/17 10:24 128 18 131/101 100 12/15/17 08:48 111 12/15/17 08:45 119 20 118/93 98 12/15/17 07:57 97.8 F 125 16 98/81 91 General: Conversant, No Apparent Distress HEENT: Atraumatic, Normocephaly, Mucus Membranes Moist Neck: No JVD, Normal carotid pulses Cardiac: Normal S1 and S2, No Murmur, Other (Irregularly irregular) Lungs: Normal Breath Sounds, No Wheeze, Rales, Rhonchi Neuro: Alert and responsive, No focal deficits noted Abdomen: Soft, Non-Tender Skin: No rashes noted on visualized skin Musculoskeletal: No Chest Wall Tenderness Extremities: No Clubbing, No Cyanosis, Normal Pulses, Other (Mild bilateral pedal edema noted, non-pitting. ) Results 12/15/17 05:05 12/15/17 05:05 Lab Results Active Medications Amlodipine Besylate (Norvasc) 5 mg PO DAILY KATHRYN PRN Reason: Protocol Stop: 06/14/18 09:01 Last Admin: 12/15/17 08:33 Dose: 5 mg Ascorbic Acid (Vitamin C) 500 mg PO DAILY KATHRYN Stop: 06/09/18 09:01 Last Admin: 12/15/17 08:33 Dose: 500 mg Aspirin (Aspirin) 325 mg PO DAILY KATHRYN Stop: 06/09/18 09:01 Last Admin: 12/15/17 08:33 Dose: 325 mg Calcium Carbonate (Tums) 2,000 mg PO DAILY [facility] PRN Reason: Protocol Stop: 06/12/18 09:01 Last Admin: 12/15/17 08:32 Dose: 2,000 mg Enoxaparin Sodium (Lovenox) 40 mg SQ 0600 [facility] PRN Reason: Protocol Stop: 06/11/18 06:01 Last Admin: 12/15/17 06:16 Dose: 40 mg Furosemide (Lasix) 40 mg IVP BID KATHRYN Stop: 12/16/17 09:01 Last Admin: 12/15/17 08:33 Dose: 40 mg Guaifenesin (Mucinex) 600 mg PO BID PRN PRN Reason: Congestion Stop: 06/09/18 00:08 Last Admin: 12/08/17 20:56 Dose: 600 mg Amiodarone HCl/Dextrose (Amiodarone Drip Premix 360mg/200ml) 360 mg in 200 mls @ 16.667 mls/hr IVC CONT KATHRYN PRN Reason: 0.5 MG/MIN Stop: 06/15/18 23:46 Last Admin: 12/14/17 23:52 Dose: 0.5 mg/min, 16.667 mls/hr Lactulose (Lactulose) 20 gm PO BID [facility] Stop: 06/11/18 21:01 Last Admin: 12/15/17 08:32 Dose: 20 gm Levalbuterol HCl (Xopenex) 1.25 mg IH [id number] PRN PRN Reason: Shortness Of Breath/Wheezing Stop: 06/09/18 23:31 Last Admin: 12/14/17 10:19 Dose: 1.25 mg Lorazepam (Ativan) 0.5 mg PO TID PRN PRN Reason: Anxiety Stop: 06/09/18 19:55 Last Admin: 12/13/17 21:17 Dose: 0.5 mg Metoprolol Succinate (Toprol Xl) 25 mg PO DAILY KATHRYN Stop: 06/12/18 09:01 Last Admin: 12/15/17 08:33 Dose: 25 mg Naloxone HCl (Narcan) 0.4 mg IVP Q2MIN PRN PRN Reason: SEE COMMENTS Stop: 06/08/18 19:02 Nicotine (Nicoderm) 21 mg TD DAILY KATHRYN PRN Reason: Protocol Stop: 06/09/18 22:16 Last Admin: 12/15/17 08:31 Dose: 21 mg Potassium Chloride (Potassium Chloride) 20 meq PO DAILY KATHRYN Stop: 06/12/18 15:16 Last Admin: 12/15/17 08:34 Dose: Not Given Laboratory Tests 12/14/17 12/15/17 12/15/17 11:58 05:05 05:05 Hgb 14.9 Plt Count 152 Creatinine 1.30 AST 80 H ALT 319 H Troponin I < 0.03 - Imaging and Cardiology Chest Xray: report reviewed Stress Test: report reviewed Echo: report reviewed - EKG Interpretation EKG results cardiology: other (Telemetry reviewed with average HR previous 12 hours noted to be 124, atrial fibrillation with RVR. PVCs noted.) - VTE Documentation of Mechanical Device: Intermittent pneumatic compression device Consult Discharge Plan - Plan Referrals: Evan Gutierrez, [employer] SALESPERSON [Advanced Practice Nurse] - (OFFICE WILL CALL PATIENT AT HOME WITH FOLLOW UP APPOINTMENT SENT WEB REQUEST ON 12-13-17 @2900) Adrian Jones DO [Resident] - 12/17/17 10:15 am
[2017-12-15] MEDS ORDERED: Metoprolol XL (24 HR) Succ 25 MG TAB.ER.24H PO ONE (11:43)
[2017-12-15 12:32] LABS: Bartonella Species PCR NOT DETECTED; Toxoplasma gondii PCR NOT DETECTED
--- NOTE | 2017-12-15 14:56 | Electrocardiograph Report ---
[address] [address] Test Date: 2017-12-14 Pat Name: Finn Bowen Department: 110 Room: 08 Gender: M Ssrs Developer: [place] : [id number] Requested By: Spencer Barth Order Number: [id number] Reading MD: Tiffanie Cobian Measurements Intervals [place] Rate: 153 P: [place]: 0 QRS: 44 QRSD: 99 T: 200 QT: 298 QTc: 384 Interpretive Statements ATRIAL FIBRILLATION WITH RAPID VENTRICULAR RESPONSE WITH ABERRANT CONDUCTION OR VENTRICULAR PREMATURE COMPLEXES NONSPECIFIC ST & T-WAVE ABNORMALITY Electronically Signed On 12-15-2017 14:54:22 EDT by Tiffanie Cobian
[2017-12-16 05:35] LABS: Alanine Aminotransferase 248 Units/L (7-52); Albumin 2.9 g/dL (3.5-5.7); Albumin/Globulin Ratio 1.1 (1.1-2.2); Alkaline Phosphatase 75 Units/L (34-104); Aspartate Amino Transferase 62 Units/L (13-39); BUN/Creatinine Ratio 18 (6-26); Bilirubin,Total 0.9 mg/dL (0.3-1.0); Blood Urea Nitrogen 21 mg/dL (8-23); Calcium 9.1 mg/dL (8.6-10.3); Carbon Dioxide 29 mEq/L (23-29); Chloride 102 mEq/L (98-107); Globulin 2.6 g/dL (2.4-3.5); Glucose 94 mg/dL (70-105); Osmolality,Calculated 291 (280-300); Potassium 3.3 mEq/L (3.5-5.1); Sodium 139 mEq/L (136-145); Total Protein 5.5 g/dL (6.4-8.9); eGFR For African Americans > 60 (> 60); eGFR For Non-African Americans > 60 (> 60)
[2017-12-16] MEDS: *HR* Enoxaparin 40 MG/0.4 ML SYRINGE SQ SCH (06:33)
[2017-12-16] MEDS ORDERED: Metoprolol XL (24 HR) Succ 50 MG TAB.ER.24H PO SCH ×2 (09:00→21:00)
[2017-12-16] MEDS: Furosemide 40 MG/4 ML VIAL IVP SCH (09:19)
[2017-12-16] MEDS: Amiodarone Premix 360 MG/200 ML BAG IVC SCH (09:20)
[2017-12-16] MEDS: Lactulose Oral Soln 20 GM/30 ML UDC PO SCH ×2 (09:22→21:01)
[2017-12-16] MEDS: Aspirin 325 MG TABLET PO SCH (09:22)
[2017-12-16] MEDS: Ascorbic Acid 500 MG TABLET PO SCH (09:22)
[2017-12-16] MEDS: Nicotine 21 MG PATCH.TD24 TD SCH (09:24)
--- NOTE | 2017-12-16 09:32 | Internal Med Progress Note ---
<Jb Garay - Last Filed: 12/16/17 10:27> Date of Encounter: 12/16/17 Time of Encounter: 09:30 - Assessment and plan (1) Atrial fibrillation with RVR Current Visit: Yes Status: Chronic Assessment and plan: A fib with RVR likely secondary to HCAP present upon admission , with B/L pleural effusions with acute systolic/diastolic CHF exacerbation Cardizem and Sotalol were discontinued by cardiology. Toprol added Per cardiology still not controlled on amiodarone and toprol 50mg will follow cardiology recomendations patient refuses anticoagulation (2) Heart failure Current Visit: Yes Status: Acute Assessment and plan: History of chronic diastolic heart failure with preserved ejection fraction resolved. On admission, BNP elevated to 682 Echocardiogram showed an ejection fraction of 45-50% with mild concentric left ventricular hypertrophy, moderate pulmonary hypertension Per cardiology, the patient will very likely require LHC due to significant cardiac disease, however he is not currently stable for LHC not on karen/arb due to laila and also due to hypotension as we increase bblocker to control afib. hold lasix due to above as well cardiac, fluid restircted diet. Continue metoprolol per cardiology Qualifiers: Heart failure type: diastolic Heart failure chronicity: acute Qualified Code(s): I50.31 - Acute diastolic (congestive) heart failure (3) Tobacco abuse Current Visit: Yes Status: Chronic Assessment and plan: Hx of chronic tobacco abuse. Pt. reports smoking 1 PPD. (4) Pneumonia Current Visit: Yes Status: Resolved Assessment and plan: Suspected Left multilobar pneumonia, completed antibiotic course Fits clinical picture, including SOB and intermittent fevers Patient appears to be hemodynamically stable at this time Qualifiers: Pneumonia type: due to Pneumococcus Laterality: left Lung location: upper lobe of lung Qualified Code(s): J13 - Pneumonia due to Streptococcus pneumoniae (5) CAD (coronary artery disease) Current Visit: Yes Status: Chronic Assessment and plan: Hx of chronic CAD w/previous [place] and 1 stent placed. conitnue asa and bb not on statin 2nd to elevated lfts follow up with cardiology outpatient. Qualifiers: Coronary Disease-Associated Artery/Lesion type: [place] artery [place] vs. transplanted heart: [place] heart Associated angina: without angina Qualified Code(s): I25.10 - Atherosclerotic heart disease of [place] coronary artery without angina pectoris (6) Hypertension Current Visit: Yes Status: Chronic Assessment and plan: Has remained in good control until this point Blood pressure has fallen some, possibly related to Afib RVR Stop amlodipine to allow BP room for adjustment with regard to rate control Qualifiers: Hypertension type: essential hypertension Qualified Code(s): I10 - Essential (primary) hypertension (7) Pleural effusion Current Visit: Yes Status: Acute Assessment and plan: stable B/l pleural effusion, R>L Likely secondary to worsening cardiac function Consider thoracentesis if necessary (8) Acute renal failure superimposed on stage 3 chronic kidney disease Current Visit: Yes Status: Resolved Assessment and plan: LAILA on CKD Stage 3, resolved Retroperitoneal US shows evidence of medical renal disease Nephrology will continue to follow Qualifiers: Acute renal failure type: unspecified Qualified Code(s): N17.9 - Acute kidney failure, unspecified; N18.3 - Chronic kidney disease, stage 3 (moderate) (9) Elevated liver enzymes Current Visit: Yes Status: Acute Assessment and plan: Initially mild elevated, thne acutely worsened Abdominal CT demonstrated pericholecystic fluid and concern for cholecystitis Hida scan was negative for acute process, concern for chronic cholecystitis Surgery was consulted and initially signed off No obvious shock, net positive fluid balance We will hold acetaminophen Consult to GI, appreciate recommendations unclear etiology. Now improving Patient has been taking Lactulose which has caused multiple Bowel movements (10) Hepatic encephalopathy Current Visit: Yes Status: Resolved Assessment and plan: Encephalopathy, likely secondary to hepatic failure The patient's Ammonia increased in response to acute hepatic failure, but is responding to treatment He did admit to visual disturbances which are likely related to high ammonia and uremia, however they have resolved Lactulose has been helpful in dropping the serum ammonia, patient is less symptomatic We will continue lactulose, monitor mental status Resolved for the most part - Time Spent With Patient Total time spent is greater than 50% in coordination of care (as documented) at patient's floor/unit and/or counseling patient: - Subjective Interval history: NO acute events overnight. Patient reports he did not sleep well. He continues to be in afib rvr with HR ranging from 100-130. He denies chest pain, sob, N/V, abdominal pain, LE swelling. - Constitutional Vitals: Temp Pulse Resp BP Pulse Ox 98.4 F 116 16 125/107 95 12/16/17 07:17 12/16/17 09:00 12/16/17 07:17 12/16/17 09:00 12/16/17 07:17 General appearance: Present: cooperative, A&O X 3, pleasant, no acute distress, answers questions appropriately - Respiratory Respiratory exam: Present: CTAB. Absent: accessory muscle use, rales, rhonchi, wheezes - Cardiovascular Cardiovascular exam: Present: irregular rhythm, tachycardia - GI/Abdominal GI/Abdominal exam: Present: normal bowel sounds, soft, no peritoneal signs. Absent: distended, tenderness - Extremities Exam Extremities exam: Present: warm, radial pulses palpable and symmetrical. Absent : calf tenderness, cyanotic, pedal edema - Neurological Exam Neurological exam: Present: alert, oriented X3 - Skin Skin exam: Present: dry, intact Internal Medicine: Result - Labs CBC & Chem 7: 12/15/17 05:05 12/16/17 09:41 Labs: BMP 12/16/17 04:20 Sodium 139 Potassium 3.3 L Chloride 102 Carbon Dioxide 29 BUN 21 Creatinine 1.19 Glucose 94 Calcium 9.1 Liver Function 12/16/17 Range/Units 04:20 Total Bilirubin 0.9 (0.3-1.0) mg/dL AST 62 H (13-39) Units/L ALT 248 H (7-52) Units/L Alkaline Phosphatase 75 (34-104) Units/L Albumin 2.9 L (3.5-5.7) g/dL - ABG Interpretation ABG results: ABG ABG pH 7.39 pH Units (7.32-7.45) 12/08/17 23:32 ABG pCO2 20 mmHg (35-45) L* 12/08/17 23:32 ABG pO2 74 mmHg (85-104) L 12/08/17 23:32 ABG O2 Saturation 95 % (95-98) 12/08/17 23:32 PT/INR, D-dimer PT 22.8 Seconds (9.4-12.1) H 12/10/17 12:22 - VTE Documentation of Mechanical Device: Intermittent pneumatic compression device Consult Discharge Plan - Plan Referrals: Evan Gutierrez, [facility] [Advanced Practice Nurse] - (OFFICE WILL CALL PATIENT AT HOME WITH FOLLOW UP APPOINTMENT SENT WEB REQUEST ON 12-13-17 @[phone]) Adrian Jones DO [Resident] - 12/24/17 10:15 am <OliverioJosephMatheus A - Last Filed: 12/16/17 15:12> Date of Encounter: 12/16/17 - Assessment and plan (1) Tobacco abuse Current Visit: Yes Status: Chronic (2) Pneumonia Current Visit: Yes Status: Resolved Qualifiers: Pneumonia type: due to Pneumococcus Laterality: left Lung location: upper lobe of lung Qualified Code(s): J13 - Pneumonia due to Streptococcus pneumoniae (3) CAD (coronary artery disease) Current Visit: Yes Status: Chronic Qualifiers: Coronary Disease-Associated Artery/Lesion type: [place] artery [place] vs. transplanted heart: [place] heart Associated angina: without angina Qualified Code(s): I25.10 - Atherosclerotic heart disease of [place] coronary artery without angina pectoris (4) Hypertension Current Visit: Yes Status: Chronic Qualifiers: Hypertension type: essential hypertension Qualified Code(s): I10 - Essential (primary) hypertension (5) Heart failure Current Visit: Yes Status: Acute Qualifiers: Heart failure type: diastolic Heart failure chronicity: acute Qualified Code(s): I50.31 - Acute diastolic (congestive) heart failure (6) Atrial fibrillation with RVR Current Visit: Yes Status: Chronic (7) Pleural effusion Current Visit: Yes Status: Acute (8) Acute renal failure superimposed on stage 3 chronic kidney disease Current Visit: Yes Status: Resolved Qualifiers: Acute renal failure type: unspecified Qualified Code(s): N17.9 - Acute kidney failure, unspecified; N18.3 - Chronic kidney disease, stage 3 (moderate) (9) Elevated liver enzymes Current Visit: Yes Status: Acute (10) Hepatic encephalopathy Current Visit: Yes Status: Resolved (11) Atrial fibrillation Current Visit: Yes Status: Acute Qualifiers: Atrial fibrillation type: persistent Qualified Code(s): I48.1 - Persistent atrial fibrillation - Time Spent With Patient Total time spent is greater than 50% in coordination of care (as documented) at patient's floor/unit and/or counseling patient: - Constitutional Vitals: Temp Pulse Resp BP Pulse Ox 98.3 F 119 18 101/79 96 12/16/17 12:16 12/16/17 14:00 12/16/17 13:30 12/16/17 14:00 12/16/17 13:30 Internal Medicine: Result - Labs CBC & Chem 7: 12/15/17 05:05 12/16/17 09:41 Labs: BMP 12/16/17 12/16/17 04:20 09:41 Sodium 139 139 Potassium 3.3 L 3.8 Chloride 102 101 Carbon Dioxide 29 31 H BUN 21 19 Creatinine 1.19 1.07 Glucose 94 97 Calcium 9.1 9.3 Liver Function 12/16/17 Range/Units 04:20 Total Bilirubin 0.9 (0.3-1.0) mg/dL AST 62 H (13-39) Units/L ALT 248 H (7-52) Units/L Alkaline Phosphatase 75 (34-104) Units/L Albumin 2.9 L (3.5-5.7) g/dL - ABG Interpretation ABG results: ABG ABG pH 7.39 pH Units (7.32-7.45) 12/08/17 23:32 ABG pCO2 20 mmHg (35-45) L* 12/08/17 23:32 ABG pO2 74 mmHg (85-104) L 12/08/17 23:32 ABG O2 Saturation 95 % (95-98) 12/08/17 23:32 PT/INR, D-dimer PT 22.8 Seconds (9.4-12.1) H 12/10/17 12:22 - Attending Attestation I examined this patient and my medical decision-making was reviewed with the Resident Physician on 12/16/17. I agree with the documented findings, disposition and treatment plan as described except to the extent set forth below. Mr. Bowen is currently admitted for hepatic failure and rapid a fib. He remains moderate to high risk due to potential for worsening clinical status. Mr Bowen remains tachycardic. No CP or SOB at this time. Feels tired. Eating OK. Meds adjusted today. Exam alert Comfortable Mucus membranes dry Heart reg Lungs diminished Abd soft I/P 1. Hepatic failure - LFTs continue to improve 2. A fib - appreciate cardiology assistance Further diagnoses and plan as above.
[2017-12-16 10:13] LABS: BUN/Creatinine Ratio 18 (6-26); Blood Urea Nitrogen 19 mg/dL (8-23); Calcium 9.3 mg/dL (8.6-10.3); Carbon Dioxide 31 mEq/L (23-29); Chloride 101 mEq/L (98-107); Glucose 97 mg/dL (70-105); Osmolality,Calculated 290 (280-300); Potassium 3.8 mEq/L (3.5-5.1); Sodium 139 mEq/L (136-145); eGFR For African Americans > 60 (> 60); eGFR For Non-African Americans > 60 (> 60)
--- NOTE | 2017-12-16 11:57 | Cardiology Progress Note ---
Date of Encounter: 12/16/17 Time of Encounter: 11:00 Assessment and Plan (1) Elevated liver enzymes Current Visit: Yes Status: Acute Per cardiology: -Markedly abnormal liver enzymes, now down trending. -GI and surgery have been consulted. -Continue to monitor closely, now with amio drip. -Management per primary, GI, and surgical services. (2) Acute renal failure superimposed on stage 3 chronic kidney disease Current Visit: Yes Status: Resolved Per cardiology: -LAILA noted on admission, improving. -Baseline creatinine 1-1.2. -Nephrology following. -Management per primary and nephrology services. Qualifiers: Acute renal failure type: unspecified Qualified Code(s): N17.9 - Acute kidney failure, unspecified; N18.3 - Chronic kidney disease, stage 3 (moderate) (3) Cardiomyopathy Current Visit: Yes Status: Acute Per cardiology: -TTE with LVEF 45-50% global hypokinesis, mild concentric LVH, RV mildly dilated iwth mild hypokinesis, bi-atrial enlargement, mild-moderate AR, moderate MR, mild TR, moderate pulmonary hypertension. -10/2016 TTE LVEF 55-60%. -Chest x-ray with small bilateral pleural effusion, mild pedal edema. -Stress 10/2016 with suspected area of artifact, no evidence of ischemia. -LHC 2011 with high-grade LAD s/p ANNETTE, occluded RCA supplied by L-R collaterals , and 50-60% circumflex. -On BB, not on karen/arb due to LAILA. Can consider addition prior to discharge. -CHF education reviewed with patient. -PLan for stress when able. -Unable to perform stress today due to tachycardia. Will make NPO after midnight for possible stress in am. Qualifiers: Cardiomyopathy type: unspecified Qualified Code(s): I42.9 - Cardiomyopathy , unspecified (4) CAD (coronary artery disease) Current Visit: Yes Status: Chronic Per cardiology: - PCI to LAD 2011, [employer] RCA, mod dx in Lcx artery. -Denies chest pain. -ON asa, BB. Not on statin due to elevated LFTs. -No acute ECG changes. -No acute need for LHC at this time. Work-up for acute elevation of LFT. Qualifiers: Coronary Disease-Associated Artery/Lesion type: [place] artery [place] vs. transplanted heart: [place] heart Associated angina: without angina Qualified Code(s): I25.10 - Atherosclerotic heart disease of [place] coronary artery without angina pectoris (5) A-fib Current Visit: No Status: Chronic Per cardiology: -Known PAF. Previously ON sotalol and cardizem in outpatient setting. -[id number] score 4 (age, HTN, CAD, CHf). Previously on coumadin. However pateint states he stopped taking coumadin due to "I got into a fight with the gina who ran the coumadin clinic." -Patient refuses to be placed back on anticoagulation. Aware of increased risk of CVA/embolic event while not on AC. OF note, INR 2.1 while not on anticoagulation. -Of note, patient previously on sotalol for rhythm control and no longer on anticoagulation. Will stop sotalol. Will pursue rate control strategy with BB. Will add toprol. -Patient now a.fib RVR, was started on amiodarone drip. Currently on amio. AVerage HR previous 12 hours noted to be 119,a .fib (improved from yesterday). -Will attempt to increase BB, if BP will tolerate. -Recommend close monitoring of LFTs while on amio. -Will continue to monitor. Qualifiers: Atrial fibrillation type: paroxysmal Qualified Code(s): I48.0 - Paroxysmal atrial fibrillation Discussion w patient/family: The assessment and plan as outlined above was discussed with the patient who expressed understanding and agreement. All questions were answered. Thank you for involving us in the care of your patient. Please call with any questions. Discussed and reviewed with . Subjective Principal diagnosis: cardiomyopathy Interval history: Patient denies chest pain. Reports shortness of breath improved. Denies palpitations or fluttering. Objective Vital Signs, Last 4 Hours Pulse BP 12/16/17 11:00 114 112/92 12/16/17 10:00 121 111/89 12/16/17 09:32 109 12/16/17 09:00 116 125/107 12/16/17 08:00 113 107/85 General: Conversant, No Apparent Distress HEENT: Atraumatic, Normocephaly, Mucus Membranes Moist Neck: No JVD, Normal carotid pulses Cardiac: Normal S1 and S2, No Murmur, Other (Irregularly irregular) Lungs: Normal Breath Sounds, No Wheeze, Rales, Rhonchi Neuro: Alert and responsive, No focal deficits noted Abdomen: Soft, Non-Tender Skin: No rashes noted on visualized skin Musculoskeletal: No Chest Wall Tenderness Extremities: No Clubbing, No Cyanosis, Normal Pulses, Other (Mild bilateral pedal edema noted. ) Results 12/15/17 05:05 12/16/17 09:41 Lab Results Active Medications Ascorbic Acid (Vitamin C) 500 mg PO DAILY [facility] Stop: 06/09/18 09:01 Last Admin: 12/16/17 09:22 Dose: 500 mg Aspirin (Aspirin) 325 mg PO DAILY KATHRYN Stop: 06/09/18 09:01 Last Admin: 12/16/17 09:22 Dose: 325 mg Calcium Carbonate (Tums) 2,000 mg PO DAILY KATHRYN PRN Reason: Protocol Stop: 06/12/18 09:01 Last Admin: 12/16/17 09:22 Dose: 2,000 mg Enoxaparin Sodium (Lovenox) 40 mg SQ 0600 [facility]1983 PRN Reason: Protocol Stop: 06/11/18 06:01 Last Admin: 12/16/17 06:33 Dose: Not Given Guaifenesin (Mucinex) 600 mg PO BID PRN PRN Reason: Congestion Stop: 06/09/18 00:08 Last Admin: 12/08/17 20:56 Dose: 600 mg Amiodarone HCl/Dextrose (Amiodarone Drip Premix 360mg/200ml) 360 mg in 200 mls @ 16.667 mls/hr IVC CONT KATHRYN PRN Reason: 0.5 MG/MIN Stop: 06/15/18 23:46 Last Admin: 12/16/17 09:20 Dose: 0.5 mg/min, 16.667 mls/hr Lactulose (Lactulose) 20 gm PO BID KATHRYN Stop: 06/11/18 21:01 Last Admin: 12/16/17 09:22 Dose: 20 gm Levalbuterol HCl (Xopenex) 1.25 mg IH [id number] PRN PRN Reason: Shortness Of Breath/Wheezing Stop: 06/09/18 23:31 Last Admin: 12/14/17 10:19 Dose: 1.25 mg Lorazepam (Ativan) 0.5 mg PO TID PRN PRN Reason: Anxiety Stop: 06/09/18 19:55 Last Admin: 12/13/17 21:17 Dose: 0.5 mg Metoprolol Succinate (Toprol Xl) 50 mg PO DAILY KATHRYN Stop: 06/17/18 09:01 Last Admin: 12/16/17 09:22 Dose: 50 mg Naloxone HCl (Narcan) 0.4 mg IVP Q2MIN PRN PRN Reason: SEE COMMENTS Stop: 06/08/18 19:02 Nicotine (Nicoderm) 21 mg TD DAILY KATHRYN PRN Reason: Protocol Stop: 06/09/18 22:16 Last Admin: 12/16/17 09:24 Dose: Not Given Potassium Chloride (Potassium Chloride) 20 meq PO DAILY KATHRYN Stop: 06/12/18 15:16 Last Admin: 12/16/17 09:22 Dose: 20 meq Laboratory Tests 12/16/17 04:20 Creatinine 1.19 - Imaging and Cardiology Chest Xray: report reviewed Stress Test: pending, report reviewed Echo: report reviewed Cardiac cath: report reviewed - EKG Interpretation EKG results cardiology: other (Telemetry reviewed with average HR previous 12 hours noted to be 119, a.fib. PVCs noted.) - VTE Documentation of Mechanical Device: Intermittent pneumatic compression device Consult Discharge Plan - Plan Referrals: Evan Gutierrez, [employer] [Advanced Practice Nurse] - (OFFICE WILL CALL PATIENT AT HOME WITH FOLLOW UP APPOINTMENT SENT WEB REQUEST ON 12-13-17 @[id number]) Adrian Jones DO [Resident] - 12/24/17 10:15 am
[2017-12-16] MEDS ORDERED: Metoprolol XL (24 HR) Succ 25 MG TAB.ER.24H PO ONE (12:02)
[2017-12-16] MEDS ORDERED: *HR* Metoprolol 5 MG/5 ML VIAL IVP ONE (12:05)
[2017-12-17] MEDS: *HR* Enoxaparin 40 MG/0.4 ML SYRINGE SQ SCH (04:15)
[2017-12-17 05:07] LABS: Alanine Aminotransferase 213 Units/L (7-52); Albumin 3.1 g/dL (3.5-5.7); Albumin/Globulin Ratio 1.2 (1.1-2.2); Alkaline Phosphatase 83 Units/L (34-104); Aspartate Amino Transferase 58 Units/L (13-39); BUN/Creatinine Ratio 20 (6-26); Bilirubin,Direct 0.4 mg/dL (0.0-0.2); Bilirubin,Indirect 0.5 mg/dL (0.0-1.2); Bilirubin,Total 0.9 mg/dL (0.3-1.0); Blood Urea Nitrogen 25 mg/dL (8-23); Calcium 9.3 mg/dL (8.6-10.3); Carbon Dioxide 28 mEq/L (23-29); Chloride 106 mEq/L (98-107); Globulin 2.6 g/dL (2.4-3.5); Glucose 128 mg/dL (70-105); Osmolality,Calculated 296 (280-300); Potassium 3.8 mEq/L (3.5-5.1); Sodium 140 mEq/L (136-145); Total Protein 5.7 g/dL (6.4-8.9); eGFR For African Americans > 60 (> 60); eGFR For Non-African Americans 58 (> 60)
[2017-12-17] MEDS: Lactulose Oral Soln 20 GM/30 ML UDC PO SCH (09:31)
[2017-12-17] MEDS: Ascorbic Acid 500 MG TABLET PO SCH (09:31)
[2017-12-17] MEDS: Aspirin 325 MG TABLET PO SCH (09:31)
[2017-12-17] MEDS: Metoprolol XL (24 HR) Succ 50 MG TAB.ER.24H PO SCH ×2 (09:32→20:00)
[2017-12-17] MEDS: Nicotine 21 MG PATCH.TD24 TD SCH (09:33)
--- NOTE | 2017-12-17 10:40 | Internal Med Progress Note ---
<Jb Garay - Last Filed: 12/17/17 10:49> Date of Encounter: 12/17/17 Time of Encounter: 10:38 - Assessment and plan (1) Atrial fibrillation with RVR Current Visit: Yes Status: Chronic Assessment and plan: A fib with RVR likely secondary to HCAP present upon admission , with B/L pleural effusions with acute systolic/diastolic CHF exacerbation Cardizem and Sotalol were discontinued by cardiology. Toprol added Per cardiology still not controlled on amiodarone and toprol 50mg BID will follow cardiology recomendations patient refuses anticoagulation (2) Elevated liver enzymes Current Visit: Yes Status: Acute Assessment and plan: Initially mild elevated, thne acutely worsened Abdominal CT demonstrated pericholecystic fluid and concern for cholecystitis Hida scan was negative for acute process, concern for chronic cholecystitis Surgery was consulted and initially signed off No obvious shock, net positive fluid balance We will hold acetaminophen Consult to GI, appreciate recommendations unclear etiology. improving Patient has been taking Lactulose which has caused multiple Bowel movements (3) Pneumonia Current Visit: Yes Status: Resolved Assessment and plan: Suspected Left multilobar pneumonia, completed antibiotic course resolved Qualifiers: Pneumonia type: due to Pneumococcus Laterality: left Lung location: upper lobe of lung Qualified Code(s): J13 - Pneumonia due to Streptococcus pneumoniae (4) CAD (coronary artery disease) Current Visit: Yes Status: Chronic Assessment and plan: Hx of chronic CAD w/previous [place] and 1 stent placed. conitnue asa and bb not on statin 2nd to elevated lfts cannot do stress test due to tachycardia Qualifiers: Coronary Disease-Associated Artery/Lesion type: [place] artery [place] vs. transplanted heart: [place] heart Associated angina: without angina Qualified Code(s): I25.10 - Atherosclerotic heart disease of [place] coronary artery without angina pectoris (5) Hypertension Current Visit: Yes Status: Chronic Assessment and plan: Has remained in good control until this point Blood pressure has fallen some, possibly related to Afib RVR Stop amlodipine to allow BP room for adjustment with regard to rate control Qualifiers: Hypertension type: essential hypertension Qualified Code(s): I10 - Essential (primary) hypertension (6) Heart failure Current Visit: Yes Status: Acute Assessment and plan: History of chronic diastolic heart failure with preserved ejection fraction resolved. Qualifiers: Heart failure type: diastolic Heart failure chronicity: acute Qualified Code(s): I50.31 - Acute diastolic (congestive) heart failure (7) Pleural effusion Current Visit: Yes Status: Acute Assessment and plan: stable B/l pleural effusion, R>L Likely secondary to worsening cardiac function Consider thoracentesis if necessary (8) Acute renal failure superimposed on stage 3 chronic kidney disease Current Visit: Yes Status: Resolved Qualifiers: Acute renal failure type: unspecified Qualified Code(s): N17.9 - Acute kidney failure, unspecified; N18.3 - Chronic kidney disease, stage 3 (moderate) (9) Tobacco abuse Current Visit: Yes Status: Chronic Assessment and plan: Hx of chronic tobacco abuse. Pt. reports smoking 1 PPD. (10) Hepatic encephalopathy Current Visit: Yes Status: Resolved Assessment and plan: Encephalopathy, likely secondary to hepatic failure The patient's Ammonia increased in response to acute hepatic failure, but is responding to treatment He did admit to visual disturbances which are likely related to high ammonia and uremia, however they have resolved Lactulose has been helpful in dropping the serum ammonia, patient is less symptomatic We will continue lactulose, monitor mental status resolved - Time Spent With Patient Total time spent is greater than 50% in coordination of care (as documented) at patient's floor/unit and/or counseling patient: - Subjective Interval history: NO acute events overnight. He continues to be in afib rvr with HR ranging from 100-130. He denies chest pain, sob, N/V, abdominal pain, LE swelling. - Constitutional Vitals: Temp Pulse Resp BP Pulse Ox 98.4 F 113 18 126/94 95 12/17/17 06:56 12/17/17 10:33 12/17/17 10:33 12/17/17 09:37 12/17/17 10:33 General appearance: Present: cooperative, A&O X 3, pleasant, no acute distress, answers questions appropriately - Other Additional findings: - Respiratory Respiratory exam: Present: CTAB. Absent: accessory muscle use, rales, rhonchi, wheezes - Cardiovascular Cardiovascular exam: Present: irregular rhythm, tachycardia - GI/Abdominal GI/Abdominal exam: Present: normal bowel sounds, soft, no peritoneal signs. Absent: distended, tenderness - Extremities Exam Extremities exam: Present: warm, radial pulses palpable and symmetrical. Absent : calf tenderness, cyanotic, pedal edema - Neurological Exam Neurological exam: Present: alert, oriented X3 - Skin Skin exam: Present: dry, intact Internal Medicine: Result - Labs CBC & Chem 7: 12/15/17 05:05 12/17/17 04:29 Labs: BMP 12/17/17 04:29 Sodium 140 Potassium 3.8 Chloride 106 Carbon Dioxide 28 BUN 25 H Creatinine 1.24 Glucose 128 H Calcium 9.3 Liver Function 12/17/17 Range/Units 04:29 Total Bilirubin 0.9 (0.3-1.0) mg/dL Direct Bilirubin 0.4 H (0.0-0.2) mg/dL AST 58 H (13-39) Units/L ALT 213 H (7-52) Units/L Alkaline Phosphatase 83 (34-104) Units/L Albumin 3.1 L (3.5-5.7) g/dL - ABG Interpretation ABG results: ABG ABG pH 7.39 pH Units (7.32-7.45) 12/08/17 23:32 ABG pCO2 20 mmHg (35-45) L* 12/08/17 23:32 ABG pO2 74 mmHg (85-104) L 12/08/17 23:32 ABG O2 Saturation 95 % (95-98) 12/08/17 23:32 PT/INR, D-dimer PT 22.8 Seconds (9.4-12.1) H 12/10/17 12:22 - VTE Documentation of Mechanical Device: Intermittent pneumatic compression device Consult Discharge Plan - Plan Referrals: Evan Gutierrez, GENERAL UTILITY WORKER [Advanced Practice Nurse] - (OFFICE WILL CALL PATIENT AT HOME WITH FOLLOW UP APPOINTMENT SENT WEB REQUEST ON 12-13-17 @[phone]) Adrian Jones DO [Resident] - 12/24/17 10:15 am <Matheus Duron - Last Filed: 12/17/17 15:51> Date of Encounter: 12/17/17 - Assessment and plan (1) Tobacco abuse Current Visit: Yes Status: Chronic (2) Pneumonia Current Visit: Yes Status: Resolved Qualifiers: Pneumonia type: due to Pneumococcus Laterality: left Lung location: upper lobe of lung Qualified Code(s): J13 - Pneumonia due to Streptococcus pneumoniae (3) CAD (coronary artery disease) Current Visit: Yes Status: Chronic Qualifiers: Coronary Disease-Associated Artery/Lesion type: [place] artery [place] vs. transplanted heart: [place] heart Associated angina: without angina Qualified Code(s): I25.10 - Atherosclerotic heart disease of [place] coronary artery without angina pectoris (4) Hypertension Current Visit: Yes Status: Chronic Qualifiers: Hypertension type: essential hypertension Qualified Code(s): I10 - Essential (primary) hypertension (5) Heart failure Current Visit: Yes Status: Resolved Qualifiers: Heart failure type: diastolic Heart failure chronicity: acute Qualified Code(s): I50.31 - Acute diastolic (congestive) heart failure (6) Atrial fibrillation with RVR Current Visit: Yes Status: Chronic (7) Pleural effusion Current Visit: Yes Status: Acute (8) Acute renal failure superimposed on stage 3 chronic kidney disease Current Visit: Yes Status: Resolved Qualifiers: Acute renal failure type: unspecified Qualified Code(s): N17.9 - Acute kidney failure, unspecified; N18.3 - Chronic kidney disease, stage 3 (moderate) (9) Elevated liver enzymes Current Visit: Yes Status: Acute (10) Hepatic encephalopathy Current Visit: Yes Status: Resolved (11) Atrial fibrillation Current Visit: Yes Status: Acute Qualifiers: Atrial fibrillation type: persistent Qualified Code(s): I48.1 - Persistent atrial fibrillation - Time Spent With Patient Total time spent is greater than 50% in coordination of care (as documented) at patient's floor/unit and/or counseling patient: - Constitutional Vitals: Temp Pulse Resp BP Pulse Ox 97.8 F 131 22 105/87 98 12/17/17 11:19 12/17/17 14:50 12/17/17 14:50 12/17/17 11:19 12/17/17 11:58 Internal Medicine: Result - Labs CBC & Chem 7: 12/15/17 05:05 12/17/17 04:29 Labs: BMP 12/17/17 04:29 Sodium 140 Potassium 3.8 Chloride 106 Carbon Dioxide 28 BUN 25 H Creatinine 1.24 Glucose 128 H Calcium 9.3 Liver Function 12/17/17 Range/Units 04:29 Total Bilirubin 0.9 (0.3-1.0) mg/dL Direct Bilirubin 0.4 H (0.0-0.2) mg/dL AST 58 H (13-39) Units/L ALT 213 H (7-52) Units/L Alkaline Phosphatase 83 (34-104) Units/L Albumin 3.1 L (3.5-5.7) g/dL - ABG Interpretation ABG results: ABG ABG pH 7.39 pH Units (7.32-7.45) 12/08/17 23:32 ABG pCO2 20 mmHg (35-45) L* 12/08/17 23:32 ABG pO2 74 mmHg (85-104) L 12/08/17 23:32 ABG O2 Saturation 95 % (95-98) 12/08/17 23:32 PT/INR, D-dimer PT 22.8 Seconds (9.4-12.1) H 12/10/17 12:22 - Attending Attestation I examined this patient and my medical decision-making was reviewed with the Resident Physician on 12/17/17. I agree with the documented findings, disposition and treatment plan as described except to the extent set forth below. Mr Bowen is currently admitted for rapid a fib and hepatic failure. He remains moderate to high risk due to potential for worsening clinical status. Mr Bowen is frustrated about heart rate. Still elevated and meds being adjusted. No fever or chills. No GI issues currently. Exam Alert Comfortable Mucus membranes dry Heart tachy and irreg No wheeze abd soft I/P 1. A fib 2. Hepatic failure improved Further diagnoses and plan as above Explained to patient that meds being adjusted slowly due to BP. Waiting for heart rate to decrease for stress test.
--- NOTE | 2017-12-17 11:43 | Cardiology Progress Note ---
Date of Encounter: 12/17/17 Time of Encounter: 09:00 Assessment and Plan (1) Elevated liver enzymes Current Visit: Yes Status: Acute Per cardiology: -Markedly abnormal liver enzymes, now down trending. -GI and surgery have been consulted. -Continue to monitor closely, now with amio drip. -Management per primary, GI, and surgical services. (2) Acute renal failure superimposed on stage 3 chronic kidney disease Current Visit: Yes Status: Resolved Per cardiology: -LAILA noted on admission, improving. -Baseline creatinine 1-1.2. -Nephrology following. -Management per primary and nephrology services. Qualifiers: Acute renal failure type: unspecified Qualified Code(s): N17.9 - Acute kidney failure, unspecified; N18.3 - Chronic kidney disease, stage 3 (moderate) (3) Cardiomyopathy Current Visit: Yes Status: Acute Per cardiology: -TTE with LVEF 45-50% global hypokinesis, mild concentric LVH, RV mildly dilated iwth mild hypokinesis, bi-atrial enlargement, mild-moderate AR, moderate MR, mild TR, moderate pulmonary hypertension. -10/2016 TTE LVEF 55-60%. -Chest x-ray with small bilateral pleural effusion, mild pedal edema. -Stress 10/2016 with suspected area of artifact, no evidence of ischemia. -LHC 2011 with high-grade LAD s/p ANNETTE, occluded RCA supplied by L-R collaterals , and 50-60% circumflex. -On BB, not on karen/arb due to LAILA. Can consider addition prior to discharge. -CHF education reviewed with patient. -PLan for stress when able. -Unable to perform stress today due to tachycardia. Will make NPO after midnight for possible stress in am. Qualifiers: Cardiomyopathy type: unspecified Qualified Code(s): I42.9 - Cardiomyopathy , unspecified (4) CAD (coronary artery disease) Current Visit: Yes Status: Chronic Per cardiology: - PCI to LAD 2011, VENTURE CAPITALIST RCA, mod dx in Lcx artery. -Denies chest pain. -ON asa, BB. Not on statin due to elevated LFTs. -No acute ECG changes. -No acute need for LHC at this time. Work-up for acute elevation of LFT. Qualifiers: Coronary Disease-Associated Artery/Lesion type: [place] artery [place] vs. transplanted heart: [place] heart Associated angina: without angina Qualified Code(s): I25.10 - Atherosclerotic heart disease of [place] coronary artery without angina pectoris (5) A-fib Current Visit: No Status: Chronic Per cardiology: -Known PAF. Previously ON sotalol and cardizem in outpatient setting. -[id number] score 4 (age, HTN, CAD, CHf). Previously on coumadin. However pateint states he stopped taking coumadin due to "I got into a fight with the gina who ran the coumadin clinic." -Patient refuses to be placed back on anticoagulation. Aware of increased risk of CVA/embolic event while not on AC. OF note, INR 2.1 while not on anticoagulation. -Of note, patient previously on sotalol for rhythm control and no longer on anticoagulation. Will stop sotalol. Will pursue rate control strategy with BB. Will add toprol. -Patient now a.fib RVR, was started on amiodarone drip. Currently on amio. AVerage HR previous 12 hours noted to be 117, a .fib (improved from yesterday). -Amiodarone drip was stopped yesterdya and BB was increased. -Will increase BB today. -Will continue to monitor. Qualifiers: Atrial fibrillation type: paroxysmal Qualified Code(s): I48.0 - Paroxysmal atrial fibrillation Discussion w patient/family: The assessment and plan as outlined above was discussed with the patient who expressed understanding and agreement. All questions were answered. Thank you for involving us in the care of your patient. Please call with any questions. Discussed and reviewed with . Subjective Principal diagnosis: cardiomyopathy Interval history: Patient frustrated today regarding missing breakfast. Besides food concerns, denies complaints. Objective Vital Signs, Last 4 Hours Temp Pulse Resp BP Pulse Ox 12/17/17 11:19 97.8 F 121 18 105/87 97 12/17/17 10:33 113 18 95 12/17/17 09:43 126 12/17/17 09:37 134 18 126/94 96 General: Conversant, No Apparent Distress HEENT: Atraumatic, Normocephaly, Mucus Membranes Moist Neck: No JVD, Normal carotid pulses Cardiac: Normal S1 and S2, No Murmur, Other (Irregularly irregular ) Lungs: Normal Breath Sounds, No Wheeze, Rales, Rhonchi Neuro: Alert and responsive, No focal deficits noted Abdomen: Soft, Non-Tender Skin: No rashes noted on visualized skin Musculoskeletal: No Chest Wall Tenderness Extremities: No Clubbing, No Cyanosis, Normal Pulses, Other (Mild bilateral pedal edema. ) Results 12/15/17 05:05 12/17/17 04:29 Lab Results Active Medications Ascorbic Acid (Vitamin C) 500 mg PO DAILY [facility] Stop: 06/09/18 09:01 Last Admin: 12/17/17 09:31 Dose: 500 mg Aspirin (Aspirin) 325 mg PO DAILY [facility] Stop: 06/09/18 09:01 Last Admin: 12/17/17 09:31 Dose: 325 mg Calcium Carbonate (Tums) 2,000 mg PO DAILY [facility] PRN Reason: Protocol Stop: 06/12/18 09:01 Last Admin: 12/17/17 09:32 Dose: 2,000 mg Enoxaparin Sodium (Lovenox) 40 mg SQ 0600 [facility] PRN Reason: Protocol Stop: 06/11/18 06:01 Last Admin: 12/17/17 04:15 Dose: 40 mg Guaifenesin (Mucinex) 600 mg PO BID PRN PRN Reason: Congestion Stop: 06/09/18 00:08 Last Admin: 12/08/17 20:56 Dose: 600 mg Lactulose (Lactulose) 20 gm PO BID [facility] Stop: 06/11/18 21:01 Last Admin: 12/17/17 09:31 Dose: 20 gm Levalbuterol HCl (Xopenex) 1.25 mg IH [id number] PRN PRN Reason: Shortness Of Breath/Wheezing Stop: 06/09/18 23:31 Last Admin: 12/14/17 10:19 Dose: 1.25 mg Lorazepam (Ativan) 0.5 mg PO TID PRN PRN Reason: Anxiety Stop: 06/09/18 19:55 Last Admin: 12/13/17 21:17 Dose: 0.5 mg Metoprolol Succinate (Toprol Xl) 75 mg PO BID [facility] Stop: 06/18/18 09:01 Last Admin: 12/17/17 09:32 Dose: 75 mg Naloxone HCl (Narcan) 0.4 mg IVP Q2MIN PRN PRN Reason: SEE COMMENTS Stop: 06/08/18 19:02 Nicotine (Nicoderm) 21 mg TD DAILY [facility] PRN Reason: Protocol Stop: 06/09/18 22:16 Last Admin: 12/17/17 09:33 Dose: Not Given Potassium Chloride (Potassium Chloride) 20 meq PO DAILY [facility] Stop: 06/12/18 15:16 Last Admin: 12/16/17 09:22 Dose: 20 meq Laboratory Tests 12/17/17 04:29 Potassium 3.8 Creatinine 1.24 - Imaging and Cardiology Chest Xray: report reviewed Stress Test: report reviewed Echo: report reviewed Cardiac cath: report reviewed - EKG Interpretation EKG results cardiology: other (Telemetry reviewed with average HR previous 12 hours noted to be 117, a.fib. PVCs noted.) - VTE Documentation of Mechanical Device: Intermittent pneumatic compression device Consult Discharge Plan - Plan Referrals: Evan Gutierrez, LENS BLOCKER [Advanced Practice Nurse] - (OFFICE WILL CALL PATIENT AT HOME WITH FOLLOW UP APPOINTMENT SENT WEB REQUEST ON 12-13-17 @[phone]) Adrian Jones DO [Resident] - 12/24/17 10:15 am
[2017-12-18] MEDS: Levalbuterol Neb 1.25 MG/3 ML IH PRN (04:01)
[2017-12-18] MEDS: *HR* Enoxaparin 40 MG/0.4 ML SYRINGE SQ SCH (06:21)
[2017-12-18] MEDS: Ascorbic Acid 500 MG TABLET PO SCH (08:30)
[2017-12-18] MEDS: Metoprolol XL (24 HR) Succ 50 MG TAB.ER.24H PO SCH ×2 (08:30→20:42)
[2017-12-18] MEDS: Aspirin 325 MG TABLET PO SCH (08:31)
[2017-12-18] MEDS: Nicotine 21 MG PATCH.TD24 TD SCH (08:31)
[2017-12-18] MEDS ORDERED: *HR* Digoxin 0.5 MG/2 ML AMPUL IVP ONE (11:35)
[2017-12-18] MEDS ORDERED: diazePAM 5 MG TABLET PO ONE ×2 (13:35→22:47)
--- NOTE | 2017-12-18 15:12 | Internal Med Progress Note ---
Date of Encounter: 12/18/17 Time of Encounter: 14:30 - Assessment and plan (1) Pneumonia Current Visit: Yes Status: Resolved Assessment and plan: Completed course of abx. No symptoms or issues now. Qualifiers: Pneumonia type: due to Pneumococcus Laterality: left Lung location: upper lobe of lung Qualified Code(s): J13 - Pneumonia due to Streptococcus pneumoniae (2) Heart failure Current Visit: Yes Status: Chronic Assessment and plan: Doing better overall. Acute episode has resolved. Qualifiers: Heart failure type: diastolic Heart failure chronicity: chronic Qualified Code(s): I50.32 - Chronic diastolic (congestive) heart failure (3) Hepatic encephalopathy Current Visit: Yes Status: Resolved Assessment and plan: Overall his hepatic function has improved. Mental status improved as well. (4) Atrial fibrillation Current Visit: Yes Status: Acute Assessment and plan: Continues to have rapid a fib. Digoxin started today. Further plan per cardiology. Qualifiers: Atrial fibrillation type: persistent Qualified Code(s): I48.1 - Persistent atrial fibrillation (5) Tobacco abuse Current Visit: Yes Status: Chronic Assessment and plan: Hx of chronic tobacco abuse. Pt. reports smoking 1 PPD. Cessation counselling. (6) CAD (coronary artery disease) Current Visit: Yes Status: Chronic Assessment and plan: Hx of chronic CAD w/previous [place] and 1 stent placed. conitnue asa and bb not on statin 2nd to elevated lfts - will reassess with normal labs. Qualifiers: Coronary Disease-Associated Artery/Lesion type: [place] artery [place] vs. transplanted heart: [place] heart Associated angina: without angina Qualified Code(s): I25.10 - Atherosclerotic heart disease of [place] coronary artery without angina pectoris (7) Hypertension Current Visit: Yes Status: Chronic Assessment and plan: Has elevation in diastolic BP recorded - ? if related to a fib reading in machine. Qualifiers: Hypertension type: essential hypertension Qualified Code(s): I10 - Essential (primary) hypertension (8) Elevated liver enzymes Current Visit: Yes Status: Acute Assessment and plan: LFTs have been slowly improving. Will recheck tomorrow. - Time Spent With Patient Total time spent is greater than 50% in coordination of care (as documented) at patient's floor/unit and/or counseling patient: - Subjective Interval history: Mr Bowen is currently admitted for PNA, hepatic failure (resolved) and rapid a fib. He remains moderate to high risk due to potential for worsening clinical status. Mr Bowen feels OK. He wants to go home as soon as he can. He was started on digoxin today. No fever or chills. No CP or SOB. Has been up walking some and feels better when he is up. - Constitutional Vitals: Temp Pulse Resp BP Pulse Ox 97.6 F 108 20 128/102 99 12/18/17 11:14 12/18/17 11:14 12/18/17 11:14 12/18/17 11:14 12/18/17 11:14 General appearance: Present: cooperative, A&O X 3, pleasant, answers questions appropriately - Head Head exam: Present: normocephalic - Eye Eye exam: Present: conjuntiva pink - ENT ENT exam: Present: mucous membranes moist - Respiratory Respiratory exam: Present: CTAB. Absent: rhonchi, wheezes - Cardiovascular Cardiovascular exam: Present: irregular rhythm, tachycardia - GI/Abdominal GI/Abdominal exam: Present: soft. Absent: distended - Extremities Exam Extremities exam: Present: warm. Absent: tenderness - Neurological Exam Neurological exam: Present: alert, oriented X3 - Skin Skin exam: Present: dry, warm Internal Medicine: Result - Labs CBC & Chem 7: 12/15/17 05:05 12/17/17 04:29 - ABG Interpretation ABG results: ABG ABG pH 7.39 pH Units (7.32-7.45) 12/08/17 23:32 ABG pCO2 20 mmHg (35-45) L* 12/08/17 23:32 ABG pO2 74 mmHg (85-104) L 12/08/17 23:32 ABG O2 Saturation 95 % (95-98) 12/08/17 23:32 PT/INR, D-dimer PT 22.8 Seconds (9.4-12.1) H 12/10/17 12:22 - VTE Documentation of Mechanical Device: Intermittent pneumatic compression device Consult Discharge Plan - Plan Referrals: Evan Gutierrez, CLICKING MACHINE OPERATOR [Advanced Practice Nurse] - (OFFICE WILL CALL PATIENT AT HOME WITH FOLLOW UP APPOINTMENT SENT WEB REQUEST ON 12-13-17 @[id number]) Adrian Jones DO [Resident] - 12/24/17 10:15 am
[2017-12-18] MEDS: *HR* Digoxin 0.5 MG/2 ML AMPUL IVP SCH ×2 (18:07→23:45)
[2017-12-19] MEDS: *HR* Enoxaparin 40 MG/0.4 ML SYRINGE SQ SCH (05:49)
[2017-12-19 07:05] LABS: Hematocrit 42.4 % (37.5-50.1); Hemoglobin 13.7 g/dL (12.9-16.9); Mean Corpuscular HGB Conc 32.3 g/dL (31.6-35.5); Mean Corpuscular Hemoglobin 31.5 pg (28.0-33.3); Mean Corpuscular Volume 97.5 fL (83.0-100.0); Mean Platelet Volume 11.2 fL (9.4-12.4); Platelet Count 164 K/mcL (140-400); Red Blood Count 4.35 M/mcL (4.19-5.50); Red Cell Distribution Width 15.3 % (11.5-14.5)
[2017-12-19 07:23] LABS: Alanine Aminotransferase 129 Units/L (7-52); Albumin 2.9 g/dL (3.5-5.7); Albumin/Globulin Ratio 1.2 (1.1-2.2); Alkaline Phosphatase 68 Units/L (34-104); Aspartate Amino Transferase 39 Units/L (13-39); BUN/Creatinine Ratio 19 (6-26); Bilirubin,Direct 0.3 mg/dL (0.0-0.2); Bilirubin,Indirect 0.7 mg/dL (0.0-1.2); Blood Urea Nitrogen 21 mg/dL (8-23); Calcium 8.6 mg/dL (8.6-10.3); Carbon Dioxide 25 mEq/L (23-29); Chloride 110 mEq/L (98-107); Globulin 2.4 g/dL (2.4-3.5); Glucose 92 mg/dL (70-105); Magnesium 2.1 mg/dL (1.6-2.6); Osmolality,Calculated 293 (280-300); Potassium 3.9 mEq/L (3.5-5.1); Sodium 140 mEq/L (136-145); Total Protein 5.3 g/dL (6.4-8.9); eGFR For African Americans > 60 (> 60); eGFR For Non-African Americans > 60 (> 60)
--- NOTE | 2017-12-19 08:32 | Internal Med Progress Note ---
Date of Encounter: 12/19/17 Time of Encounter: 08:00 - Assessment and plan (1) Pneumonia Current Visit: Yes Status: Resolved Qualifiers: Pneumonia type: due to Pneumococcus Laterality: left Lung location: upper lobe of lung Qualified Code(s): J13 - Pneumonia due to Streptococcus pneumoniae (2) Heart failure Current Visit: Yes Status: Chronic Qualifiers: Heart failure type: diastolic Heart failure chronicity: chronic Qualified Code(s): I50.32 - Chronic diastolic (congestive) heart failure (3) Hepatic encephalopathy Current Visit: Yes Status: Resolved (4) Atrial fibrillation Current Visit: Yes Status: Acute Qualifiers: Atrial fibrillation type: persistent Qualified Code(s): I48.1 - Persistent atrial fibrillation (5) Tobacco abuse Current Visit: Yes Status: Chronic (6) CAD (coronary artery disease) Current Visit: Yes Status: Chronic Qualifiers: Coronary Disease-Associated Artery/Lesion type: [place] artery [place] vs. transplanted heart: [place] heart Associated angina: without angina Qualified Code(s): I25.10 - Atherosclerotic heart disease of [place] coronary artery without angina pectoris (7) Hypertension Current Visit: Yes Status: Chronic Qualifiers: Hypertension type: essential hypertension Qualified Code(s): I10 - Essential (primary) hypertension (8) Elevated liver enzymes Current Visit: Yes Status: Acute - Time Spent With Patient Total time spent is greater than 50% in coordination of care (as documented) at patient's floor/unit and/or counseling patient: - Subjective Interval history: Mr Bowen is currently admitted for PNA, hepatic failure (resolved) and rapid a fib. He remains moderate to high risk due to potential for worsening clinical status. Mr Bowen feels OK. He wants to go home as soon as he can. He was started on digoxin today. No fever or chills. No CP or SOB. Has been up walking some and feels better when he is up. - Constitutional Vitals: Temp Pulse Resp BP Pulse Ox 98.2 F 90 17 118/69 98 12/19/17 07:32 12/19/17 07:32 12/19/17 07:32 12/19/17 07:32 12/19/17 07:32 General appearance: Present: cooperative, A&O X 3, pleasant, answers questions appropriately Internal Medicine: Result - Labs CBC & Chem 7: 12/19/17 05:57 12/19/17 05:57 Labs: Short CBC 12/19/17 Range/Units 05:57 WBC 6.6 (4.3-11.1) K/mcL Hgb 13.7 (12.9-16.9) g/dL Hct 42.4 (37.5-50.1) % Plt Count 164 (140-400) K/mcL BMP 12/19/17 05:57 Sodium 140 Potassium 3.9 Chloride 110 H Carbon Dioxide 25 BUN 21 Creatinine 1.10 Glucose 92 Calcium 8.6 Liver Function 12/19/17 Range/Units 05:57 Total Bilirubin 1.0 (0.3-1.0) mg/dL Direct Bilirubin 0.3 H (0.0-0.2) mg/dL AST 39 (13-39) Units/L ALT 129 H (7-52) Units/L Alkaline Phosphatase 68 (34-104) Units/L Albumin 2.9 L (3.5-5.7) g/dL - ABG Interpretation ABG results: ABG ABG pH 7.39 pH Units (7.32-7.45) 12/08/17 23:32 ABG pCO2 20 mmHg (35-45) L* 12/08/17 23:32 ABG pO2 74 mmHg (85-104) L 12/08/17 23:32 ABG O2 Saturation 95 % (95-98) 12/08/17 23:32 PT/INR, D-dimer PT 22.8 Seconds (9.4-12.1) H 12/10/17 12:22 - VTE Documentation of Mechanical Device: Intermittent pneumatic compression device Consult Discharge Plan - Plan Referrals: Evan Gutierrez, PIG MACHINE OPERATOR HELPER [Advanced Practice Nurse] - (OFFICE WILL CALL PATIENT AT HOME WITH FOLLOW UP APPOINTMENT SENT WEB REQUEST ON 12-13-17 @[phone]) Adrian Jones DO [Resident] - 12/24/17 10:15 am
[2017-12-19] MEDS: Nicotine 21 MG PATCH.TD24 TD SCH (08:45)
[2017-12-19] MEDS: Metoprolol XL (24 HR) Succ 50 MG TAB.ER.24H PO SCH (08:45)
[2017-12-19] MEDS: Aspirin 325 MG TABLET PO SCH (08:45)
[2017-12-19] MEDS: Ascorbic Acid 500 MG TABLET PO SCH (08:45)
[2017-12-19] MEDS ORDERED: *HR* Digoxin 0.125 MG TABLET PO SCH (09:00)
[2017-12-19 11:30] VITALS: BP 124/90
--- NOTE | 2017-12-19 13:14 | Cardiology Progress Note ---
Date of Encounter: 12/19/17 Time of Encounter: 13:00 Assessment and Plan (1) Elevated liver enzymes Current Visit: Yes Status: Acute Per cardiology: -Markedly abnormal liver enzymes, now down trending. -GI and surgery have been consulted. -Management per primary, GI, and surgical services. (2) Acute renal failure superimposed on stage 3 chronic kidney disease Current Visit: Yes Status: Resolved Per cardiology: -LAILA noted on admission, improved. -Baseline creatinine 1-1.2. -Nephrology following. -Management per primary and nephrology services. Qualifiers: Acute renal failure type: unspecified Qualified Code(s): N17.9 - Acute kidney failure, unspecified; N18.3 - Chronic kidney disease, stage 3 (moderate) (3) Cardiomyopathy Current Visit: Yes Status: Acute Per cardiology: -TTE with LVEF 45-50% global hypokinesis, mild concentric LVH, RV mildly dilated iwth mild hypokinesis, bi-atrial enlargement, mild-moderate AR, moderate MR, mild TR, moderate pulmonary hypertension. -10/2016 TTE LVEF 55-60%. -Chest x-ray with small bilateral pleural effusion, mild pedal edema. -Stress 10/2016 with suspected area of artifact, no evidence of ischemia. -LHC 2011 with high-grade LAD s/p ANNETTE, occluded RCA supplied by L-R collaterals , and 50-60% circumflex. -On BB, not on karen/arb due to LAILA. Can consider addition prior to discharge. -CHF education reviewed with patient. -Discussed and reviewed with , can perform stress test as outpatient. -Will re-evaluate in outpatient setting regarding addition of karen/arb. Qualifiers: Cardiomyopathy type: unspecified Qualified Code(s): I42.9 - Cardiomyopathy , unspecified (4) CAD (coronary artery disease) Current Visit: Yes Status: Chronic Per cardiology: - PCI to LAD 2012, ACADEMIC DEAN RCA, mod dx in Lcx artery. -Denies chest pain. -ON asa, BB. Not on statin due to elevated LFTs. -No acute ECG changes. -No acute need for LHC at this time. Qualifiers: Coronary Disease-Associated Artery/Lesion type: [place] artery [place] vs. transplanted heart: [place] heart Associated angina: without angina Qualified Code(s): I25.10 - Atherosclerotic heart disease of [place] coronary artery without angina pectoris (5) A-fib Current Visit: No Status: Chronic Per cardiology: -Known PAF. Previously ON sotalol and cardizem in outpatient setting. -Upcdb1ecqs score 4 (age, HTN, CAD, CHf). Previously on coumadin. However pateint states he stopped taking coumadin due to "I got into a fight with the gina who ran the coumadin clinic." -Patient refuses to be placed back on anticoagulation. Aware of increased risk of CVA/embolic event while not on AC. OF note, INR 2.1 while not on anticoagulation. -Of note, patient previously on sotalol for rhythm control and no longer on anticoagulation. Will stop sotalol. Will pursue rate control strategy. -Pateint was given IV digoxin load yesteday. Started on oral today. -Average HR previous 12 hours noted to be 99,a .fib -Cardilogy will sign off and will follow in outpateint setting. Follow up set. Qualifiers: Atrial fibrillation type: paroxysmal Qualified Code(s): I48.0 - Paroxysmal atrial fibrillation Discussion w patient/family: The assessment and plan as outlined above was discussed with the patient and son who expressed understanding and agreement. All questions were answered. Thank you for involving us in the care of your patient. Please call with any questions. Patient seen and examined with . Son present in room. All questions answered from patient and son. Subjective Principal diagnosis: cardiomyopathy Interval history: Patient feeling much better today. Denies complaints. Objective Vital Signs, Last 4 Hours Temp Pulse Resp BP Pulse Ox 12/19/17 11:27 98.3 F 86 16 124/90 97 General: Conversant, No Apparent Distress HEENT: Atraumatic, Normocephaly, Mucus Membranes Moist Neck: No JVD, Normal carotid pulses Cardiac: Normal S1 and S2, No Murmur, Other (Irregularly irregular ) Lungs: Normal Breath Sounds, No Wheeze, Rales, Rhonchi Neuro: Alert and responsive, No focal deficits noted Abdomen: Soft, Non-Tender Skin: No rashes noted on visualized skin Musculoskeletal: No Chest Wall Tenderness Extremities: No Clubbing, No Cyanosis, No Edema, Normal Pulses Results 12/19/17 05:57 12/19/17 05:57 Lab Results Active Medications Ascorbic Acid (Vitamin C) 500 mg PO DAILY KATHRYN Stop: 06/09/18 09:01 Last Admin: 12/19/17 08:45 Dose: 500 mg Aspirin (Aspirin) 325 mg PO DAILY KATHRYN Stop: 06/09/18 09:01 Last Admin: 12/19/17 08:45 Dose: 325 mg Calcium Carbonate (Tums) 2,000 mg PO DAILY [facility] PRN Reason: Protocol Stop: 06/12/18 09:01 Last Admin: 12/19/17 08:45 Dose: 2,000 mg Digoxin (Lanoxin) 0.125 mg PO DAILY [facility] Stop: 06/20/18 09:01 Last Admin: 12/19/17 08:45 Dose: 0.125 mg Enoxaparin Sodium (Lovenox) 40 mg SQ 0600 [facility] PRN Reason: Protocol Stop: 06/11/18 06:01 Last Admin: 12/19/17 05:49 Dose: 40 mg Guaifenesin (Mucinex) 600 mg PO BID PRN PRN Reason: Congestion Stop: 06/09/18 00:08 Last Admin: 12/08/17 20:56 Dose: 600 mg Levalbuterol HCl (Xopenex) 1.25 mg IH [id number] PRN PRN Reason: Shortness Of Breath/Wheezing Stop: 06/09/18 23:31 Last Admin: 12/18/17 04:01 Dose: 1.25 mg Metoprolol Succinate (Toprol Xl) 75 mg PO BID [facility] Stop: 06/18/18 09:01 Last Admin: 12/19/17 08:45 Dose: 75 mg Naloxone HCl (Narcan) 0.4 mg IVP Q2MIN PRN PRN Reason: SEE COMMENTS Stop: 06/08/18 19:02 Nicotine (Nicoderm) 21 mg TD DAILY [facility] PRN Reason: Protocol Stop: 06/09/18 22:16 Last Admin: 12/19/17 08:45 Dose: Not Given Potassium Chloride (Potassium Chloride) 20 meq PO DAILY [facility] Stop: 06/12/18 15:16 Last Admin: 12/19/17 08:45 Dose: 20 meq Laboratory Tests 12/19/17 12/19/17 05:57 05:57 Hgb 13.7 Creatinine 1.10 - Imaging and Cardiology Chest Xray: report reviewed Stress Test: report reviewed Echo: report reviewed Cardiac cath: report reviewed - EKG Interpretation EKG results cardiology: other (Telemetry reviewed with average HR previous 12 hours noted to be 99, a.fib. PVCS noted.) - VTE Documentation of Mechanical Device: Intermittent pneumatic compression device Consult Discharge Plan - Plan Referrals: Evan Gutierrez CNP [Advanced Practice Nurse] - (OFFICE WILL CALL PATIENT AT HOME WITH FOLLOW UP APPOINTMENT SENT WEB REQUEST ON 12-13-17 @[id number]) Adrian Jones DO [Resident] - 12/24/17 10:15 am
--- NOTE | 2017-12-19 13:50 | Discharge Summary ---
- NOTES TO OUTPATIENT PROVIDER Notes to Outpatient Provider: Mr Bowen was admitted for acute hepatic failure and pneumonia. He had stopped his anticoagulation so Sotalol was stopped. He had significant issues with heart rate. Overall liver and renal function improved. Heart rate now better. To follow with card. Date of Encounter: 12/19/17 Time of Encounter: 08:10 - Discharge Diagnosis (1) Pneumonia Priority: Primary Status: Resolved Qualifiers: Pneumonia type: due to Pneumococcus Laterality: left Lung location: upper lobe of lung Qualified Code(s): J13 - Pneumonia due to Streptococcus pneumoniae (2) Heart failure Priority: Secondary Status: Chronic Qualifiers: Heart failure type: diastolic Heart failure chronicity: chronic Qualified Code(s): I50.32 - Chronic diastolic (congestive) heart failure (3) Hepatic encephalopathy Priority: Secondary Status: Resolved (4) Atrial fibrillation Priority: Secondary Status: Chronic Qualifiers: Atrial fibrillation type: persistent Qualified Code(s): I48.1 - Persistent atrial fibrillation (5) Tobacco abuse Priority: Secondary Status: Chronic (6) CAD (coronary artery disease) Priority: Secondary Status: Chronic Qualifiers: Coronary Disease-Associated Artery/Lesion type: [place] artery [place] vs. transplanted heart: [place] heart Associated angina: without angina Qualified Code(s): I25.10 - Atherosclerotic heart disease of [place] coronary artery without angina pectoris (7) Hypertension Priority: Secondary Status: Chronic Qualifiers: Hypertension type: essential hypertension Qualified Code(s): I10 - Essential (primary) hypertension (8) Elevated liver enzymes Priority: Secondary Status: Resolved (9) Acute respiratory failure with hypoxia Priority: Primary Status: Resolved Hospital course: Mr. Bowen is a 67 year old male with hx of atrial fibrillation presented to ED with confusion. He was found to have pneumonia and abnormal liver function. He was subsequently admitted. [facility] He was started on IV abx and seen by surgery for concern of acute cholecystitis. This was negative. He had acute renal failure as well. With treatment of pneumonia he overall improved. His renal function corrected and liver function is almost normal. He had some hepatic encephalopathy but this has improved as well. He had stopped taking his anticoagulation as outpatient. As a result Sotalol was stopped. He had significant issues with tachycardia despite attempts at treatment. Ultimately his heart rate was better controlled. Today he is afebrile. He is alert and oriented. He will follow with outpatient cardiology. He has completed abx and will follow up. Liver function nearly normal. Discharge discussed with: patient, nurse Time spent discussing smoking cessation with patient: 3 to 10 minutes - Time Spent with Patient Total time spent providing and/or coordinating discharge services: 45min - Discharge Medications Prescriptions: Digoxin [Lanoxin] 0.125 mg PO DAILY #30 tablet GuaiFENesin ER [Mucinex] 600 mg PO BID PRN #60 tbbp.12hr PRN Reason: Congestion Metoprolol XL (24 HR) Succ [Toprol Xl] 75 mg PO BID #90 tab.er.24h Nicotine Patch [Nicoderm] 21 mg TD DAILY #30 patch.td24 Potassium Chloride 20 meq PO DAILY #30 tab.er.prt Home Medications: Ascorbate Calcium [Vitamin C] 500 mg PO DAILY 11/02/16 [History] [place]-3/Dha/Epa/Fish Oil [Fish Oil 1,000 mg Softgel] 1,000 mg PO DAILY 11/02/16 [History] Vitamin E 100 unit PO DAILY 11/02/16 [History] Aspirin 325 mg PO DAILY 12/07/17 [History] Calcium Carbonate [Tums] 2,000 mg PO DAILY tab.chew 12/19/17 [Rx] Digoxin [Lanoxin] 0.125 mg PO DAILY #30 tablet 12/19/17 [Rx] GuaiFENesin ER [Mucinex] 600 mg PO BID PRN #60 tbbp.12hr 12/19/17 [Rx] Metoprolol XL (24 HR) Succ [Toprol Xl] 75 mg PO BID #90 tab.er.24h 12/19/17 [Rx] Nicotine Patch [Nicoderm] 21 mg TD DAILY #30 patch.td24 12/19/17 [Rx] Potassium Chloride 20 meq PO DAILY #30 tab.er.prt 12/19/17 [Rx] Allergies/Adverse Reactions: 3 Allergy/AdvReac Type Severity Reaction Status Date / Time diphenhydramine AdvReac Anxiety Verified 12/07/17 18:52 [From Benadryl] lorazepam [From Ativan] AdvReac Hallucinati Verified 12/19/17 05:44 ng Date of admission: 12/07/17 17:00 Primary care physician: PCP NONE Consults: 12/07/17 19:04 Consult to Chart Picker [CONS] Routine Reason for SW Consult: Please assess patient for possible home needs for post -discharge planning. 12/09/17 17:37 Consult to Cardiology [CONS] Routine Comment: Consulting Provider: Cardiology Sandy Reason for Consult: Worsening ejection fraction Call Completed: Yes 12/10/17 08:17 Consult to Nephrology [CONS] Routine Consulting Provider: Kidney Sandy/GEENA/TRACIE/PAM Reason for Consult: Worsening LAILA Time Notified: 08:17 Call Completed: Yes 12/10/17 09:23 Consult to Gastroenterology [CONS] Routine Consulting Provider: Gastroenterology Sandy Reason for Consult: Elevated LFTs Time Notified: 09:23 Call Completed: Yes Discharging clinician: Matheus Duron Anticipated date of discharge: 12/19/17 - Constitutional Vitals: Temp Pulse Resp BP Pulse Ox 98.3 F 86 16 124/90 97 12/19/17 11:27 12/19/17 11:27 12/19/17 11:27 12/19/17 11:27 12/19/17 11:27 General appearance: Present: cooperative, A&O X 3, pleasant, answers questions appropriately - Head Head exam: Present: normocephalic - Eye Eye exam: Present: EOMI, conjuntiva pink - ENT ENT exam: Present: mucous membranes moist - Respiratory Respiratory exam: Present: CTAB. Absent: rales, rhonchi, wheezes - Cardiovascular Cardiovascular exam: Present: irregular rhythm. Absent: tachycardia - GI/Abdominal GI/Abdominal exam: Present: soft. Absent: tenderness - Extremities Exam Extremities exam: Present: warm. Absent: tenderness - Neurological Exam Neurological exam: Present: alert, oriented X3 - Skin Skin exam: Present: dry, warm - Patient Status Disposition: Home, Self-Care Condition: Good Functional capacity at discharge: uses cane/walker Overall status at discharge: patient is progressing back to baseline - Discharge Instructions Instructions: Metoprolol (By mouth), Digoxin (By mouth), Guaifenesin (By mouth) , Potassium Supplement (By mouth), Atrial Fibrillation (DC), Chronic Hypertension (DC) Follow Up With: Evan Gutierrez RECEIVING MANAGER [Advanced Practice Nurse] - (OFFICE WILL CALL PATIENT AT HOME WITH FOLLOW UP APPOINTMENT SENT WEB REQUEST ON 12-13-17 @[id number]) Adrian Jones DO [Resident] - 12/24/17 10:15 am - Diet and Activity Activity: increase activity as tolerated Diet: low fat, low cholesterol, low salt diet - VTE Documentation of Mechanical Device: Intermittent pneumatic compression device
== END 2017-12-19 14:47 | disposition home or self-care (01) | DRG 291 ==
LOC: EMEROO 11:46 → SUATTDRO 17:00 → 2SOUTHHOLD 17:00 → 2NENU 18:38 → 2NNU 12-09 02:08
PROVIDERS: ADMIT Internal Medicine; ATTEND Internal Medicine